=== PATIENT | male | born 1950 | race Caucasian/White ===

== ENCOUNTER 2016-12-02 09:37 | Inpatient (IN) | payer MEDICARE, MEDICAID ==
[2016-12-02] VITALS (13 sets, daily range): BP systolic 69–102; BP diastolic 55–94
[~2016-12-02] VITALS: Ht 182.9 cm; Wt 70.9 kg
[~2016-12-02 09:37] MED LIST: ASP81TEC PO; CEPH500C PO; DOXY100T61 PO; FLUO10CA19 PO; GBPN300C PO; GBPN600T PO; HYDR-3583 PO; HYDR1TAB66 PO; HYDR1TAB86 PO; IBUP-15 PO; LEVO250T7 PO; MELO-198 PO; MORP30TA16 PO; MS15TCR PO; NICO1PAT16 TD; OMEP20TA2 PO; OXC5T PO; OXYC-309 PO; OXYC10TA7 PO; PARO10TA21 PO; SERT100T8 PO; SULF1TAB38 PO; TRAZ150T42 PO
--- OUTSIDE RECORDS SUMMARY | 2016-12-02 11:38 | XMS REPORT | Clinical Summary ---
Author Author [facility] Organization [facility] Address Unknown Phone Unavailable Care Team Providers Care Server Software Engineer Name Role Phone PCP Unavailable Source Comments Some departments are not documenting in the electronic medical record. If you do not see the information that you expected, contact Release of Information in the Health Information Management department at [phone] for further assistance in locating additional records.[facility] Allergies Active Allergy Reactions Severity Noted Date Comments Codeine RASH 01/04/2011 Can tolerate it now Vancomycin RASH 06/04/2011 Current Medications Prescription Sig. Disp. Refills Start End Date Status Date ascorbic acid (VITAMIN-C) Take 1 Tab by mouth 30 Tab 0 02/08/20 Active 500 mg tablet daily. 11 PARoxetine (PAXIL) 10 mg Take 20 mg by mouth Active tablet daily. omeprazole DR(+) Take 20 mg by mouth Active (PRILOSEC) 20 mg capsule daily. oxyCODONE/acetaminophen Take 1-2 Tabs by mouth 90 Tab 0 06/25/19 Active (PERCOCET; ENDOCET; every 4 hours as needed 12 ROXICET) 5/325 mg tablet for Pain. Max 12 tabs/day enoxaparin (LOVENOX) 40 Inject 0.4 mL into 40 Syringe 0 06/25/19 Active mg Syrg area(s) as directed 12 daily. 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 Alcohol Use Drinks/Week oz/Week Comments Yes 6 Cans of 3.6 beer Sex Assigned at Date Recorded Not on file Last Filed Vital Signs Vital Sign Reading Time Taken Blood Pressure 105/71 06/25/2011 4:42 PM CDT Pulse 63 06/25/2011 4:42 PM CDT Temperature 36.3 C (97.3 F) 06/25/2011 4:42 PM CDT Respiratory Rate 12 04/10/2011 1:01 PM APPLICATION SYSTEMS ARCHITECT Oxygen Saturation 100% 06/25/2011 4:42 PM CDT Inhaled Oxygen - - Concentration Weight 65.1 kg (143 lb 9.6 oz) 06/22/2011 8:30 PM CDT Height 182.9 cm (6') 06/22/2011 2:49 PM CDT Body Mass Index 19.48 06/22/2011 8:30 PM CDT Plan of Treatment Health Maintenance Due Date Last Done Comments HEPATITIS C SCREENING 1950 PHYSICAL (COMPREHENSIVE) 11/08/1955 EXAM COLORECTAL CANCER 1998 SCREENING SHINGLES VACCINE 2008 ABDOMINAL AORTIC ANEURYSM 2013 SCREENING PREVNAR/PNEUMOVAX (#1) 2013 01/04/2011 INFLUENZA VACCINE 11/23/2016 01/04/2011 TETANUS VACCINE 01/04/2021 01/04/2011 PERTUSSIS VACCINE Completed 01/04/2011 Results Not on filefrom Last 3 Months
--- OUTSIDE RECORDS SUMMARY | 2016-12-02 11:38 | XMS REPORT ---
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
--- OUTSIDE RECORDS SUMMARY | 2016-12-02 11:38 | XMS REPORT ---
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 Active Problem Need for prophylactic vaccination and inoculation, Influenza V04.81 Active Problem Adult failure to thrive 783.7 Active Problem Acid reflux K21.9 Active Problem Chronic pain G89.29 Active Problem Insomnia, unspecified type G47.00 Active Problem Fatigue R53.83 Active Problem Dysthymia F34.1 Active Problem Depression F32.9 Active Problem Cancer of right lower extremity C76.51 Active Assessment Weight loss R63.4 Active Assessment Insomnia, unspecified type G47.00 Active Assessment Chronic pain G89.29 Active Problem Acute gastritis without mention of hemorrhage 535.00 Active Assessment Irritable bowel syndrome with both constipation and diarrhea K58.2 Active Problem Diarrhea 787.91 Active Assessment Depression F32.9 Active Problem Major depressive disorder, recurrent episode, unspecified 296.30 Active Medications Medication Code System Code Instructions Start Date End Date Status Dosage Mobic [facility] [address]-22 7.5 MG Orally Once a day Jan 31, 2012 1 tablet Zoloft [facility] [address]-42 100 MG Orally Once a day June 02, 2015 1 tablet Ambien [facility] [address]-87 5 mg Orally Once a day Jan 10, 2016 1 tablet at bedtime Prilosec [facility] [address]-23 20 mg Orally Once a day Dec 11, 2012 1 capsule Gabapentin [facility] [address]-74 600 MG Orally Three times a day June 16, 2015 1 tablet Bentyl [facility] [address]-88 20 mg Orally 3 times a day - before meals Jan 10, 2016 as directed Procedures Procedure Coding System Code Date Office Visit, Est Pt., Level 3 CPT-4 92731 Jan 10, 2016 [facility] VISIT ESTABLISHED PATIENT CPT-4 G0467 Jan 10, 2016 Vital Signs Date/Time: Jan 10, 2016 Cardiac Monitoring Heart Rate 88 bpm Weight 130.7 lbs Height 72 in BMI 17.72 Index Blood Pressure Diastolic 70 mmHg Blood Pressure Systolic 142 mmHg Results No Known Results Summary Purpose [employer] Submission
--- OUTSIDE RECORDS SUMMARY | 2016-12-02 11:38 | XMS REPORT ---
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.5 Active Problem Chronic pain G89.29 Active Problem Depression F32.9 Active Problem Acid reflux K21.9 Active Problem Dysthymia F34.1 Active Problem Need for prophylactic vaccination and inoculation, Influenza V04.81 Active Problem Cancer of right lower extremity C76.51 Active Problem Fatigue R53.83 Active Assessment Chronic pain G89.29 Active Assessment Acid reflux K21.9 Active Problem Acute gastritis without mention of hemorrhage 535.00 Active Assessment Depression F32.9 Active Problem Diarrhea 787.91 Active Medications Medication Code System Code Instructions Start Date End Date Status Dosage MS Contin [facility] [address]-65 15 MG Orally every 12 hrs June 16, 2015 1 tablet Gabapentin [facility] [address]-56 600 MG Orally Three times a day June 16, 2015 1 tablet Mobic [facility] [address]-52 7.5 MG Orally Once a day Jan 31, 2012 1 tablet Zoloft [facility] [address]-17 100 MG Orally Once a day June 02, 2015 1 tablet Oxycodone HCl [facility] [address]-10 5 MG Orally 3 times a day June 02, 2015 1 capsule as needed Prilosec [facility] [address]-88 20 mg Orally Once a day Dec 11, 2012 1 capsule Results No Known Results Summary Purpose [employer] Submission
--- NOTE | 2016-12-02 11:55 | Consultation-Cardiology ---
HPI-Cardiology Cardiology Consultation Date of Consultation 12/02/16 Date of Admission Time Seen by Provider: 11:48 Indication: tachycardia, shortness of breath HPI 66 years old gentleman with history of tobaccoism, history of malignant melanoma. Admitted to [facility] with spontaneous pneumothorax, hypertension pneumothorax and had a chest tube placed. During the hospital stay he was improving, yesterday the plan was to remove the chest tube, noted to have frequent episodes of cardiac arrhythmia with multiple episode of paroxysmal atrial tachycardia and few episode of wide-complex tachycardia that appeared to be aberrant conduction. He felt palpitation and chest pain at the chest tube site on the left side of his chest. reported the syncopal episodes prior to the admission to [facility]. Had history of tobaccoism and COPD, shortness of breath. Home Medications & Allergies Allergies: Coded Allergies: No Known Drug Allergies (Unverified , 12/02/16) Home Medication List Reviewed: Yes NSO-Airvpr-Jpnweh Hx Immunizations Up To Date Date of Pneumonia Vaccine: Mar 25, 2010 Date of Influenza Vaccine: Jan 23, 2013 Past Medical History past medical history as discussed below Family Medical History Family Medical Hx noncontributory to his current condition Constitutional: see HPI, malaise, weakness EENTM: see HPI, no symptoms reported Respiratory: see HPI, cough, dyspnea on exertion, No hemoptysis, No orthopnea, No phlegm, short of breath, No stridor, No wheezing, No other Cardiovascular: see HPI, chest pain, No edema, No Hx of Intervention, No palpitations, No syncope, No vascular heart diseas, No other Gastrointestinal: no symptoms reported, see HPI Genitourinary: no symptoms reported, see HPI Musculoskeletal: no symptoms reported, see HPI Skin: no symptoms reported, see HPI Psychiatric/Neurological: No Symptoms Reported, See HPI Reviewed Test Results Reviewed Test Results Lab patient arrived from [facility], no labs are available in our system, had lab work done in [facility] with normal metabolic profile, slightly elevated troponin level, mild leukocytosis. Physical Exam Vital Signs Vital Sign - Last 12Hours 12/02/16 11:05 Temp 98.9 Pulse 95 Resp 10 B/P (MAP) 92/74 Pulse Ox 99 O2 Delivery Room Air Capillary Refill : General Appearance: No Apparent Distress, WD/WN Eyes: Bilateral Eye Normal Inspection, Bilateral Eye PERRL, Bilateral Eye EOMI HEENT: PERRL/EOMI, TMs Normal, Normal ENT Inspection, Pharynx Normal Neck: Full Range of Motion, Normal Inspection, Non Tender, Supple, Carotid Bruit Respiratory: Chest Non Tender, Normal Breath Sounds, No Accessory Muscle Use, No Respiratory Distress, Crackles, Decreased Breath Sounds Cardiovascular: Regular Rate, Rhythm, No Edema, No Gallop, No JVD, Normal Peripheral Pulses, Systolic Murmur Gastrointestinal: Normal Bowel Sounds, No Organomegaly, No Pulsatile Mass, Non Tender, Soft Back: Normal Inspection, No CVA Tenderness, No Vertebral Tenderness Extremity: Normal Capillary Refill, Normal Inspection, Normal Range of Motion, Non Tender, No Calf Tenderness, No Pedal Edema Neurologic/Psychiatric: Alert, Oriented x3, No Motor/Sensory Deficits, Normal Mood/Affect Skin: Normal Color, Warm/Dry Lymphatic: No Adenopathy A/P-Cardiology Admission Diagnosis Spontaneous pneumothorax Chest pain nonspecific etiology Paroxysmal atrial tachycardia Shortness of breath Assessment/Plan Spontaneous pneumothorax, status post chest tube placement. Improving. Followed and managed by Dr. Fernando Multiple episodes of paroxysmal atrial tachycardia, had 2 episodes of wide complex tachycardia which appeared to be aberrant conduction. Patient will be monitored on telemetry here. I will use low-dose beta blockers if patient can tolerate it Chest pain nonspecific etiology, it could be secondary to the chest tube, I have seen him in 2013 for chest pain and shortness of breath, had a stress test and echocardiogram done which did not show any significant ischemia at that time. Continue to monitor for now, had mildly elevated troponin level. Continue to monitor troponin and EKG Borderline hypotension, blood pressure is in the upper 90s, I will start her on IV fluid and monitor closely. 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 Followed by Dr. Richmond History of pulmonary nodule, followed by Dr. Richmond. COPD/tobaccoism, patient is still an active smoker smokes about a pack a day, educated on smoking cessation. Dr. Hernandez is covering for me starting tomorrow AUREA WU MD Dec 02, 2016 11:55
--- NOTE | 2016-12-02 13:21 | Diagnostic Imaging Report ---
INDICATION: Arrhythmia. Left-sided pneumothorax. Comparison with 08/11/2014. FINDINGS: There is a chest tube present on the left tip extended toward the hilum. Left lung is well-aerated. There is no evidence of pneumothorax. No subcutaneous air. There is mild hyperaeration of the right lung. There is bilateral chronic interstitial lung disease. No pleural effusion. IMPRESSION: Satisfactory left chest tube position with reexpansion of the left lung. No evidence of residual pneumothorax or significant subcutaneous emphysema. Dictated by: Dictated on workstation # [id number]
[2016-12-02] MEDS: NS IV 1000 ML 1,000 ML IV SCH ×2 (13:40→19:18)
[2016-12-02] MEDS: ENOXAPARIN 40 MG/0.4 ML (LOVENOX) SYR SC SCH (13:40)
[2016-12-02] MEDS ORDERED: NS (IVPB) 500 ML IV ONE (14:00)
[2016-12-02] MEDS ORDERED: NS IV 1000 ML 1,000 ML IV SCH ×2 (14:00→17:45)
--- NOTE | 2016-12-02 16:01 | Consultation ---
History of Present Illness History of Present Illness Patient Consulted On(kylie/time) 12/02/16 15:55 Date Seen by Provider: Dec 02, 2016 Time Seen by Provider: 15:56 Reason for Visit: tachycardia, shortness of breath History of Present Illness consult requested by Dr. Erickson for spontaneous left pneumothorax. patient is a 66-year-old male who was transferred via [place] due to arrhythmia and need for cardiology consultation. Patient with spontaneous left thorax. Patient denies any trauma to the chest. Patient states that he is having increasing difficulty breathing and was evaluated found to have a pneumothorax and a chest tube was placed in [facility]. Patient states that he is doing well but he began having arrhythmias and was transferred for cardiology consultation. Patient at this time states he has a little bit of left chest discomfort where the tube is present. He does report some previous syncopal episodes prior to his admission in [facility]. Patient states that his breathing has improved significantly and that they're talking about removing the tube tired to transfer. Patient has no other complaints at this time. Denies any nausea vomiting fever sweats chills or shortness of breath. Chest x-ray demonstrating left thoracostomy tube in good position no pneumothorax or subcutaneous emphysema. Allergies and Home Medications Allergies Coded Allergies: No Known Drug Allergies (Unverified , 12/02/16) Home Medications No Active Prescriptions or Reported Meds Past Ujppehd-Nnebpa-Pryccx Hx Patient Social History Alcohol Use: Regular Use Number of Drinks Today: 0 Recreational Drug Use: No Smoking Status: Current Everyday Smoker Type Used: Cigarettes Recent Foreign Travel: No Contact w/Someone Who Travel: No Recent Infectious Disease Expo: No Recent Hopitalizations: Yes Physical Abuse Screen: No Sexual Abuse: No Immunizations Up To Date Date of Pneumonia Vaccine: Mar 25, 2010 Date of Influenza Vaccine: Jan 23, 2013 Seasonal Allergies Seasonal Allergies: No Surgeries History of Surgeries: No Respiratory History of Respiratory Disorde: Yes Respiratory Disorders: COPD Cardiovascular History of Cardiac Disorders: No Neurological History of Neurological Disord: Yes Reproductive System Hx Reproductive Disorders: No Sexually Transmitted Disease: No Genitourinary History of Genitourinary Disor: No Gastrointestinal History of Gastrointestinal Di: Yes Gastrointestinal Disorders: Gastroesophageal Reflux Musculoskeletal History of Musculoskeletal Dis: Yes (RIGHT LEG 3" SHORTER THAN LEFT LEG/ osteoarthrithis) Endocrine History of Endocrine Disorders: No HEENT History of HEENT Disorders: Yes Hearing Impairment: Hard of Hearing Cancer History of Cancer: Yes (malignant neoplasm on right leg/mai) Psychosocial History of Psychiatric Problem: Yes Behavioral Health Disorders: Anxiety Integumentary History of Skin or Integumenta: No Blood Transfusions History of Blood Disorders: No Family Medical History Significant Family History: No Pertinent Family Hx Family Medial History: Patient reports no known family medical history. Review of Systems-General Constitutional: see HPI EENTM: no symptoms reported Respiratory: see HPI Cardiovascular: syncope, other (arrhythmia) Gastrointestinal: no symptoms reported Genitourinary: no symptoms reported Musculoskeletal: no symptoms reported Skin: no symptoms reported Psychiatric/Neurological: No Symptoms Reported Physical Exam-General Problems Physical Exam Vital Signs Vital Sign - Last 12Hours 12/02/16 11:05 Temp 98.9 Pulse 95 Resp 10 B/P (MAP) 92/74 Pulse Ox 99 O2 Delivery Room Air Capillary Refill : General Appearance: no apparent distress HEENT: PERRL/EOMI, normal ENT inspection Neck: supple Respiratory: no respiratory distress, no accessory muscle use Cardiovascular: tachycardia Gastrointestinal: non tender, soft, no organomegaly Rectal: deferred Back: no CVA tenderness Extremities: non-tender, normal inspection Neurologic/Psychiatric: alert, normal mood/affect, oriented x 3 Skin: warm/dry Comments Left chest with thoracostomy tube Assessment/Plan Assessment/Plan Assessment/Plan Patient with spontaneous left pneumothorax status post left thoracostomy tube placement in [facility] . Patient transferred for arrhythmia which cardiology has been consulted. Chest x-ray demonstrating full expansion of the left long there is no air leak on the atrium therefore we will put to water seal at this time and repeat chest x-ray 4 hours. We will repeat chest x-ray in the morning if this remains expanded we'll likely remove chest tube tomorrow. No further surgical intervention needed at this time continue medical management. Clinical Quality Measures DVT/VTE Risk/Contraindication: Risk Factor Score Per Nursin RFS Level Per Nursing on Admit: 4+=Very High AMARILYS DENISE DO Dec 02, 2016 16:00
--- NOTE | 2016-12-02 16:43 | History & Physicial (CH[facility]) ---
HPI History of Present Illness: 66 yo male transferred from [facility] due to need for further Cardiology evaluation. He was admitted at [facility] with shortness of breath and pneumothorax requiring chest tube placement. He was doing well from a respiratory standpoint but noted to have brief periods of V tach overnight and was therefore transferred for more Cardiology evaluation. The etiology of the pneumothorax is unknown, but possibly a ruptured bulla related to COPD. He relates a previous diagnosis of COPD but is unable to clarify if he has ever had PFTs and he does not use inhalers. Date seen by provider: Dec 02, 2016 Time Seen by Provider: 12:15 Attending Physician Kristen Erickson MD PCP Sarah Conteh DO Consult Date of Admission Dec 02, 2016 at 11:34 am Home Medications Home Medications Reviewed patient Home Medication Reconciliation Form Allergies Coded Allergies: No Known Drug Allergies (Unverified , 12/02/16) KHW-Lymfqh-Avskbw Hx Patient Social History Alcohol Use: Regular Use Recreational Drug Use: No Smoking Status: Current Everyday Smoker Type Used: Cigarettes Recent Foreign Travel: No Contact w/other who traveled: No Recent Hopitalizations: Yes Recent Infectious Disease Expo: No Physical Abuse Screen: No Sexual Abuse: No Immunizations Up To Date Date of Pneumonia Vaccine: Mar 25, 2010 Date of Influenza Vaccine: Jan 23, 2013 Past Medical History PMHx: Depression Chronic pain GERD Skin cancer right leg with radiation and chemotherapy PSurgHx: Squamous cell carcinoma excision Right thigh skin graft Family Medical History Significant Family History: No Pertinent Family Hx Review of Systems ([facility]) Constitutional: No fever EENTM: no symptoms reported Respiratory: No short of breath Cardiovascular: chest pain (due to chest tube) Gastrointestinal: no symptoms reported Genitourinary: no symptoms reported Musculoskeletal: no symptoms reported Skin: no symptoms reported Psychiatric/Neurological: No Symptoms Reported Physical Exam-([facility]) Physical Exam Vital Signs VS - Last 72 Hours, by Label 12/02/16 12/02/16 12/02/16 12/02/16 11:05 11:15 13:00 13:00 Temp 98.9 Pulse 95 78 79 Resp 10 17 B/P (MAP) 92/74 82/64 Pulse Ox 99 99 O2 Delivery Room Air Room Air Room Air 12/02/16 12/02/16 12/02/16 12/02/16 14:00 15:00 16:00 16:15 Pulse 82 98 104 Resp 17 15 12 B/P (MAP) 99/94 102/86 69/55 Pulse Ox 99 100 100 O2 Delivery Room Air Room Air Room Air Room Air 12/02/16 12/02/16 12/02/16 12/02/16 16:30 17:00 18:00 18:43 Temp 98.8 Pulse 85 102 Resp 19 17 B/P (MAP) 85/70 93/78 Pulse Ox 100 95 94 O2 Delivery Room Air Room Air Nasal Cannula O2 Flow Rate 2.00 12/02/16 19:00 Pulse 112 Capillary Refill : General Appearance: no apparent distress, cachetic Respiratory: lungs clear, normal breath sounds Cardiovascular: regular rate, rhythm, no edema, no murmur Gastrointestinal: normal bowel sounds, non tender, soft Extremities: no pedal edema Neurologic/Psychiatric: alert, normal mood/affect Skin: warm/dry Assessment/Plan Assessment/Plan Admission Dx Pneumothorax Tachy arrhythmias COPD Hypotension Plan Pneumothorax- s/p chest tube placement, stable with expanded lung and no respiratory distress -Appreciate Surgery recommendations Tachy arrhythmias- with elevated (trending down) troponin at [facility]. Appreciate Cardiology recommendations. EKG and troponin in am per Dr. Miller. Electrolytes normal today at [facility], recheck in the am COPD- possible based on history, no testing or clear diagnosis. Will monitor respiratory status and treat with inhalers as needed. Hypotension- unclear etiology, review of records from [facility] shows initial leukocytosis resolved, afebrile and currently he has normal heart rate and is asymptomatic -NS bolus followed by 150 ml/hr Diagnosis/Problems: Clinical Quality Measures DVT/VTE Risk/Contraindication: Risk Factor Score Per Nursin RFS Level Per Nursing on Admit: 4+=Very High Copy Copies To 1: IVON Nicole BETHANY N MD Dec 02, 2016 4:43 pm
[2016-12-02] MEDS ORDERED: NS IV 500 ML 500 ML IV ONE (17:45)
--- NOTE | 2016-12-02 20:51 | Diagnostic Imaging Report ---
INDICATION: Left pneumothorax. EXAMINATION: Frontal chest was obtained at 8:26 p.m. COMPARISON: Same day at 1:07 p.m. FINDINGS: Left-sided chest tube is in place and unchanged compared to the prior study. There is no pneumothorax at this time. There is worsening central vascular congestion with diffuse interstitial edema. There is no significant pleural fluid. IMPRESSION: No pneumothorax with left chest tube in place. Worsening central vascular congestion with interstitial edema compared to the prior study. Dictated by: Dictated on workstation # [id number]
[2016-12-02] MEDS: ALBUMIN 5% 12.5 GM/250 ML 250 ML IV SCH ×2 (21:15→21:42)
[2016-12-02] MEDS ORDERED: RT-ALBUTEROL SULF 2.5 MG/3 ML PRE-MIX VIAL IH PRN (21:15)
[2016-12-02 21:26] LABS: BILIRUBIN,URINE NEGATIVE (NEGATIVE); KETONES,URINE 1+ (NEGATIVE); LEUKOCYTE ESTERASE ,URINE 3+ (NEGATIVE); NITRITE,URINE NEGATIVE (NEGATIVE); PH,URINE 5 (5-9); PROTEIN,URINE 2+ (NEGATIVE); UROBILINOGEN,URINE 1 MG/DL (NORMAL)
[2016-12-02 21:29] LABS: ALBUMIN 2.5 GM/DL (3.2-4.5); ANION GAP 8 MMOL/L (5-14); BLOOD UREA NITROGEN 14 MG/DL (7-18); BUN/CREATININE RATIO 23; CARBON DIOXIDE 24 MMOL/L (21-32); CHLORIDE 102 MMOL/L (98-107); CREATININE SERUM 0.62 MG/DL (0.60-1.30); GFR ESTIMATED > 60; GLUCOSE 81 MG/DL (70-105); MAGNESIUM 1.7 MG/DL (1.8-2.4); POTASSIUM 4.6 MMOL/L (3.6-5.0); SODIUM 134 MMOL/L (135-145)
[2016-12-02 21:39] LABS: SQUAMOUS EPITHELIAL CELL,UR 25-50 /HPF; WBC,URINE TNTC /HPF
[2016-12-02 21:42] LABS: TROPONIN I 0.34 NG/ML (<0.30)
[2016-12-02] MEDS: RT-ALBUTEROL/IPRATROPIUM 3 ML (DUONEB) VIAL INH SCH (22:00)
[2016-12-02] MEDS: ALBUMIN 25% 25 GM/100 ML 100 ML IV SCH ×2 (22:25→23:05)
[2016-12-03] VITALS (25 sets, daily range): BP systolic 64–135; BP diastolic 50–100
[2016-12-03] MEDS: ACETAMINOPHEN 325 MG TABLET/CAPLET (TYLENOL) PO PRN (00:22)
[2016-12-03] MEDS ORDERED: MAGNESIUM 1 GM/100 ML IVPB 200 ML IV ONE (00:39)
[2016-12-03] MEDS ORDERED: fentaNYL INJECTION 100 MCG/2 ML AMP ONE (00:48)
[2016-12-03] MEDS ORDERED: FUROSEMIDE 40 MG/4 ML INJ (LASIX) ONE (00:48)
[2016-12-03] MEDS: MAGNESIUM 1 GM/100 ML IVPB 100 ML IV SCH ×3 (00:50→05:46)
[2016-12-03] MEDS ORDERED: FUROSEMIDE 40 MG/4 ML INJ (LASIX) IV ONE (01:00)
[2016-12-03] MEDS ORDERED: fentaNYL INJECTION 100 MCG/2 ML AMP IV ONE (01:00)
[2016-12-03] MEDS: RT-ALBUTEROL/IPRATROPIUM 3 ML (DUONEB) VIAL INH SCH ×6 (01:20→22:02)
[2016-12-03 01:21] LABS: ABG BASE EXCESS -5.7 MMOL/L (-2.5-2.5); ABG HCO3 20 MMOL/L (23-27); ABG OXYGEN SATURATION 87 % (94-100); ABG PCO2 47 MMHG (35-45); ABG PO2 70 MMHG (79-93); ABG TCO2 21.2 MMOL/L (21.0-31.0)
[2016-12-03 01:23] LABS: ABG PH 7.26 (7.37-7.43); ALLENS TEST YES-POS; PATIENT TEMP 101.5
[2016-12-03] MEDS ORDERED: FUROSEMIDE 40 MG/4 ML INJ (LASIX) IVP ONE ×2 (01:45→18:45)
[2016-12-03] MEDS ORDERED: NS IV 500 ML 500 ML ONE (02:49)
[2016-12-03] MEDS ORDERED: NS IV 500 ML 500 ML IV ONE (03:00)
[2016-12-03 03:16] LABS: MEAN PLATELET VOLUME 10.6 FL (7.4-10.4); RED BLOOD COUNT 3.87 10^6/uL (4.35-5.85); RED CELL DISTRIBUTION WIDTH 12.3 % (10.0-14.5); WHITE BLOOD COUNT 9.9 10^3/uL (4.3-11.0)
[2016-12-03 03:17] LABS: ABG BASE EXCESS -0.4 MMOL/L (-2.5-2.5); ABG HCO3 23 MMOL/L (23-27); ABG OXYGEN SATURATION 96 % (94-100); ABG PCO2 33 MMHG (35-45); ABG PH 7.46 (7.37-7.43); ABG PO2 71 MMHG (79-93)
[2016-12-03 03:18] LABS: ALLENS TEST YES-POS; PATIENT TEMP 98.4
[2016-12-03 03:34] LABS: ALANINE AMINOTRANSFERASE 16 U/L (0-55); ALBUMIN 3.3 GM/DL (3.2-4.5); ANION GAP 9 MMOL/L (5-14); ASPARTATE AMINO TRANSFERASE 25 U/L (5-34); BILIRUBIN,TOTAL 1.8 MG/DL (0.1-1.0); BLOOD UREA NITROGEN 14 MG/DL (7-18); BUN/CREATININE RATIO 21; CALCIUM 8.1 MG/DL (8.5-10.1); CARBON DIOXIDE 23 MMOL/L (21-32); CHLORIDE 102 MMOL/L (98-107); CREATININE SERUM 0.68 MG/DL (0.60-1.30); GFR ESTIMATED > 60; GLUCOSE 126 MG/DL (70-105); MAGNESIUM 2.6 MG/DL (1.8-2.4); PHOSPHORUS 2.2 MG/DL (2.3-4.7); SODIUM 134 MMOL/L (135-145); TOTAL PROTEIN 6.2 GM/DL (6.4-8.2)
[2016-12-03 03:42] LABS: TROPONIN I 0.33 NG/ML (<0.30)
[2016-12-03] MEDS: NS IV 1000 ML 1,000 ML IV SCH ×2 (05:15→10:16)
[2016-12-03] MEDS: POTASSIUM CL 10MEQ/50ML IVPB 50 ML IV SCH (05:45)
[2016-12-03] MEDS: KCL 20 MEQ TAB (K-DUR) PO SCH (05:46)
[2016-12-03] MEDS ORDERED: NOREPINEPHRINE 4 MG/4 ML (LEVOPHED) AMP IV ONE (07:23)
[2016-12-03] MEDS ORDERED: D5W 250 ML (IVPB) 250 ML IV ONE (07:23)
[2016-12-03] MEDS ORDERED: NOREPINEPHRINE 4 MG in D5W 250 ML (IVPB) 250 ML IV SCH (07:45)
--- NOTE | 2016-12-03 07:52 | Pulmonary Consultation ---
History of Present Illness History of Present Illness Date of Consultation 12/03/16 07:47 Time Seen by Provider: 07:47 Date of Admission Reason for Visit: tachycardia, shortness of breath History of Present Illness 66yo with hx of COPD transferred from [facility] for higher level of care. He had presented to [facility] secondary to worsening SOB and was found to have a PTX and chest tube was placed. Pt has also been having periods of V Tach. Pt has been requiring BiPAP throughout the night secondary to excessive SOB. His chest tube is in place and positioned appropriately. I am consulted for pulmonary CC management. Allergies and Home Medications Allergies Coded Allergies: No Known Drug Allergies (Unverified , 12/02/16) Home Medications No Active Prescriptions or Reported Meds Past Ljiivok-Yjugri-Thjjpp Hx Patient Social History Alcohol Use: Regular Use Number of Drinks Today: 0 Alcohol Beverage of Choice: Beer Recreational Drug Use: No Smoking Status: Current Everyday Smoker Type Used: Cigarettes Recent Foreign Travel: No Contact w/Someone Who Travel: No Recent Infectious Disease Expo: No Recent Hopitalizations: Yes Immunizations Up To Date Date of Pneumonia Vaccine: Mar 25, 2010 Date of Influenza Vaccine: Jan 23, 2013 Seasonal Allergies Seasonal Allergies: No Surgeries History of Surgeries: No Respiratory History of Respiratory Disorde: Yes Respiratory Disorders: COPD Cardiovascular History of Cardiac Disorders: No Neurological History of Neurological Disord: Yes Reproductive System Hx Reproductive Disorders: No Sexually Transmitted Disease: No Genitourinary History of Genitourinary Disor: No Gastrointestinal History of Gastrointestinal Di: Yes Gastrointestinal Disorders: Gastroesophageal Reflux Musculoskeletal History of Musculoskeletal Dis: Yes (RIGHT LEG 3" SHORTER THAN LEFT LEG/ osteoarthrithis) Endocrine History of Endocrine Disorders: No HEENT History of HEENT Disorders: Yes Hearing Impairment: Hard of Hearing Cancer History of Cancer: Yes (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 Review of Systems Time Seen by Provider: 08:16 Constitutional: Fever, Sweats, Weakness, Malaise Respiratory: Cough, Dry, Shortness of breath, SOB with excertion Neurological: Weakness, Numbness Exam Exam Vital Signs Date Time Temp Pulse Resp B/P (MAP) Pulse Ox O2 Delivery O2 Flow Rate FiO2 12/03/16 06:13 94 24 100 25.00 12/03/16 06:00 93 22 95/70 100 NIV Bilevel 25.00 12/03/16 05:00 92 23 102/80 100 NIV Bilevel 25.00 12/03/16 04:00 93 19 100/80 100 NIV Bilevel 25.00 12/03/16 04:00 NIV Bilevel 25 12/03/16 03:00 98.4 NIV Bilevel 25.00 12/03/16 03:00 110 15 98/80 100 NIV Bilevel 25.00 12/03/16 02:15 116 15 100 25.00 12/03/16 02:00 99.6 NIV Bilevel 25.00 12/03/16 02:00 124 23 64/50 100 NIV Bilevel 25.00 12/03/16 01:20 95 Nasal Cannula 3.00 12/03/16 01:10 101.5 12/03/16 01:03 101.5 12/03/16 01:03 101.5 12/03/16 01:00 131 37 123/100 97 Nasal Cannula 1.50 12/03/16 01:00 132 12/03/16 00:22 101.5 12/03/16 00:19 101.5 12/03/16 00:00 Nasal Cannula 3.00 12/03/16 00:00 99 21 100 Nasal Cannula 1.50 12/02/16 23:31 101.1 Nasal Cannula 1.50 12/02/16 23:06 100.5 Nasal Cannula 1.50 12/02/16 23:00 95 21 92/72 100 12/02/16 22:11 101.6 Nasal Cannula 1.50 12/02/16 22:00 101 13 91/68 98 12/02/16 22:00 98 Nasal Cannula 1.50 12/02/16 21:10 104 96 12/02/16 21:00 103 12 87/61 99 12/02/16 20:00 98.9 Nasal Cannula 2.00 12/02/16 20:00 Nasal Cannula 2.00 12/02/16 20:00 99 16 86/67 99 12/02/16 19:00 112 12/02/16 19:00 112 16 98/73 99 12/02/16 18:43 94 Nasal Cannula 2.00 12/02/16 18:00 102 17 93/78 95 Room Air 12/02/16 17:00 85 19 85/70 100 Room Air 12/02/16 16:30 98.8 12/02/16 16:15 Room Air 12/02/16 16:00 104 12 69/55 100 Room Air 12/02/16 15:00 98 15 102/86 100 Room Air 12/02/16 14:00 82 17 99/94 99 Room Air 12/02/16 13:00 79 12/02/16 13:00 78 17 82/64 99 Room Air 12/02/16 11:15 Room Air 12/02/16 11:05 98.9 95 10 92/74 99 Room Air General Appearance: No Apparent Distress, WD/WN HEENT: PERRL/EOMI, TMs Normal, Normal ENT Inspection, Pharynx Normal Neck: Full Range of Motion, Normal Inspection, Non Tender, Supple, Carotid Bruit Respiratory: Chest Non Tender, Normal Breath Sounds, No Accessory Muscle Use, No Respiratory Distress, Crackles, Decreased Breath Sounds Cardiovascular: Regular Rate, Rhythm, No Edema, No Gallop, No JVD, Normal Peripheral Pulses, Systolic Murmur Gastrointestinal: normal bowel sounds, non tender, soft Extremity: Normal Capillary Refill, Normal Inspection, Normal Range of Motion, Non Tender, No Calf Tenderness, No Pedal Edema Neurologic/Psychiatric: Alert, Oriented x3, No Motor/Sensory Deficits, Normal Mood/Affect Skin: Normal Color, Warm/Dry Lymphatic: No Adenopathy Results Lab Laboratory Tests 12/02/16 21:00 12/03/16 03:05 Assessment/Plan Assessment/Plan Spontaneous PTX with left chest tube in place Fever r/o infection -Aguirre cultures -Start vanco zosyn -Send pleural fluid down for C&S and cytology Acute respiratory failure -BiPAP PRN -Titrate oxygen -SVNs Hypotension -Pt is currently on Levophed -Check TSH and random cortisol -Pt has been receiving IVF boluses throughout the night. 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 Richmond Tobacco -education 255 Clinical Quality Measures DVT/VTE Risk/Contraindication: Risk Factor Score Per Nursin RFS Level Per Nursing on Admit: 4+=Very High DALJIT NEWTON DO Dec 03, 2016 07:52
[2016-12-03] MEDS ORDERED: PHARMACY TO DOSE IV SCH (08:15)
[2016-12-03] MEDS ORDERED: PIPERACILLIN/TAZOBACTAM 4.5 GM/NS 100 ML IV NR ×2 (08:16)
--- NOTE | 2016-12-03 08:27 | Diagnostic Imaging Report ---
Portable upright radiograph of the chest. INDICATION: Pneumothorax. FINDINGS: There is a left chest tube in place. There are increasing interstitial right perihilar infiltrates. Developing small right effusion is suggested. The heart size is at the upper limits of normal. No pneumothorax. IMPRESSION: 1. Stable left chest tube with no pneumothorax. 2. Worsening right perihilar and basilar infiltrates. Dictated by: Dictated on workstation # [id number]
[2016-12-03] MEDS ORDERED: VANCOMYCIN 1250 MG/NS 250 ML IVPB IV NR ×2 (08:30)
--- NOTE | 2016-12-03 10:31 | Progress Note ---
Subjective Date Seen by Provider: Dec 03, 2016 Time Seen by Provider: 08:30 Subjective/Events-last exam Patient overnight requiring BiPAP for having shortness of breath and difficulty breathing. Patient also with fever MAXIMUM TEMPERATURE of 101.5. Patient states this morning he is feeling better than he did yesterday. His chest tube still with no air leak. His chest x-ray demonstrating right chest infiltrated the chest tubes in good position PICC line about to be placed Objective Exam Vital Signs Date Time Temp Pulse Resp B/P (MAP) Pulse Ox O2 Delivery O2 Flow Rate FiO2 12/03/16 10:02 100 Nasal Cannula 3.00 12/03/16 10:00 97 21 135/72 97 Nasal Cannula 3.00 12/03/16 09:00 107 17 103/75 100 Nasal Cannula 3.00 12/03/16 08:00 NIV Bilevel 25 12/03/16 07:58 98.7 99 17 91/56 100 Nasal Cannula 3.00 12/03/16 07:00 100 15 92/71 100 Nasal Cannula 3.00 12/03/16 07:00 100 12/03/16 06:13 94 24 100 25.00 12/03/16 06:00 93 22 95/70 100 NIV Bilevel 25.00 12/03/16 05:00 92 23 102/80 100 NIV Bilevel 25.00 12/03/16 04:00 93 19 100/80 100 NIV Bilevel 25.00 12/03/16 04:00 NIV Bilevel 25 12/03/16 03:00 98.4 NIV Bilevel 25.00 12/03/16 03:00 110 15 98/80 100 NIV Bilevel 25.00 12/03/16 02:15 116 15 100 25.00 12/03/16 02:00 99.6 NIV Bilevel 25.00 12/03/16 02:00 124 23 64/50 100 NIV Bilevel 25.00 12/03/16 01:20 95 Nasal Cannula 3.00 12/03/16 01:10 101.5 12/03/16 01:03 101.5 12/03/16 01:03 101.5 12/03/16 01:00 131 37 123/100 97 Nasal Cannula 1.50 12/03/16 01:00 132 12/03/16 00:22 101.5 12/03/16 00:19 101.5 12/03/16 00:00 Nasal Cannula 3.00 12/03/16 00:00 99 21 100 Nasal Cannula 1.50 12/02/16 23:31 101.1 Nasal Cannula 1.50 12/02/16 23:06 100.5 Nasal Cannula 1.50 12/02/16 23:00 95 21 92/72 100 12/02/16 22:11 101.6 Nasal Cannula 1.50 12/02/16 22:00 101 13 91/68 98 12/02/16 22:00 98 Nasal Cannula 1.50 12/02/16 21:10 104 96 12/02/16 21:00 103 12 87/61 99 12/02/16 20:00 98.9 Nasal Cannula 2.00 12/02/16 20:00 Nasal Cannula 2.00 12/02/16 20:00 99 16 86/67 99 12/02/16 19:00 112 12/02/16 19:00 112 16 98/73 99 12/02/16 18:43 94 Nasal Cannula 2.00 12/02/16 18:00 102 17 93/78 95 Room Air 12/02/16 17:00 85 19 85/70 100 Room Air 12/02/16 16:30 98.8 12/02/16 16:15 Room Air 12/02/16 16:00 104 12 69/55 100 Room Air 12/02/16 15:00 98 15 102/86 100 Room Air 12/02/16 14:00 82 17 99/94 99 Room Air 12/02/16 13:00 79 12/02/16 13:00 78 17 82/64 99 Room Air 12/02/16 11:15 Room Air 12/02/16 11:05 98.9 95 10 92/74 99 Room Air Capillary Refill : General Appearance: No Apparent Distress HEENT: PERRL/EOMI, TMs Normal, Normal ENT Inspection, Pharynx Normal Neck: Full Range of Motion, Normal Inspection, Non Tender, Supple, Carotid Bruit Respiratory: Chest Non Tender, Normal Breath Sounds, No Accessory Muscle Use, No Respiratory Distress, Crackles, Decreased Breath Sounds Cardiovascular: Normal Peripheral Pulses, Tachycardia Gastrointestinal: normal bowel sounds, non tender, soft Extremity: Normal Capillary Refill, Normal Inspection, Normal Range of Motion, Non Tender, No Calf Tenderness, No Pedal Edema Neurologic/Psychiatric: Alert, Oriented x3, No Motor/Sensory Deficits, Normal Mood/Affect Skin: Normal Color, Warm/Dry Lymphatic: No Adenopathy Results Lab Laboratory Tests 12/02/16 21:00: Hemoglobin 13.7, Sodium Level 134L, Potassium Level 4.6, Chloride Level 102, Carbon Dioxide Level 24, Anion Gap 8, Blood Urea Nitrogen 14, Creatinine 0.62, Estimat Glomerular Filtration Rate > 60, BUN/Creatinine Ratio 23, Glucose Level 81, Lactic Acid Level 1.22, Calcium Level 8.0L, Magnesium Level 1.7L, Troponin I 0.34*H, B-Type Natriuretic Peptide 2021.4H, Albumin 2.5L 12/02/16 21:17: Urine Color YELLOW, Urine Clarity SLIGHTLY CLOUDY, Urine pH 5, Urine Specific [place] 1.015L, Urine Protein 2+H, Urine Glucose (UA) NEGATIVE, Urine Ketones 1+ H, Urine Nitrite NEGATIVE, Urine Bilirubin NEGATIVE, Urine Urobilinogen 1, Urine Leukocyte Esterase 3+H, Urine RBC (Auto) 1+H, Urine RBC RARE, Urine WBC TNTCH, Urine Squamous Epithelial Cells 25-50H, Urine Renal Epithelial Cells NONE , Urine Crystals NONE, Urine Bacteria FEWH, Urine Casts NONE, Urine Mucus NEGATIVE, Urine Culture Indicated YES 12/03/16 01:15: Blood Gas Puncture Site RIGHT RADIAL, Blood Gas Patient Temperature 101.5, Arterial Blood pH 7.26*L, Arterial Blood Partial Pressure CO2 47H, Arterial Blood Partial Pressure O2 70L, Arterial Blood HCO3 20L, Arterial Blood Total CO2 21.2, Arterial Blood Oxygen Saturation 87L, Arterial Blood Base Excess -5.7L , Tommy Test YES-POS, Blood Gas Ventilator Setting NO, Blood Gas Inspired Oxygen 3L 12/03/16 03:05: Hemoglobin 12.7L, Sodium Level 134L, Potassium Level 4.0, Chloride Level 102, Carbon Dioxide Level 23, Anion Gap 9, Blood Urea Nitrogen 14, Creatinine 0.68, Estimat Glomerular Filtration Rate > 60, BUN/Creatinine Ratio 21, Glucose Level 126H, Lactic Acid Level 1.88, Calcium Level 8.1L, Magnesium Level 2.6H, Troponin I 0.33*H, B-Type Natriuretic Peptide 2900.1H, Albumin 3.3, White Blood Count 9.9, Red Blood Count 3.87L, Hematocrit 37L, Mean Corpuscular Volume 97, Mean Corpuscular Hemoglobin 33, Mean Corpuscular Hemoglobin Concent 34, Red Cell Distribution Width 12.3, Platelet Count 138, Mean Platelet Volume 10.6H, Phosphorus Level 2.2L, Total Bilirubin 1.8H, Aspartate Amino Transf (AST/SGOT) 25, Alanine Aminotransferase (ALT/SGPT) 16, Alkaline Phosphatase 62, Total Protein 6.2L 12/03/16 03:10: Blood Gas Puncture Site RIGHT RADIAL, Blood Gas Patient Temperature 98.4, Arterial Blood pH 7.46H, Arterial Blood Partial Pressure CO2 33L, Arterial Blood Partial Pressure O2 71L, Arterial Blood HCO3 23, Arterial Blood Total CO2 24.0, Arterial Blood Oxygen Saturation 96, Arterial Blood Base Excess -0.4, Tommy Test YES-POS, Blood Gas Ventilator Setting NO, Blood Gas Inspired Oxygen 25% 12/03/16 08:34: Lactic Acid Level 1.41, Thyroid Stimulating Hormone (TSH) 1.00, Free Thyroxine 1.05 Assessment/Plan Assessment/Plan Assessment/Plan Patient with spontaneous left pneumothorax status post left thoracostomy tube placement in [facility] ArrhythmiaV. tach Hypotension requiring Levophed Chest x-ray demonstrating full expansion of the left lung there is infiltrate right lung With patient requiring BiPAP overnight with continue to leave the thoracostomy tube in place at this time. I discussed this with Dr. Gonzalez who agrees. Continue with medical management no surgical intervention at this time. Discussed putting a central line or PICC line this morning. Patient does not want central line and he wishes for PICC line to be placed. Clinical Quality Measures DVT/VTE Risk/Contraindication: Risk Factor Score Per Nursin RFS Level Per Nursing on Admit: 4+=Very High AMARILYS DENISE DO Dec 03, 2016 10:31
--- NOTE | 2016-12-03 10:39 | Diagnostic Imaging Report ---
Portable upright radiograph of the chest. INDICATION: PICC line placement. FINDINGS: There is a left PICC line placed with the tip at the mid SVC level. Left chest tube is in place. There is persistent perihilar and basilar infiltrates mostly on the right side. The heart size is normal. No effusion or pneumothorax. IMPRESSION: Perihilar and basilar infiltrates mostly on the left side. Dictated by: Dictated on workstation # [id number]
--- NOTE | 2016-12-03 10:42 | Progress Note-Cardiology ---
Cardiology SOAP Progress Note Subjective: Sitting up in bed. No c/o CP. Feels breathing is better. No c/o palpitations. Objective: I&O/Vital Signs Vital Sign - Last 12Hours 12/03/16 12/03/16 12/03/16 12/03/16 07:00 07:00 07:58 08:00 Temp 98.7 Pulse 100 100 99 Resp 15 17 B/P (MAP) 92/71 91/56 Pulse Ox 100 100 O2 Delivery Nasal Cannula Nasal Cannula NIV Bilevel O2 Flow Rate 3.00 3.00 FiO2 25 12/03/16 12/03/16 12/03/16 12/03/16 09:00 10:00 10:02 11:00 Pulse 107 97 98 Resp 17 21 18 B/P (MAP) 103/75 135/72 123/70 Pulse Ox 100 97 100 99 O2 Delivery Nasal Cannula Nasal Cannula Nasal Cannula Nasal Cannula O2 Flow Rate 3.00 3.00 3.00 3.00 12/03/16 12/03/16 12/03/16 12/03/16 12:00 12:50 12:50 13:00 Temp 99.4 Pulse 89 91 Resp 22 B/P (MAP) 129/75 Pulse Ox 100 O2 Delivery Nasal Cannula Room Air Room Air O2 Flow Rate 3.00 FiO2 12/03/16 12/03/16 12/03/16 12/03/16 13:00 14:00 14:22 15:00 Pulse 93 97 113 Resp 36 22 23 B/P (MAP) 129/72 129/77 112/72 Pulse Ox 100 100 100 100 O2 Delivery Room Air Room Air Room Air Room Air 12/03/16 12/03/16 12/03/16 12/03/16 15:51 16:00 16:00 17:00 Temp 98.9 Pulse 112 98 Resp 29 27 B/P (MAP) 109/60 119/56 Pulse Ox 100 100 100 O2 Delivery Room Air Room Air Room Air Room Air 12/03/16 12/03/16 18:00 18:26 Pulse 100 Resp 25 B/P (MAP) 119/63 Pulse Ox 100 100 O2 Delivery Room Air Room Air Intake and Output 12/04/16 00:00 Intake Total 350 ml Output Total 378 ml Balance -28 ml Weight (Pounds): 136 Weight (Ounces): 14.4 Weight (Calculated Kilograms): [id number] Constitutional: AAO x 3 Respiratory: other (chest tube in place with serous drainage; crackles RLL ) Cardiovascular: regular rate-rhythm (tachycardia), S1 and S2 Gastrointestional: No tender, soft, audible bowel sounds Genital/Rectal: other (urinary catheter to DD; clear yellow urine) Extremities: no lower extremity edema bilateral Neurologic/Psychiatric: grossly intact Results/Procedures: Labs Laboratory Tests 12/02/16 21:00: Hemoglobin 13.7, Sodium Level 134L, Potassium Level 4.6, Chloride Level 102, Carbon Dioxide Level 24, Anion Gap 8, Blood Urea Nitrogen 14, Creatinine 0.62, Estimat Glomerular Filtration Rate > 60, BUN/Creatinine Ratio 23, Glucose Level 81, Lactic Acid Level 1.22, Calcium Level 8.0L, Magnesium Level 1.7L, Troponin I 0.34*H, B-Type Natriuretic Peptide 2021.4H, Albumin 2.5L 12/02/16 21:17: Urine Color YELLOW, Urine Clarity SLIGHTLY CLOUDY, Urine pH 5, Urine Specific [place] 1.015L, Urine Protein 2+H, Urine Glucose (UA) NEGATIVE, Urine Ketones 1+ H, Urine Nitrite NEGATIVE, Urine Bilirubin NEGATIVE, Urine Urobilinogen 1, Urine Leukocyte Esterase 3+H, Urine RBC (Auto) 1+H, Urine RBC RARE, Urine WBC TNTCH, Urine Squamous Epithelial Cells 25-50H, Urine Renal Epithelial Cells NONE , Urine Crystals NONE, Urine Bacteria FEWH, Urine Casts NONE, Urine Mucus NEGATIVE, Urine Culture Indicated YES 12/03/16 01:15: Blood Gas Puncture Site RIGHT RADIAL, Blood Gas Patient Temperature 101.5, Arterial Blood pH 7.26*L, Arterial Blood Partial Pressure CO2 47H, Arterial Blood Partial Pressure O2 70L, Arterial Blood HCO3 20L, Arterial Blood Total CO2 21.2, Arterial Blood Oxygen Saturation 87L, Arterial Blood Base Excess -5.7L , Tommy Test YES-POS, Blood Gas Ventilator Setting NO, Blood Gas Inspired Oxygen 3L 12/03/16 03:05: Hemoglobin 12.7L, Sodium Level 134L, Potassium Level 4.0, Chloride Level 102, Carbon Dioxide Level 23, Anion Gap 9, Blood Urea Nitrogen 14, Creatinine 0.68, Estimat Glomerular Filtration Rate > 60, BUN/Creatinine Ratio 21, Glucose Level 126H, Lactic Acid Level 1.88, Calcium Level 8.1L, Magnesium Level 2.6H, Troponin I 0.33*H, B-Type Natriuretic Peptide 2900.1H, Albumin 3.3, White Blood Count 9.9, Red Blood Count 3.87L, Hematocrit 37L, Mean Corpuscular Volume 97, Mean Corpuscular Hemoglobin 33, Mean Corpuscular Hemoglobin Concent 34, Red Cell Distribution Width 12.3, Platelet Count 138, Mean Platelet Volume 10.6H, Phosphorus Level 2.2L, Total Bilirubin 1.8H, Aspartate Amino Transf (AST/SGOT) 25, Alanine Aminotransferase (ALT/SGPT) 16, Alkaline Phosphatase 62, Total Protein 6.2L 12/03/16 03:10: Blood Gas Puncture Site RIGHT RADIAL, Blood Gas Patient Temperature 98.4, Arterial Blood pH 7.46H, Arterial Blood Partial Pressure CO2 33L, Arterial Blood Partial Pressure O2 71L, Arterial Blood HCO3 23, Arterial Blood Total CO2 24.0, Arterial Blood Oxygen Saturation 96, Arterial Blood Base Excess -0.4, Tommy Test YES-POS, Blood Gas Ventilator Setting NO, Blood Gas Inspired Oxygen 25% 12/03/16 08:34: Lactic Acid Level 1.41, Thyroid Stimulating Hormone (TSH) 1.00, Free Thyroxine 1.05 Microbiology 12/03/16 Blood Culture - Preliminary, Resulted No growth 12/02/16 Gram Stain - Final, Resulted 12/02/16 Sputum Culture - Preliminary, Resulted Usual/normal tiffany isolated. 12/02/16 Urine Culture - Preliminary, Resulted NO GROWTH 12/03/16 Gram Stain - Final, Resulted 12/03/16 Wound Culture - Preliminary, Resulted Staphylococcus Aureus Laboratory Tests 12/02/16 21:00 12/03/16 03:05 Procedures NAME: CHARLES WAHL [facility] REC#: [id number] PT STATUS: ADM IN : 1950 PHYSICIAN: AMARILYS DENISE DO ADMIT DATE: 12/02/16/ICU Draft Date of Exam:12/03/16 CHEST 1 VIEW, AP/PA ONLY Portable upright radiograph of the chest. INDICATION: Pneumothorax. FINDINGS: There is a left chest tube in place. There are increasing interstitial right perihilar infiltrates. Developing small right effusion is suggested. The heart size is at the upper limits of normal. No pneumothorax. IMPRESSION: 1. Stable left chest tube with no pneumothorax. 2. Worsening right perihilar and basilar infiltrates. Dictated on workstation # [id number] Dict: 12/03/16811 Trans: 12/03/16 0826 [id number] Interpreted by: ANT MAYBERRY MD Electronically signed by: A/P: Assessment: Spontaneous pneumothorax, status post chest tube placement - Followed and managed by Dr. Liam Howard diastolic CHF, as indicated by elevated BNP. Echo of 12/03/16 showed AoV sclerosis w/o stenosis, LVEF 60-65% Multiple episodes of paroxysmal atrial tachycardia, had 2 episodes of wide complex tachycardia which appeared to be aberrant conduction - per Dr. Miller Chest pain nonspecific etiology, probably related to chest tube Mildly elevated troponin - conservative management at this time Stress test and echocardiogram [place] [address] Miller, which did not show any significant ischemia at that time. 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 Followed by Dr. Richmond History of pulmonary nodule, followed by Dr. Richmond. COPD/tobaccoism, patient is still an active smoker smokes about a pack a day, educated on smoking cessation. Plan: Complex management issue Tachycardia - however d/t hypotension this prevents the addition of BB tx Receiving Albumin and has received Lasix - monitor I&O and lab Echocardiogram pending Mildly elevated troponin at time of admission (with sinus tachycardia)- conservative management at this time Hypotension for which he was on Levophed - stopped this this morning Monitor lab Physician Assessment Physician Assessment Lungs: fair air entry, increased exp phase Cor: reg Ext: no c/c/e A&R * As documented in our note above that I updated (italics) and as noted below * iv furosemide * Monitor labs * Monitor closely clinically CHARLENE SORIA Dec 03, 2016 10:42 KARIN SANDHU MD [facility] Dec 03, 2016 18:41
[2016-12-03] MEDS: HYDROCORTISONE 100 MG/2 ML (Solu-CORTEF) VIAL IV SCH ×2 (12:07→21:26)
[2016-12-03] MEDS: ENOXAPARIN 40 MG/0.4 ML (LOVENOX) SYR SC SCH (12:07)
--- NOTE | 2016-12-03 12:11 | Progress Note (SOAP) ---
Subjective Subjective/Events-last exam States that he feels better this AM. Denies chest pain or palpitations this AM. Still having some shortness of breath but it is improving. BiPap overnight now on nasal canula. Review of Systems Date Seen by Provider: Dec 03, 2016 Time Seen by Provider: 10:00 General: No Chills, Malaise Pulmonary: Dyspnea Cardiovascular: No: Chest Pain, Palpitations, Edema Gastrointestinal: No: Abdominal Pain, Diarrhea, Constipation Objective Exam Last Set of Vital Signs Vital Signs Date Time Temp Pulse Resp B/P (MAP) Pulse Ox O2 Delivery O2 Flow Rate FiO2 12/03/16 10:02 100 Nasal Cannula 3.00 12/03/16 10:00 97 21 135/72 12/03/16 08:00 25 12/03/16 07:58 98.7 Capillary Refill : I&O Intake and Output 12/04/16 00:00 Intake Total 1150 ml Output Total 2660 ml Balance -1510 ml Intake Oral 0 ml IV Total 1150 ml Output Urine Total 2590 ml Chest Tube Drainage Total 70 ml General: Alert, Oriented X3, Cooperative, No Acute Distress HEENT: Mucous Memb Moist/[place] Neck: Supple Lungs: Clear to Auscultation, Normal Air Movement Heart: Regular Rate, No Murmurs Abdomen: Normal Bowel Sounds, Soft, No Tenderness, No Hepatosplenomegaly Extremities: No Edema, No Tenderness/Swelling Neuro: Normal Speech, Sensation Intact Psych/Mental Status: Mental Status NL, Mood NL Results/Procedures Lab Laboratory Tests 12/02/16 21:00: Hemoglobin 13.7, Sodium Level 134L, Potassium Level 4.6, Chloride Level 102, Carbon Dioxide Level 24, Anion Gap 8, Blood Urea Nitrogen 14, Creatinine 0.62, Estimat Glomerular Filtration Rate > 60, BUN/Creatinine Ratio 23, Glucose Level 81, Lactic Acid Level 1.22, Calcium Level 8.0L, Magnesium Level 1.7L, Troponin I 0.34*H, B-Type Natriuretic Peptide 2021.4H, Albumin 2.5L 12/02/16 21:17: Urine Color YELLOW, Urine Clarity SLIGHTLY CLOUDY, Urine pH 5, Urine Specific [place] 1.015L, Urine Protein 2+H, Urine Glucose (UA) NEGATIVE, Urine Ketones 1+ H, Urine Nitrite NEGATIVE, Urine Bilirubin NEGATIVE, Urine Urobilinogen 1, Urine Leukocyte Esterase 3+H, Urine RBC (Auto) 1+H, Urine RBC RARE, Urine WBC TNTCH, Urine Squamous Epithelial Cells 25-50H, Urine Renal Epithelial Cells NONE , Urine Crystals NONE, Urine Bacteria FEWH, Urine Casts NONE, Urine Mucus NEGATIVE, Urine Culture Indicated YES 12/03/16 01:15: Blood Gas Puncture Site RIGHT RADIAL, Blood Gas Patient Temperature 101.5, Arterial Blood pH 7.26*L, Arterial Blood Partial Pressure CO2 47H, Arterial Blood Partial Pressure O2 70L, Arterial Blood HCO3 20L, Arterial Blood Total CO2 21.2, Arterial Blood Oxygen Saturation 87L, Arterial Blood Base Excess -5.7L , Tommy Test YES-POS, Blood Gas Ventilator Setting NO, Blood Gas Inspired Oxygen 3L 12/03/16 03:05: Hemoglobin 12.7L, Sodium Level 134L, Potassium Level 4.0, Chloride Level 102, Carbon Dioxide Level 23, Anion Gap 9, Blood Urea Nitrogen 14, Creatinine 0.68, Estimat Glomerular Filtration Rate > 60, BUN/Creatinine Ratio 21, Glucose Level 126H, Lactic Acid Level 1.88, Calcium Level 8.1L, Magnesium Level 2.6H, Troponin I 0.33*H, B-Type Natriuretic Peptide 2900.1H, Albumin 3.3, White Blood Count 9.9, Red Blood Count 3.87L, Hematocrit 37L, Mean Corpuscular Volume 97, Mean Corpuscular Hemoglobin 33, Mean Corpuscular Hemoglobin Concent 34, Red Cell Distribution Width 12.3, Platelet Count 138, Mean Platelet Volume 10.6H, Phosphorus Level 2.2L, Total Bilirubin 1.8H, Aspartate Amino Transf (AST/SGOT) 25, Alanine Aminotransferase (ALT/SGPT) 16, Alkaline Phosphatase 62, Total Protein 6.2L 12/03/16 03:10: Blood Gas Puncture Site RIGHT RADIAL, Blood Gas Patient Temperature 98.4, Arterial Blood pH 7.46H, Arterial Blood Partial Pressure CO2 33L, Arterial Blood Partial Pressure O2 71L, Arterial Blood HCO3 23, Arterial Blood Total CO2 24.0, Arterial Blood Oxygen Saturation 96, Arterial Blood Base Excess -0.4, Tommy Test YES-POS, Blood Gas Ventilator Setting NO, Blood Gas Inspired Oxygen 25% 12/03/16 08:34: Lactic Acid Level 1.41, Thyroid Stimulating Hormone (TSH) 1.00, Free Thyroxine 1.05 Assessment/Plan Assessment/Plan Admission Dx Pneumothorax Tachy arrhythmias COPD Hypotension Plan Pneumothorax- s/p chest tube placement, stable with expanded lung and no respiratory distress - Dr Wheeler managing chest tube, mild increasing infiltrate on CXR. Tachy arrhythmias - Cardiology following, Echo pending today, BNP elevated, Troponin elevated COPD- possible based on history, no testing or clear diagnosis. Will monitor respiratory status and treat with inhalers as needed. - Titrate oxygen as tolerated Hypotension- unclear etiology, review of records from [facility] [place] shows initial leukocytosis resolved, has been febrile during admission - Dr Gonzalez following, started Antibiotics and steroids - Levophed d/c this AM, continue to monitor FEN: Heart healthy diet DVT PPX: Lovenox, GFR >40 Dispo: Continue admission in ICU Diagnosis/Problems: Clinical Quality Measures DVT/VTE Risk/Contraindication: Risk Factor Score Per Nursin RFS Level Per Nursing on Admit: 4+=Very High JAYSHREE BERRY MD Dec 03, 2016 12:11
[2016-12-03] MEDS ORDERED: PIPERACILLIN SODIUM/TAZOBACTAM 4.5 GM in NS (IVPB) 100 ML IV SCH (14:00)
[2016-12-03] MEDS: PIPERACILLIN SODIUM/TAZOBACTAM 4.5 GM in NS (IVPB) 100 ML IV SCH ×2 (15:51→23:40)
[2016-12-03] MEDS ORDERED: FUROSEMIDE 40 MG/4 ML INJ (LASIX) IVP NR (18:50)
[2016-12-03] MEDS ORDERED: VANCOMYCIN 1 GM/NS 250 ML IVPB IV SCH ×2 (21:00)
[2016-12-03] MEDS: FAMOTIDINE 20 MG (PEPCID) TABLET PO SCH (21:22)
[2016-12-04] VITALS (21 sets, daily range): BP systolic 103–144; BP diastolic 57–92
[2016-12-04] MEDS: NS IV 1000 ML 1,000 ML IV SCH ×2 (00:29→13:40)
[2016-12-04] MEDS: RT-ALBUTEROL/IPRATROPIUM 3 ML (DUONEB) VIAL INH SCH ×6 (02:18→22:21)
[2016-12-04 02:21] LABS: CALCIUM IONIZED 1.11 mmol/L (1.16-1.32); CORRECTED IONIZED CALCIUM 1.09 mmol/L (1.16-1.32)
[2016-12-04 05:00] LABS: BASOPHILS % (AUTO) 0 % (0-10); EOSINOPHILS % (AUTO) 0 % (0-10); LYMPHOCYTES # (AUTO) 0.6 X 10^3 (1.0-4.0); LYMPHOCYTES % (AUTO) 6 % (12-44); MEAN CORPUSCULAR HEMOGLOBIN 33 PG (25-34); MEAN CORPUSCULAR HGB CONC 35 G/DL (32-36); MEAN CORPUSCULAR VOLUME 96 FL (80-99); MEAN PLATELET VOLUME 10.7 FL (7.4-10.4); MONOCYTES # (AUTO) 0.8 X 10^3 (0.0-1.0); MONOCYTES % (AUTO) 8 % (0-12); NEUTROPHILS # (AUTO) 8.5 X 10^3 (1.8-7.8); NEUTROPHILS % (AUTO) 86 % (42-75); PLATELET COUNT 158 10^3/uL (130-400); RED BLOOD COUNT 3.37 10^6/uL (4.35-5.85); RED CELL DISTRIBUTION WIDTH 12.2 % (10.0-14.5); WHITE BLOOD COUNT 9.9 10^3/uL (4.3-11.0)
[2016-12-04 05:18] LABS: ANION GAP 12 MMOL/L (5-14); BLOOD UREA NITROGEN 11 MG/DL (7-18); BUN/CREATININE RATIO 17; CALCIUM 7.8 MG/DL (8.5-10.1); CARBON DIOXIDE 21 MMOL/L (21-32); CHLORIDE 103 MMOL/L (98-107); CREATININE SERUM 0.63 MG/DL (0.60-1.30); GFR ESTIMATED > 60; GLUCOSE 177 MG/DL (70-105); MAGNESIUM 1.8 MG/DL (1.8-2.4); POTASSIUM 2.6 MMOL/L (3.6-5.0); SODIUM 136 MMOL/L (135-145)
[2016-12-04] MEDS: HYDROCORTISONE 100 MG/2 ML (Solu-CORTEF) VIAL IV SCH ×3 (05:20→22:38)
[2016-12-04] MEDS: MAGNESIUM 1 GM/100 ML IVPB 100 ML IV SCH (05:57)
--- NOTE | 2016-12-04 06:58 | Pulmonary Progress Note ---
Subjective Time Seen by Provider: 06:57 Subjective/Events-last exam No complications noted. Pt has not required BiPAP and is only on RA. Exam Exam Vital Signs Date Time Temp Pulse Resp B/P (MAP) Pulse Ox O2 Delivery O2 Flow Rate FiO2 12/04/16 06:39 100 Room Air 12/04/16 06:00 84 21 129/63 100 Room Air 12/04/16 05:00 88 17 122/66 100 Room Air 12/04/16 04:00 98.0 89 23 114/68 100 Room Air 12/04/16 04:00 100 Room Air 12/04/16 03:00 116 19 110/62 100 Room Air 12/04/16 02:19 100 Room Air 12/04/16 02:00 87 23 110/64 100 Room Air 12/04/16 01:00 93 12/04/16 01:00 89 24 109/57 100 Room Air 12/04/16 00:00 100 Room Air 12/04/16 00:00 99.3 97 22 109/60 100 Room Air 12/03/16 23:00 141 22 112/61 100 Room Air 12/03/16 22:03 100 Room Air 12/03/16 22:00 105 19 113/59 100 Room Air 12/03/16 21:00 105 21 115/69 100 Room Air 12/03/16 20:00 98.0 107 15 114/63 100 Room Air 12/03/16 20:00 100 Room Air 12/03/16 19:00 112 12/03/16 19:00 112 12 119/65 100 Room Air 12/03/16 18:26 100 Room Air 12/03/16 18:00 100 25 119/63 100 Room Air 12/03/16 17:00 98 27 119/56 100 Room Air 12/03/16 16:00 100 Room Air 12/03/16 16:00 112 29 109/60 100 Room Air 12/03/16 15:51 98.9 Room Air 12/03/16 15:00 113 23 112/72 100 Room Air 12/03/16 14:22 100 Room Air 12/03/16 14:00 97 22 129/77 100 Room Air 12/03/16 13:00 93 36 129/72 100 Room Air 12/03/16 13:00 91 12/03/16 12:50 99.4 Room Air 12/03/16 12:50 Room Air 12/03/16 12:00 89 22 129/75 100 Nasal Cannula 3.00 12/03/16 11:00 98 18 123/70 99 Nasal Cannula 3.00 12/03/16 10:02 100 Nasal Cannula 3.00 12/03/16 10:00 97 21 135/72 97 Nasal Cannula 3.00 12/03/16 09:00 107 17 103/75 100 Nasal Cannula 3.00 12/03/16 08:00 NIV Bilevel 25 12/03/16 07:58 98.7 99 17 91/56 100 Nasal Cannula 3.00 12/03/16 07:00 100 15 92/71 100 Nasal Cannula 3.00 12/03/16 07:00 100 General Appearance: No Apparent Distress HEENT: PERRL/EOMI, TMs Normal, Normal ENT Inspection, Pharynx Normal Neck: Full Range of Motion, Normal Inspection, Non Tender, Supple, Carotid Bruit Respiratory: Chest Non Tender, Normal Breath Sounds, No Accessory Muscle Use, No Respiratory Distress, Crackles, Decreased Breath Sounds Cardiovascular: Normal Peripheral Pulses, Tachycardia Gastrointestinal: normal bowel sounds, non tender, soft Extremity: Normal Capillary Refill, Normal Inspection, Normal Range of Motion, Non Tender, No Calf Tenderness, No Pedal Edema Neurologic/Psychiatric: Alert, Oriented x3, No Motor/Sensory Deficits, Normal Mood/Affect Skin: Normal Color, Warm/Dry Lymphatic: No Adenopathy Results Lab Laboratory Tests 12/02/16 21:00 12/03/16 03:05 12/04/16 04:45 Assessment/Plan Assessment/Plan Spontaneous PTX with left chest tube in place -Plan is for Dr. 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 Richmond Tobacco -education Pt is ok to floor when ok with Dr. Wheeler. 233 Clinical Quality Measures DVT/VTE Risk/Contraindication: Risk Factor Score Per Nursin RFS Level Per Nursing on Admit: 4+=Very High DALJIT NEWTON DO Dec 04, 2016 06:58
[2016-12-04] MEDS ORDERED: SODIUM PHOSPHATE INJ 30 MM in NS (IVPB) 250 ML IV ONE (07:00)
[2016-12-04] MEDS ORDERED: POTASSIUM PHOSPHATE INJ 30 MM in NS (IVPB) 250 ML IV NR (07:45)
[2016-12-04] MEDS ORDERED: TROUGH ORDER-PHARMACY XX NR (08:00)
[2016-12-04 08:02] LABS: CALCIUM PH 7.35
[2016-12-04] MEDS: POTASSIUM CL 10MEQ/50ML IVPB 50 ML IV SCH (08:12)
[2016-12-04] MEDS: KCL 20 MEQ TAB (K-DUR) PO SCH ×4 (08:12→22:43)
[2016-12-04] MEDS: PIPERACILLIN SODIUM/TAZOBACTAM 4.5 GM in NS (IVPB) 100 ML IV SCH ×2 (08:26→17:03)
--- NOTE | 2016-12-04 08:43 | Progress Note-Cardiology ---
Cardiology SOAP Progress Note Subjective: Sitting up in bed. States he feels his breathing is better today. Reports localized left sided chest discomfort which is worse with movement and deep inspiration. Describes it as a "burning" sensation. Feels it is better than yesterday. Objective: I&O/Vital Signs Vital Sign - Last 12Hours 12/04/16 12/04/16 12/04/16 12/04/16 05:00 06:00 06:39 07:00 Pulse 88 84 87 Resp 17 B/P (MAP) 122/66 129/63 125/67 Pulse Ox 100 100 100 100 O2 Delivery Room Air Room Air Room Air Room Air 12/04/16 12/04/16 12/04/16 12/04/16 07:20 08:00 08:00 08:30 Temp 98.2 Pulse 84 85 Resp 19 B/P (MAP) 124/63 Pulse Ox 100 100 O2 Delivery Room Air Room Air 12/04/16 12/04/16 12/04/16 12/04/16 09:00 09:43 10:00 11:00 Pulse 84 91 89 Resp 29 17 B/P (MAP) 127/64 124/66 117/64 Pulse Ox 100 100 100 100 O2 Delivery Room Air Room Air Room Air Room Air 12/04/16 12/04/16 12/04/16 12/04/16 12:00 12:20 12:31 13:00 Temp 98.0 Pulse 84 82 Resp 20 B/P (MAP) 103/60 Pulse Ox 100 100 O2 Delivery Room Air Room Air 12/04/16 14:01 Pulse Ox 100 O2 Delivery Room Air Intake and Output 12/05/16 00:00 Intake Total 1722.5 ml Output Total 75 ml Balance 1647.5 ml Weight (Pounds): 139 Weight (Ounces): 4.0 Weight (Calculated Kilograms): 63.060115 Constitutional: AAO x 3 Respiratory: other (chest tube in place with serous drainage; crackles RLL ) Cardiovascular: regular rate-rhythm (tachycardia), S1 and S2 Gastrointestional: No tender, soft, audible bowel sounds Genital/Rectal: other (urinary catheter to DD; clear yellow urine) Extremities: no lower extremity edema bilateral Neurologic/Psychiatric: grossly intact Skin: No rash on exposed areas, No ulcerations on exposed areas Results/Procedures: Labs Laboratory Tests 12/04/16 04:45: White Blood Count 9.9, Red Blood Count 3.37L, Hemoglobin 11.2L, Hematocrit 32L, Mean Corpuscular Volume 96, Mean Corpuscular Hemoglobin 33, Mean Corpuscular Hemoglobin Concent 35, Red Cell Distribution Width 12.2, Platelet Count 158, Mean Platelet Volume 10.7H, Neutrophils (%) (Auto) 86H, Lymphocytes (%) (Auto) 6L, Monocytes (%) (Auto) 8, Eosinophils (%) (Auto) 0, Basophils (%) (Auto) 0, Neutrophils # (Auto) 8.5H, Lymphocytes # (Auto) 0.6L, Monocytes # (Auto) 0.8, Eosinophils # (Auto) 0.0, Basophils # (Auto) 0.0, Sodium Level 136, Potassium Level 2.6L, Chloride Level 103, Carbon Dioxide Level 21, Anion Gap 12, Blood Urea Nitrogen 11, Creatinine 0.63, Estimat Glomerular Filtration Rate > 60, BUN/ Creatinine Ratio 17, Glucose Level 177H, Calcium Level 7.8L, Phosphorus Level 1.7L, Magnesium Level 1.8 12/04/16 08:20: Vancomycin Level Trough 8.6L Microbiology 12/03/16 Blood Culture - Preliminary, Resulted No growth 12/03/16 Gram Stain - Final, Resulted 12/03/16 Body Fluid Culture - Preliminary, Resulted No growth 12/03/16 MRSA Screen - Final, Complete MRSA not isolated 12/02/16 Urine Culture - Preliminary, Resulted Probable Actinomyces 12/03/16 Gram Stain - Final, Resulted 12/03/16 Wound Culture - Preliminary, Resulted Staphylococcus Aureus Laboratory Tests 12/02/16 21:00 12/03/16 03:05 12/04/16 04:45 A/P: Assessment: Spontaneous pneumothorax, treated with chest tube placement that has been removed now - Followed and managed by Dr. Liam Howard diastolic CHF, as indicated by elevated BNP. Echo of 12/03/16 showed AoV sclerosis w/o stenosis, LVEF 60-65% Multiple episodes of paroxysmal atrial tachycardia, had 2 episodes of wide complex tachycardia which appeared to be aberrant conduction - per Dr. Miller Hypokalemia, being corrected Chest pain nonspecific etiology, probably related to chest tube Mildly elevated troponin - conservative management at this time Stress test and echocardiogram [place] [address] Miller, which did not show any significant ischemia at that time. 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 Followed by Dr. Richmond History of pulmonary nodule, followed by Dr. Richmond. COPD/tobaccoism, patient is still an active smoker smokes about a pack a day, educated on smoking cessation. Plan: Complex management issue Tachycardia - BP has improved - we will add low dose BB and monitor Mildly elevated troponin at time of admission (with sinus tachycardia)- conservative management at this time Replace electrolytes Monitor lab closely Physician Assessment Physician Assessment Lungs: fair air entry, increased exp phase Cor: reg Ext: no c/c/e A&R * As documented in our note above that I updated (italics) and as noted below * Replace lytes * Monitor labs CHARLENE SORIA Dec 04, 2016 08:43 KARIN SANDHU MD FACP FAC CCDS Dec 04, 2016 16:15
--- NOTE | 2016-12-04 09:16 | Diagnostic Imaging Report ---
EXAMINATION: Portable upright radiograph of the chest. INDICATION: Arrhythmia. FINDINGS: There is a left chest tube. No pneumothorax. The left PICC line is again seen with the tip at the SVC level. There is right perihilar and basilar predominantly interstitial infiltrates and a small right pleural effusion which have slightly increased compared to the 12/03/2016 comparison exam. The heart size is normal. IMPRESSION: Slightly increased mixed right perihilar and basilar infiltrates. Dictated by: Dictated on workstation # [id number]
[2016-12-04] MEDS: FAMOTIDINE 20 MG (PEPCID) TABLET PO SCH ×2 (09:58→20:51)
[2016-12-04] MEDS: VANCOMYCIN INJECTION 1,250 MG in NS (IVPB) 250 ML IV SCH ×2 (09:59→21:12)
[2016-12-04] MEDS: meTOprolol TARTRATE 25 MG (LOPRESSOR) TABLET PO SCH ×2 (09:59→20:51)
--- NOTE | 2016-12-04 11:58 | Progress Note (SOAP) ---
Subjective Subjective/Events-last exam Pt sleeping peacefully and easily awakens to spoken voice. Denies complaints and reports that he is feeling well. Denies chest pain or pressure, denies difficulty breathing. Chest tube remains in place and is draining serosanguinous fluid. No acute events overnight. Review of Systems Date Seen by Provider: Dec 04, 2016 Time Seen by Provider: 10:00 General: No Chills, No Night Sweats HEENT: No Head Aches, No Visual Changes, No Ear Pain Pulmonary: No Dyspnea Cardiovascular: No: Chest Pain, Lt Headedness Gastrointestinal: No: Nausea, Vomiting, Abdominal Pain Genitourinary: No Dysuria, No Hematuria Musculoskeletal: No: neck pain, shoulder pain Neurological: No: Weakness, Numbness, Confusion Objective Exam Last Set of Vital Signs Vital Signs Date Time Temp Pulse Resp B/P (MAP) Pulse Ox O2 Delivery O2 Flow Rate FiO2 12/04/16 09:43 100 Room Air 12/04/16 09:00 84 29 127/64 12/04/16 08:00 98.2 12/03/16 12:50 12/03/16 12:00 3.00 Capillary Refill : I&O Intake and Output 12/05/16 00:00 Intake Total 1560 ml Output Total 535 ml Balance 1025 ml Intake Oral 460 ml IV Total 1100 ml Output Urine Total 495 ml Chest Tube Drainage Total 40 ml General: Alert, Oriented X3, Cooperative, No Acute Distress HEENT: Atraumatic, Mucous Memb Moist/[place] Neck: Supple, No Thyromegaly Lungs: Normal Air Movement, Other (left chest tube in place) Heart: Regular Rate, No Murmurs Abdomen: Normal Bowel Sounds, Soft, No Tenderness Extremities: No Clubbing, No Cyanosis, Normal Pulses Skin: No Rashes, No Significant Lesion Neuro: Normal Speech, Normal Tone Psych/Mental Status: Mental Status NL, Mood NL Results/Procedures Lab Laboratory Tests 12/04/16 04:45: White Blood Count 9.9, Red Blood Count 3.37L, Hemoglobin 11.2L, Hematocrit 32L, Mean Corpuscular Volume 96, Mean Corpuscular Hemoglobin 33, Mean Corpuscular Hemoglobin Concent 35, Red Cell Distribution Width 12.2, Platelet Count 158, Mean Platelet Volume 10.7H, Neutrophils (%) (Auto) 86H, Lymphocytes (%) (Auto) 6L, Monocytes (%) (Auto) 8, Eosinophils (%) (Auto) 0, Basophils (%) (Auto) 0, Neutrophils # (Auto) 8.5H, Lymphocytes # (Auto) 0.6L, Monocytes # (Auto) 0.8, Eosinophils # (Auto) 0.0, Basophils # (Auto) 0.0, Sodium Level 136, Potassium Level 2.6L, Chloride Level 103, Carbon Dioxide Level 21, Anion Gap 12, Blood Urea Nitrogen 11, Creatinine 0.63, Estimat Glomerular Filtration Rate > 60, BUN/ Creatinine Ratio 17, Glucose Level 177H, Calcium Level 7.8L, Phosphorus Level 1.7L, Magnesium Level 1.8 12/04/16 08:20: Vancomycin Level Trough 8.6L Microbiology 12/03/16 Blood Culture - Preliminary, Resulted No growth 12/03/16 Gram Stain - Final, Resulted 12/03/16 Body Fluid Culture - Preliminary, Resulted No growth 12/03/16 MRSA Screen - Final, Complete MRSA not isolated 12/02/16 Urine Culture - Preliminary, Resulted NO GROWTH 12/03/16 Gram Stain - Final, Resulted 12/03/16 Wound Culture - Preliminary, Resulted Staphylococcus Aureus Procedures s/p chest tube placement by general surgery Assessment/Plan Assessment/Plan Admission Dx Pneumothorax Tachy arrhythmias COPD Hypotension Plan Pneumothorax- s/p chest tube placement, stable with expanded lung and no respiratory distress - Dr Wheeler managing chest tube, mild increasing infiltrate on CXR. Tachy arrhythmias - Cardiology following, Echo pending today, BNP elevated, Troponin elevated COPD- possible based on history, no testing or clear diagnosis. Will monitor respiratory status and treat with inhalers as needed. - Titrate oxygen as tolerated Hypotension- unclear etiology, review of records from [facility] [place] shows initial leukocytosis resolved, has been febrile during admission - Dr Gonzalez following, started Antibiotics and steroids - Levophed d/c 12/03 AM, continue to monitor FEN: Heart healthy diet DVT PPX: Lovenox, GFR >40 Dispo: Continue admission in ICU Diagnosis/Problems: (1) Arrhythmia Qualifiers: Qualified Codes: I49.9 - Cardiac arrhythmia, unspecified Assessment & Plan: cardiology evaluating, will follow (2) COPD (chronic obstructive pulmonary disease) Qualifiers: Qualified Codes: J44.9 - Chronic obstructive pulmonary disease, unspecified Assessment & Plan: suggested per history, no testing records available to confirm diagnosis (3) Chest tube in place Assessment & Plan: managed by general surgery, will continue to follow. on exam dressing is clean, dry, intact (4) Pneumothorax Qualifiers: Qualified Codes: J93.9 - Pneumothorax, unspecified Clinical Quality Measures DVT/VTE Risk/Contraindication: Risk Factor Score Per Nursin RFS Level Per Nursing on Admit: 4+=Very High IVAN MISHRA DO Dec 04, 2016 11:58
[2016-12-04] MEDS: ENOXAPARIN 40 MG/0.4 ML (LOVENOX) SYR SC SCH (12:26)
--- NOTE | 2016-12-04 16:45 | Progress Note ---
Subjective Date Seen by Provider: Dec 04, 2016 Time Seen by Provider: 16:40 Subjective/Events-last exam Patient no new complaints. Chest tube no air leak. Not requiring bipap. Objective Exam Vital Signs Date Time Temp Pulse Resp B/P (MAP) Pulse Ox O2 Delivery O2 Flow Rate FiO2 12/04/16 14:01 100 Room Air 12/04/16 13:00 82 12/04/16 12:31 98.0 12/04/16 12:20 100 Room Air 12/04/16 12:00 84 20 103/60 100 Room Air 12/04/16 11:00 89 17 117/64 100 Room Air 12/04/16 10:00 91 12 124/66 100 Room Air 12/04/16 09:43 100 Room Air 12/04/16 09:00 84 29 127/64 100 Room Air 12/04/16 08:30 100 Room Air 12/04/16 08:00 98.2 12/04/16 08:00 85 19 124/63 100 Room Air 12/04/16 07:20 84 12/04/16 07:00 87 17 125/67 100 Room Air 12/04/16 06:39 100 Room Air 12/04/16 06:00 84 21 129/63 100 Room Air 12/04/16 05:00 88 17 122/66 100 Room Air 12/04/16 04:00 98.0 89 23 114/68 100 Room Air 12/04/16 04:00 100 Room Air 12/04/16 03:00 116 19 110/62 100 Room Air 12/04/16 02:19 100 Room Air 12/04/16 02:00 87 23 110/64 100 Room Air 12/04/16 01:00 93 12/04/16 01:00 89 24 109/57 100 Room Air 12/04/16 00:00 100 Room Air 12/04/16 00:00 99.3 97 22 109/60 100 Room Air 12/03/16 23:00 141 22 112/61 100 Room Air 12/03/16 22:03 100 Room Air 12/03/16 22:00 105 19 113/59 100 Room Air 12/03/16 21:00 105 21 115/69 100 Room Air 12/03/16 20:00 98.0 107 15 114/63 100 Room Air 12/03/16 20:00 100 Room Air 12/03/16 19:00 112 12/03/16 19:00 112 12 119/65 100 Room Air 12/03/16 18:26 100 Room Air 12/03/16 18:00 100 25 119/63 100 Room Air 12/03/16 17:00 98 27 119/56 100 Room Air I & O 12/05/16 07:00 Intake Total 1962.5 ml Output Total 275 ml Balance 1687.5 ml Capillary Refill : General Appearance: No Apparent Distress HEENT: PERRL/EOMI, TMs Normal, Normal ENT Inspection, Pharynx Normal Neck: Full Range of Motion, Normal Inspection, Non Tender, Supple, Carotid Bruit Respiratory: Chest Non Tender, No Accessory Muscle Use, No Respiratory Distress , Crackles, Decreased Breath Sounds Cardiovascular: Normal Peripheral Pulses, Tachycardia Gastrointestinal: normal bowel sounds, non tender, soft Extremity: Normal Capillary Refill, Normal Inspection, Normal Range of Motion, Non Tender, No Calf Tenderness, No Pedal Edema Neurologic/Psychiatric: Alert, Oriented x3, No Motor/Sensory Deficits, Normal Mood/Affect Skin: Normal Color, Warm/Dry Lymphatic: No Adenopathy Results Lab Laboratory Tests 12/04/16 04:45: White Blood Count 9.9, Red Blood Count 3.37L, Hemoglobin 11.2L, Hematocrit 32L, Mean Corpuscular Volume 96, Mean Corpuscular Hemoglobin 33, Mean Corpuscular Hemoglobin Concent 35, Red Cell Distribution Width 12.2, Platelet Count 158, Mean Platelet Volume 10.7H, Neutrophils (%) (Auto) 86H, Lymphocytes (%) (Auto) 6L, Monocytes (%) (Auto) 8, Eosinophils (%) (Auto) 0, Basophils (%) (Auto) 0, Neutrophils # (Auto) 8.5H, Lymphocytes # (Auto) 0.6L, Monocytes # (Auto) 0.8, Eosinophils # (Auto) 0.0, Basophils # (Auto) 0.0, Sodium Level 136, Potassium Level 2.6L, Chloride Level 103, Carbon Dioxide Level 21, Anion Gap 12, Blood Urea Nitrogen 11, Creatinine 0.63, Estimat Glomerular Filtration Rate > 60, BUN/ Creatinine Ratio 17, Glucose Level 177H, Calcium Level 7.8L, Phosphorus Level 1.7L, Magnesium Level 1.8 12/04/16 08:20: Vancomycin Level Trough 8.6L Microbiology 12/03/16 Blood Culture - Preliminary, Resulted No growth 12/03/16 Gram Stain - Final, Resulted 12/03/16 Body Fluid Culture - Preliminary, Resulted No growth 12/03/16 MRSA Screen - Final, Complete MRSA not isolated 12/02/16 Urine Culture - Preliminary, Resulted Probable Actinomyces 12/03/16 Gram Stain - Final, Resulted 12/03/16 Wound Culture - Preliminary, Resulted Staphylococcus Aureus Assessment/Plan Assessment/Plan Assessment/Plan Patient with spontaneous left pneumothorax status post left thoracostomy tube placement in [facility] ArrhythmiaV. tach Hypotension improved no air leak lung expanded removed chest x ray with repeat chest x ray in 4 hours. Continue with medical management no surgical intervention at this time. Clinical Quality Measures DVT/VTE Risk/Contraindication: Risk Factor Score Per Nursin RFS Level Per Nursing on Admit: 4+=Very High AMARILYS DENISE DO Dec 04, 2016 16:45
[2016-12-04 17:26] LABS: ANION GAP 9 MMOL/L (5-14); BLOOD UREA NITROGEN 11 MG/DL (7-18); BUN/CREATININE RATIO 15; CARBON DIOXIDE 22 MMOL/L (21-32); CHLORIDE 107 MMOL/L (98-107); CREATININE SERUM 0.72 MG/DL (0.60-1.30); GFR ESTIMATED > 60; GLUCOSE 174 MG/DL (70-105); POTASSIUM 2.9 MMOL/L (3.6-5.0); SODIUM 138 MMOL/L (135-145)
--- NOTE | 2016-12-04 19:27 | Diagnostic Imaging Report ---
INDICATION: Post chest tube removal. COMPARISONS: 12/04/16 at 4:35 a.m. FINDINGS: Single view of the chest shows the cardiac contour to be normal. There are extensive background chronic parenchymal changes. Central venous congestion is unchanged. Right perihilar and right lower lobe consolidation have increased slightly. There is no pneumothorax. Left-sided PICC line tip is projected over the mid SVC. Soft tissues and bony thorax are normal. IMPRESSION: 1. Increasing right lower lobe consolidation. 2. Increasing right perihilar infiltrates. 3. Extensive background chronic parenchymal changes. 4. Left-sided PICC line tip is projected over the mid SVC. 5. There is no evidence of a pneumothorax. Dictated by: Dictated on workstation # [id number]
[2016-12-04] MEDS ORDERED: NS IV 500 ML 500 ML IV SCH (23:45)
[2016-12-05] VITALS (17 sets, daily range): BP systolic 132–200; BP diastolic 76–135
[2016-12-05] MEDS: PIPERACILLIN SODIUM/TAZOBACTAM 4.5 GM in NS (IVPB) 100 ML IV SCH ×3 (00:07→15:25)
[2016-12-05] MEDS: RT-ALBUTEROL/IPRATROPIUM 3 ML (DUONEB) VIAL INH SCH ×6 (02:33→21:15)
[2016-12-05] MEDS: NS IV 1000 ML 1,000 ML IV SCH ×2 (03:37→15:25)
[2016-12-05 04:57] LABS: BASOPHILS % (AUTO) 0 % (0-10); EOSINOPHILS % (AUTO) 0 % (0-10); LYMPHOCYTES # (AUTO) 0.5 X 10^3 (1.0-4.0); LYMPHOCYTES % (AUTO) 5 % (12-44); MEAN CORPUSCULAR HEMOGLOBIN 33 PG (25-34); MEAN CORPUSCULAR HGB CONC 35 G/DL (32-36); MEAN CORPUSCULAR VOLUME 96 FL (80-99); MEAN PLATELET VOLUME 10.5 FL (7.4-10.4); MONOCYTES # (AUTO) 0.8 X 10^3 (0.0-1.0); MONOCYTES % (AUTO) 8 % (0-12); NEUTROPHILS # (AUTO) 8.9 X 10^3 (1.8-7.8); NEUTROPHILS % (AUTO) 87 % (42-75); PLATELET COUNT 190 10^3/uL (130-400); RED BLOOD COUNT 3.34 10^6/uL (4.35-5.85); RED CELL DISTRIBUTION WIDTH 12.6 % (10.0-14.5); WHITE BLOOD COUNT 10.3 10^3/uL (4.3-11.0)
[2016-12-05 05:18] LABS: ANION GAP 6 MMOL/L (5-14); BLOOD UREA NITROGEN 14 MG/DL (7-18); BUN/CREATININE RATIO 22; CARBON DIOXIDE 24 MMOL/L (21-32); CHLORIDE 111 MMOL/L (98-107); CREATININE SERUM 0.64 MG/DL (0.60-1.30); GFR ESTIMATED > 60; GLUCOSE 159 MG/DL (70-105); MAGNESIUM 1.9 MG/DL (1.8-2.4); PHOSPHORUS 2.2 MG/DL (2.3-4.7); POTASSIUM 3.6 MMOL/L (3.6-5.0); SODIUM 141 MMOL/L (135-145)
[2016-12-05] MEDS: MAGNESIUM 1 GM/100 ML IVPB 100 ML IV SCH (05:47)
[2016-12-05] MEDS: POTASSIUM CL 10MEQ/50ML IVPB 50 ML IV SCH (05:48)
[2016-12-05] MEDS: KCL 20 MEQ TAB (K-DUR) PO SCH (05:48)
[2016-12-05] MEDS: HYDROCORTISONE 100 MG/2 ML (Solu-CORTEF) VIAL IV SCH (05:59)
[2016-12-05] MEDS ORDERED: KCL 20 MEQ TAB (K-DUR) PO NR (06:40)
--- NOTE | 2016-12-05 06:41 | Pulmonary Progress Note ---
Subjective Time Seen by Provider: 06:37 Subjective/Events-last exam No complications noted. Exam Exam Vital Signs Date Time Temp Pulse Resp B/P (MAP) Pulse Ox O2 Delivery O2 Flow Rate FiO2 12/05/16 06:00 92 21 149/85 100 Room Air 12/05/16 05:00 90 22 142/96 100 Room Air 12/05/16 04:00 100 Room Air 12/05/16 04:00 99.1 92 22 132/79 100 Room Air 12/05/16 03:00 97 15 145/83 100 Room Air 12/05/16 02:33 100 Room Air 12/05/16 02:00 92 21 148/89 100 Room Air 12/05/16 01:00 94 21 137/80 100 Room Air 12/05/16 01:00 94 12/05/16 00:00 100 Room Air 12/05/16 00:00 98.4 93 23 137/76 100 Room Air 12/04/16 23:00 91 23 137/92 100 Room Air 12/04/16 22:21 100 Room Air 12/04/16 22:00 106 20 136/89 100 Room Air 12/04/16 21:00 105 20 124/72 100 Room Air 12/04/16 20:00 98.9 137 10 142/87 100 Room Air 12/04/16 20:00 100 Room Air 12/04/16 19:01 100 Room Air 12/04/16 19:00 117 20 144/87 100 Room Air 12/04/16 19:00 117 12/04/16 18:00 94 16 100 Room Air 12/04/16 17:00 103 13 130/70 100 Room Air 12/04/16 16:00 100 Room Air 12/04/16 16:00 93 12 124/70 100 Room Air 12/04/16 15:00 93 20 100 Room Air 12/04/16 14:01 100 Room Air 12/04/16 14:00 94 15 100 Room Air 12/04/16 13:00 77 20 123/66 100 Room Air 12/04/16 13:00 82 12/04/16 12:31 98.0 12/04/16 12:20 100 Room Air 12/04/16 12:00 84 20 103/60 100 Room Air 12/04/16 11:00 89 17 117/64 100 Room Air 12/04/16 10:00 91 12 124/66 100 Room Air 12/04/16 09:43 100 Room Air 12/04/16 09:00 84 29 127/64 100 Room Air 12/04/16 08:30 100 Room Air 12/04/16 08:00 98.2 12/04/16 08:00 85 19 124/63 100 Room Air 12/04/16 07:20 84 12/04/16 07:00 87 17 125/67 100 Room Air 12/04/16 06:39 100 Room Air General Appearance: No Apparent Distress HEENT: PERRL/EOMI, TMs Normal, Normal ENT Inspection, Pharynx Normal Neck: Full Range of Motion, Normal Inspection, Non Tender, Supple, Carotid Bruit Respiratory: Chest Non Tender, No Accessory Muscle Use, No Respiratory Distress , Crackles, Decreased Breath Sounds Cardiovascular: Normal Peripheral Pulses, Tachycardia Gastrointestinal: normal bowel sounds, non tender, soft Extremity: Normal Capillary Refill, Normal Inspection, Normal Range of Motion, Non Tender, No Calf Tenderness, No Pedal Edema Neurologic/Psychiatric: Alert, Oriented x3, No Motor/Sensory Deficits, Normal Mood/Affect Skin: Normal Color, Warm/Dry Lymphatic: No Adenopathy Results Lab Laboratory Tests 12/04/16 04:45 12/04/16 16:50 12/05/16 04:51 Assessment/Plan Assessment/Plan Spontaneous PTX s/p left chest tube in place -CHest tube d/c'd Fever r/o infection -Aguirre cultures -Start vanco zosyn -Send pleural fluid down for C&S and cytology Acute respiratory failure -BiPAP PRN -Titrate oxygen -SVNs Hypotension - resolved COPD -SVNS -oxygen 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 Richmond Tobacco -education Pt is ok to floor when ok with Dr. Wheeler. 233 Clinical Quality Measures DVT/VTE Risk/Contraindication: Risk Factor Score Per Nursin RFS Level Per Nursing on Admit: 4+=Very High DALJIT NEWTON DO Dec 05, 2016 06:41
[2016-12-05] MEDS ORDERED: TROUGH ORDER-PHARMACY XX NR (08:00)
[2016-12-05] MEDS: ACETAMINOPHEN 325 MG TABLET/CAPLET (TYLENOL) PO PRN (08:17)
[2016-12-05] MEDS: FAMOTIDINE 20 MG (PEPCID) TABLET PO SCH ×2 (08:17→21:39)
[2016-12-05] MEDS: meTOprolol TARTRATE 25 MG (LOPRESSOR) TABLET PO SCH ×2 (08:17→21:41)
--- NOTE | 2016-12-05 09:03 | Progress Note (SOAP) ---
Subjective Subjective/Events-last exam No acute events overnight. Pt has chest tube discontinued yesterday. This morning he is sitting up in the chair at bedside and reports that he feels very short of breath. He reported that he transferred from the bed to the chair and now he feels like he just can't get much air in. He does report that now that he has been sitting in the chair for a bit that it is starting to improve a little bit. He reports that compared to yesterday he feels that his breathing is worse. Review of Systems Date Seen by Provider: Dec 05, 2016 Time Seen by Provider: 09:30 General: No Chills, No Night Sweats, Fatigue, No Appetite (appetitie decreased) HEENT: No Head Aches, No Visual Changes, No Eye Pain, No Ear Pain Pulmonary: Dyspnea, Cough, No Pleuritic Chest Pain Cardiovascular: No: Chest Pain, Palpitations, Lt Headedness Gastrointestinal: Abdominal Pain (chronic, pt reports has been present for 2-3 years and has not changed in character), Constipation (no BM since admission per pt), No: Nausea, Vomiting Genitourinary: No Dysuria, No Frequency Musculoskeletal: other (generalized discomfort) Neurological: No: Incoordination, Change in speech, Confusion Objective Exam Last Set of Vital Signs Vital Signs Date Time Temp Pulse Resp B/P (MAP) Pulse Ox O2 Delivery O2 Flow Rate FiO2 12/05/16 06:53 100 Room Air 12/05/16 06:00 92 21 149/85 12/05/16 04:00 99.1 12/03/16 12:50 12/03/16 12:00 3.00 Capillary Refill : I&O Intake and Output 12/06/16 00:00 Intake Total 1600 ml Output Total 200 ml Balance 1400 ml Intake Oral 0 ml IV Total 1600 ml Output Urine Total 200 ml General: Alert, Oriented X3, Cooperative, Mild Distress HEENT: Atraumatic, EOMI, Mucous Memb Moist/Tuttle Neck: Supple, No Thyromegaly Lungs: Other (decreased breath sounds bilaterally, R worse than L) Heart: Other (irregular rate) Abdomen: Normal Bowel Sounds, Soft, No Masses Extremities: No Clubbing, No Cyanosis, No Edema, Normal Pulses Skin: No Rashes, No Significant Lesion Neuro: Normal Speech, Normal Tone, Cranial Nerves 3-12 NL Psych/Mental Status: Mental Status NL, Mood NL Results/Procedures Lab Laboratory Tests 12/04/16 16:50: Sodium Level 138, Potassium Level 2.9L, Chloride Level 107, Carbon Dioxide Level 22, Anion Gap 9, Blood Urea Nitrogen 11, Creatinine 0.72, Estimat Glomerular Filtration Rate > 60, BUN/Creatinine Ratio 15, Glucose Level 174H, Calcium Level 8.0L 12/05/16 04:51: Sodium Level 141, Potassium Level 3.6, Chloride Level 111H, Carbon Dioxide Level 24, Anion Gap 6, Blood Urea Nitrogen 14, Creatinine 0.64, Estimat Glomerular Filtration Rate > 60, BUN/Creatinine Ratio 22, Glucose Level 159H, Calcium Level 8.0L, White Blood Count 10.3, Red Blood Count 3.34L, Hemoglobin 11.0L, Hematocrit 32L, Mean Corpuscular Volume 96, Mean Corpuscular Hemoglobin 33, Mean Corpuscular Hemoglobin Concent 35, Red Cell Distribution Width 12.6, Platelet Count 190, Mean Platelet Volume 10.5H, Neutrophils (%) (Auto) 87H, Lymphocytes (%) (Auto) 5L, Monocytes (%) (Auto) 8, Eosinophils (%) (Auto) 0, Basophils (%) (Auto) 0, Neutrophils # (Auto) 8.9H, Lymphocytes # (Auto) 0.5L, Monocytes # (Auto) 0.8, Eosinophils # (Auto) 0.0, Basophils # (Auto) 0.0, Phosphorus Level 2.2L, Magnesium Level 1.9, B-Type Natriuretic Peptide 1940.4H 12/05/16 08:23: Microbiology 12/03/16 Blood Culture - Preliminary, Resulted No growth 12/03/16 Gram Stain - Final, Resulted 12/03/16 Body Fluid Culture - Preliminary, Resulted No growth 12/03/16 MRSA Screen - Final, Complete MRSA not isolated 12/02/16 Urine Culture - Preliminary, Resulted Probable Actinomyces 12/03/16 Gram Stain - Final, Resulted 12/03/16 Wound Culture - Preliminary, Resulted Staphylococcus Aureus Radiology [place]R from 19012/04/16: IMPRESSION: 1. Increasing right lower lobe consolidation. 2. Increasing right perihilar infiltrates. 3. Extensive background chronic parenchymal changes. 4. Left-sided PICC line tip is projected over the mid SVC. 5. There is no evidence of a pneumothorax. CXR from 12/05/16 is pending at the time of exam. Procedures s/p chest tube placement, now s/p chest tube removal 12/04/16 Meds started on vanc and zosyn per pulmonology for suspected PNA Assessment/Plan Assessment/Plan Admission Dx Pneumothorax Tachy arrhythmias COPD Hypotension Plan FEN: Heart healthy diet DVT PPX: Lovenox, GFR >40 Dispo: Continue admission in ICU, transfer to floor when okay with cardiology and pulmonology Diagnosis/Problems: (1) Pneumothorax Qualifiers: Qualified Codes: J93.11 - Primary spontaneous pneumothorax Assessment & Plan: spontaneous pneumothorax on left side, now s/p chest tube placement and discontinuation. CXR shows resolution of pneumothorax, will continue to monitor; CXR from this AM is pending. (2) Pneumonia Qualifiers: Qualified Codes: J18.1 - Lobar pneumonia, unspecified organism Assessment & Plan: CXR done 12/04 at 1900 shows worsening RLL consolidation. Pt has been initiated on abx - vanc and zosyn - per pulmonology, and has been parra cultured. Pleural fluid obtained was sent for cytology. Will continue to supplement oxygen as needed; pt reports feeling extremely short of breath with minimal exertion, may require BiPap at some point if work of breathing continues to increase. (3) Arrhythmia Qualifiers: Qualified Codes: I49.9 - Cardiac arrhythmia, unspecified Assessment & Plan: cardiology evaluating, will follow echo done 12/03 showed AV sclerosis but no stenosis and LVEF 60-65% (4) COPD (chronic obstructive pulmonary disease) Qualifiers: Qualified Codes: J44.9 - Chronic obstructive pulmonary disease, unspecified Assessment & Plan: suggested per history, no testing records available to confirm diagnosis (5) Chest tube in place Assessment & Plan: discontinued 12/04/16 (6) Acute diastolic heart failure Assessment & Plan: cardiology managing. BNP elevated today. will continue to follow and defer management to cardiology and critical care team. (7) Anemia Qualifiers: Qualified Codes: D64.9 - Anemia, unspecified Assessment & Plan: will follow CBC, Hgb stable Clinical Quality Measures DVT/VTE Risk/Contraindication: VTE Present on Admission: No Risk Factor Score Per Nursin RFS Level Per Nursing on Admit: 4+=Very High IVAN MISHRA DO Dec 05, 2016 09:03
[2016-12-05] MEDS: VANCOMYCIN INJECTION 1,250 MG in NS (IVPB) 250 ML IV SCH ×2 (09:53→21:39)
--- NOTE | 2016-12-05 10:16 | Physical Therapy Evaluation ---
PT Evaluation-General Medical Diagnosis Admission Date Dec 02, 2016 at 11:34 Medical Diagnosis: Arrhythmia/acute respiratory failure Onset Date: Nov 29, 2016 Therapy Diagnosis Therapy Diagnosis: generalized debility/weakness/decreased pulmonary function Height/Weight Height (Feet): 6 Height (Inches): 0.00 Weight (Pounds): 150 Weight (Ounces): 1.0 Precautions Precautions/Isolations: Fall Prevention, Standard Precautions Referral Physician: Lisa Reason for Referral: Evaluation/Treatment Medical History Pertinent Medical History: COPD, GERD, Smoking Current History transfer from [facility] secondary to tachycardia, increase SOA/ pneumothorax Reviewed History: Yes Social History Home: Single Level Current Living Status: Alone Prior/Core FIM Prior Level of Function Functional Hall Measure 0=Not Assessed/NA 4=Minimal Assistance 1=Total Assistance 5=Supervision or Setup 2=Maximal Assistance 6=Modified Hall 3=Moderate Assistance 7=Complete Hall Bed Mobility: 7 Transfers (B,C,W/C) (FIM): 7 Gait: 7 Locomotion: 7 PT Evaluation-Current Subjective Patient agrees to PT. Pain Numeric Pain Scale: 5-Moderate Pain Location: Left Location Body Site: Chest Pain Description: Pressure, Acute Objective Patient Orientation: Normal For Age Problem Solving: Fair Attachments: IV ROM/Strength ROM Lower Extremities bilateral LE WNL Strenght Lower Extremities 3/5 bilaterally grossly Integumentary/Posture Integumentary refer to nursing notes Bowel Incontinence: No Bladder Incontinence: No Posture slightly kyphotic Neuromuscular (Tone, Coordination, Reflexes) diminished coordination due to deconditioned state Sensory Vision: Functional Hearing: Functional Sensation Right Lower Extremit: Intact Sensation Left Lower Extremity: Intact Transfers Functional Hall Measure 0=Not Assessed/NA 4=Minimal Assistance 1=Total Assistance 5=Supervision or Setup 2=Maximal Assistance 6=Modified Hall 3=Moderate Assistance 7=Complete Hall Transfers (B, C, W/C) (FIM): 4 Scootin Rollin Supine to/from Sit: 5 Sit to/from Stand: 4 bed t/f WC(FIM only if WC use): 4 CGA for safety with use of gait belt Gait Mode of Locomotion: Walk Anticipated Mode of Locomotion: Walk Gait (FIM): 1 Distance (FIM): 1=up to 49 ft Distance: 5' Gait Level of Assist: 4 Gait Persons Needed: 1 Gait Assistive Device: FWW Comments/Gait Description noted weakness/fatigue with minimal activity Balance Sitting Static: Normal Sitting Dynamic: Normal Standing Static: Normal Standing Dynamic: Normal Assessment/Needs 66 y.o. male, will benefit from skilled PT to address functional strength and mobility to improve current LOF to improve current LOF and to safely return to home at maximum LOF. Patient is very limited with cardiopulmonary function and demonstrated tachycardia with minimal activity causing increase SOA. Rehab Potential: Guarded PT Shelter Goals Shelter Goals PT Epic Beacon Analyst Goals Time Frame: Dec 21, 2016 Transfers (B,C,W/C) (FIM): 6 Gait (FIM): 2 Gait distance (FIM): 8=241-85 ft Distance: 100' Gait Level of Assist: 6 Gait Assistive Device: FWW PT Plan Problem List Problem List: Activity Tolerance, Functional Strength, Gait Treatment/Plan Treatment Plan: Continue Plan of Care Treatment Plan: Education, Functional Activity Juancarlos, Functional Strength, Gait , Safety, Therapeutic Exercise, Transfers Treatment Duration: Dec 21, 2016 Frequency: 6 times per week Estimated Hrs Per Day: .25 hour per day Patient and/or Family Agrees t: Yes Discharge Recommendations Therapy D/C Recommendations: Fdc (TCU/NH) Time/GCodes Time In: 905 Time Out: 925 Total Billed Treatment Time: 20 Total Billed Treatment 1 visit EVModC 20 min G Codes Necessary: ERNIE Bhagat PT Dec 05, 2016 10:16
[2016-12-05] MEDS: ENOXAPARIN 40 MG/0.4 ML (LOVENOX) SYR SC SCH (11:49)
--- NOTE | 2016-12-05 11:50 | Progress Note-Cardiology ---
Cardiology SOAP Progress Note Subjective: Shortness of breath is better. No cp or palp or syncope Objective: I&O/Vital Signs Vital Sign - Last 12Hours 12/05/16 12/05/16 12/05/16 12/05/16 00:00 00:00 01:00 01:00 Temp 98.4 Pulse 93 94 94 Resp 23 21 B/P (MAP) 137/76 137/80 Pulse Ox 100 100 100 O2 Delivery Room Air Room Air Room Air 12/05/16 12/05/16 12/05/16 12/05/16 02:00 02:33 03:00 04:00 Temp 99.1 Pulse 92 97 92 Resp 21 15 22 B/P (MAP) 148/89 145/83 132/79 Pulse Ox 100 100 100 100 O2 Delivery Room Air Room Air Room Air Room Air 12/05/16 12/05/16 12/05/16 12/05/16 04:00 05:00 06:00 06:53 Pulse 90 92 Resp 22 21 B/P (MAP) 142/96 149/85 Pulse Ox 100 100 100 100 O2 Delivery Room Air Room Air Room Air Room Air 12/05/16 12/05/16 12/05/16 12/05/16 07:00 08:00 09:00 10:15 Temp 98.6 Pulse 101 Pulse Ox 100 O2 Delivery Room Air Nasal Cannula O2 Flow Rate 2.00 Weight (Pounds): 150 Weight (Ounces): 1.0 Weight (Calculated Kilograms): [id number] Constitutional: AAO x 3 Respiratory: other (chest tube in place with serous drainage; crackles RLL ) Cardiovascular: regular rate-rhythm (tachycardia), S1 and S2 Gastrointestional: No tender, soft, audible bowel sounds Genital/Rectal: other (urinary catheter to DD; clear yellow urine) Extremities: no lower extremity edema bilateral Neurologic/Psychiatric: grossly intact Skin: No rash on exposed areas, No ulcerations on exposed areas Results/Procedures: Labs Laboratory Tests 12/04/16 16:50: Sodium Level 138, Potassium Level 2.9L, Chloride Level 107, Carbon Dioxide Level 22, Anion Gap 9, Blood Urea Nitrogen 11, Creatinine 0.72, Estimat Glomerular Filtration Rate > 60, BUN/Creatinine Ratio 15, Glucose Level 174H, Calcium Level 8.0L 12/05/16 04:51: Sodium Level 141, Potassium Level 3.6, Chloride Level 111H, Carbon Dioxide Level 24, Anion Gap 6, Blood Urea Nitrogen 14, Creatinine 0.64, Estimat Glomerular Filtration Rate > 60, BUN/Creatinine Ratio 22, Glucose Level 159H, Calcium Level 8.0L, White Blood Count 10.3, Red Blood Count 3.34L, Hemoglobin 11.0L, Hematocrit 32L, Mean Corpuscular Volume 96, Mean Corpuscular Hemoglobin 33, Mean Corpuscular Hemoglobin Concent 35, Red Cell Distribution Width 12.6, Platelet Count 190, Mean Platelet Volume 10.5H, Neutrophils (%) (Auto) 87H, Lymphocytes (%) (Auto) 5L, Monocytes (%) (Auto) 8, Eosinophils (%) (Auto) 0, Basophils (%) (Auto) 0, Neutrophils # (Auto) 8.9H, Lymphocytes # (Auto) 0.5L, Monocytes # (Auto) 0.8, Eosinophils # (Auto) 0.0, Basophils # (Auto) 0.0, Phosphorus Level 2.2L, Magnesium Level 1.9, B-Type Natriuretic Peptide 1940.4H 12/05/16 08:23: Vancomycin Level Trough 12.2 Microbiology 12/03/16 Blood Culture - Preliminary, Resulted No growth 12/03/16 Gram Stain - Final, Resulted 12/03/16 Body Fluid Culture - Preliminary, Resulted No growth 12/03/16 MRSA Screen - Final, Complete MRSA not isolated 12/02/16 Urine Culture - Preliminary, Resulted Probable Actinomyces 12/03/16 Gram Stain - Final, Resulted 12/03/16 Wound Culture - Preliminary, Resulted Staphylococcus Aureus Laboratory Tests 12/04/16 04:45 12/04/16 16:50 12/05/16 04:51 A/P: Assessment: Spontaneous pneumothorax, treated with chest tube placement that has been removed now - Followed and managed by Dr. Liam Howard diastolic CHF, as indicated by elevated BNP. Echo of 12/03/16 showed AoV sclerosis w/o stenosis, LVEF 60-65% Multiple episodes of paroxysmal atrial tachycardia, had 2 episodes of wide complex tachycardia which appeared to be aberrant conduction - per Dr. Miller Hypokalemia, improved Chest pain nonspecific etiology, probably related to chest tube Mildly elevated troponin - conservative management at this time Stress test and echocardiogram [place] [address] Miller, which did not show any significant ischemia at that time. 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 Followed by Dr. Richmond History of pulmonary nodule, followed by Dr. Richmond. COPD/tobaccoism, patient is still an active smoker smokes about a pack a day, educated on smoking cessation. Plan: Continue current management Monitor labs I spoke with him an answered his questions KARIN SANDHU MD FACP FAC CCDS Dec 05, 2016 11:50
--- NOTE | 2016-12-05 12:15 | Diagnostic Imaging Report ---
EXAMINATION: Portable upright radiograph of the chest. INDICATION: Arrythmia. COMPARISON: 12/04/2016. FINDINGS: There are stable right basilar and perihilar infiltrates. Background mild vascular congestion is seen. There is a small right pleural effusion suggested. The heart size is slightly enlarged. No pneumothorax. The left PICC line with its tip at the SVC level is again seen. IMPRESSION: Right basilar and perihilar infiltrates and small right effusion are without significant change. Dictated by: Dictated on workstation # [id number]
--- NOTE | 2016-12-05 14:01 | Occupational Therapy Eval ---
OT Evaluation-General/PLF Medical Diagnosis Admission Date Dec 02, 2016 at 11:34 Medical Diagnosis: Arrhythmia/acute respiratory failure Onset Date: Nov 29, 2016 Therapy Diagnosis Therapy Diagnosis: Weakness, Decreased ADL skills Height/Weight Height (Feet): 6 Height (Inches): 0.00 Weight (Pounds): 150 Weight (Ounces): 1.0 Precautions Precautions/Isolations: Fall Prevention, Standard Precautions Safety Interventions: None Weight Bear Status Weight Bearing Restriction: Weight Bearing/Tolerated Referral Physician: Lisa Referral Reason: Activity Tolerance, Self Care, Evaluation/Treatment, Strengthening/ROM Medical History Pertinent Medical History: COPD, GERD, Smoking Additional Medical History depression, GERD, chronic pain, squamous cell excision Current History Pt. lives alone in [place], [place]. Has dogs that his daughters are taking care of. States that he woke up on the floor, and then laid there 3-4 hours. Was finally able to get up and back to bed. Had to call for help. Had difficulty breathing. Reviewed History: Yes Social History Home: Single Level Current Living Status: Alone Entry Into Home: Stairs With Railing Steps Into Home: 3 ADL-Prior Level of Function ADL PLOF Comments Pt. was independent with basic daily needs previous to hospitalization. States that he completed all ADLs and IADLs independently. Still drives. DME/Equipment Comments Pt. states that he does not have or use any equipment. 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 does not report pain, however, reports, "I can't breathe" while performing ADL treatment. Appearance Pt. answered all OT questions and agreed to work with OT. Mental Status/Objective Patient Orientation: Person, Place, Time Current Did not have a chance to fully test pt.on UE function. As pt. stated he was going to "pass out" during ADLs. Called nursing in. Pt. closed eyes and slumped over briefly. OT turned oxygen up from 2 L to 4 L while working with him. ADL-Treatment Functional [place] Measure 0=Not Assessed/NA 4=Minimal Assistance 1=Total Assistance 5=Supervision or Setup 2=Maximal Assistance 6=Modified [place] 3=Moderate Assistance 7=Complete IndependenceIRFPAI Quality Coding Scale 6 Independent with activity with or without an assistive device 5 Patient requires set up or clean up by helper. Patient completes activity by themselves 4 Supervision or touching assist (CGA). [place] provide cues , steadying assist 3 The helper provides less than half the effort to complete the activity 2 The helper provides more than half the effort to complete the activity 1 Dependent. The helper does all the effort to complete an activity 7 Patient refused to complete or attempt activity 9 The patient did not perform the activity before the current illness or injury 88 Not attempted due to Medical conditions or safety concerns Bathing (FIM): 2 (Pt. able to wash his arms. Required assistance to wash riaz areas, legs, feet, and chest/back.) Lower Body Dressing (FIM): 1 (Pt. required dependent assist once back in bed with LE dressing. No street clothing available. OT doffed/donned BENJI hose and socks and washed pt.'s feet and LE.) Toileting (FIM): 2 (Pt. able to state that he had to have a BM. However, unable to wash self or toilet self once on commode.) Transfers (B, C, W/C) (FIM): 3 (Mod assist for sit-stand from chair to BSC. Mod assist from BSC to bed. ) Toilet/Commode Transfer (FIM): 3 Other Treatments Pt. agreed to take spongebath. Transferred to BSC with mod assist needed. Pt. began to state that he couldn't breathe, and was having a difficult time. Closed eyes and seemed as though he were passing out. Able to open them up again after a brief time and began talking again. Pt. able to stand while OT finished washing riaz area. Transferred to bed and into supine position. Oxygen up to 4 L at this time, as pt. was panicking. Pt. able to calm down, and states he feels better. Able to breathe again. Nursing had been notified of this. OT took BP. 173/95. Oxygen sats at 99%. O2 turned to 2 L. All needs met in bed. Pt. has call light. Education OT Patient Education: Correct positioning, Modified ADL techniques, Progress toward Goal/Update tx plan, Purpose of tx/functional activities, Reviewed precautions, Rehab process, Transfer techniques Teaching Recipient: Patient Teaching Methods: Demonstration Response to Teaching: Verbalize Understanding, Return Demonstration OT Short Term Goals Short Term Goals Time Frame: Dec 19, 2016 Eating(FIM): 5 Grooming(FIM): 5 Bathing(FIM): 4 Upper Body Dressing(FIM): 5 Lower Body Dressing(FIM): 4 Toileting(FIM): 4 Transfers (B,C,W/C) (FIM): 4 Toilet/Commode Transfer(FIM): 4 Shower Transfer(FIM): 4 Additional Short Term Goals: 1-Demonstrate ADL Tasks, 2-Verbalize Understanding , 3-ImproveStrength/Juancarlos 1=Demonstrate adherence to instructed precautions during ADL tasks. 2=Patient will verbalize/demonstrate understanding of assistive devices/ modifications for ADL. 3=Patient will improve strength/tolerance for activity to enable patient to perform ADL's. OT Care Home Goals Quick Sketch Artist Goals Time Frame: Jan 02, 2017 Eating (FIM): 6 Grooming(FIM): 6 Bathing(FIM): 5 Upper Body Dressing(FIM): 6 Lower Body Dressing(FIM): 6 Toileting(FIM): 6 Transfers (B,C,W/C) (FIM): 6 Toilet/Commode Transfer(FIM): 6 Shower Transfer(FIM): 5 Additional Goals: 1-Demonstrate ADL Tasks, 2-Verbalize Understanding, 3- ImproveStrength/Juancarlos 1=Demonstrate adherence to instructed precautions during ADL tasks. 2=Patient will verbalize/demonstrate understanding of assistive devices/ modifications for ADL. 3=Patient will improve strength/tolerance for activity to enable patient to perform ADL's. OT Education/Plan Problem List/Assessment Assessment: Decreased Activ Tolerance, Dependent Transfers, Impaired Bed Mobility, Impaired Funct Balance, Impaired I ADL's, Impaired Self-Care Skills Discharge Recommendations Plan/Recommendations: Continue POC Therapy D/C Recommendations: 24 hr Supervision, Home w/ Family Support, Occupational Therapy Home Care Equpiment Recommendations-D/C: Extended Bath Bench Barriers to Progress Low activity level Treatment Plan/Plan of Care Treatment,Training & Education: Yes Patient would benefit from OT for education, treatment and training to promote independence in ADL's, mobility, safety and/or upper extremity function for ADL' s. Plan of Care: ADL Retraining, Caregiver Training, Functional Mobility, UE Funct Exercise/Act Treatment Duration: Jan 02, 2017 Frequency: 5 times per week Estimated Hrs Per Day: .5 hour per day Agreement: Yes Rehab Potential: Guarded Time/GCodes Start Time: 11:00 Stop Time: 11:30 Total Time Billed (hr/min): 30 Billed Treatment Time 1, EVM x 15minutes, ADL x 15minutes YOLIE SANCHEZ OT Dec 05, 2016 14:01
[2016-12-05] MEDS ORDERED: LORazepam INJ 2 MG/ML (ATIVAN) VIAL ONE (18:00)
[2016-12-05] MEDS ORDERED: LORazepam INJ 2 MG/ML (ATIVAN) VIAL IVP PRN (18:15)
[2016-12-05 19:56] LABS: ABG OXYGEN SATURATION 100 % (94-100); ABG PCO2 47 MMHG (35-45); ABG PO2 149 MMHG (79-93); ABG TCO2 17.7 MMOL/L (21.0-31.0)
[2016-12-05 20:02] LABS: ABG PH 7.16 (7.37-7.43)
[2016-12-05 20:02] LABS: BASOPHILS % (AUTO) 0 % (0-10); EOSINOPHILS % (AUTO) 0 % (0-10); LYMPHOCYTES # (AUTO) 0.8 X 10^3 (1.0-4.0); LYMPHOCYTES % (AUTO) 7 % (12-44); MEAN CORPUSCULAR HEMOGLOBIN 33 PG (25-34); MEAN CORPUSCULAR HGB CONC 34 G/DL (32-36); MEAN CORPUSCULAR VOLUME 98 FL (80-99); MEAN PLATELET VOLUME 10.5 FL (7.4-10.4); MONOCYTES # (AUTO) 1.2 X 10^3 (0.0-1.0); MONOCYTES % (AUTO) 11 % (0-12); NEUTROPHILS % (AUTO) 82 % (42-75); PLATELET COUNT 220 10^3/uL (130-400); RED BLOOD COUNT 3.79 10^6/uL (4.35-5.85); RED CELL DISTRIBUTION WIDTH 13.1 % (10.0-14.5)
[2016-12-05 20:03] LABS: ABG HCO3 16 MMOL/L (23-27); ALLENS TEST POSITIVE; PATIENT TEMP 97.3
[2016-12-05 20:21] LABS: ALANINE AMINOTRANSFERASE 50 U/L (0-55); ALBUMIN 2.9 GM/DL (3.2-4.5); ANION GAP 11 MMOL/L (5-14); ASPARTATE AMINO TRANSFERASE 80 U/L (5-34); BILIRUBIN,TOTAL 0.7 MG/DL (0.1-1.0); BLOOD UREA NITROGEN 23 MG/DL (7-18); BUN/CREATININE RATIO 32; CALCIUM 8.2 MG/DL (8.5-10.1); CARBON DIOXIDE 18 MMOL/L (21-32); CHLORIDE 113 MMOL/L (98-107); CREATININE SERUM 0.72 MG/DL (0.60-1.30); GFR ESTIMATED > 60; GLUCOSE 160 MG/DL (70-105); MAGNESIUM 2.3 MG/DL (1.8-2.4); POTASSIUM 4.4 MMOL/L (3.6-5.0); SODIUM 142 MMOL/L (135-145); TOTAL PROTEIN 6.5 GM/DL (6.4-8.2)
--- NOTE | 2016-12-05 20:21 | Diagnostic Imaging Report ---
INDICATION: Respiratory failure. COMPARISON: Earlier same day. FINDINGS: Single frontal radiographic view of the chest was obtained and demonstrates interval progression of patchy and confluent infiltrate-type opacities throughout the right lung, but greatest in the right mid and lower lung field. Adjacent effusion is suspected. There has also been interval development of patchy and interstitial opacities within the left perihilar region. No large effusion is identified on the left. No pneumothorax is seen on either side. Cardiac silhouette and pulmonary vasculature are within normal limits. Left upper extremity PICC line is seen with tip likely in the left innominate vein. This has been partially retracted when compared to earlier same day. IMPRESSION: 1. Interval progression of bilateral infiltrates, right greater than left. 2. Probable small right effusion. 3. Partial retraction of left upper extremity PICC line. Dictated by: Dictated on workstation # [id number]
[2016-12-05] MEDS ORDERED: fentaNYL INJECTION 100 MCG/2 ML AMP ONE (20:26)
[2016-12-05 20:27] LABS: ABG BASE EXCESS -4.8 MMOL/L (-2.5-2.5); ABG HCO3 21 MMOL/L (23-27); ABG OXYGEN SATURATION 100 % (94-100); ABG PCO2 44 MMHG (35-45); ABG PO2 462 MMHG (79-93); ABG TCO2 22.2 MMOL/L (21.0-31.0)
[2016-12-05 20:28] LABS: TROPONIN I < 0.30 NG/ML (<0.30)
--- NOTE | 2016-12-05 20:55 | Pulmonary Progress Note ---
Subjective Time Seen by Provider: 20:57 Subjective/Events-last exam Acute respiratory distress on the floor transferred to ICU secondary to acute respiratory distress. Exam Exam Vital Signs Date Time Temp Pulse Resp B/P (MAP) Pulse Ox O2 Delivery O2 Flow Rate FiO2 12/05/16 19:40 156/106 12/05/16 17:55 160 28 98 70.00 12/05/16 16:00 97.7 103 24 152/81 99 Room Air 12/05/16 15:17 97 Nasal Cannula 3.00 12/05/16 13:00 99 12/05/16 12:00 98.1 96 20 149/84 100 Room Air 12/05/16 10:15 Nasal Cannula 2.00 12/05/16 09:00 100 Room Air 12/05/16 08:00 98.6 12/05/16 07:00 101 12/05/16 06:53 100 Room Air 12/05/16 06:00 92 21 149/85 100 Room Air 12/05/16 05:00 90 22 142/96 100 Room Air 12/05/16 04:00 100 Room Air 12/05/16 04:00 99.1 92 22 132/79 100 Room Air 12/05/16 03:00 97 15 145/83 100 Room Air 12/05/16 02:33 100 Room Air 12/05/16 02:00 92 21 148/89 100 Room Air 12/05/16 01:00 94 21 137/80 100 Room Air 12/05/16 01:00 94 12/05/16 00:00 100 Room Air 12/05/16 00:00 98.4 93 23 137/76 100 Room Air 12/04/16 23:00 91 23 137/92 100 Room Air 12/04/16 22:21 100 Room Air 12/04/16 22:00 106 20 136/89 100 Room Air 12/04/16 21:00 105 20 124/72 100 Room Air I & O 12/06/16 07:00 Intake Total 500 ml Output Total 175 ml Balance 325 ml General Appearance: No Apparent Distress, Moderate Distress HEENT: PERRL/EOMI, TMs Normal, Normal ENT Inspection, Pharynx Normal Neck: Full Range of Motion, Normal Inspection, Non Tender, Supple, Carotid Bruit Respiratory: Chest Non Tender, No Accessory Muscle Use, No Respiratory Distress , Crackles, Decreased Breath Sounds Cardiovascular: Normal Peripheral Pulses, Tachycardia Gastrointestinal: normal bowel sounds, non tender, soft Extremity: Normal Capillary Refill, Normal Inspection, Normal Range of Motion, Non Tender, No Calf Tenderness, No Pedal Edema Neurologic/Psychiatric: Alert, Oriented x3, No Motor/Sensory Deficits, Normal Mood/Affect Skin: Normal Color, Warm/Dry Lymphatic: No Adenopathy Results Lab Laboratory Tests 12/04/16 04:45 12/04/16 16:50 12/05/16 04:51 12/05/16 19:55 Assessment/Plan Assessment/Plan Spontaneous PTX s/p left chest tube in place -CHest tube d/c'd Fever r/o infection -Aguirre cultures -Start vanco zosyn -Send pleural fluid down for C&S and cytology Acute respiratory failure with pulmonary edema -give lasix IV x 1 40mg hep lock IVF -BiPAP PRN -Titrate oxygen -SVNs COPD -SVNS -oxygen 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 Richmond Tobacco -education Called into ICU secondary to patient going into respiratory distress on the 4th floor. Er Doc responded to rapid response after patient was not leaving BiPAP on. Pt is now in the ICU on BiPAP. ABG is pending . I m going to hep lock IV and give 40mg of IV lasix. 45 min Clinical Quality Measures DVT/VTE Risk/Contraindication: VTE Present on Admission: No Risk Factor Score Per Nursin RFS Level Per Nursing on Admit: 4+=Very High DALJIT NEWTON DO Dec 05, 2016 20:54
[2016-12-05 20:58] LABS: ABG PH 7.29 (7.37-7.43); ALLENS TEST POSITIVE; PATIENT TEMP 97.8
[2016-12-05] MEDS ORDERED: FUROSEMIDE 40 MG/4 ML INJ (LASIX) IVP SCH (21:00)
--- NOTE | 2016-12-05 21:29 | Progress Note ---
Subjective Date Seen by Provider: Dec 05, 2016 Time Seen by Provider: 08:20 Subjective/Events-last exam Patient doing well. He has no complaints at this time. He has no breathing issues at this time. He is doing well with after having the chest tube removed yesterday. He had a repeat chest x-ray just demonstrating a small right pleural effusion otherwise there is no pneumothorax. No new complaints. Denies any nausea vomiting fever sweats chills shortness of breath or chest pain. Objective Exam Vital Signs Date Time Temp Pulse Resp B/P (MAP) Pulse Ox O2 Delivery O2 Flow Rate FiO2 12/05/16 21:13 116 33 100 45.00 12/05/16 19:40 147 36 100 100.00 12/05/16 19:40 156/106 12/05/16 19:00 121 12/05/16 17:55 160 28 98 70.00 12/05/16 16:00 97.7 103 24 152/81 99 Room Air 12/05/16 15:17 97 Nasal Cannula 3.00 12/05/16 13:00 99 12/05/16 12:00 98.1 96 20 149/84 100 Room Air 12/05/16 10:15 Nasal Cannula 2.00 12/05/16 09:00 100 Room Air 12/05/16 08:00 98.6 12/05/16 07:00 101 12/05/16 06:53 100 Room Air 12/05/16 06:00 92 21 149/85 100 Room Air 12/05/16 05:00 90 22 142/96 100 Room Air 12/05/16 04:00 100 Room Air 12/05/16 04:00 99.1 92 22 132/79 100 Room Air 12/05/16 03:00 97 15 145/83 100 Room Air 12/05/16 02:33 100 Room Air 12/05/16 02:00 92 21 148/89 100 Room Air 12/05/16 01:00 94 21 137/80 100 Room Air 12/05/16 01:00 94 12/05/16 00:00 100 Room Air 12/05/16 00:00 98.4 93 23 137/76 100 Room Air 12/04/16 23:00 91 23 137/92 100 Room Air 12/04/16 22:21 100 Room Air 12/04/16 22:00 106 20 136/89 100 Room Air I & O 12/06/16 07:00 Intake Total 500 ml Output Total 175 ml Balance 325 ml Capillary Refill : General Appearance: No Apparent Distress HEENT: PERRL/EOMI, TMs Normal, Normal ENT Inspection, Pharynx Normal Neck: Full Range of Motion, Normal Inspection, Non Tender, Supple, Carotid Bruit Respiratory: Chest Non Tender, No Accessory Muscle Use, No Respiratory Distress , Crackles, Decreased Breath Sounds Cardiovascular: Normal Peripheral Pulses, Tachycardia Gastrointestinal: normal bowel sounds, non tender, soft Extremity: Normal Capillary Refill, Normal Inspection, Normal Range of Motion, Non Tender, No Calf Tenderness, No Pedal Edema Neurologic/Psychiatric: Alert, Oriented x3, No Motor/Sensory Deficits, Normal Mood/Affect Skin: Normal Color, Warm/Dry Lymphatic: No Adenopathy Results Lab Laboratory Tests 12/05/16 04:51: White Blood Count 10.3, Red Blood Count 3.34L, Hemoglobin 11.0L, Hematocrit 32L , Mean Corpuscular Volume 96, Mean Corpuscular Hemoglobin 33, Mean Corpuscular Hemoglobin Concent 35, Red Cell Distribution Width 12.6, Platelet Count 190, Mean Platelet Volume 10.5H, Neutrophils (%) (Auto) 87H, Lymphocytes (%) (Auto) 5L, Monocytes (%) (Auto) 8, Eosinophils (%) (Auto) 0, Basophils (%) (Auto) 0, Neutrophils # (Auto) 8.9H, Lymphocytes # (Auto) 0.5L, Monocytes # (Auto) 0.8, Eosinophils # (Auto) 0.0, Basophils # (Auto) 0.0, Sodium Level 141, Potassium Level 3.6, Chloride Level 111H, Carbon Dioxide Level 24, Anion Gap 6, Blood Urea Nitrogen 14, Creatinine 0.64, Estimat Glomerular Filtration Rate > 60, BUN/ Creatinine Ratio 22, Glucose Level 159H, Calcium Level 8.0L, Phosphorus Level 2.2L, Magnesium Level 1.9, B-Type Natriuretic Peptide 1940.4H 12/05/16 08:23: Vancomycin Level Trough 12.2 12/05/16 11:58: Glucometer 192H 12/05/16 19:45: Blood Gas Puncture Site RIGHT RADIAL, Blood Gas Patient Temperature 97.3, Arterial Blood pH 7.16*L, Arterial Blood Partial Pressure CO2 47H, Arterial Blood Partial Pressure O2 149H, Arterial Blood HCO3 16*L, Arterial Blood Total CO2 17.7L, Arterial Blood Oxygen Saturation 100, Arterial Blood Base Excess - 11.0L, Tommy Test POSITIVE, Blood Gas Ventilator Setting NO, Blood Gas Inspired Oxygen BI PAP 100% 12/05/16 19:55: White Blood Count 11.0, Red Blood Count 3.79L, Hemoglobin 12.5L, Hematocrit 37L , Mean Corpuscular Volume 98, Mean Corpuscular Hemoglobin 33, Mean Corpuscular Hemoglobin Concent 34, Red Cell Distribution Width 13.1, Platelet Count 220, Mean Platelet Volume 10.5H, Neutrophils (%) (Auto) 82H, Lymphocytes (%) (Auto) 7L, Monocytes (%) (Auto) 11, Eosinophils (%) (Auto) 0, Basophils (%) (Auto) 0, Neutrophils # (Auto) 9.0H, Lymphocytes # (Auto) 0.8L, Monocytes # (Auto) 1.2H, Eosinophils # (Auto) 0.0, Basophils # (Auto) 0.0, Sodium Level 142, Potassium Level 4.4, Chloride Level 113H, Carbon Dioxide Level 18L, Anion Gap 11, Blood Urea Nitrogen 23H, Creatinine 0.72, Estimat Glomerular Filtration Rate > 60, BUN /Creatinine Ratio 32, Glucose Level 160H, Calcium Level 8.2L, Magnesium Level 2.3, Total Bilirubin 0.7, Aspartate Amino Transf (AST/SGOT) 80H, Alanine Aminotransferase (ALT/SGPT) 50, Alkaline Phosphatase 86, Troponin I < 0.30, Total Protein 6.5, Albumin 2.9L 12/05/16 20:20: Blood Gas Puncture Site RIGHT RADIAL, Blood Gas Patient Temperature 97.8, Arterial Blood pH 7.29*L, Arterial Blood Partial Pressure CO2 44, Arterial Blood Partial Pressure O2 462H, Arterial Blood HCO3 21L, Arterial Blood Total CO2 22.2, Arterial Blood Oxygen Saturation 100, Arterial Blood Base Excess -4.8L , Tommy Test POSITIVE, Blood Gas Ventilator Setting NO, Blood Gas Inspired Oxygen 100% BIPAP 12/05/16 20:40: Lactic Acid Level 2.03*H Microbiology 12/03/16 Blood Culture - Preliminary, Resulted No growth 12/03/16 Gram Stain - Final, Resulted 12/03/16 Body Fluid Culture - Preliminary, Resulted No growth 12/03/16 MRSA Screen - Final, Complete MRSA not isolated 12/02/16 Urine Culture - Preliminary, Resulted Probable Actinomyces 12/03/16 Gram Stain - Final, Resulted 12/03/16 Wound Culture - Preliminary, Resulted Staphylococcus Aureus Assessment/Plan Assessment/Plan Assessment/Plan Patient with spontaneous left pneumothorax status post left thoracostomy tube placement in [facility] ArrhythmiaV. tach Hypotension improved Chest tube was removed yesterday and chest x-ray this morning still remained stable. Will sign off at this time please call if needed. Diagnosis/Problems Diagnosis/Problems (1) Pneumothorax Assessment & Plan: spontaneous pneumothorax on left side, now s/p chest tube placement and discontinuation. CXR shows resolution of pneumothorax, will continue to monitor; CXR from this AM is pending. Qualifiers: Qualified Codes: J93.11 - Primary spontaneous pneumothorax (2) Pneumonia Assessment & Plan: CXR done 12/04 at 1900 shows worsening RLL consolidation. Pt has been initiated on abx - vanc and zosyn - per pulmonology, and has been parra cultured. Pleural fluid obtained was sent for cytology. Will continue to supplement oxygen as needed; pt reports feeling extremely short of breath with minimal exertion, may require BiPap at some point if work of breathing continues to increase. Qualifiers: Qualified Codes: J18.1 - Lobar pneumonia, unspecified organism (3) Arrhythmia Assessment & Plan: cardiology evaluating, will follow echo done 12/03 showed AV sclerosis but no stenosis and LVEF 60-65% Qualifiers: Qualified Codes: I49.9 - Cardiac arrhythmia, unspecified (4) COPD (chronic obstructive pulmonary disease) Assessment & Plan: suggested per history, no testing records available to confirm diagnosis Qualifiers: Qualified Codes: J44.9 - Chronic obstructive pulmonary disease, unspecified (5) Chest tube in place Assessment & Plan: discontinued 12/04/16 (6) Acute diastolic heart failure Assessment & Plan: cardiology managing. BNP elevated today. will continue to follow and defer management to cardiology and critical care team. (7) Anemia Assessment & Plan: will follow CBC, Hgb stable Qualifiers: Qualified Codes: D64.9 - Anemia, unspecified Clinical Quality Measures DVT/VTE Risk/Contraindication: VTE Present on Admission: No Risk Factor Score Per Nursin RFS Level Per Nursing on Admit: 4+=Very High AMARILYS DENISE DO Dec 05, 2016 21:29
[2016-12-05] MEDS ORDERED: FAMOTIDINE 20MG/2ML IV (PEPCID) IVP ONE (22:00)
[2016-12-05] MEDS: meTOprolol 5 MG/5 ML (LOPRESSOR) VIAL IV SCH (22:19)
[2016-12-06] VITALS (21 sets, daily range): BP systolic 89–164; BP diastolic 62–114
[2016-12-06] MEDS: PIPERACILLIN SODIUM/TAZOBACTAM 4.5 GM in NS (IVPB) 100 ML IV SCH ×3 (00:43→16:05)
[2016-12-06] MEDS: meTOprolol 5 MG/5 ML (LOPRESSOR) VIAL IV SCH ×4 (01:59→18:35)
[2016-12-06] MEDS: RT-ALBUTEROL/IPRATROPIUM 3 ML (DUONEB) VIAL INH SCH ×5 (02:36→20:22)
--- NOTE | 2016-12-06 03:01 | Pulmonary Progress Note ---
Subjective Date Seen by Provider: Dec 06, 2016 Time Seen by Provider: 03:01 Subjective/Events-last exam PT responded well to lasix. He is still currently on BiPAP however he is only requiring 25% Fi02. Pt has been agitated through the night. Exam Exam Vital Signs Date Time Temp Pulse Resp B/P (MAP) Pulse Ox O2 Delivery O2 Flow Rate FiO2 12/06/16 02:37 85 34 100 30.00 12/06/16 01:00 93 12/05/16 21:13 116 33 100 45.00 12/05/16 19:40 147 36 100 100.00 12/05/16 19:40 156/106 12/05/16 19:00 121 12/05/16 17:55 160 28 98 70.00 12/05/16 16:00 97.7 103 24 152/81 99 Room Air 12/05/16 15:17 97 Nasal Cannula 3.00 12/05/16 13:00 99 12/05/16 12:00 98.1 96 20 149/84 100 Room Air 12/05/16 10:15 Nasal Cannula 2.00 12/05/16 09:00 100 Room Air 12/05/16 08:00 98.6 12/05/16 07:00 101 12/05/16 06:53 100 Room Air 12/05/16 06:00 92 21 149/85 100 Room Air 12/05/16 05:00 90 22 142/96 100 Room Air 12/05/16 04:00 100 Room Air 12/05/16 04:00 99.1 92 22 132/79 100 Room Air 12/05/16 03:00 97 15 145/83 100 Room Air General Appearance: No Apparent Distress HEENT: PERRL/EOMI, TMs Normal, Normal ENT Inspection, Pharynx Normal Neck: Full Range of Motion, Normal Inspection, Non Tender, Supple, Carotid Bruit Respiratory: Chest Non Tender, No Accessory Muscle Use, No Respiratory Distress , Crackles, Decreased Breath Sounds Cardiovascular: Normal Peripheral Pulses, Tachycardia Gastrointestinal: normal bowel sounds, non tender, soft Extremity: Normal Capillary Refill, Normal Inspection, Normal Range of Motion, Non Tender, No Calf Tenderness, No Pedal Edema Neurologic/Psychiatric: Alert, Oriented x3, No Motor/Sensory Deficits, Normal Mood/Affect Skin: Normal Color, Warm/Dry Lymphatic: No Adenopathy Results Lab Laboratory Tests 12/04/16 04:45 12/04/16 16:50 12/05/16 04:51 12/05/16 19:55 Assessment/Plan Assessment/Plan Spontaneous PTX s/p left chest tube in place Fever r/o infection -Aguirre cultures -Start vanco zosyn Acute respiratory failure with pulmonary edema -Pt responded to Lasix -BiPAP PRN -Titrate oxygen -SVNs Metabolic acidosis -Monitor COPD -SVNS -oxygen 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 Richmond Tobacco -education 233 Clinical Quality Measures DVT/VTE Risk/Contraindication: VTE Present on Admission: No Risk Factor Score Per Nursin RFS Level Per Nursing on Admit: 4+=Very High DALJIT NEWTON DO Dec 06, 2016 03:01
[2016-12-06 04:05] LABS: ABG BASE EXCESS 0.8 MMOL/L (-2.5-2.5); ABG HCO3 25 MMOL/L (23-27); ABG OXYGEN SATURATION 98 % (94-100); ABG PCO2 38 MMHG (35-45); ABG PH 7.42 (7.37-7.43); ABG PO2 84 MMHG (79-93); ABG TCO2 26.1 MMOL/L (21.0-31.0); ALLENS TEST YES-POS; PATIENT TEMP 96.9
[2016-12-06 04:44] LABS: BASOPHILS % (AUTO) 0 % (0-10); EOSINOPHILS % (AUTO) 0 % (0-10); LYMPHOCYTES # (AUTO) 1.1 X 10^3 (1.0-4.0); LYMPHOCYTES % (AUTO) 11 % (12-44); MEAN CORPUSCULAR HEMOGLOBIN 33 PG (25-34); MEAN CORPUSCULAR HGB CONC 34 G/DL (32-36); MEAN CORPUSCULAR VOLUME 97 FL (80-99); MEAN PLATELET VOLUME 10.6 FL (7.4-10.4); MONOCYTES # (AUTO) 1.5 X 10^3 (0.0-1.0); MONOCYTES % (AUTO) 15 % (0-12); NEUTROPHILS # (AUTO) 7.3 X 10^3 (1.8-7.8); NEUTROPHILS % (AUTO) 73 % (42-75); PLATELET COUNT 195 10^3/uL (130-400); RED BLOOD COUNT 3.36 10^6/uL (4.35-5.85); RED CELL DISTRIBUTION WIDTH 12.9 % (10.0-14.5); WHITE BLOOD COUNT 9.9 10^3/uL (4.3-11.0)
[2016-12-06 05:02] LABS: ANION GAP 9 MMOL/L (5-14); BLOOD UREA NITROGEN 20 MG/DL (7-18); BUN/CREATININE RATIO 31; CALCIUM 8.3 MG/DL (8.5-10.1); CARBON DIOXIDE 23 MMOL/L (21-32); CHLORIDE 112 MMOL/L (98-107); CREATININE SERUM 0.65 MG/DL (0.60-1.30); GFR ESTIMATED > 60; GLUCOSE 100 MG/DL (70-105); MAGNESIUM 1.9 MG/DL (1.8-2.4); PHOSPHORUS 1.9 MG/DL (2.3-4.7); POTASSIUM 3.6 MMOL/L (3.6-5.0); SODIUM 144 MMOL/L (135-145)
[2016-12-06] MEDS ORDERED: SODIUM PHOSPHATE INJ 30 MM in NS (IVPB) 250 ML IV ONE (06:00)
[2016-12-06] MEDS ORDERED: MAGNESIUM 1 GM/100 ML IVPB 100 ML IV SCH (06:00)
[2016-12-06] MEDS ORDERED: KCL 20 MEQ TAB (K-DUR) PO SCH (06:00)
[2016-12-06] MEDS ORDERED: POTASSIUM CL 10MEQ/50ML IVPB 50 ML IV SCH (06:00)
[2016-12-06] MEDS ORDERED: FUROSEMIDE 40 MG/4 ML INJ (LASIX) IVP ONE (06:15)
[2016-12-06] MEDS ORDERED: meTOprolol 5 MG/5 ML (LOPRESSOR) VIAL ONE (06:43)
[2016-12-06] MEDS: POTASSIUM CL 10MEQ/50ML IVPB 50 ML IV SCH ×4 (06:52→10:01)
--- NOTE | 2016-12-06 08:00 | Diagnostic Imaging Report ---
INDICATION: Arrhythmia. Frontal chest obtained at 3:06 a.m. and compared with yesterday. FINDINGS: The heart is mildly enlarged. There are diffuse bilateral infiltrates with mixed interstitial and alveolar pattern, which appear to be worsened compared to yesterday. There is some pleural fluid on the right side which appears increased. Left-sided PICC line is unchanged. IMPRESSION: Worsening bilateral infiltrates and worsening right pleural effusion compared to yesterday. Heart is mildly enlarged. Dictated by: Dictated on workstation # [id number]
--- NOTE | 2016-12-06 08:11 | Progress Note-Cardiology ---
Cardiology SOAP Progress Note Subjective: Acute respiratory distress overnight resulting in transfer back to ICU. He reports his breathing is better. C/O cough. No c/o CP or palpitations. Drowsy this morning. Objective: I&O/Vital Signs Vital Sign - Last 12Hours 12/06/16 12/06/16 12/06/16 12/06/16 07:00 07:03 08:00 08:00 Temp 97.1 Pulse 89 Pulse Ox 100 O2 Delivery Nasal Cannula Nasal Cannula O2 Flow Rate 3.00 3.00 12/06/16 12/06/16 12/06/16 12/06/16 10:53 12:00 12:15 13:00 Temp 97.0 Pulse 83 Pulse Ox 100 O2 Delivery Nasal Cannula Nasal Cannula O2 Flow Rate 3.00 3.00 12/06/16 12/06/16 12/06/16 12/06/16 15:47 15:53 16:00 16:05 Temp 97.8 Pulse 88 Pulse Ox 100 100 O2 Delivery Nasal Cannula Nasal Cannula O2 Flow Rate 3.00 3.00 Intake and Output 12/07/16 00:00 Intake Total 460 ml Output Total 1050 ml Balance -590 ml Weight (Pounds): 149 Weight (Ounces): 1.0 Weight (Calculated Kilograms): [id number] Constitutional: other (Awakens to verbal and tactile stimuli, answers questions , drowsy, disoriented to place) Respiratory: other (diminished bases bilat with poor inspiratory effort) Cardiovascular: regular rate-rhythm, S1 and S2 Gastrointestional: No tender, soft, audible bowel sounds Genital/Rectal: other (urinary catheter to DD; clear yellow urine) Extremities: no lower extremity edema bilateral Neurologic/Psychiatric: grossly intact Skin: No rash on exposed areas, No ulcerations on exposed areas, other ( dressing to left lateral chest D&I) Results/Procedures: Labs Laboratory Tests 12/05/16 19:45: Blood Gas Puncture Site RIGHT RADIAL, Blood Gas Patient Temperature 97.3, Arterial Blood pH 7.16*L, Arterial Blood Partial Pressure CO2 47H, Arterial Blood Partial Pressure O2 149H, Arterial Blood HCO3 16*L, Arterial Blood Total CO2 17.7L, Arterial Blood Oxygen Saturation 100, Arterial Blood Base Excess - 11.0L, Tommy Test POSITIVE, Blood Gas Ventilator Setting NO, Blood Gas Inspired Oxygen BI PAP 100% 12/05/16 19:55: White Blood Count 11.0, Red Blood Count 3.79L, Hemoglobin 12.5L, Hematocrit 37L , Mean Corpuscular Volume 98, Mean Corpuscular Hemoglobin 33, Mean Corpuscular Hemoglobin Concent 34, Red Cell Distribution Width 13.1, Platelet Count 220, Mean Platelet Volume 10.5H, Neutrophils (%) (Auto) 82H, Lymphocytes (%) (Auto) 7L, Monocytes (%) (Auto) 11, Eosinophils (%) (Auto) 0, Basophils (%) (Auto) 0, Neutrophils # (Auto) 9.0H, Lymphocytes # (Auto) 0.8L, Monocytes # (Auto) 1.2H, Eosinophils # (Auto) 0.0, Basophils # (Auto) 0.0, Sodium Level 142, Potassium Level 4.4, Chloride Level 113H, Carbon Dioxide Level 18L, Anion Gap 11, Blood Urea Nitrogen 23H, Creatinine 0.72, Estimat Glomerular Filtration Rate > 60, BUN /Creatinine Ratio 32, Glucose Level 160H, Calcium Level 8.2L, Magnesium Level 2.3, Total Bilirubin 0.7, Aspartate Amino Transf (AST/SGOT) 80H, Alanine Aminotransferase (ALT/SGPT) 50, Alkaline Phosphatase 86, Troponin I < 0.30, Total Protein 6.5, Albumin 2.9L 12/05/16 20:20: Blood Gas Puncture Site RIGHT RADIAL, Blood Gas Patient Temperature 97.8, Arterial Blood pH 7.29*L, Arterial Blood Partial Pressure CO2 44, Arterial Blood Partial Pressure O2 462H, Arterial Blood HCO3 21L, Arterial Blood Total CO2 22.2, Arterial Blood Oxygen Saturation 100, Arterial Blood Base Excess -4.8L , Tommy Test POSITIVE, Blood Gas Ventilator Setting NO, Blood Gas Inspired Oxygen 100% BIPAP 12/05/16 20:40: Lactic Acid Level 2.03*H 12/05/16 22:50: Lactic Acid Level 1.78 12/06/16 03:53: Blood Gas Puncture Site RT RADIAL, Blood Gas Patient Temperature 96.9, Arterial Blood pH 7.42, Arterial Blood Partial Pressure CO2 38, Arterial Blood Partial Pressure O2 84, Arterial Blood HCO3 25, Arterial Blood Total CO2 26.1, Arterial Blood Oxygen Saturation 98, Arterial Blood Base Excess 0.8, Tommy Test YES-POS, Blood Gas Ventilator Setting NO, Blood Gas Inspired Oxygen 50% BIPAP 12/06/16 04:30: White Blood Count 9.9, Red Blood Count 3.36L, Hemoglobin 11.0L, Hematocrit 33L, Mean Corpuscular Volume 97, Mean Corpuscular Hemoglobin 33, Mean Corpuscular Hemoglobin Concent 34, Red Cell Distribution Width 12.9, Platelet Count 195, Mean Platelet Volume 10.6H, Neutrophils (%) (Auto) 73, Lymphocytes (%) (Auto) 11L, Monocytes (%) (Auto) 15H, Eosinophils (%) (Auto) 0, Basophils (%) (Auto) 0 , Neutrophils # (Auto) 7.3, Lymphocytes # (Auto) 1.1, Monocytes # (Auto) 1.5H, Eosinophils # (Auto) 0.0, Basophils # (Auto) 0.0, Sodium Level 144, Potassium Level 3.6, Chloride Level 112H, Carbon Dioxide Level 23, Anion Gap 9, Blood Urea Nitrogen 20H, Creatinine 0.65, Estimat Glomerular Filtration Rate > 60, BUN /Creatinine Ratio 31, Glucose Level 100, Calcium Level 8.3L, Phosphorus Level 1.9L, Magnesium Level 1.9 Microbiology 12/03/16 Blood Culture - Preliminary, Resulted No growth 12/03/16 Gram Stain - Final, Resulted 12/03/16 Body Fluid Culture - Preliminary, Resulted No growth 12/03/16 MRSA Screen - Final, Complete MRSA not isolated 12/02/16 Urine Culture - Preliminary, Resulted Probable Actinomyces 12/03/16 Gram Stain - Final, Resulted 12/03/16 Wound Culture - Preliminary, Resulted Staphylococcus Aureus Corynebacterium Species Laboratory Tests 12/05/16 04:51 12/05/16 19:55 12/06/16 04:30 Procedures NAME: CHARLES WAHL [facility] REC#: [id number] PT STATUS: ADM IN : 1950 PHYSICIAN: LUL ADRIAN MD ADMIT DATE: 12/02/16/ICU Signed Date of Exam: 12/06/16 CHEST 1 VIEW, AP/PA ONLY INDICATION: Arrhythmia. Frontal chest obtained at 3:06 a.m. and compared with yesterday. FINDINGS: The heart is mildly enlarged. There are diffuse bilateral infiltrates with mixed interstitial and alveolar pattern, which appear to be worsened compared to yesterday. There is some pleural fluid on the right side which appears increased. Left-sided PICC line is unchanged. IMPRESSION: Worsening bilateral infiltrates and worsening right pleural effusion compared to yesterday. Heart is mildly enlarged. Dictated by: Dictated on workstation # [id number] Dict: 12/06/1642 Trans: 12/06/16803 Interpreted by: BILL MERCHANT MD Electronically signed by: BILL MERCHANT MD 12/06/16803 A/P: Assessment: Episode of acute respiratory failure overnight prompting transfer back to ICU Confusion Spontaneous pneumothorax, treated with chest tube placement that has been removed now - Followed and managed by Dr. Liam Howard diastolic CHF, as indicated by elevated BNP. Echo of 12/03/16 showed AoV sclerosis w/o stenosis, LVEF 60-65% Multiple episodes of paroxysmal atrial tachycardia, had 2 episodes of wide complex tachycardia which appeared to be aberrant conduction - per Dr. Miller Hypokalemia, improved Chest pain nonspecific etiology, probably related to chest tube - no further c/ o Troponin minimally elevated at time of initial presentation. No troponin elevation at time of this readmission to ICU Stress test and echocardiogram [place] [address] Miller, which did not show any significant ischemia at that time. 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 Followed by Dr. Richmond History of pulmonary nodule, followed by Dr. Richmond. COPD/tobaccoism, patient is still an active smoker smokes about a pack a day, educated on smoking cessation. Plan: Episode of acute respiratory failure last night, transferred back to ICU, IV diuretics given with good response and Bi-Pap initiated Respiratory status improved Confused and lethargic at times Unable to take anything oral d/t lethargy Hypertension not well controlled will change Lopressor to IV for now Monitor lab closely Physician Assessment Physician Assessment Confused Lungs: diminished air entry at the L lung base Cor: reg Ext: no c/c/e A&R * As documented in our note above that I updated (italics) and as noted below * Complex management due to multiple comorbidities. Has ended back in the ICU due to ac resp failure * iv bb * Resume antiplatelet therapy when able to take meds by mouth * Monitor labs CHARLENE SORIA DRUM MAKER Dec 06, 2016 08:11 KARIN SANDHU MD FACP FAC CCDS Dec 06, 2016 18:28
--- NOTE | 2016-12-06 08:19 | Physical Therapy Progress Note ---
Therapy Progress Note Due to patient's medical status and readmittance to ICU, PT will require new orders to proceed with treatment. PT to notify [facility]. ERNIE COVINGTON PT Dec 06, 2016 08:19
[2016-12-06] MEDS ORDERED: meTOprolol 5 MG/5 ML (LOPRESSOR) VIAL IV NR (08:30)
[2016-12-06] MEDS: VANCOMYCIN INJECTION 1,250 MG in NS (IVPB) 250 ML IV SCH ×2 (09:00→22:35)
--- NOTE | 2016-12-06 09:00 | Occ Therapy Progress Note ---
Therapy Progress Note Pt. transferred to ICU. Will require new orders to continue occupational therapy. 0900 YOLIE SANCHEZ OT Dec 06, 2016 09:00
--- NOTE | 2016-12-06 09:08 | Progress Note (SOAP) ---
Subjective Subjective/Events-last exam Yesterday the patient was transferred to the medical floor and initially appeared to be doing well. Last night he became very agitated and confused. He was placed on BiPAP, however his face mask came loose and when the nursing staff checked on him he was very ashen and difficult to arouse. A rapid response was called and the patient was subsequently transferred back to the ICU for closer monitoring. The patient continued on BiPAP and was seen by Dr. Gonzalez. He continued to be somewhat somnolent overnight with the BiPAP in place but he would arouse with stimulation. This morning when seen the patient is very lethargic neck and was not responsive to verbal stimuli, however did open his eyes to physical stimulation. The patient is unable to tell us where he is or how he got there, but he is able to tell us his name and birthdate accurately. The nurse states that this is how he has been in terms of mental state since he returned to the ICU last night. He also will drift off to sleep while in the middle of a sentence at times. Review of Systems Date Seen by Provider: Dec 06, 2016 Time Seen by Provider: 09:30 General: No Chills, No Night Sweats, Fatigue HEENT: No Head Aches, No Visual Changes, No Eye Pain, No Dysphasia Pulmonary: Dyspnea, Cough, No Pleuritic Chest Pain Cardiovascular: No: Chest Pain, Palpitations, Edema Gastrointestinal: No: Nausea, Vomiting, Abdominal Pain Genitourinary: No Hematuria, Other ([place] catheter in place) Musculoskeletal: No: neck pain, back pain Neurological: Change in speech, Confusion Objective Exam Last Set of Vital Signs Vital Signs Date Time Temp Pulse Resp B/P (MAP) Pulse Ox O2 Delivery O2 Flow Rate FiO2 12/06/16 07:03 100 Nasal Cannula 3.00 12/06/16 07:00 89 12/06/16 06:00 23 12/06/16 02:00 150/114 12/06/16 00:00 40 12/05/16 16:00 97.7 Capillary Refill : I&O Intake and Output 12/07/16 00:00 Intake Total 0 ml Output Total 1000 ml Balance -1000 ml Intake Oral 0 ml Output Urine Total 1000 ml # Voids 1 # Bowel Movements 2 General: No Acute Distress HEENT: Atraumatic, Mucous Memb Moist/[place] Neck: Supple, No Thyromegaly Lungs: Other (mild diffuse crackles with decreased air movement in bilateral bases) Abdomen: Normal Bowel Sounds, Soft, No Tenderness (still,) Extremities: No Clubbing, No Cyanosis, No Edema, Normal Pulses, No Tenderness/ Swelling Skin: No Rashes, No Significant Lesion Neuro: Normal Tone, Other (oriented to self only) Psych/Mental Status: Other (lethargic, mental status significantly different than on previous exams yesterday and the day before) Results/Procedures Lab Laboratory Tests 12/05/16 11:58: Glucometer 192H 12/05/16 19:45: Blood Gas Puncture Site RIGHT RADIAL, Blood Gas Patient Temperature 97.3, Arterial Blood pH 7.16*L, Arterial Blood Partial Pressure CO2 47H, Arterial Blood Partial Pressure O2 149H, Arterial Blood HCO3 16*L, Arterial Blood Total CO2 17.7L, Arterial Blood Oxygen Saturation 100, Arterial Blood Base Excess - 11.0L, Tommy Test POSITIVE, Blood Gas Ventilator Setting NO, Blood Gas Inspired Oxygen BI PAP 100% 12/05/16 19:55: White Blood Count 11.0, Red Blood Count 3.79L, Hemoglobin 12.5L, Hematocrit 37L , Mean Corpuscular Volume 98, Mean Corpuscular Hemoglobin 33, Mean Corpuscular Hemoglobin Concent 34, Red Cell Distribution Width 13.1, Platelet Count 220, Mean Platelet Volume 10.5H, Neutrophils (%) (Auto) 82H, Lymphocytes (%) (Auto) 7L, Monocytes (%) (Auto) 11, Eosinophils (%) (Auto) 0, Basophils (%) (Auto) 0, Neutrophils # (Auto) 9.0H, Lymphocytes # (Auto) 0.8L, Monocytes # (Auto) 1.2H, Eosinophils # (Auto) 0.0, Basophils # (Auto) 0.0, Sodium Level 142, Potassium Level 4.4, Chloride Level 113H, Carbon Dioxide Level 18L, Anion Gap 11, Blood Urea Nitrogen 23H, Creatinine 0.72, Estimat Glomerular Filtration Rate > 60, BUN /Creatinine Ratio 32, Glucose Level 160H, Calcium Level 8.2L, Magnesium Level 2.3, Total Bilirubin 0.7, Aspartate Amino Transf (AST/SGOT) 80H, Alanine Aminotransferase (ALT/SGPT) 50, Alkaline Phosphatase 86, Troponin I < 0.30, Total Protein 6.5, Albumin 2.9L 12/05/16 20:20: Blood Gas Puncture Site RIGHT RADIAL, Blood Gas Patient Temperature 97.8, Arterial Blood pH 7.29*L, Arterial Blood Partial Pressure CO2 44, Arterial Blood Partial Pressure O2 462H, Arterial Blood HCO3 21L, Arterial Blood Total CO2 22.2, Arterial Blood Oxygen Saturation 100, Arterial Blood Base Excess -4.8L , Tommy Test POSITIVE, Blood Gas Ventilator Setting NO, Blood Gas Inspired Oxygen 100% BIPAP 12/05/16 20:40: Lactic Acid Level 2.03*H 12/05/16 22:50: Lactic Acid Level 1.78 12/06/16 03:53: Blood Gas Puncture Site RT RADIAL, Blood Gas Patient Temperature 96.9, Arterial Blood pH 7.42, Arterial Blood Partial Pressure CO2 38, Arterial Blood Partial Pressure O2 84, Arterial Blood HCO3 25, Arterial Blood Total CO2 26.1, Arterial Blood Oxygen Saturation 98, Arterial Blood Base Excess 0.8, Tommy Test YES-POS, Blood Gas Ventilator Setting NO, Blood Gas Inspired Oxygen 50% BIPAP 12/06/16 04:30: White Blood Count 9.9, Red Blood Count 3.36L, Hemoglobin 11.0L, Hematocrit 33L, Mean Corpuscular Volume 97, Mean Corpuscular Hemoglobin 33, Mean Corpuscular Hemoglobin Concent 34, Red Cell Distribution Width 12.9, Platelet Count 195, Mean Platelet Volume 10.6H, Neutrophils (%) (Auto) 73, Lymphocytes (%) (Auto) 11L, Monocytes (%) (Auto) 15H, Eosinophils (%) (Auto) 0, Basophils (%) (Auto) 0 , Neutrophils # (Auto) 7.3, Lymphocytes # (Auto) 1.1, Monocytes # (Auto) 1.5H, Eosinophils # (Auto) 0.0, Basophils # (Auto) 0.0, Sodium Level 144, Potassium Level 3.6, Chloride Level 112H, Carbon Dioxide Level 23, Anion Gap 9, Blood Urea Nitrogen 20H, Creatinine 0.65, Estimat Glomerular Filtration Rate > 60, BUN /Creatinine Ratio 31, Glucose Level 100, Calcium Level 8.3L, Phosphorus Level 1.9L, Magnesium Level 1.9 Microbiology 12/03/16 Blood Culture - Preliminary, Resulted No growth 12/03/16 Gram Stain - Final, Resulted 12/03/16 Body Fluid Culture - Preliminary, Resulted No growth 12/03/16 MRSA Screen - Final, Complete MRSA not isolated 12/02/16 Urine Culture - Preliminary, Resulted Probable Actinomyces 12/03/16 Gram Stain - Final, Resulted 12/03/16 Wound Culture - Preliminary, Resulted Staphylococcus Aureus Radiology CXR from 1900 12/04/16: IMPRESSION: 1. Increasing right lower lobe consolidation. 2. Increasing right perihilar infiltrates. 3. Extensive background chronic parenchymal changes. 4. Left-sided PICC line tip is projected over the mid SVC. 5. There is no evidence of a pneumothorax. CXR from 12/05/16 is pending at the time of exam. Procedures s/p chest tube placement, now s/p chest tube removal 12/04/16 Assessment/Plan Assessment/Plan Admission Dx Pneumothorax Tachy arrhythmias COPD Hypotension Plan FEN: Heart healthy diet DVT PPX: Lovenox, GFR >40 Dispo: Continue admission in ICU, transfer to floor when okay with cardiology and pulmonology Diagnosis/Problems: (1) Pneumothorax Qualifiers: Qualified Codes: J93.11 - Primary spontaneous pneumothorax Assessment & Plan: spontaneous pneumothorax on left side, now s/p chest tube placement and discontinuation. CXR shows resolution of pneumothorax, will continue to monitor; CXR from this AM is pending. (2) Pneumonia Qualifiers: Qualified Codes: J18.1 - Lobar pneumonia, unspecified organism Assessment & Plan: CXR done 12/04 at 1900 shows worsening RLL consolidation. Pt has been initiated on abx - vanc and zosyn - per pulmonology, and has been parra cultured. Pleural fluid obtained was sent for cytology. Will continue to supplement oxygen as needed; pt reports feeling extremely short of breath with minimal exertion, may require BiPap at some point if work of breathing continues to increase. (3) Arrhythmia Qualifiers: Qualified Codes: I49.9 - Cardiac arrhythmia, unspecified Assessment & Plan: cardiology evaluating, will follow echo done 12/03 showed AV sclerosis but no stenosis and LVEF 60-65% (4) COPD (chronic obstructive pulmonary disease) Qualifiers: Qualified Codes: J44.9 - Chronic obstructive pulmonary disease, unspecified Assessment & Plan: suggested per history, no testing records available to confirm diagnosis (5) Chest tube in place Assessment & Plan: discontinued 12/04/16 (6) Acute diastolic heart failure Assessment & Plan: cardiology managing. BNP elevated today. will continue to follow and defer management to cardiology and critical care team. (7) Anemia Qualifiers: Qualified Codes: D64.9 - Anemia, unspecified Assessment & Plan: will follow CBC, Hgb stable (8) Altered mental status Qualifiers: Qualified Codes: R40.0 - Somnolence Assessment & Plan: responds to physical stimulation at this time. Will continue to monitor closely. ABG done around 4 a.m. was within normal limits. Patient currently not on BiPAP and using O2 per nasal cannula. Maintaining sats of 100%, so hypoxia does not appear to be cause of somnolence. ABG previously done was with patient on BiPap, if mental status does not improve, consider repeat ABG and/or placing patient back on BiPap. Clinical Quality Measures DVT/VTE Risk/Contraindication: VTE Present on Admission: No Risk Factor Score Per Nursin RFS Level Per Nursing on Admit: 4+=Very High IVAN MISHRA DO Dec 06, 2016 09:08
[2016-12-06] MEDS: FAMOTIDINE 20 MG (PEPCID) TABLET PO SCH ×2 (09:12→22:35)
[2016-12-06] MEDS: ENOXAPARIN 40 MG/0.4 ML (LOVENOX) SYR SC SCH (12:33)
[2016-12-07] VITALS (16 sets, daily range): BP systolic 98–170; BP diastolic 60–90
[2016-12-07] MEDS: meTOprolol 5 MG/5 ML (LOPRESSOR) VIAL IV SCH (00:38)
[2016-12-07] MEDS: PIPERACILLIN SODIUM/TAZOBACTAM 4.5 GM in NS (IVPB) 100 ML IV SCH ×3 (00:39→17:50)
[2016-12-07 04:34] LABS: BASOPHILS % (AUTO) 0 % (0-10); EOSINOPHILS # (AUTO) 0.4 10^3/uL (0.0-0.3); EOSINOPHILS % (AUTO) 3 % (0-10); LYMPHOCYTES # (AUTO) 1.3 X 10^3 (1.0-4.0); LYMPHOCYTES % (AUTO) 12 % (12-44); MEAN CORPUSCULAR HEMOGLOBIN 33 PG (25-34); MEAN CORPUSCULAR HGB CONC 34 G/DL (32-36); MEAN CORPUSCULAR VOLUME 98 FL (80-99); MEAN PLATELET VOLUME 10.6 FL (7.4-10.4); MONOCYTES # (AUTO) 1.3 X 10^3 (0.0-1.0); MONOCYTES % (AUTO) 12 % (0-12); NEUTROPHILS # (AUTO) 7.7 X 10^3 (1.8-7.8); NEUTROPHILS % (AUTO) 72 % (42-75); PLATELET COUNT 253 10^3/uL (130-400); RED BLOOD COUNT 3.76 10^6/uL (4.35-5.85); RED CELL DISTRIBUTION WIDTH 13.2 % (10.0-14.5); WHITE BLOOD COUNT 10.6 10^3/uL (4.3-11.0)
[2016-12-07 04:53] LABS: ANION GAP 12 MMOL/L (5-14); BLOOD UREA NITROGEN 18 MG/DL (7-18); BUN/CREATININE RATIO 24; CALCIUM 8.7 MG/DL (8.5-10.1); CARBON DIOXIDE 26 MMOL/L (21-32); CHLORIDE 105 MMOL/L (98-107); CREATININE SERUM 0.75 MG/DL (0.60-1.30); GFR ESTIMATED > 60; GLUCOSE 87 MG/DL (70-105); PHOSPHORUS 3.8 MG/DL (2.3-4.7); POTASSIUM 3.1 MMOL/L (3.6-5.0); SODIUM 143 MMOL/L (135-145)
[2016-12-07] MEDS: RT-ALBUTEROL/IPRATROPIUM 3 ML (DUONEB) VIAL INH SCH ×4 (06:31→18:46)
--- NOTE | 2016-12-07 06:36 | Pulmonary Progress Note ---
Subjective Time Seen by Provider: 06:32 Subjective/Events-last exam Pt is doing much better today. Exam Exam Vital Signs Date Time Temp Pulse Resp B/P (MAP) Pulse Ox O2 Delivery O2 Flow Rate FiO2 12/07/16 04:00 Nasal Cannula 3.00 12/07/16 01:00 72 12/07/16 00:00 Nasal Cannula 3.00 12/06/16 21:00 72 27 96/65 100 Nasal Cannula 2.00 12/06/16 20:21 Nasal Cannula 2.00 12/06/16 20:21 100 Nasal Cannula 3.00 12/06/16 20:00 98.2 Nasal Cannula 3.00 12/06/16 20:00 Nasal Cannula 3.00 12/06/16 20:00 82 20 89/69 100 Nasal Cannula 3.00 12/06/16 19:00 89 12/06/16 19:00 89 27 107/62 100 Nasal Cannula 3.00 12/06/16 18:00 79 14 103/75 100 Nasal Cannula 3.00 12/06/16 17:00 86 21 146/77 100 Nasal Cannula 3.00 12/06/16 16:05 Nasal Cannula 3.00 12/06/16 16:00 97.8 12/06/16 16:00 73 23 147/78 100 Nasal Cannula 3.00 12/06/16 15:53 88 100 12/06/16 15:47 100 Nasal Cannula 3.00 12/06/16 15:00 101 25 133/72 100 Nasal Cannula 3.00 12/06/16 14:00 98 19 145/64 100 Nasal Cannula 3.00 12/06/16 13:00 83 12/06/16 13:00 78 21 135/65 100 Nasal Cannula 3.00 12/06/16 12:15 97.0 12/06/16 12:00 92 29 141/80 100 Nasal Cannula 3.00 12/06/16 12:00 Nasal Cannula 3.00 12/06/16 11:00 85 25 151/80 100 Nasal Cannula 3.00 12/06/16 10:53 100 Nasal Cannula 3.00 12/06/16 10:00 64 22 143/80 100 Nasal Cannula 3.00 12/06/16 09:00 68 20 143/95 100 Nasal Cannula 3.00 12/06/16 08:00 97.1 12/06/16 08:00 84 24 146/71 100 Nasal Cannula 3.00 12/06/16 08:00 Nasal Cannula 3.00 12/06/16 07:03 100 Nasal Cannula 3.00 12/06/16 07:00 84 26 129/66 100 Nasal Cannula 3.00 12/06/16 07:00 89 General Appearance: No Apparent Distress HEENT: PERRL/EOMI, TMs Normal, Normal ENT Inspection, Pharynx Normal Neck: Full Range of Motion, Normal Inspection, Non Tender, Supple, Carotid Bruit Respiratory: Chest Non Tender, No Accessory Muscle Use, No Respiratory Distress , Crackles, Decreased Breath Sounds Cardiovascular: Normal Peripheral Pulses, Tachycardia Capillary Refill: Less Than 3 Seconds Gastrointestinal: normal bowel sounds, non tender, soft Extremity: Normal Capillary Refill, Normal Inspection, Normal Range of Motion, Non Tender, No Calf Tenderness, No Pedal Edema Neurologic/Psychiatric: Alert, Oriented x3, No Motor/Sensory Deficits, Normal Mood/Affect Skin: Normal Color, Warm/Dry Lymphatic: No Adenopathy Results Lab Laboratory Tests 12/05/16 19:55 12/06/16 04:30 12/07/16 04:04 Assessment/Plan Assessment/Plan Spontaneous PTX s/p left chest tube in place Pneumonia - present on admission -Aguirre cultures -vanco zosyn Acute respiratory failure with pulmonary edema -Continue Lasix -BiPAP PRN - has only required 3 liters NC since yesterday morning. 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 Richmond Tobacco -education PT is doing better. [facility] with tele. 233 Clinical Quality Measures DVT/VTE Risk/Contraindication: VTE Present on Admission: No Risk Factor Score Per Nursin RFS Level Per Nursing on Admit: 4+=Very High DALJIT NEWTON DO Dec 07, 2016 06:36
[2016-12-07] MEDS: POTASSIUM CL 10MEQ/50ML IVPB 50 ML IV SCH ×3 (07:54→10:08)
--- NOTE | 2016-12-07 08:17 | Diagnostic Imaging Report ---
Upright portable radiograph of the chest. INDICATION: Arrythmia. COMPARISON: 12/06/2016. FINDINGS: There are extensive infiltrates seen mostly in the right perihilar and right basilar region, but also mild patchy infiltrates are seen in the left perihilar and left lung base. There is background pulmonary vascular congestion. There are bilateral effusions suggested moderate on the right and small on the left. The heart size is normal. No pneumothorax. IMPRESSION: There is worsening perihilar and basilar infiltrates mostly on the right side with bilateral effusions. There is pulmonary vascular congestion. Dictated by: Dictated on workstation # [id number]
--- NOTE | 2016-12-07 08:35 | Progress Note (SOAP) ---
Subjective Subjective/Events-last exam Patient much more awake and alert than yesterday. He reports that he is feeling much better today and that his breathing is getting better. Patient states he "never wants that to happen again". Per pulmonology, plan is to move patient to floor today with tele. No acute events overnight, patient has been off BiPAP since yesterday a.m. Review of Systems Date Seen by Provider: Dec 07, 2016 Time Seen by Provider: 10:00 General: No Chills, No Night Sweats HEENT: No Head Aches, No Eye Pain, No Ear Pain (fever I will) Pulmonary: Dyspnea, Cough Cardiovascular: No: Chest Pain, Palpitations, Edema, Lt Headedness Gastrointestinal: No: Nausea, Vomiting, Diarrhea Genitourinary: No Dysuria, No Hematuria Musculoskeletal: No: neck pain (is waiting for your patient saw her she will no she she), back pain Neurological: No: Numbness ( is 27 and she's having a boy), Incoordination ( secondly), Change in speech, Confusion Objective Exam Last Set of Vital Signs Vital Signs Date Time Temp Pulse Resp B/P (MAP) Pulse Ox O2 Delivery O2 Flow Rate FiO2 12/07/16 07:00 74 22 118/71 98 Nasal Cannula 1.00 12/07/16 04:00 97.9 12/06/16 00:00 40 Capillary Refill : Less Than 3 Seconds I&O Intake and Output 12/08/16 00:00 Intake Total 350 ml Output Total 450 ml Balance -100 ml Intake Oral 350 ml Output Urine Total 450 ml # Bowel Movements 2 General: Alert, Oriented X3, Cooperative, No Acute Distress HEENT: Atraumatic, EOMI, Mucous Memb Moist/Zarate Neck: Supple, No JVD, No Thyromegaly Lungs: Other (decreased air exchange in bases) Heart: Normal S1, Normal S2, No Murmurs Abdomen: Normal Bowel Sounds, Soft, No Hepatosplenomegaly Extremities: No Clubbing, No Cyanosis, No Edema Skin: No Rashes Neuro: Normal Speech, Normal Tone Psych/Mental Status: Mental Status NL, Mood NL Results/Procedures Lab Laboratory Tests 12/07/16 04:04: White Blood Count 10.6, Red Blood Count 3.76L, Hemoglobin 12.5L, Hematocrit 37L , Mean Corpuscular Volume 98, Mean Corpuscular Hemoglobin 33, Mean Corpuscular Hemoglobin Concent 34, Red Cell Distribution Width 13.2, Platelet Count 253, Mean Platelet Volume 10.6H, Neutrophils (%) (Auto) 72, Lymphocytes (%) (Auto) 12 , Monocytes (%) (Auto) 12, Eosinophils (%) (Auto) 3, Basophils (%) (Auto) 0, Neutrophils # (Auto) 7.7, Lymphocytes # (Auto) 1.3, Monocytes # (Auto) 1.3H, Eosinophils # (Auto) 0.4H, Basophils # (Auto) 0.0, Sodium Level 143, Potassium Level 3.1L, Chloride Level 105, Carbon Dioxide Level 26, Anion Gap 12, Blood Urea Nitrogen 18, Creatinine 0.75, Estimat Glomerular Filtration Rate > 60, BUN/ Creatinine Ratio 24, Glucose Level 87, Calcium Level 8.7, Phosphorus Level 3.8, Magnesium Level 2.0 Microbiology 12/03/16 Blood Culture - Preliminary, Resulted No growth 12/03/16 Gram Stain - Final, Resulted 12/03/16 Body Fluid Culture - Preliminary, Resulted No growth 12/03/16 MRSA Screen - Final, Complete MRSA not isolated 12/02/16 Urine Culture - Final, Complete Actinomyces Species 12/03/16 Gram Stain - Final, Resulted 12/03/16 Wound Culture - Preliminary, Resulted Staphylococcus Aureus Corynebacterium Species Radiology CXR 12/07/16: FINDINGS: There are extensive infiltrates seen mostly in the right perihilar and right basilar region, but also mild patchy infiltrates are seen in the left perihilar and left lung base. There is background pulmonary vascular congestion. There are bilateral effusions suggested moderate on the right and small on the left. The heart size is normal. No pneumothorax. IMPRESSION: There is worsening perihilar and basilar infiltrates mostly on the right side with bilateral effusions. There is pulmonary vascular congestion. Procedures s/p chest tube placement, now s/p chest tube removal 12/04/16 Assessment/Plan Assessment/Plan Admission Dx Pneumothorax Tachy arrhythmias COPD Hypotension Plan FEN: Heart healthy diet DVT PPX: Lovenox, GFR >40 Dispo: transfer to floor with telemetry later today; patient continues to require an inpatient level of care for his multiple medical conditions. Diagnosis/Problems: (1) Pneumothorax Qualifiers: Qualified Codes: J93.11 - Primary spontaneous pneumothorax Assessment & Plan: spontaneous pneumothorax on left side, now s/p chest tube placement and discontinuation. CXR shows resolution of pneumothorax, will continue to monitor; CXR from this AM is pending. (2) Pneumonia Qualifiers: Qualified Codes: J18.1 - Lobar pneumonia, unspecified organism Assessment & Plan: CXR done 12/04 at 1900 shows worsening RLL consolidation. Pt on abx - vanc and zosyn - per pulmonology, and has been parra cultured. Pleural fluid obtained was sent for cytology. Will continue to supplement oxygen as needed; breathing improved. No BiPap needed since yesterday AM. CXR this AM shows worsening consolidation. Overall improving. Will continue to monitor. (3) Arrhythmia Qualifiers: Qualified Codes: I49.9 - Cardiac arrhythmia, unspecified Assessment & Plan: Ecardiology evaluating, will follow echo done 12/03 showed AV sclerosis but no stenosis and LVEF 60-65% sinus rhythm on tele (4) COPD (chronic obstructive pulmonary disease) Qualifiers: Qualified Codes: J44.9 - Chronic obstructive pulmonary disease, unspecified Assessment & Plan: suggested per history, no testing records available to confirm diagnosis (5) Chest tube in place Assessment & Plan: discontinued 12/04/16 (6) Acute diastolic heart failure Assessment & Plan: Pt being diuresed; will continue to follow and defer management to critical care team. (7) Anemia Qualifiers: Qualified Codes: D64.9 - Anemia, unspecified Assessment & Plan: will follow CBC, Hgb stable (8) Altered mental status Qualifiers: Qualified Codes: R40.0 - Somnolence Assessment & Plan: Maintaining sats on 3L NC. Altered mental status resolved. Clinical Quality Measures AMI/AHF: Ejection Fraction %: 65 Ejection Fraction: Normal LVSF (defer management to cardiology) DVT/VTE Risk/Contraindication: VTE Present on Admission: No Risk Factor Score Per Nursin RFS Level Per Nursing on Admit: 4+=Very High IVAN MISHRA DO Dec 07, 2016 08:35
--- NOTE | 2016-12-07 09:14 | Progress Note-Cardiology ---
Cardiology SOAP Progress Note Subjective: Sitting up in bed. States he feels much better today. Occ non-productive cough. No c/o CP, palpitations. C/O generalized weakness. Objective: I&O/Vital Signs Vital Sign - Last 12Hours 12/07/16 12/07/16 12/07/16 12/07/16 06:31 07:00 07:00 08:00 Pulse 71 74 82 Resp 22 14 B/P (MAP) 118/71 105/63 Pulse Ox 100 98 99 O2 Delivery Nasal Cannula Nasal Cannula Nasal Cannula O2 Flow Rate 2.00 1.00 1.00 12/07/16 12/07/16 12/07/16 12/07/16 08:05 09:00 09:00 10:00 Temp 97.4 Pulse 75 71 72 Resp 20 16 20 B/P (MAP) 116/66 105/72 99/84 Pulse Ox 100 99 100 O2 Delivery Nasal Cannula Nasal Cannula Room Air Nasal Cannula O2 Flow Rate 1.00 1.00 1.00 12/07/16 12/07/16 12/07/16 12/07/16 11:00 12:00 12:10 14:55 Pulse 84 Resp 14 B/P (MAP) 109/74 Pulse Ox 94 92 92 O2 Delivery Nasal Cannula Room Air Room Air Room Air O2 Flow Rate 1.00 12/07/16 12/07/16 12/07/16 15:44 16:06 16:29 Temp 101.0 101.3 100.0 Pulse 109 Resp 20 B/P (MAP) 98/65 Pulse Ox 92 O2 Delivery Room Air Intake and Output 12/07/16 23:59 Intake Total 540 ml Output Total 1000 ml Balance -460 ml Weight (Pounds): 153 Weight (Ounces): 8.0 Weight (Calculated Kilograms): 69.433933 Constitutional: other (Awakens to verbal and tactile stimuli, answers questions , drowsy, disoriented to place) Respiratory: other (diminished bases bilat) Cardiovascular: regular rate-rhythm, S1 and S2 Gastrointestional: No tender, soft, audible bowel sounds Genital/Rectal: other (urinary catheter to DD; clear yellow urine) Extremities: no lower extremity edema bilateral Neurologic/Psychiatric: grossly intact Skin: No rash on exposed areas, No ulcerations on exposed areas, other ( dressing to left lateral chest D&I) Results/Procedures: Labs Laboratory Tests 12/07/16 04:04: White Blood Count 10.6, Red Blood Count 3.76L, Hemoglobin 12.5L, Hematocrit 37L , Mean Corpuscular Volume 98, Mean Corpuscular Hemoglobin 33, Mean Corpuscular Hemoglobin Concent 34, Red Cell Distribution Width 13.2, Platelet Count 253, Mean Platelet Volume 10.6H, Neutrophils (%) (Auto) 72, Lymphocytes (%) (Auto) 12 , Monocytes (%) (Auto) 12, Eosinophils (%) (Auto) 3, Basophils (%) (Auto) 0, Neutrophils # (Auto) 7.7, Lymphocytes # (Auto) 1.3, Monocytes # (Auto) 1.3H, Eosinophils # (Auto) 0.4H, Basophils # (Auto) 0.0, Sodium Level 143, Potassium Level 3.1L, Chloride Level 105, Carbon Dioxide Level 26, Anion Gap 12, Blood Urea Nitrogen 18, Creatinine 0.75, Estimat Glomerular Filtration Rate > 60, BUN/ Creatinine Ratio 24, Glucose Level 87, Calcium Level 8.7, Phosphorus Level 3.8, Magnesium Level 2.0 Microbiology 12/03/16 Blood Culture - Preliminary, Resulted No growth 12/03/16 Gram Stain - Final, Complete 12/03/16 Body Fluid Culture - Final, Complete No growth 12/03/16 MRSA Screen - Final, Complete MRSA not isolated 12/02/16 Urine Culture - Final, Complete Actinomyces Species 12/03/16 Gram Stain - Final, Complete 12/03/16 Wound Culture - Final, Complete Staphylococcus Aureus Corynebacterium Species Procedures NAME: CHARLES WAHL [facility] REC#: [id number] PT STATUS: ADM IN : 1950 PHYSICIAN: LUL ADRIAN MD ADMIT DATE: 12/02/16/ICU Draft Date of Exam:12/07/16 CHEST 1 VIEW, AP/PA ONLY Upright portable radiograph of the chest. INDICATION: Arrythmia. COMPARISON: 12/06/2016. FINDINGS: There are extensive infiltrates seen mostly in the right perihilar and right basilar region, but also mild patchy infiltrates are seen in the left perihilar and left lung base. There is background pulmonary vascular congestion. There are bilateral effusions suggested moderate on the right and small on the left. The heart size is normal. No pneumothorax. IMPRESSION: There is worsening perihilar and basilar infiltrates mostly on the right side with bilateral effusions. There is pulmonary vascular congestion. Dictated on workstation # [id number] Dict: 12/07/16 0754 Trans: 12/07/16 0817 [id number] Interpreted by: ANT MAYBERRY MD Electronically signed by: A/P: Assessment: Repeated episodes of acute respiratory failure Confusion, improved Spontaneous pneumothorax, treated with chest tube placement that has been removed now - Followed and managed by Dr. Liam Howard diastolic CHF, as indicated by elevated BNP. Echo of 12/03/16 showed AoV sclerosis w/o stenosis, LVEF 60-65% Multiple episodes of paroxysmal atrial tachycardia, had 2 episodes of wide complex tachycardia which appeared to be aberrant conduction - per Dr. Miller Hypokalemia, improved Troponin minimally elevated at time of initial presentation. No troponin elevation at time of this readmission to ICU Stress test and echocardiogram in [address] Miller, which did not show any significant ischemia at that time. 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 Followed by Dr. Richmond History of pulmonary nodule, followed by Dr. Richmond. COPD/tobaccoism, patient is still an active smoker smokes about a pack a day, educated on smoking cessation. Plan: Respiratory status improved Change IV meds to oral PT today to increase activity Monitor lab closely Physician Assessment Physician Assessment Improved shortness of breath Lungs: fair bilat air entry, prolonged exp phase Cor: reg Ext: no c/c/e A&R * As documented in our note above that I updated (italics) and as noted below * Continue diuretics * Monitor labs CHARLENE SORIA CONVENTIONAL MACHINIST Dec 07, 2016 09:14 KARIN SANDHU MD [facility] Dec 07, 2016 18:25
[2016-12-07] MEDS: meTOprolol TARTRATE 25 MG (LOPRESSOR) TABLET PO SCH ×2 (10:06→21:02)
[2016-12-07] MEDS: FAMOTIDINE 20 MG (PEPCID) TABLET PO SCH ×2 (10:06→21:01)
[2016-12-07] MEDS: FUROSEMIDE 40 MG/4 ML INJ (LASIX) IVP SCH (10:06)
[2016-12-07] MEDS: KCL 10 MEQ TAB (MICRO K) PO SCH (10:06)
[2016-12-07] MEDS: ENOXAPARIN 40 MG/0.4 ML (LOVENOX) SYR SC SCH (12:34)
[2016-12-07] MEDS: VANCOMYCIN INJECTION 1,250 MG in NS (IVPB) 250 ML IV SCH (13:07)
--- NOTE | 2016-12-07 14:35 | Physical Therapy Daily Note ---
PT Daily Note-Current Subjective Patient is in recliner and is very fatigued. Agrees to PT. Pain Numeric Pain Scale: 0-No Pain Location: No Pain Reported Mental Status Patient Orientation: Normal For Age Attachments: [place] Catheter, IV Transfers Functional [place] Measure 0=Not Assessed/NA 4=Minimal Assistance 1=Total Assistance 5=Supervision or Setup 2=Maximal Assistance 6=Modified [place] 3=Moderate Assistance 7=Complete IndependenceIRFPAI Quality Coding Scale 6 Independent with activity with or without an assistive device 5 Patient requires set up or clean up by helper. Patient completes activity by themselves 4 Supervision or touching assist (CGA). [place] provide cues , steadying assist 3 The helper provides less than half the effort to complete the activity 2 The helper provides more than half the effort to complete the activity 1 Dependent. The helper does all the effort to complete an activity 7 Patient refused to complete or attempt activity 9 The patient did not perform the activity before the current illness or injury 88 Not attempted due to Medical conditions or safety concerns Transfers (B, C, W/C) (FIM): 3 Scootin Rollin Supine to/from Sit: 5 Sit to/from Stand: 3 Bed to/from Chair: 3 Patient incontinent BM requiring dependent assist to cleanse. Gait Training Gait (FIM): 1 Distance (FIM): 1=up to 49 ft Distance: 10' Gait Level of Assist: 3 Gait Persons Needed: 1 Gait Assistive Device: FWW unsteady gait sequence; fatigues quickly Assessment Patient reassessed from transfer to ICU. Goals will remain the same. Patient is in a very deconditioned state and will require time to improve current LOF. PT Short Term Goals Short Term Goals Transfers (B,C,W/C) (FIM): 4 PT Group Home Goals Group Home Goals PT Office System Analyst Goals Time Frame: Dec 21, 2016 Transfers (B,C,W/C) (FIM): 6 Gait (FIM): 2 Gait distance (FIM): 1=480-90 ft Distance: 100' Gait Level of Assist: 6 Gait Assistive Device: FWW PT Plan Problem List Problem List: Activity Tolerance, Functional Strength, Safety, Balance, Gait, Transfer Treatment/Plan Treatment Plan: Continue Plan of Care Treatment Plan: Education, Functional Activity Ju[place]arl[place], Functional Strength, Gait , Safety, Therapeutic Exercise, Transfers Treatment Duration: Dec 21, 2016 Frequency: 6 times per week Estimated Hrs Per Day: .25 hour per day Patient and/or Family Agrees t: Yes Time/GCodes Time In: 1405 Time Out: 1420 Total Billed Treatment Time: 15 Total Billed Treatment 1 visit Re-Ashleigh 15 min ERNIE COVINGTON PT Dec 07, 2016 14:35
[2016-12-07] MEDS: ACETAMINOPHEN 325 MG TABLET/CAPLET (TYLENOL) PO PRN (15:44)
[2016-12-08] VITALS (8 sets, daily range): BP systolic 82–125; BP diastolic 51–79
[2016-12-08] MEDS: PIPERACILLIN SODIUM/TAZOBACTAM 4.5 GM in NS (IVPB) 100 ML IV SCH ×3 (00:21→16:59)
[2016-12-08 05:47] LABS: BASOPHILS # (AUTO) 0.1 10^3/uL (0.0-0.1); BASOPHILS % (AUTO) 1 % (0-10); EOSINOPHILS # (AUTO) 0.3 10^3/uL (0.0-0.3); EOSINOPHILS % (AUTO) 3 % (0-10); LYMPHOCYTES # (AUTO) 1.1 X 10^3 (1.0-4.0); LYMPHOCYTES % (AUTO) 10 % (12-44); MEAN CORPUSCULAR HEMOGLOBIN 33 PG (25-34); MEAN CORPUSCULAR HGB CONC 34 G/DL (32-36); MEAN CORPUSCULAR VOLUME 97 FL (80-99); MEAN PLATELET VOLUME 10.5 FL (7.4-10.4); MONOCYTES # (AUTO) 1.4 X 10^3 (0.0-1.0); MONOCYTES % (AUTO) 12 % (0-12); NEUTROPHILS # (AUTO) 8.4 X 10^3 (1.8-7.8); NEUTROPHILS % (AUTO) 75 % (42-75); PLATELET COUNT 257 10^3/uL (130-400); RED BLOOD COUNT 3.63 10^6/uL (4.35-5.85); RED CELL DISTRIBUTION WIDTH 12.9 % (10.0-14.5); WHITE BLOOD COUNT 11.1 10^3/uL (4.3-11.0)
[2016-12-08] MEDS: ONDANSETRON 4 MG/2 ML (SDV) Z0FRAN IVP PRN ×2 (05:51→12:54)
[2016-12-08 06:04] LABS: ANION GAP 8 MMOL/L (5-14); BLOOD UREA NITROGEN 18 MG/DL (7-18); BUN/CREATININE RATIO 23; CALCIUM 8.4 MG/DL (8.5-10.1); CARBON DIOXIDE 30 MMOL/L (21-32); CHLORIDE 101 MMOL/L (98-107); CREATININE SERUM 0.77 MG/DL (0.60-1.30); GFR ESTIMATED > 60; GLUCOSE 120 MG/DL (70-105); MAGNESIUM 1.8 MG/DL (1.8-2.4); PHOSPHORUS 2.5 MG/DL (2.3-4.7); POTASSIUM 3.2 MMOL/L (3.6-5.0); SODIUM 139 MMOL/L (135-145)
[2016-12-08] MEDS: KCL 10 MEQ TAB (MICRO K) PO SCH (07:40)
[2016-12-08] MEDS: RT-ALBUTEROL/IPRATROPIUM 3 ML (DUONEB) VIAL INH SCH ×4 (08:12→20:16)
[2016-12-08] MEDS: FUROSEMIDE 40 MG/4 ML INJ (LASIX) IVP SCH (08:34)
[2016-12-08] MEDS: meTOprolol TARTRATE 25 MG (LOPRESSOR) TABLET PO SCH ×2 (08:34→22:26)
[2016-12-08] MEDS: FAMOTIDINE 20 MG (PEPCID) TABLET PO SCH ×2 (08:34→22:26)
--- NOTE | 2016-12-08 08:42 | Progress Note (SOAP) ---
Subjective Subjective/Events-last exam patient reports he is feeling better. He reports he is still weak however. His breathing is improving. Review of Systems Date Seen by Provider: Dec 08, 2016 Time Seen by Provider: 06:50 Objective Exam Last Set of Vital Signs Vital Signs Date Time Temp Pulse Resp B/P (MAP) Pulse Ox O2 Delivery O2 Flow Rate FiO2 12/08/16 08:17 98 98 24 12/08/16 08:12 Room Air 12/08/16 03:20 99.8 14 112/78 12/07/16 11:00 1.00 Capillary Refill : Less Than 3 Seconds General: No Acute Distress Lungs: Other (few Rales in bases) Heart: Regular Rate Abdomen: Soft Extremities: No Edema Results/Procedures Lab Laboratory Tests 12/08/16 05:06: White Blood Count 11.1H, Red Blood Count 3.63L, Hemoglobin 12.0L, Hematocrit 35L , Mean Corpuscular Volume 97, Mean Corpuscular Hemoglobin 33, Mean Corpuscular Hemoglobin Concent 34, Red Cell Distribution Width 12.9, Platelet Count 257, Mean Platelet Volume 10.5H, Neutrophils (%) (Auto) 75, Lymphocytes (%) (Auto) 10L, Monocytes (%) (Auto) 12, Eosinophils (%) (Auto) 3, Basophils (%) (Auto) 1, Neutrophils # (Auto) 8.4H, Lymphocytes # (Auto) 1.1, Monocytes # (Auto) 1.4H, Eosinophils # (Auto) 0.3, Basophils # (Auto) 0.1, Sodium Level 139, Potassium Level 3.2L, Chloride Level 101, Carbon Dioxide Level 30, Anion Gap 8, Blood Urea Nitrogen 18, Creatinine 0.77, Estimat Glomerular Filtration Rate > 60, BUN/ Creatinine Ratio 23, Glucose Level 120H, Calcium Level 8.4L, Phosphorus Level 2.5, Magnesium Level 1.8 Microbiology 12/03/16 Blood Culture - Preliminary, Resulted No growth 12/03/16 Gram Stain - Final, Complete 12/03/16 Body Fluid Culture - Final, Complete No growth 12/03/16 MRSA Screen - Final, Complete MRSA not isolated 12/02/16 Urine Culture - Final, Complete Actinomyces Species 12/03/16 Gram Stain - Final, Complete 12/03/16 Wound Culture - Final, Complete Staphylococcus Aureus Corynebacterium Species Radiology CXR 12/07/16: FINDINGS: There are extensive infiltrates seen mostly in the right perihilar and right basilar region, but also mild patchy infiltrates are seen in the left perihilar and left lung base. There is background pulmonary vascular congestion. There are bilateral effusions suggested moderate on the right and small on the left. The heart size is normal. No pneumothorax. IMPRESSION: There is worsening perihilar and basilar infiltrates mostly on the right side with bilateral effusions. There is pulmonary vascular congestion. Procedures s/p chest tube placement, now s/p chest tube removal 12/04/16 Assessment/Plan Assessment/Plan Admission Dx Pneumothorax Tachy arrhythmias COPD Hypotension Plan FEN: Heart healthy diet DVT PPX: Lovenox, GFR >40 Dispo: transfer to floor with telemetry later today; patient continues to require an inpatient level of care for his multiple medical conditions. Diagnosis/Problems: (1) Pneumothorax Qualifiers: Qualified Codes: J93.11 - Primary spontaneous pneumothorax Assessment & Plan: spontaneous pneumothorax on left side, now s/p chest tube placement and discontinuation. CXR shows resolution of pneumothorax, will continue to monitor; CXR from this AM is pending. 12/08 chest x-ray pending from this morning (2) Pneumonia Qualifiers: Qualified Codes: J18.1 - Lobar pneumonia, unspecified organism Assessment & Plan: CXR done 12/04 at 1900 shows worsening RLL consolidation. Pt on abx - vanc and zosyn - per pulmonology, and has been parra cultured. Pleural fluid obtained was sent for cytology. Will continue to supplement oxygen as needed; breathing improved. No BiPap needed since yesterday AM. CXR this AM shows worsening consolidation. Overall improving. Will continue to monitor. (3) Arrhythmia Qualifiers: Qualified Codes: I49.9 - Cardiac arrhythmia, unspecified Assessment & Plan: Ecardiology evaluating, will follow echo done 12/03 showed AV sclerosis but no stenosis and LVEF 60-65% sinus rhythm on tele 12/09 he does not appear to be in any arrhythmia this morning (4) COPD (chronic obstructive pulmonary disease) Qualifiers: Qualified Codes: J44.9 - Chronic obstructive pulmonary disease, unspecified Assessment & Plan: suggested per history, no testing records available to confirm diagnosis (5) Chest tube in place Assessment & Plan: discontinued 12/04/16 (6) Acute diastolic heart failure Assessment & Plan: Pt being diuresed; will continue to follow and defer management to critical care team. (7) Anemia Qualifiers: Qualified Codes: D64.9 - Anemia, unspecified Assessment & Plan: will follow CBC, Hgb stable (8) Altered mental status Qualifiers: Qualified Codes: R40.0 - Somnolence Assessment & Plan: Maintaining sats on 3L NC. Altered mental status resolved. Clinical Quality Measures AMI/AHF: Ejection Fraction %: 65 DVT/VTE Risk/Contraindication: VTE Present on Admission: No Risk Factor Score Per Nursin RFS Level Per Nursing on Admit: 4+=Very High TONY MOTLEY MD Dec 08, 2016 08:42
--- NOTE | 2016-12-08 10:11 | Physical Therapy Daily Note ---
PT Daily Note-Current Subjective Pt seated in chair and agreeable. Pt denies pain. "Not so far I don't have any pain." Mental Status Attachments: IV Transfers Functional [place] Measure 0=Not Assessed/NA 4=Minimal Assistance 1=Total Assistance 5=Supervision or Setup 2=Maximal Assistance 6=Modified [place] 3=Moderate Assistance 7=Complete IndependenceIRFPAI Quality Coding Scale 6 Independent with activity with or without an assistive device 5 Patient requires set up or clean up by helper. Patient completes activity by themselves 4 Supervision or touching assist (CGA). [place] provide cues , steadying assist 3 The helper provides less than half the effort to complete the activity 2 The helper provides more than half the effort to complete the activity 1 Dependent. The helper does all the effort to complete an activity 7 Patient refused to complete or attempt activity 9 The patient did not perform the activity before the current illness or injury 88 Not attempted due to Medical conditions or safety concerns Chair transfers sit to stand, Mod (I) Gait Training Gait Assistive Device: FWW Pt refused treatment upon my arrival. Pt states "I have not slept in two days. I can't do anything." Pt declined attempts to do PROM in bed as well. Assessment Current Status: Refused Treatment PT Short Term Goals Short Term Goals Transfers (B,C,W/C) (FIM): 4 PT Filenet Architect Goals Filenet Architect Goals PT Retirement Goals Time Frame: Dec 21, 2016 Transfers (B,C,W/C) (FIM): 6 Gait (FIM): 2 Gait distance (FIM): 0=474-37 ft Distance: 100' Gait Level of Assist: 6 Gait Assistive Device: FWW PT Plan Treatment/Plan Treatment Plan: Continue Plan of Care Treatment Plan: Education, Functional Activity Juancarlos, Functional Strength, Gait , Safety, Therapeutic Exercise, Transfers Treatment Duration: Dec 21, 2016 Frequency: 6 times per week Estimated Hrs Per Day: .25 hour per day Patient and/or Family Agrees t: Yes Time/GCodes Time In: 900 Time Out: 900 Total Billed Treatment Time: 0 Total Billed Treatment 1, no treatment rendered CASSANDRA MENDOZA CPTA Dec 08, 2016 10:11
--- NOTE | 2016-12-08 10:22 | Physical Therapy Daily Note ---
PT Daily Note-Current Subjective Pt refused treatment upon my arrival. Pt states "I have not slept in two days. I can't do anything." Pt declined attempt at PROM in bed as well. Transfers Functional [place] Measure 0=Not Assessed/NA 4=Minimal Assistance 1=Total Assistance 5=Supervision or Setup 2=Maximal Assistance 6=Modified [place] 3=Moderate Assistance 7=Complete IndependenceIRFPAI Quality Coding Scale 6 Independent with activity with or without an assistive device 5 Patient requires set up or clean up by helper. Patient completes activity by themselves 4 Supervision or touching assist (CGA). [place] provide cues , steadying assist 3 The helper provides less than half the effort to complete the activity 2 The helper provides more than half the effort to complete the activity 1 Dependent. The helper does all the effort to complete an activity 7 Patient refused to complete or attempt activity 9 The patient did not perform the activity before the current illness or injury 88 Not attempted due to Medical conditions or safety concerns Assessment Current Status: Refused Treatment PT Short Term Goals Short Term Goals Transfers (B,C,W/C) (FIM): 4 PT Longterm Goals Longterm Goals PT Longterm Goals Time Frame: Dec 21, 2016 Transfers (B,C,W/C) (FIM): 6 Gait (FIM): 2 Gait distance (FIM): 1=387-61 ft Distance: 100' Gait Level of Assist: 6 Gait Assistive Device: FWW PT Plan Treatment/Plan Treatment Plan: Continue Plan of Care Treatment Plan: Education, Functional Activity Juancarlos, Functional Strength, Gait , Safety, Therapeutic Exercise, Transfers Treatment Duration: Dec 21, 2016 Frequency: 6 times per week Estimated Hrs Per Day: .25 hour per day Patient and/or Family Agrees t: Yes Time/GCodes Time In: 900 Time Out: 900 Total Billed Treatment Time: 0 Total Billed Treatment 1, no treatment rendered CASSANDRA MENDOZA CPTA Dec 08, 2016 10:22
--- NOTE | 2016-12-08 12:41 | Diagnostic Imaging Report ---
Exam: Portable chest. Comparison to prior study from December 07, 2016. Indication: Arrhythmia. Findings: There has not been evidence of interval change in the size of the cardiac silhouette compared to the previous exam. Chronic background interstitial changes are noted within the lungs but the prominence of the pulmonary interstitial markings has markedly increased compared to prior from December 02, 2016. This suggests superimposed pulmonary edema or interstitial pneumonia. There is also bibasilar consolidation with bilateral pleural effusions. There is no pneumothorax. Impression: 1. While the patient does have chronic interstitial lung disease, the prominence of the interstitial markings has markedly increased compared to more remote prior examinations and is compatible with severe superimposed pulmonary edema or interstitial pneumonia. There also are bilateral basilar pleural effusions. Dictated by: Dictated on workstation # [id number]
[2016-12-08] MEDS: ENOXAPARIN 40 MG/0.4 ML (LOVENOX) SYR SC SCH (12:47)
[2016-12-08] MEDS: ACETAMINOPHEN 325 MG TABLET/CAPLET (TYLENOL) PO PRN (14:10)
--- NOTE | 2016-12-08 16:34 | Progress Note-Cardiology ---
Cardiology SOAP Progress Note Subjective: Notes some shortness of breath with activity. No cp or palp or syncope Objective: I&O/Vital Signs Vital Sign - Last 12Hours 12/08/16 12/08/16 12/08/16 12/08/16 08:00 08:12 08:17 08:30 Temp 99.3 Pulse 112 98 Resp 24 B/P (MAP) 113/67 Pulse Ox 98 98 98 O2 Delivery Room Air Room Air Room Air FiO2 24 12/08/16 12/08/16 12/08/16 12/08/16 11:45 12:00 14:10 15:57 Temp 100.7 100.7 100.1 Pulse 116 Resp 24 B/P (MAP) 92/66 Pulse Ox 95 96 O2 Delivery Room Air Room Air 12/08/16 16:18 Temp 99.7 Pulse 100 Resp 24 B/P (MAP) 91/55 Pulse Ox 97 O2 Delivery Room Air Weight (Pounds): 160 Weight (Ounces): 1.0 Weight (Calculated Kilograms): 72.416540 Constitutional: other (Awakens to verbal and tactile stimuli, answers questions , drowsy, disoriented to place) Respiratory: other (diminished bases bilat) Cardiovascular: regular rate-rhythm, S1 and S2 Gastrointestional: No tender, soft, audible bowel sounds Genital/Rectal: other (urinary catheter to DD; clear yellow urine) Extremities: no lower extremity edema bilateral Neurologic/Psychiatric: grossly intact Skin: No rash on exposed areas, No ulcerations on exposed areas, other ( dressing to left lateral chest D&I) Results/Procedures: Labs Laboratory Tests 12/08/16 05:06: White Blood Count 11.1H, Red Blood Count 3.63L, Hemoglobin 12.0L, Hematocrit 35L , Mean Corpuscular Volume 97, Mean Corpuscular Hemoglobin 33, Mean Corpuscular Hemoglobin Concent 34, Red Cell Distribution Width 12.9, Platelet Count 257, Mean Platelet Volume 10.5H, Neutrophils (%) (Auto) 75, Lymphocytes (%) (Auto) 10L, Monocytes (%) (Auto) 12, Eosinophils (%) (Auto) 3, Basophils (%) (Auto) 1, Neutrophils # (Auto) 8.4H, Lymphocytes # (Auto) 1.1, Monocytes # (Auto) 1.4H, Eosinophils # (Auto) 0.3, Basophils # (Auto) 0.1, Sodium Level 139, Potassium Level 3.2L, Chloride Level 101, Carbon Dioxide Level 30, Anion Gap 8, Blood Urea Nitrogen 18, Creatinine 0.77, Estimat Glomerular Filtration Rate > 60, BUN/ Creatinine Ratio 23, Glucose Level 120H, Calcium Level 8.4L, Phosphorus Level 2.5, Magnesium Level 1.8 Microbiology 12/03/16 Blood Culture - Final, Complete No growth 12/03/16 Gram Stain - Final, Complete 12/03/16 Body Fluid Culture - Final, Complete No growth 12/03/16 MRSA Screen - Final, Complete MRSA not isolated 12/02/16 Urine Culture - Final, Complete Actinomyces Species 12/03/16 Gram Stain - Final, Complete 12/03/16 Wound Culture - Final, Complete Staphylococcus Aureus Corynebacterium Species Laboratory Tests 12/07/16 04:04 12/08/16 05:06 A/P: Assessment: Repeated episodes of acute respiratory failure Confusion, improved Spontaneous pneumothorax, treated with chest tube placement that has been removed now - Followed and managed by Dr. Wheeler Ac diastolic CHF, as indicated by elevated BNP. Echo of 12/03/16 showed AoV sclerosis w/o stenosis, LVEF 60-65% Multiple episodes of paroxysmal atrial tachycardia, had 2 episodes of wide complex tachycardia which appeared to be aberrant conduction - per Dr. Miller Hypokalemia Troponin minimally elevated at time of initial presentation. No troponin elevation at time of this readmission to ICU Stress test and echocardiogram in [address] Miller, which did not show any significant ischemia at that time. 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 Followed by Dr. Richmond History of pulmonary nodule, followed by Dr. Richmond. COPD/tobaccoism, patient is still an active smoker smokes about a pack a day, educated on smoking cessation. Plan: Continue diuretics Replenish K Monitor labs Clinical Quality Measures AMI/AHF: Ejection Fraction %: 65 KARIN SANDHU MD FACP [facility] CCDS Dec 08, 2016 16:34
[2016-12-08] MEDS ORDERED: KCL 20 MEQ TAB (K-DUR) PO NR (16:40)
[2016-12-09] MEDS: PIPERACILLIN SODIUM/TAZOBACTAM 4.5 GM in NS (IVPB) 100 ML IV SCH ×3 (00:43→17:31)
[2016-12-09 03:15] VITALS: BP 137/57
[2016-12-09 05:57] LABS: BASOPHILS # (AUTO) 0.1 10^3/uL (0.0-0.1); BASOPHILS % (AUTO) 1 % (0-10); EOSINOPHILS # (AUTO) 0.4 10^3/uL (0.0-0.3); EOSINOPHILS % (AUTO) 4 % (0-10); LYMPHOCYTES # (AUTO) 1.4 X 10^3 (1.0-4.0); LYMPHOCYTES % (AUTO) 13 % (12-44); MEAN CORPUSCULAR HEMOGLOBIN 33 PG (25-34); MEAN CORPUSCULAR HGB CONC 34 G/DL (32-36); MEAN CORPUSCULAR VOLUME 97 FL (80-99); MEAN PLATELET VOLUME 10.1 FL (7.4-10.4); MONOCYTES # (AUTO) 1.3 X 10^3 (0.0-1.0); MONOCYTES % (AUTO) 12 % (0-12); NEUTROPHILS # (AUTO) 7.2 X 10^3 (1.8-7.8); NEUTROPHILS % (AUTO) 70 % (42-75); PLATELET COUNT 261 10^3/uL (130-400); RED CELL DISTRIBUTION WIDTH 12.8 % (10.0-14.5); WHITE BLOOD COUNT 10.2 10^3/uL (4.3-11.0)
[2016-12-09 06:20] LABS: ANION GAP 10 MMOL/L (5-14); BLOOD UREA NITROGEN 17 MG/DL (7-18); BUN/CREATININE RATIO 24; CALCIUM 8.7 MG/DL (8.5-10.1); CARBON DIOXIDE 29 MMOL/L (21-32); CHLORIDE 99 MMOL/L (98-107); GFR ESTIMATED > 60; GLUCOSE 90 MG/DL (70-105); MAGNESIUM 1.6 MG/DL (1.8-2.4); PHOSPHORUS 3.6 MG/DL (2.3-4.7); POTASSIUM 3.4 MMOL/L (3.6-5.0); SODIUM 138 MMOL/L (135-145)
[2016-12-09] MEDS: KCL 10 MEQ TAB (MICRO K) PO SCH (06:48)
[2016-12-09] MEDS: RT-ALBUTEROL/IPRATROPIUM 3 ML (DUONEB) VIAL INH SCH ×4 (07:52→19:03)
[2016-12-09 08:00] VITALS: BP 97/69
--- NOTE | 2016-12-09 09:01 | Progress Note (SOAP) ---
Subjective Subjective/Events-last exam Patient in very good spirits this morning. He is actually starting to eat more solid foods. He has no shortness of breath. He knows he is getting closer to going home. Review of Systems Date Seen by Provider: Dec 09, 2016 Time Seen by Provider: 07:15 Objective Exam Last Set of Vital Signs Vital Signs Date Time Temp Pulse Resp B/P (MAP) Pulse Ox O2 Delivery O2 Flow Rate FiO2 12/09/16 07:52 99 Room Air 12/09/16 03:15 99.0 84 20 137/57 12/08/16 20:15 1.00 12/08/16 08:17 24 Capillary Refill : Less Than 3 Seconds I&O Intake and Output 12/10/16 00:00 Intake Total 350 ml Output Total 525 ml Balance -175 ml Intake Oral 350 ml Output Urine Total 525 ml General: No Acute Distress Neck: Supple Lungs: Clear to Auscultation (Overall with faint bibasilar Rales) Heart: Regular Rate Abdomen: Soft Skin: No Rashes Results/Procedures Lab Laboratory Tests 12/09/16 05:48: White Blood Count 10.2, Red Blood Count 3.50L, Hemoglobin 11.6L, Hematocrit 34L , Mean Corpuscular Volume 97, Mean Corpuscular Hemoglobin 33, Mean Corpuscular Hemoglobin Concent 34, Red Cell Distribution Width 12.8, Platelet Count 261, Mean Platelet Volume 10.1, Neutrophils (%) (Auto) 70, Lymphocytes (%) (Auto) 13 , Monocytes (%) (Auto) 12, Eosinophils (%) (Auto) 4, Basophils (%) (Auto) 1, Neutrophils # (Auto) 7.2, Lymphocytes # (Auto) 1.4, Monocytes # (Auto) 1.3H, Eosinophils # (Auto) 0.4H, Basophils # (Auto) 0.1, Sodium Level 138, Potassium Level 3.4L, Chloride Level 99, Carbon Dioxide Level 29, Anion Gap 10, Blood Urea Nitrogen 17, Creatinine 0.70, Estimat Glomerular Filtration Rate > 60, BUN/ Creatinine Ratio 24, Glucose Level 90, Calcium Level 8.7, Phosphorus Level 3.6, Magnesium Level 1.6L Microbiology 12/03/16 Blood Culture - Final, Complete No growth 12/03/16 Gram Stain - Final, Complete 12/03/16 Body Fluid Culture - Final, Complete No growth 12/03/16 MRSA Screen - Final, Complete MRSA not isolated 12/02/16 Urine Culture - Final, Complete Actinomyces Species 12/03/16 Gram Stain - Final, Complete 12/03/16 Wound Culture - Final, Complete Staphylococcus Aureus Corynebacterium Species Radiology CXR 12/07/16: FINDINGS: There are extensive infiltrates seen mostly in the right perihilar and right basilar region, but also mild patchy infiltrates are seen in the left perihilar and left lung base. There is background pulmonary vascular congestion. There are bilateral effusions suggested moderate on the right and small on the left. The heart size is normal. No pneumothorax. IMPRESSION: There is worsening perihilar and basilar infiltrates mostly on the right side with bilateral effusions. There is pulmonary vascular congestion. Procedures s/p chest tube placement, now s/p chest tube removal 12/04/16 Assessment/Plan Assessment/Plan Admission Dx Pneumothorax Tachy arrhythmias COPD Hypotension Plan FEN: Heart healthy diet DVT PPX: Lovenox, GFR >40 Dispo: transfer to floor with telemetry later today; patient continues to require an inpatient level of care for his multiple medical conditions. Diagnosis/Problems: (1) Pneumothorax Qualifiers: Qualified Codes: J93.11 - Primary spontaneous pneumothorax Assessment & Plan: spontaneous pneumothorax on left side, now s/p chest tube placement and discontinuation. CXR shows resolution of pneumothorax, will continue to monitor; CXR from this AM is pending. 12/08 chest x-ray pending from this morning 12/09 chest x-ray from December 08 revealed increased interstitial markings. His clinical picture does not reflect this. (2) Pneumonia Qualifiers: Qualified Codes: J18.1 - Lobar pneumonia, unspecified organism Assessment & Plan: CXR done 12/04 at 1900 shows worsening RLL consolidation. Pt on abx - vanc and zosyn - per pulmonology, and has been parra cultured. Pleural fluid obtained was sent for cytology. Will continue to supplement oxygen as needed; breathing improved. No BiPap needed since yesterday AM. CXR this AM shows worsening consolidation. Overall improving. Will continue to monitor. 12/08 antibiotics continue. We'll work on overall physical strength and hopefully home soon in the near future. (3) Arrhythmia Qualifiers: Qualified Codes: I49.9 - Cardiac arrhythmia, unspecified Assessment & Plan: Ecardiology evaluating, will follow echo done 12/03 showed AV sclerosis but no stenosis and LVEF 60-65% sinus rhythm on tele 12/09 he does not appear to be in any arrhythmia this morning (4) COPD (chronic obstructive pulmonary disease) Qualifiers: Qualified Codes: J44.9 - Chronic obstructive pulmonary disease, unspecified Assessment & Plan: suggested per history, no testing records available to confirm diagnosis (5) Chest tube in place Assessment & Plan: discontinued 12/04/16 (6) Acute diastolic heart failure Assessment & Plan: Pt being diuresed; will continue to follow and defer management to critical care team. (7) Anemia Qualifiers: Qualified Codes: D64.9 - Anemia, unspecified Assessment & Plan: will follow CBC, Hgb stable (8) Altered mental status Qualifiers: Qualified Codes: R40.0 - Somnolence Assessment & Plan: Maintaining sats on 3L NC. Altered mental status resolved. Clinical Quality Measures AMI/AHF: Ejection Fraction %: 65 DVT/VTE Risk/Contraindication: VTE Present on Admission: No Risk Factor Score Per Nursin RFS Level Per Nursing on Admit: 4+=Very High TONY MOTLEY MD Dec 09, 2016 09:01
[2016-12-09] MEDS ORDERED: MAGNESIUM OXIDE (MAG-OX)400 MG TAB PO NR (09:08)
[2016-12-09] MEDS: FAMOTIDINE 20 MG (PEPCID) TABLET PO SCH ×2 (09:36→20:30)
[2016-12-09] MEDS: meTOprolol TARTRATE 25 MG (LOPRESSOR) TABLET PO SCH ×2 (09:37→21:00)
[2016-12-09] MEDS: FUROSEMIDE 40 MG/4 ML INJ (LASIX) IVP SCH (09:38)
[2016-12-09 12:00] VITALS: BP 93/62
[2016-12-09] MEDS: ENOXAPARIN 40 MG/0.4 ML (LOVENOX) SYR SC SCH (13:44)
[2016-12-09] MEDS ORDERED: KCL 20 MEQ TAB (K-DUR) PO NR (14:46)
--- NOTE | 2016-12-09 14:47 | Progress Note-Cardiology ---
Cardiology SOAP Progress Note Subjective: Notes weakness and tiredness and exertional shortness of breath (albeit somewhat improved) Denies cp or palp or syncope Objective: I&O/Vital Signs Vital Sign - Last 12Hours 12/09/16 12/09/16 12/09/16 12/09/16 03:15 07:52 08:00 12:00 Temp 99.0 98.3 99.1 Pulse 84 77 95 Resp 20 24 24 B/P (MAP) 137/57 97/69 93/62 Pulse Ox 94 99 99 97 O2 Delivery Room Air Room Air Room Air Room Air Weight (Pounds): 160 Weight (Ounces): 6.0 Weight (Calculated Kilograms): 72.160471 Constitutional: AAO x 3, other (thin-appearing) Respiratory: other (diminished bases bilat) Cardiovascular: regular rate-rhythm, S1 and S2 Gastrointestional: No tender, soft, audible bowel sounds Genital/Rectal: other (urinary catheter to DD; clear yellow urine) Extremities: no lower extremity edema bilateral Neurologic/Psychiatric: grossly intact Skin: No rash on exposed areas, No ulcerations on exposed areas, other ( dressing to left lateral chest D&I) Results/Procedures: Labs Laboratory Tests 12/09/16 05:48: White Blood Count 10.2, Red Blood Count 3.50L, Hemoglobin 11.6L, Hematocrit 34L , Mean Corpuscular Volume 97, Mean Corpuscular Hemoglobin 33, Mean Corpuscular Hemoglobin Concent 34, Red Cell Distribution Width 12.8, Platelet Count 261, Mean Platelet Volume 10.1, Neutrophils (%) (Auto) 70, Lymphocytes (%) (Auto) 13 , Monocytes (%) (Auto) 12, Eosinophils (%) (Auto) 4, Basophils (%) (Auto) 1, Neutrophils # (Auto) 7.2, Lymphocytes # (Auto) 1.4, Monocytes # (Auto) 1.3H, Eosinophils # (Auto) 0.4H, Basophils # (Auto) 0.1, Sodium Level 138, Potassium Level 3.4L, Chloride Level 99, Carbon Dioxide Level 29, Anion Gap 10, Blood Urea Nitrogen 17, Creatinine 0.70, Estimat Glomerular Filtration Rate > 60, BUN/ Creatinine Ratio 24, Glucose Level 90, Calcium Level 8.7, Phosphorus Level 3.6, Magnesium Level 1.6L Microbiology 12/03/16 Blood Culture - Final, Complete No growth 12/03/16 Gram Stain - Final, Complete 12/03/16 Body Fluid Culture - Final, Complete No growth 12/03/16 MRSA Screen - Final, Complete MRSA not isolated 12/02/16 Urine Culture - Final, Complete Actinomyces Species 12/03/16 Gram Stain - Final, Complete 12/03/16 Wound Culture - Final, Complete Staphylococcus Aureus Corynebacterium Species Laboratory Tests 12/08/16 05:06 12/09/16 05:48 A/P: Assessment: Repeated episodes of acute respiratory failure Confusion, improved Spontaneous pneumothorax, treated with chest tube placement that has been removed now - Followed and managed by Dr. Liam Howard diastolic CHF, as indicated by elevated BNP. Echo of 12/03/16 showed AoV sclerosis w/o stenosis, LVEF 60-65% Multiple episodes of paroxysmal atrial tachycardia, had 2 episodes of wide complex tachycardia which appeared to be aberrant conduction - per Dr. Miller Hypokalemia Troponin minimally elevated at time of initial presentation. No troponin elevation at time of this readmission to ICU Stress test and echocardiogram [place] [address] Miller, which did not show any significant ischemia at that time. 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 Followed by Dr. Richmond History of pulmonary nodule, followed by Dr. Richmond. COPD/tobaccoism, patient is still an active smoker smokes about a pack a day, educated on smoking cessation. Plan: Continue diuretics Replenish K Monitor labs Clinical Quality Measures AMI/AHF: Ejection Fraction %: 65 KARIN SANDHU MD FACP [facility]S Dec 09, 2016 14:47
[2016-12-09 15:59] VITALS: BP 105/65
[2016-12-09 20:12] VITALS: BP 94/64
[2016-12-09 22:26] VITALS: BP 103/62
[2016-12-10] VITALS: BP 109/70
[2016-12-10] MEDS: PIPERACILLIN SODIUM/TAZOBACTAM 4.5 GM in NS (IVPB) 100 ML IV SCH ×3 (00:40→16:35)
[2016-12-10 04:00] VITALS: BP 106/65
[2016-12-10 06:07] LABS: BASOPHILS # (AUTO) 0.1 10^3/uL (0.0-0.1); BASOPHILS % (AUTO) 1 % (0-10); EOSINOPHILS # (AUTO) 0.4 10^3/uL (0.0-0.3); EOSINOPHILS % (AUTO) 4 % (0-10); LYMPHOCYTES # (AUTO) 1.6 X 10^3 (1.0-4.0); LYMPHOCYTES % (AUTO) 15 % (12-44); MEAN CORPUSCULAR HEMOGLOBIN 33 PG (25-34); MEAN CORPUSCULAR HGB CONC 34 G/DL (32-36); MEAN CORPUSCULAR VOLUME 97 FL (80-99); MEAN PLATELET VOLUME 10.2 FL (7.4-10.4); MONOCYTES # (AUTO) 1.2 X 10^3 (0.0-1.0); MONOCYTES % (AUTO) 12 % (0-12); NEUTROPHILS # (AUTO) 7.2 X 10^3 (1.8-7.8); NEUTROPHILS % (AUTO) 69 % (42-75); PLATELET COUNT 297 10^3/uL (130-400); RED BLOOD COUNT 3.61 10^6/uL (4.35-5.85); RED CELL DISTRIBUTION WIDTH 12.9 % (10.0-14.5); WHITE BLOOD COUNT 10.5 10^3/uL (4.3-11.0)
--- NOTE | 2016-12-10 06:19 | Pulmonary Progress Note ---
Subjective Time Seen by Provider: 06:19 Subjective/Events-last exam pt is only on RA and wants to go home. Exam Exam Vital Signs Date Time Temp Pulse Resp B/P (MAP) Pulse Ox O2 Delivery O2 Flow Rate FiO2 12/10/16 01:00 86 12/10/16 00:00 99.6 96 20 109/70 98 Room Air 12/09/16 22:26 103/62 12/09/16 21:00 Room Air 12/09/16 20:12 98.8 101 19 94/64 97 Room Air 12/09/16 19:04 96 Room Air 12/09/16 19:00 92 12/09/16 15:59 98.8 94 19 105/65 99 Room Air 12/09/16 15:35 97 Room Air 12/09/16 12:00 99.1 95 24 93/62 97 Room Air 12/09/16 08:17 120 12/09/16 08:15 Room Air 12/09/16 08:00 98.3 77 24 97/69 99 Room Air 12/09/16 07:52 99 Room Air General Appearance: No Apparent Distress HEENT: PERRL/EOMI, TMs Normal, Normal ENT Inspection, Pharynx Normal Neck: Full Range of Motion, Normal Inspection, Non Tender, Supple, Carotid Bruit Respiratory: Chest Non Tender, No Accessory Muscle Use, No Respiratory Distress , Crackles, Decreased Breath Sounds Cardiovascular: Normal Peripheral Pulses, Tachycardia Capillary Refill: Less Than 3 Seconds Gastrointestinal: normal bowel sounds, non tender, soft Extremity: Normal Capillary Refill, Normal Inspection, Normal Range of Motion, Non Tender, No Calf Tenderness, No Pedal Edema Neurologic/Psychiatric: Alert, Oriented x3, No Motor/Sensory Deficits, Normal Mood/Affect Skin: Normal Color, Warm/Dry Lymphatic: No Adenopathy Results Lab Laboratory Tests 12/09/16 05:48 12/10/16 05:26 Assessment/Plan Assessment/Plan Spontaneous PTX s/p left chest tube in place Pneumonia - present on admission -zosyn-- -repeat CXR Acute respiratory failure with pulmonary edema -- improved pt is on RA now -Continue Lasix -BiPAP PRN - has only required 3 liters NC since yesterday morning. 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 Richmond Tobacco -education repeat CXR if stable pt could go home with 3 days of augmentin. will f/u as outpatient 232 Clinical Quality Measures AMI/AHF: Ejection Fraction %: 65 DVT/VTE Risk/Contraindication: VTE Present on Admission: No Risk Factor Score Per Nursin RFS Level Per Nursing on Admit: 4+=Very High DALJIT NEWTON DO Dec 10, 2016 06:19
[2016-12-10 06:22] LABS: ANION GAP 10 MMOL/L (5-14); BLOOD UREA NITROGEN 12 MG/DL (7-18); BUN/CREATININE RATIO 17; CALCIUM 8.3 MG/DL (8.5-10.1); CARBON DIOXIDE 28 MMOL/L (21-32); CHLORIDE 99 MMOL/L (98-107); CREATININE SERUM 0.69 MG/DL (0.60-1.30); GFR ESTIMATED > 60; GLUCOSE 87 MG/DL (70-105); MAGNESIUM 1.7 MG/DL (1.8-2.4); PHOSPHORUS 3.1 MG/DL (2.3-4.7); POTASSIUM 3.2 MMOL/L (3.6-5.0); SODIUM 137 MMOL/L (135-145)
[2016-12-10] MEDS: KCL 10 MEQ TAB (MICRO K) PO SCH (06:39)
[2016-12-10] MEDS: RT-ALBUTEROL/IPRATROPIUM 3 ML (DUONEB) VIAL INH SCH ×3 (07:01→14:17)
[2016-12-10 08:00] VITALS: BP 112/79
[2016-12-10] MEDS: meTOprolol TARTRATE 25 MG (LOPRESSOR) TABLET PO SCH (08:10)
[2016-12-10] MEDS: FAMOTIDINE 20 MG (PEPCID) TABLET PO SCH (08:10)
[2016-12-10] MEDS: FUROSEMIDE 40 MG/4 ML INJ (LASIX) IVP SCH (08:10)
[2016-12-10] MEDS ORDERED: MAGNESIUM 1 GM/100 ML IVPB 100 ML IV NR (08:45)
--- NOTE | 2016-12-10 08:52 | Cardiology Progress Note ---
Subjective Date Seen by Provider: Dec 10, 2016 Time Seen by Provider: 08:48 Subjective/Events-last exam Patient sitting up in chair, no new complaints. States dyspnea has improved. Denies any CP. Continues to have productive cough. Review of Systems General: No Chills, No Night Sweats, No Fatigue, No Malaise HEENT: No Visual Changes, No Dysphasia Pulmonary: No Dyspnea, Cough, No Pleuritic Chest Pain Cardiovascular: No: Chest Pain, Palpitations, Paroxysmal Noc. Dyspnea, Edema Gastrointestinal: No: Nausea, Vomiting, Abdominal Pain Genitourinary: No Dysuria, No Frequency Musculoskeletal: No: neck pain, back pain Neurological: No: Weakness, Numbness, Change in speech, Confusion Objective-Cardiology Exam Last Set of Vital Signs Vital Signs 12/08/16 12/08/16 12/10/16 12/10/16 12/10/16 08:17 20:15 04:00 07:01 07:53 Temp 98.6 Pulse 90 Resp 18 B/P (MAP) 106/65 Pulse Ox 100 O2 Delivery Room Air O2 Flow Rate 1.00 FiO2 24 Capillary Refill : Less Than 3 Seconds I&O Intake and Output 12/11/16 00:00 Intake Total 100 ml Output Total 550 ml Balance -450 ml Intake Oral 0 ml IV Total 100 ml Output Urine Total 550 ml # Bowel Movements 1 General: Alert, Oriented X3, Cooperative, No Acute Distress HEENT: Atraumatic, EOMI, Mucous Memb Moist/Ama Neck: Supple Lungs: Clear to Auscultation Heart: Regular Rate, Normal S1, Normal S2, No Murmurs Abdomen: Soft Extremities: No Edema Skin: No Rashes Neuro: Normal Speech, Normal Tone Psych/Mental Status: Mental Status NL, Mood NL Results Lab Laboratory Tests 12/10/16 05:06 12/10/16 05:26 A/P-Cardiology Admission Diagnosis Spontaneous pneumothorax Chest pain nonspecific etiology Paroxysmal atrial tachycardia Shortness of breath Assessment/Plan Spontaneous pneumothorax, status post chest tube placement. Chest tube now d/c' d. Improved. Multiple episodes of paroxysmal atrial tachycardia, had 2 episodes of wide complex tachycardia which appeared to be aberrant conduction. Started on low dose beta andrei. Continue to monitor. Chest pain nonspecific etiology, it could be secondary to the chest tube, resolved. Patient was seen in 2012 for chest pain and shortness of breath, had a stress test and echocardiogram done which did not show any significant ischemia at that time. Continue to monitor for now, had mildly elevated troponin level. Will plan for stress test as outpatient. Borderline hypotension, tolerating Lopressor at this time. Continue to monitor. 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 Followed by Dr. Richmond History of pulmonary nodule, followed by Dr. Richmond. COPD/tobaccoism, patient is still an active smoker smokes about a pack a day, educated on smoking cessation. Clinical Quality Measures AMI/AHF: Ejection Fraction %: 65 DVT/VTE Risk/Contraindication: VTE Present on Admission: No Risk Factor Score Per Nursin RFS Level Per Nursing on Admit: 4+=Very High KACEY NUNEZ Dec 10, 2016 08:52
--- NOTE | 2016-12-10 09:18 | Cardiology Progress Note ---
Subjective Date Seen by Provider: Dec 10, 2016 Time Seen by Provider: 09:16 Subjective/Events-last exam patient is laying down in bed, feeling better, still having some cough. No chest pain. Review of Systems General: No Chills, No Night Sweats, No Fatigue, No Malaise, No Appetite, No Other HEENT: No Head Aches, No Visual Changes, No Eye Pain, No Ear Pain, No Dysphasia , No Sinus Congestion, No Post Nasal Drip, No Sore Throat, No Other Pulmonary: No Dyspnea, Cough, No Pleuritic Chest Pain, No Other Cardiovascular: No: Chest Pain, Palpitations, Orthopnea, Paroxysmal Noc. Dyspnea, Edema, Lt Headedness, Other Objective-Cardiology Exam Last Set of Vital Signs Vital Signs 12/08/16 12/08/16 12/10/16 12/10/16 12/10/16 12/10/16 08:17 20:15 04:00 07:01 07:53 08:42 Temp 98.6 Pulse 90 Resp 18 B/P (MAP) 106/65 Pulse Ox 100 O2 Delivery Room Air O2 Flow Rate 1.00 FiO2 24 Capillary Refill : Less Than 3 Seconds I&O Intake and Output 12/11/16 00:00 Intake Total 100 ml Output Total 550 ml Balance -450 ml Intake Oral 0 ml IV Total 100 ml Output Urine Total 550 ml # Bowel Movements 1 General: Alert, Oriented X3, Cooperative, No Acute Distress HEENT: Atraumatic, EOMI, Mucous Memb Moist/[place] Neck: Supple Lungs: Other (bilateral rhonchi) Heart: Regular Rate, Normal S1, Normal S2, No Murmurs Abdomen: Soft Extremities: No Edema Skin: No Rashes Neuro: Normal Speech, Normal Tone Psych/Mental Status: Mental Status NL, Mood NL Results Lab Laboratory Tests 12/10/16 05:06 12/10/16 05:26 A/P-Cardiology Admission Diagnosis Spontaneous pneumothorax Chest pain nonspecific etiology Paroxysmal atrial tachycardia Shortness of breath Assessment/Plan Spontaneous pneumothorax, status post chest tube placement. Chest tube now d/c' d. Status post multiple episodes of respiratory failure. Currently better. Followed by Dr. Gonzalez Multiple episodes of paroxysmal atrial tachycardia, had 2 episodes of wide complex tachycardia which appeared to be aberrant conduction. Started on low dose beta andrei, tolerating it well. Continue to monitor. Chest pain nonspecific etiology, it could be secondary to the chest tube, resolved. Patient was seen in 2012 for chest pain and shortness of breath, had a stress test and echocardiogram done which did not show any significant ischemia at that time. Continue to monitor for now, had mildly elevated troponin level. Will plan for stress test as outpatient. Borderline hypotension, tolerating Lopressor at this time. Continue to monitor. 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 Followed by Dr. Richmond History of pulmonary nodule, followed by Dr. Richmond. COPD/tobaccoism, patient is still an active smoker smokes about a pack a day, educated on smoking cessation. Hypokalemia, hypomagnesemia, I will reevaluate metabolic profile. Monitor electrolytes Clinical Quality Measures AMI/AHF: Ejection Fraction %: 65 DVT/VTE Risk/Contraindication: VTE Present on Admission: No Risk Factor Score Per Nursin RFS Level Per Nursing on Admit: 4+=Very High AUREA WU MD Dec 10, 2016 09:18
--- NOTE | 2016-12-10 09:19 | Diagnostic Imaging Report ---
INDICATION: Shortness of breath, arrhythmia.. TECHNIQUE: Two view chest at 7:56 AM. CORRELATION STUDY: 12/08/2016. FINDINGS: Prominent interstitial markings do remain but overall are improved and partially cleared. Features favor a likely decrease in the severity of the interstitial edema. Edematous changes with pleural effusions do persist. The severity of pulmonary vascular congestion is slightly prominent but also appears improved. The heart size is relatively normal. Scattered pulmonary parenchymal densities are noted and superimposed areas of edema or infiltrate are not excluded. There is calcification of the aortic arch. The visualized osseous structures are unremarkable. IMPRESSION: Features favor likely congestive heart failure or fluid overload; however, the severity of edema overall has improved and diminished but does remain. The findings may be superimposed on chronic changes of the lung parenchyma. Bilateral pleural effusions, moderate in size, are present. Despite the findings, the overall heart size is relatively normal. Dictated by: Dictated on workstation # [id number]
[2016-12-10] MEDS ORDERED: POLYETHYLENE GLYCOL 17 GM (MIRALAX) PACK PO NR (10:15)
[2016-12-10] MEDS: POTASSIUM CL 10MEQ/50ML IVPB 50 ML IV SCH ×3 (11:21→14:19)
--- NOTE | 2016-12-10 11:30 | Physical Therapy Progress Note ---
Therapy Progress Note Patient adamantly declined PT stating, "I want to be left alone, watch TV and go home tomorrow." PT attempted to educate patient on importance of participating with therapy, however, adamantly declined. 1 visit ref ERNIE COVINGTON PT Dec 10, 2016 11:30
[2016-12-10] MEDS ORDERED: FURO40TA4 PO (11:45)
[2016-12-10] MEDS ORDERED: AMOX-358 PO (11:45)
[2016-12-10] MEDS ORDERED: POTA-51 PO (11:45)
[2016-12-10] MEDS ORDERED: METO-333 PO (11:45)
[2016-12-10] MEDS ORDERED: TIOT4MIS3 IH (11:45)
--- NOTE | 2016-12-10 11:46 | Discharge Instructions ---
Discharge [facility] Discharge Medications New, Converted or Re-Newed RX: Transmitted to Pharmacy New Medications: Amoxicillin/Potassium Clav (Augmentin 875-125 Tablet) 1 Each Tablet 1 EACH PO BID, #6 TAB 0 Refills Furosemide (Furosemide) 40 Mg Tablet 40 MG PO DAILY, #30 TAB 0 Refills Potassium Chloride (Potassium Chloride) 20 Meq Tablet.er 20 MEQ PO DAILY, #30 TAB 0 Refills Tiotropium Br/Olodaterol HCl (Stiolto Respimat Inhal Corn) 4 Gm Mist.inhal 2 PUFF IH DAILY, #1 INHALER Metoprolol Tartrate (Metoprolol Tartrate) 25 Mg Tablet 12.5 MG PO BID, #60 TAB 0 Refills Patient Instructions Goal/Follow Up Appt: Follow up wtjeane Henderson on 12/13 at 1100 am. Follow up with Dr. Gonzalez as directed. Follow up with Cardiology as directed. [facility]: Fever, difficulty breathing, chest pain Activity & Diet Discharge Diet: Regular Diet Activity as Tolerated: Yes Orders-Post D/C & Referrals Pneu Vac Indicated: Yes Copy Copies To 1: IVON Nicole BETHANY N MD Dec 10, 2016 11:46 am
[2016-12-10 12:00] VITALS: BP 119/98
--- NOTE | 2016-12-10 13:29 | Discharge Summary ---
Diagnosis/Chief Complaint Date of Admission Dec 02, 2016 at 11:34 Date of Discharge Dec 10, 2016 Admission Diagnosis Admission Diagnosis Pneumothorax Tachy arrhythmias COPD Hypotension Discharge Diagnosis (1) Pneumothorax Qualifiers: Qualified Codes: J93.11 - Primary spontaneous pneumothorax Assessment & Plan: spontaneous pneumothorax on left side, now s/p chest tube placement and discontinuation. CXR shows resolution of pneumothorax, will continue to monitor; CXR from this AM is pending. 12/08 chest x-ray pending from this morning 12/09 chest x-ray from December 08 revealed increased interstitial markings. His clinical picture does not reflect this. 12/10 chest x-ray stable to slightly improved and clinically stable on room air with chest tube out for multiple days, patient discharged today with furosemide 40 mg oral daily and KCl replacement. (was on 40 mg IV furosemide daily inpatient) (2) Pneumonia Qualifiers: Qualified Codes: J18.1 - Lobar pneumonia, unspecified organism Assessment & Plan: CXR done 12/04 at 1900 shows worsening RLL consolidation. Pt on abx - vanc and zosyn - per pulmonology, and has been parra cultured. Pleural fluid obtained was sent for cytology. Will continue to supplement oxygen as needed; breathing improved. No BiPap needed since yesterday AM. CXR this AM shows worsening consolidation. Overall improving. Will continue to monitor. 12/08 antibiotics continue. We'll work on overall physical strength and hopefully home soon in the near future. 12/10- stable, discharged with Augmentin for [address] Gonzalez recommendation (3) Arrhythmia Qualifiers: Qualified Codes: I49.9 - Cardiac arrhythmia, unspecified Assessment & Plan: Cardiology evaluating, will follow echo done 12/03 showed AV sclerosis but no stenosis and LVEF 60-65% sinus rhythm on tele 12/10 Cardiology planning outpatient stress test, diagnosed with multiple atrial tachycardia episodes and continued metoprolol on discharge (4) COPD (chronic obstructive pulmonary disease) Qualifiers: Qualified Codes: J44.9 - Chronic obstructive pulmonary disease, unspecified Assessment & Plan: suggested per history, no testing records available to confirm diagnosis 12/10 on discharge script sent for tiotropium/olodaterol given that he was receiving duonebs inpatient, will need outpatient PFTs (5) Chest tube in place Assessment & Plan: discontinued 12/04/16 (6) Acute diastolic heart failure Assessment & Plan: Pt being diuresed; will continue to follow and defer management to critical care team. 12/10- discharged with furosemide and KCl, follow up with Cardiology (7) Anemia Qualifiers: Qualified Codes: D64.9 - Anemia, unspecified Assessment & Plan: will follow CBC, Hgb stable (8) Altered mental status Qualifiers: Qualified Codes: R40.0 - Somnolence Assessment & Plan: Maintaining sats on 3L NC. Altered mental status resolved. Chief Complaint/HPI Chief Complaint/HPI 66 yo male transferred from [facility] due to need for further Cardiology evaluation. He was admitted at [place] with shortness of breath and pneumothorax requiring chest tube placement. He was doing well from a respiratory standpoint but noted to have brief periods of V tach overnight and was therefore transferred for more Cardiology evaluation. The etiology of the pneumothorax is unknown, but possibly a ruptured bulla related to COPD. He relates a previous diagnosis of COPD but is unable to clarify if he has ever had PFTs and he does not use inhalers. Discharge Summary-Simple/Stand Procedures s/p chest tube placement, now s/p chest tube removal 12/04/16 Consultations Pulmonology Cardiology General Surgery Discharge Physical Examination Allergies: Coded Allergies: No Known Drug Allergies (Unverified , 12/02/16) Vitals & I&Os Vital Sign - Last 12Hours Date Time Temp Pulse Resp B/P (MAP) Pulse Ox O2 Delivery O2 Flow Rate FiO2 12/10/16 12:00 99.6 87 24 119/98 95 Room Air 12/08/16 20:15 1.00 12/08/16 08:17 24 General Appearance: Alert, No Acute Distress Respiratory: Normal Air Movement, Other (ronchi) Cardiovascular: Regular Rate, No Murmurs Abdominal: Normal Bowel Sounds, Soft Neuro: Normal Speech Psych/Mental Status: Mood NL Hospital Course See final discharge diagnosis. Labs Laboratory Tests Test 12/09/16 05:48 12/10/16 05:06 12/10/16 05:26 Range/Units White Blood Count 10.2 10.5 4.3-11.0 10^3/uL Red Blood Count 3.50 L 3.61 L 4.35-5.85 10^6/uL Hemoglobin 11.6 L 12.0 L 13.3-17.7 G/DL Hematocrit 34 L 35 L 40-54 % Mean Corpuscular Volume 97 97 80-99 FL Mean Corpuscular Hemoglobin 33 33 25-34 PG Mean Corpuscular Hemoglobin Concent 34 34 32-36 G/DL Red Cell Distribution Width 12.8 12.9 10.0-14.5 % Platelet Count 261 297 130-400 10^3/uL Mean Platelet Volume 10.1 10.2 7.4-10.4 FL Neutrophils (%) (Auto) 70 69 42-75 % Lymphocytes (%) (Auto) 13 15 12-44 % Monocytes (%) (Auto) 12 12 0-12 % Eosinophils (%) (Auto) 4 4 0-10 % Basophils (%) (Auto) 1 1 0-10 % Neutrophils # (Auto) 7.2 7.2 1.8-7.8 X 10^3 Lymphocytes # (Auto) 1.4 1.6 1.0-4.0 X 10^3 Monocytes # (Auto) 1.3 H 1.2 H 0.0-1.0 X 10^3 Eosinophils # (Auto) 0.4 H 0.4 H 0.0-0.3 10^3/uL Basophils # (Auto) 0.1 0.1 0.0-0.1 10^3/uL Sodium Level 138 137 135-145 MMOL/L Potassium Level 3.4 L 3.2 L 3.6-5.0 MMOL/L Chloride Level 99 99 98-107 MMOL/L Carbon Dioxide Level 29 28 21-32 MMOL/L Anion Gap 10 10 5-14 MMOL/L Blood Urea Nitrogen 17 12 7-18 MG/DL Creatinine 0.70 0.69 0.60-1.30 MG/DL Estimat Glomerular Filtration Rate > 60 > 60 BUN/Creatinine Ratio 24 17 Glucose Level 90 87 70-105 MG/DL Calcium Level 8.7 8.3 L 8.5-10.1 MG/DL Phosphorus Level 3.6 3.1 2.3-4.7 MG/DL Magnesium Level 1.6 L 1.7 L 1.8-2.4 MG/DL Radiology Reviewed CXR 12/07/16: FINDINGS: There are extensive infiltrates seen mostly in the right perihilar and right basilar region, but also mild patchy infiltrates are seen in the left perihilar and left lung base. There is background pulmonary vascular congestion. There are bilateral effusions suggested moderate on the right and small on the left. The heart size is normal. No pneumothorax. IMPRESSION: There is worsening perihilar and basilar infiltrates mostly on the right side with bilateral effusions. There is pulmonary vascular congestion. Discharge Instructions to patient/family Please see electronic discharge instructions given to patient. Discharge Medications Reviewed and agree with Discharge Medication list on patient's Discharge Instruction sheet Clinical Quality Measures AMI/AHF: Ejection Fraction %: 65 DVT/VTE Risk/Contraindication: VTE Present on Admission: No Risk Factor Score Per Nursin RFS Level Per Nursing on Admit: 4+=Very High Copy Copies To 1: IVON Nicole BETHANY N MD Dec 10, 2016 13:29
[2016-12-10] MEDS: ENOXAPARIN 40 MG/0.4 ML (LOVENOX) SYR SC SCH (14:19)
[2016-12-10 16:59] VITALS: BP 140/64
[2016-12-13 08:43] LABS: HEP C COPIES ML Not Detected (<=11)
[2016-12-14 07:28] LABS: HEPATITIS C LOG ML Not Detected (Not Detected)
== END 2016-12-10 16:50 | disposition home or self-care (01) | DRG 308 ==
LOC: ICU 11:34 → 4TH 12-05 10:45 → ICU 12-05 20:19 → 4TH 12-07 11:30
PROVIDERS: ADMIT Family Medicine; ATTEND Family Medicine
PROC: 02HV33Z Insertion of Infusion Device into Superior Vena Cava, Percutaneous Approach (ICD-10-PCS; principal; 2016-12-03)
DX: I47.2 Ventricular tachycardia (principal); I47.1 Supraventricular tachycardia; R07.9 Chest pain, unspecified; I11.0 Hypertensive heart disease with heart failure; I50.31 Acute diastolic (congestive) heart failure; J96.00 Acute respiratory failure, unspecified whether with hypoxia or hypercapnia; R64 Cachexia; J18.9 Pneumonia, unspecified organism; E87.2 Acidosis; I95.9 Hypotension, unspecified; E87.6 Hypokalemia; R91.1 Solitary pulmonary nodule; J44.9 Chronic obstructive pulmonary disease, unspecified; F17.210 Nicotine dependence, cigarettes, uncomplicated; R50.9 Fever, unspecified; M19.91 Primary osteoarthritis, unspecified site; F41.9 Anxiety disorder, unspecified; F32.9 Major depressive disorder, single episode, unspecified; G89.29 Other chronic pain; K21.9 Gastro-esophageal reflux disease without esophagitis; D64.9 Anemia, unspecified; R41.0 Disorientation, unspecified; R40.0 Somnolence; Z85.828 Personal history of other malignant neoplasm of skin; Z92.3 Personal history of irradiation; Z92.21 Personal history of antineoplastic chemotherapy; Z97.8 Presence of other specified devices; Z87.09 Personal history of other diseases of the respiratory system
CPT/HCPCS: 36415; 36569; 71010; 71020; 76937; 80048; 80053; 80202; 81000; 82040; 82330; 82533; 82805; 82962; 83605; 83735; 83880; 84100; 84439; 84443; 84481; 84484; 85018; 85025; 85027; 87040; 87070; 87077; 87081; 87088; 87186; 87205; 87522; 88112; 88305; 93005; 93306; 94640; 94660; 94760

== ENCOUNTER → 2016-12-15 | Outpatient (CLI) | payer MEDICARE, MEDICAID ==
[~2016-12-15] MED LIST changes: +AMOX-358 PO; +FURO40TA4 PO; +METO-333 PO; +POTA-51 PO; +TIOT4MIS3 IH
[2016-12-15 15:43] LABS: BASOPHILS # (AUTO) 0.1 10^3/uL (0.0-0.1); BASOPHILS % (AUTO) 2 % (0-10); EOSINOPHILS # (AUTO) 0.2 10^3/uL (0.0-0.3); EOSINOPHILS % (AUTO) 3 % (0-10); LYMPHOCYTES # (AUTO) 1.5 X 10^3 (1.0-4.0); LYMPHOCYTES % (AUTO) 21 % (12-44); MEAN CORPUSCULAR HEMOGLOBIN 33 PG (25-34); MEAN CORPUSCULAR HGB CONC 34 G/DL (32-36); MEAN CORPUSCULAR VOLUME 97 FL (80-99); MEAN PLATELET VOLUME 11.1 FL (7.4-10.4); MONOCYTES # (AUTO) 1.2 X 10^3 (0.0-1.0); MONOCYTES % (AUTO) 17 % (0-12); NEUTROPHILS % (AUTO) 58 % (42-75); PLATELET COUNT 403 10^3/uL (130-400); RED BLOOD COUNT 4.05 10^6/uL (4.35-5.85)
[2016-12-15 15:59] LABS: ALANINE AMINOTRANSFERASE 24 U/L (0-55); ALBUMIN 3.3 GM/DL (3.2-4.5); ANION GAP 10 MMOL/L (5-14); ASPARTATE AMINO TRANSFERASE 43 U/L (5-34); BILIRUBIN,TOTAL 0.8 MG/DL (0.1-1.0); BLOOD UREA NITROGEN 9 MG/DL (7-18); BUN/CREATININE RATIO 11; CALCIUM 9.1 MG/DL (8.5-10.1); CARBON DIOXIDE 30 MMOL/L (21-32); CHLORIDE 98 MMOL/L (98-107); GFR ESTIMATED > 60; GLUCOSE 105 MG/DL (70-105); POTASSIUM 3.8 MMOL/L (3.6-5.0); SODIUM 138 MMOL/L (135-145)
--- NOTE | 2016-12-28 14:47 | Physician Query-Final Dx ---
Clinic Account Progress/Dx Physician Query: Please give diagnosis Date of Service Dec 15, 2016 at 15:29 JUAN CLEVELAND Dec 28, 2016 14:47
== END ==
LOC: LABNPT 15:29 → CVS 15:29
PROVIDERS: ATTEND Internal Medicine
DX: R19.7 Diarrhea, unspecified (principal)
CPT/HCPCS: 80053; 82274; 85025; 87324; 87449; 87493; 89055

== ENCOUNTER → 2016-12-16 | Outpatient (CLI) | payer MEDICARE, MEDICAID ==
[2016-12-16 15:32] LABS: BILIRUBIN,URINE NEGATIVE (NEGATIVE); KETONES,URINE NEGATIVE (NEGATIVE); LEUKOCYTE ESTERASE ,URINE 1+ (NEGATIVE); NITRITE,URINE NEGATIVE (NEGATIVE); PH,URINE 7 (5-9); PROTEIN,URINE 1+ (NEGATIVE); UROBILINOGEN,URINE 4 MG/DL (NORMAL)
[2016-12-16 15:42] LABS: SQUAMOUS EPITHELIAL CELL,UR 0-2 /HPF; WBC,URINE 0-2 /HPF
[2016-12-16 15:43] LABS: WHITE BLOOD CELL CASTS, URINE 0-2 /LPF
--- NOTE | 2016-12-31 13:34 | Physician Query-Final Dx ---
Clinic Account Progress/Dx Physician Query: Please give diagnosis Date of Service Dec 16, 2016 at 12:50 JUAN CLEVELAND Dec 31, 2016 13:34
== END ==
LOC: CVS 12:50
PROVIDERS: ATTEND Internal Medicine
DX: R82.99 Other abnormal findings in urine (principal)
CPT/HCPCS: 81000

== ENCOUNTER 2019-02-11 19:59 | Inpatient (IN) | payer MEDICARE, MEDICAID ==
[~2019-02-11] VITALS: Ht 182.9 cm; Wt 73.3 kg
[2019-02-11] MEDS ORDERED: NS (IVPB) 250 ML ONE (23:37)
[2019-02-11] MEDS ORDERED: NOREPINEPHRINE 4 MG/4 ML (LEVOPHED) AMP IV ONE (23:38)
[2019-02-11 23:41] VITALS: BP 81/69
[2019-02-12] VITALS (18 sets, daily range): BP systolic 91–122; BP diastolic 63–92
[2019-02-12] MEDS ORDERED: LACTATED RINGERS 1,000 ML IV ONE (00:25)
[2019-02-12] MEDS: NOREPINEPHRINE 4 MG in NS (IVPB) 250 ML IV SCH ×2 (00:30→08:16)
[2019-02-12] MEDS ORDERED: EPINEPHrine 1 MG INJECTION 2 MG in NS (IVPB) 250 ML IV SCH (00:45)
[2019-02-12 01:14] LABS: BASOPHILS % (AUTO) 0 % (0-10); EOSINOPHILS % (AUTO) 0 % (0-10); HEMATOCRIT 50 % (40-54); HEMOGLOBIN 16.6 G/DL (13.3-17.7); LYMPHOCYTES % (AUTO) 4 % (12-44); MEAN CORPUSCULAR HEMOGLOBIN 33 PG (25-34); MEAN CORPUSCULAR HGB CONC 34 G/DL (32-36); MEAN CORPUSCULAR VOLUME 99 FL (80-99); MEAN PLATELET VOLUME 10.4 FL (7.4-10.4); MONOCYTES # (AUTO) 1.8 X 10^3 (0.0-1.0); MONOCYTES % (AUTO) 8 % (0-12); NEUTROPHILS # (AUTO) 20.2 X 10^3 (1.8-7.8); NEUTROPHILS % (AUTO) 88 % (42-75); PLATELET COUNT 248 10^3/uL (130-400); RED CELL DISTRIBUTION WIDTH 13.3 % (10.0-14.5)
[2019-02-12] MEDS: VASOPRESSIN INJECTION 20 UNIT in NORMAL SALINE 100 ML IV SCH ×2 (01:17→08:16)
[2019-02-12] MEDS: LACTATED RINGERS 1,000 ML IV SCH ×3 (01:18→08:25)
[2019-02-12] MEDS: PROPOFOL DRIP (ICU) 100 ML IV SCH ×2 (01:19→10:04)
[2019-02-12 01:25] LABS: INR 1.1 (0.8-1.4)
[2019-02-12] MEDS ORDERED: VANCOMYCIN 500 MG/NS 100 ML IV ONE ×2 (01:30)
[2019-02-12] MEDS ORDERED: ENOXAPARIN 40 MG/0.4 ML (LOVENOX) SYR SC SCH (01:30)
[2019-02-12 01:31] LABS: BAND NEUTROPHILS 1 %; BASOPHILS % (MANUAL) 0 %; EOSINOPHILS % (MANUAL) 0 %; LYMPHOCYTES % (MANUAL) 6 %; MONOCYTES % (MANUAL) 6 %; NEUTROPHILS % (MANUAL) 87 %; PLATELET CLUMPS SLIGHT
[2019-02-12 01:33] LABS: BUN/CREATININE RATIO 14; CALCIUM 7.6 MG/DL (8.5-10.1); CARBON DIOXIDE 17 MMOL/L (21-32); CHLORIDE 110 MMOL/L (98-107); CREATININE SERUM 0.93 MG/DL (0.60-1.30); GFR ESTIMATED > 60; GLUCOSE 184 MG/DL (70-105); SODIUM 141 MMOL/L (135-145)
[2019-02-12] MEDS ORDERED: PIPERACILLIN/TAZO 4.5 GM VIAL (ZOSYN) IV ONE (02:59)
--- NOTE | 2019-02-12 03:27 | Pulmonary Consultation ---
History of Present Illness History of Present Illness Date Seen by Provider: Feb 12, 2019 Time Seen by Provider: 03:20 Date of Admission History of Present Illness 68 year old male transferred from [facility] for acute respiratory failure and septic shock. Per report, pt went to [place] ED for SOB and was found to have pneumonia on CXR and was hypotensive and septic so pt was started on fluid resuscitation, intubated and had central line placed and then transferred. Pt is currently intubated and sedated Allergies and Home Medications Allergies Coded Allergies: No Known Drug Allergies (Unverified , 12/02/16) Home Medications Amoxicillin/Potassium Clav 1 Each Tablet, 1 EACH PO BID Prescribed by: LUL ADRIAN on 12/10/16 1145 Furosemide 40 Mg Tablet, 40 MG PO DAILY Prescribed by: LUL ADRIAN on 12/10/16 1145 Metoprolol Tartrate 25 Mg Tablet, 12.5 MG PO BID Prescribed by: LUL ADRIAN on 12/10/16 1145 Potassium Chloride 20 Meq Tablet.er, 20 MEQ PO DAILY Prescribed by: LUL ADRIAN on 12/10/16 1145 Tiotropium Br/Olodaterol HCl 4 Gm Mist.inhal, 2 PUFF IH DAILY Prescribed by: LUL ADRIAN on 12/10/16 1145 Past Zzugini-Uqqucv-Qdmbnu Hx Past Med/Social Hx: Reviewed Nursing Past Med/Soc Hx Patient Social History Alcohol Use: Regular Use Number of Drinks Today: AA Alcohol Beverage of Choice: Beer Recreational Drug Use: No Smoking Status: Current Everyday Smoker Type Used: Cigarettes Recent Foreign Travel: No Contact w/Someone Who Travel: No Recent Infectious Disease Expo: No Recent Hopitalizations: Yes Immunizations Up To Date PED Vaccines UTD: No Date of Pneumonia Vaccine: Mar 25, 2010 Date of Influenza Vaccine: Nov 24, 2018 Seasonal Allergies Seasonal Allergies: No Past Medical History Surgeries: No Respiratory: Yes Pneumonia, COPD Currently Using CPAP: No Currently Using BIPAP: No Cardiac: Yes Neurological: Yes Reproductive Disorders: No Sexually Transmitted Disease: No Genitourinary: No Gastrointestinal: Yes Gastroesophageal Reflux Musculoskeletal: Yes (RIGHT LEG 3" SHORTER THAN LEFT LEG/ osteoarthrithis) Arthritis, Chronic Back Pain Endocrine: No HEENT: Yes Hearing Impairment: Hard of Hearing 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 No Pertinent Family Hx Review of Systems Other unable to obtain secondary to patients clinical condition Sepsis Event Evaluation Height, Weight, BMI Height: 6'0.00" Weight: 156lbs. 6.0oz. 70.935698di; 21.67 BMI Method: Exam Exam Vital Signs Date Time Temp Pulse Resp B/P (MAP) Pulse Ox O2 Delivery O2 Flow Rate FiO2 02/12/19 02:56 Mechanical Ventilator 45.00 02/12/19 02:00 131 26 120/87 (98) 98 Mechanical Ventilator 50.00 02/12/19 01:48 95 Mechanical Ventilator 60 02/12/19 01:19 101/74 02/12/19 01:00 123 17 93/67 (76) 96 Mechanical Ventilator 50.00 02/12/19 01:00 122 02/12/19 00:30 142 02/12/19 00:10 02/12/19 00:00 161 18 107/92 (97) 96 Mechanical Ventilator 50.00 02/11/19 23:41 36.0 161 18 81/69 (73) Mechanical Ventilator 50.00 I & O 02/12/19 07:00 Intake Total 3500 ml Output Total 600 ml Balance 2900 ml Height & Weight Height: 6'0.00" Weight: 156lbs. 6.0oz. 70.073535cp; 21.67 BMI Method: General Appearance: Chronically ill HEENT: Other (ET tube in place) Neck: Normal Inspection, Other (central line in right IJ) Respiratory: Crackles, Other (mechanically ventilated) Cardiovascular: Tachycardia Capillary Refill: Less Than 3 Seconds Peripheral Pulses: 2+ Radial Pulses (R), 2+ Radial Pulses (L) Gastrointestinal: soft Extremity: No Pedal Edema Neurologic/Psychiatric: No Alert, No Oriented x3; Other (intubated and sedated) Skin: Normal Color Results Lab Laboratory Tests 02/12/19 01:05 Assessment/Plan Assessment/Plan Acute respiratory distress secondary to pneumonia -intubated -vanc and zosyn -LR 250cc/hr Septic shock - improving -Pt received 3L NS and 1L LR prior to arrival, currently on LR 250c/hr -pt receiving Vanc and Zosyn -Levophed currently off -lactic 3.3 -repeat now 2.77 Non-anion gap Metabolic acidosis -pH 7.26, pCO2 45, Bicarb 20 - Pneumonia -continue abx elevated troponin -cardiology consulted BRITTANY PAVON MEDICAL STUDENT Feb 12, 2019 03:27 POS
[2019-02-12 03:48] LABS: BASOPHILS % (AUTO) 0 % (0-10); EOSINOPHILS % (AUTO) 0 % (0-10); HEMATOCRIT 48 % (40-54); HEMOGLOBIN 16.2 G/DL (13.3-17.7); LYMPHOCYTES # (AUTO) 1.3 X 10^3 (1.0-4.0); LYMPHOCYTES % (AUTO) 6 % (12-44); MEAN CORPUSCULAR HEMOGLOBIN 34 PG (25-34); MEAN CORPUSCULAR HGB CONC 34 G/DL (32-36); MEAN CORPUSCULAR VOLUME 100 FL (80-99); MEAN PLATELET VOLUME 10.5 FL (7.4-10.4); MONOCYTES # (AUTO) 1.9 X 10^3 (0.0-1.0); MONOCYTES % (AUTO) 9 % (0-12); NEUTROPHILS # (AUTO) 18.8 X 10^3 (1.8-7.8); NEUTROPHILS % (AUTO) 85 % (42-75); PLATELET COUNT 233 10^3/uL (130-400); RED CELL DISTRIBUTION WIDTH 13.2 % (10.0-14.5)
[2019-02-12 03:58] LABS: ABG BASE EXCESS -6.1 MMOL/L (-2.5-2.5); ABG OXYGEN SATURATION 98 % (94-100); ABG PCO2 45 MMHG (35-45); ABG PO2 121 MMHG (79-93); ABG TCO2 21.2 MMOL/L (21.0-31.0); ALLENS TEST YES-POS; INSPIRED O2 45%; PATIENT TEMP 36.6; VENTILATOR YES
[2019-02-12 03:59] LABS: ABG PH 7.26 (7.37-7.43)
[2019-02-12] MEDS ORDERED: PIPERACILLIN/TAZOBACTAM (BULK) 4.5 GM in NS (IVPB) 100 ML IV SCH (04:00)
[2019-02-12 04:06] LABS: BUN/CREATININE RATIO 14; CALCIUM 7.6 MG/DL (8.5-10.1); CARBON DIOXIDE 20 MMOL/L (21-32); CHLORIDE 109 MMOL/L (98-107); CREATININE SERUM 0.94 MG/DL (0.60-1.30); GFR ESTIMATED > 60; GLUCOSE 154 MG/DL (70-105); MAGNESIUM 1.7 MG/DL (1.6-2.4); PHOSPHORUS 4.3 MG/DL (2.3-4.7); POTASSIUM 4.3 MMOL/L (3.6-5.0); SODIUM 141 MMOL/L (135-145); TRIGLYCERIDES 92 MG/DL (<150)
[2019-02-12] MEDS: MAGNESIUM 1 GM/100 ML IVPB 100 ML IV SCH (04:28)
[2019-02-12] MEDS ORDERED: SODIUM BICARB 8.4% 50 MEQ/50 ML VIAL IV ONE (05:00)
[2019-02-12] MEDS ORDERED: POTASSIUM CL 10MEQ/50ML IVPB 50 ML IV SCH (06:00)
[2019-02-12] MEDS ORDERED: KCL 20 MEQ TAB (K-DUR) PO SCH (06:00)
[2019-02-12] MEDS ORDERED: MAGNESIUM 1 GM/100 ML IVPB 100 ML IV SCH (06:00)
[2019-02-12 06:23] LABS: BILIRUBIN,URINE NEGATIVE (NEGATIVE); CLARITY,URINE SL CLOUDY; COLOR,URINE AMBER; GLUCOSE, URINE (UA) NEGATIVE (NEGATIVE); KETONES,URINE NEGATIVE (NEGATIVE); LEUKOCYTE ESTERASE ,URINE NEGATIVE (NEGATIVE); NITRITE,URINE NEGATIVE (NEGATIVE); PROTEIN,URINE NEGATIVE (NEGATIVE)
[2019-02-12 06:36] LABS: BACTERIA,URINE FEW /HPF; RBC,URINE 0-2 /HPF
--- NOTE | 2019-02-12 08:10 | Physical Therapy Progress Note ---
Therapy Progress Note Patient currently intubated and sedated. PT will continue to monitor and evaluate when patient awake. ERNIE COVINGTON PT Feb 12, 2019 08:10 POS
--- NOTE | 2019-02-12 08:18 | Occ Therapy Progress Note ---
Therapy Progress Note OT order received, chart reviewed. Pt. on ventilator support at this time. Will continue to monitor and treat pt. when extubated and medically stable. [id number] YOLIE SANCHEZ OT Feb 12, 2019 08:18 POS
--- NOTE | 2019-02-12 08:29 | Diagnostic Imaging Report ---
INDICATION: Respiratory failure. Time of exam 3:23 a.m. COMPARISON: Correlation is made with prior chest from 12/10/2016. FINDINGS: Endotracheal tube has tip in good position above the jo-ann. NG tube passes below the diaphragm. Right IJ line has tip overlying the SVC. Extensive interstitial and airspace infiltrates throughout the right lung is noted increased since prior study. Left lung appears to be fairly clear. No effusion or pneumothorax is seen. IMPRESSION: Extensive right-sided pulmonary infiltrate. Dictated by: Dictated on workstation # [id number]
--- NOTE | 2019-02-12 08:49 | Consultation-Cardiology ---
HPI-Cardiology Cardiology Consultation: Date of Consultation 02/12/19 Date of Admission Attending Physician Debbi Florian DO Admitting Physician [facility] Consulting Physician Catherine SALGUERO MD HPI: Time Seen by a Provider: 09:00 Chief Complaint: Chest pain, shortness of breath This is a 68-year-old gentleman who has been transferred from [facility] last evening. He is intubated/ventilated. Therefore history is based on discussion with the nurses, discussion with the nurse practitioner in [facility] and reviewing all the medical records. He has been transferred to our hospital due to acute respiratory failure, pneumonia and septic shock. He went to the ER for shortness of breath and was found to have pneumonia on chest x-ray. He was hypotensive with significantly elevated WBC and lactate. Working diagnosis was septic shock. He was given broad-spectrum antibiotic, IV fluids and inotropes. Apparently I was also told that the patient is having atrial fibrillation. Patient had positive troponin. It was also mentioned that the patient has bone cancer and complains of pain all over the body including the chest. He also has severe COPD. Review of Systems-Cardiology Review of Systems Constitutional: other (intubated ventilated) Eyes: As described under HPI Ears/Nose/Throat: no symptoms reported Respiratory: No no symptoms reported, No As described under HPI, No cough; orthopnea; No shortness of breath, No SOB with excertion, No SOB at rest, No stridor, No wheezing, No other Cardiovascular: No no symptoms reported, No As described under HPI; chest pain; No edema, No irregular heart rate, No lightheadedness; palpitations; No syncope, No other Gastrointestinal: no symptoms reported Genitourinary: no symptoms reported Musculoskeletal: other (pain all over the body.) Skin: no symptoms reported Psychiatric/Neurological: no symptoms reported Hematologic: no symptoms reported PFE-Lzmjay-Wfpeaw Hx Patient Social History Alcohol Use: Regular Use Recreational Drug Use: No Smoking Status: Current Everyday Smoker Type Used: Cigarettes Recent Foreign Travel: No Recent Infectious Disease Expo: No Hospitalization with Isolation: Denies Physical Abuse Screen: No Sexual Abuse: No Immunizations Up To Date Date of Pneumonia Vaccine: Mar 25, 2010 Date of Influenza Vaccine: Nov 24, 2018 Past Medical History PMH As described under Assessment. Family Medical History Family History: Patient reports no known family medical history. Allergies and Home Medications Allergies Coded Allergies: No Known Drug Allergies (Unverified , 12/02/16) Home Medications Albuterol Sulfate 18 Gm Hfa.aer.ad, 2 PUFF INH Q4H PRN for SHORTNESS OF BREATH, (Reported) Fluticasone/Vilanterol 1 Each Blst.w.dev, 1 PUFF INH DAILY, (Reported) LAST FILLED 11-17-18 Ipratropium/Albuterol Sulfate 3 Ml Ampul.neb, 3 ML IH Q6H PRN for SHORTNESS OF BREATH, (Reported) Meloxicam 7.5 Mg Tablet, 7.5 MG PO BID, (Reported) Mirtazapine 15 Mg Tablet, 15 MG PO HS, (Reported) Sertraline HCl 50 Mg Tablet, 50 MG PO DAILY, (Reported) Patient Home Medication List Home Medication List Reviewed: Yes Physical Exam-Cardiology Physical Exam Vital Signs/I&O 02/11/19 02/12/19 02/12/19 02/12/19 23:41 00:00 00:01 00:10 Temp 36.0 Pulse 161 161 161 Resp 18 18 18 B/P (MAP) 81/69 (73) 107/92 (97) Pulse Ox 96 95 O2 Delivery Mechanical Ventilator Mechanical Ventilator O2 Flow Rate 50.00 50.00 FiO2 60 02/12/19 02/12/19 02/12/19 02/12/19 00:30 01:00 01:00 01:19 Pulse 142 122 123 Resp 17 B/P (MAP) 93/67 (76) 101/74 Pulse Ox 96 O2 Delivery Mechanical Ventilator O2 Flow Rate 50.00 02/12/19 02/12/19 02/12/19 02/12/19 01:48 02:00 02:52 02:56 Pulse 131 116 Resp 26 20 B/P (MAP) 120/87 (98) Pulse Ox 95 98 98 O2 Delivery Mechanical Ventilator Mechanical Ventilator Mechanical Ventilator O2 Flow Rate 50.00 45.00 FiO2 60 45 02/12/19 02/12/19 02/12/19 02/12/19 03:00 03:40 03:40 04:00 Temp 36.6 Pulse 116 108 Resp 20 24 B/P (MAP) 95/68 (77) 99/71 (80) Pulse Ox 97 97 98 O2 Delivery Mechanical Ventilator Mechanical Ventilator Mechanical Ventilator O2 Flow Rate 45.00 45.00 FiO2 45 02/12/19 02/12/19 02/12/19 02/12/19 05:00 05:03 05:56 06:00 Pulse 100 101 93 Resp 33 20 23 B/P (MAP) 99/64 (76) 97/69 (78) Pulse Ox 97 97 97 O2 Delivery Mechanical Ventilator Mechanical Ventilator Mechanical Ventilator O2 Flow Rate 35.00 30.00 30.00 FiO2 35 02/12/19 02/12/19 02/12/19 02/12/19 06:13 07:00 07:00 08:00 Pulse 96 93 99 Resp 23 22 B/P (MAP) 113/72 (86) Pulse Ox 96 97 95 O2 Delivery Mechanical Ventilator Mechanical Ventilator O2 Flow Rate 30.00 FiO2 30 30 02/12/19 02/12/19 02/12/19 02/12/19 08:00 08:00 09:00 10:04 Temp 37.0 Pulse 98 105 Resp 24 21 B/P (MAP) 122/85 (97) 91/68 (76) 94/65 Pulse Ox 94 97 O2 Delivery Mechanical Ventilator Mechanical Ventilator O2 Flow Rate 30.00 30.00 Capillary Refill : Less Than 3 Seconds Constitutional: other (intubated/ventilated) HEENT: PERRL; No normal ENT inspection, No TMs normal, No pharynx normal, No scleral icterus (R), No scleral icterus (L), No pale conjunctivae (R), No pale conjunctivae (L), No photophobia, No TM abnormal (R), No TM abnormal (L), No pharyngeal erythema, No tonsillar exudate, No other, No discharge; EOMI; No hearing is well preserved, No hard of hearing, No oral hygience is good, No ulceration, No xanthelasmas are seen Neck: No non-tender, No full range of motion, No supple, No normal inspection, No carotid bruit, No limited range of motion, No lymphadenopathy (R), No lymphadenopathy (L), No tender lateral, No tender midline, No thyromegaly, No other, No carotid pulses are 2 + bilaterally, No with good upstrokes Respiratory: chest is bilaterally symmetric, lungs clear to auscultation, other (ventilated.) Cardiovascular: regular rate-rhythm, S1 and S2 Gastrointestinal: soft, audible bowel sounds Rectal: deferred Extremities: normal inspection, no lower extremity edema bilateral Neurologic/Psychiatric: other (intubated/ventilated) Skin: normal color Data Review Labs Laboratory Tests 02/12/19 01:05: White Blood Count 23.0H, Red Blood Count 4.98, Hemoglobin 16.6, Hematocrit 50, Mean Corpuscular Volume 99, Mean Corpuscular Hemoglobin 33, Mean Corpuscular Hemoglobin Concent 34, Red Cell Distribution Width 13.3, Platelet Count 248, Mean Platelet Volume 10.4, Neutrophils (%) (Auto) 88H, Lymphocytes (%) (Auto) 4L , Monocytes (%) (Auto) 8, Eosinophils (%) (Auto) 0, Basophils (%) (Auto) 0, Brett trophils # (Auto) 20.2H, Lymphocytes # (Auto) 1.0, Monocytes # (Auto) 1.8H, Eosinophils # (Auto) 0.0, Basophils # (Auto) 0.0, Neutrophils % (Manual) 87, Lymphocytes % (Manual) 6, Monocytes % (Manual) 6, Eosinophils % (Manual) 0, Basophils % (Manual) 0, Band Neutrophils 1, Clumped Platelets SLIGHT, Prothrombin Time 15.0H, INR Comment 1.1, Sodium Level 141, Potassium Level 4.0, Chloride Level 110H, Carbon Dioxide Level 17L, Anion Gap 14, Blood Urea Nitrogen 13, Creatinine 0.93, Estimat Glomerular Filtration Rate > 60, BUN/Creatinine Ratio 14, Glucose Level 184H, Lactic Acid Level 3.33*H, Calcium Level 7.6L, Troponin I 2.854*H 02/12/19 03:15: White Blood Count 22.0H, Red Blood Count 4.79, Hemoglobin 16.2, Hematocrit 48, Mean Corpuscular Volume 100H, Mean Corpuscular Hemoglobin 34, Mean Corpuscular Hemoglobin Concent 34, Red Cell Distribution Width 13.2, Platelet Count 233, Mean Platelet Volume 10.5H, Neutrophils (%) (Auto) 85H, Lymphocytes (%) (Auto) 6L, Monocytes (%) (Auto) 9, Eosinophils (%) (Auto) 0, Basophils (%) (Auto) 0, Neutrophils # (Auto) 18.8H, Lymphocytes # (Auto) 1.3, Monocytes # (Auto) 1.9H, Eosinophils # (Auto) 0.0, Basophils # (Auto) 0.0, Sodium Level 141, Potassium Level 4.3, Chloride Level 109H, Carbon Dioxide Level 20L, Anion Gap 12, Blood Urea Nitrogen 13, Creatinine 0.94, Estimat Glomerular Filtration Rate > 60, BUN/Creatinine Ratio 14, Glucose Level 154H, Lactic Acid Level 2.77*H, Calcium Level 7.6L, Phosphorus Level 4.3, Magnesium Level 1.7, Triglycerides Level 92 02/12/19 03:45: Blood Gas Puncture Site R RAD, Blood Gas Patient Temperature 36.6, Arterial Blood pH 7.26*L, Arterial Blood Partial Pressure CO2 45, Arterial Blood Partial Pressure O2 121H, Arterial Blood HCO3 20L, Arterial Blood Total CO2 21.2, Arterial Blood Oxygen Saturation 98, Arterial Blood Base Excess -6.1L, Tommy Test YES-POS, Blood Gas Ventilator Setting YES, Blood Gas Inspired Oxygen 45% 02/12/19 05:55: Urine Color AMBERH, Urine Clarity SL CLOUDY, Urine pH 5.0, Urine Specific [place] 1.025H, Urine Protein NEGATIVE, Urine Glucose (UA) NEGATIVE, Urine Ketones NEGATIVE, Urine Nitrite NEGATIVE, Urine Bilirubin NEGATIVE, Urine Urobilinogen 0.2, Urine Leukocyte Esterase NEGATIVE, Urine RBC (Auto) 1+H, Urine RBC 0-2, Urine WBC 10-25H, Urine Squamous Epithelial Cells 2-5, Urine Crystals NONE, Urine Bacteria FEWH, Urine Casts PRESENT, Urine Hyaline Casts 10-25H, Urine Mucus NEGATIVE, Urine Culture Indicated YES 02/12/19 08:15: Troponin I 11.291*H ECG Impression ECG Comment [address] [facility] were seen. One EKG was labeled as atrial fibrillation however the patient had clear P waves. Sinus tachycardia. ST elevation noted in leads aVR, V1 and V2. Q waves noted in the same leads. In tachycardia ST depressions noted in leads V3V6. Morning EKG from our hospital shows sinus rhythm with Q waves in leads V1 and V2 and no significant ST elevation or ST depression. Heart rate is better controlled. A/P-Cardiology Assessment/Admission Diagnosis Septic shock, Acute respiratory distress, Pneumonia, Bone cancer, COPD, Acute SD Plan Septic shock, severe leukocytosis, pneumonia on x-ray, lactic acidosis. Aggressive IV fluids, broad-spectrum antibiotics, vasopressors given. Blood pressure is better today. Acute respiratory distress, intubated/ventilated. FiO2 30 percent. Pneumonia, IV antibiotics. Bone cancer, deferred to the primary team. Prognosis unclear. COPD, intubated/ventilated. Acute SD: Repeat troponin 11 which is markedly elevated. EKG high risk with likely recent acute SD. I've discussed at length with Dr. Gonzalez about his ICU care. We both agree that the patient requires coronary angiography and possible PCI. The patient is still full code. Urgent consent will be taken from the family since the patient is intubated. We will proceed with the procedure today. Risk of complication is at least 2 percent. Critically ill patient. Echocardiogram. Over 30 minutes was spent taking care of the patient. Thank you for your consultation. Please call me if you have any questions. Carlos Enrique Salguero MD, FACP, FACC, FSCAI, FHRS, CCDS Interventional Cardiology Cardiac Electrophysiology Vascular Medicine and Endovascular Interventions Clinical Quality Measures DVT/VTE Risk/Contraindication: Risk Factor Score Per Nursin RFS Level Per Nursing on Admit: 4+=Very High Catherine SALGUERO MD Feb 12, 2019 8:49 am POS
[2019-02-12] MEDS ORDERED: FAMOTIDINE 20MG/2ML IV (PEPCID) IVP SCH (09:00)
[2019-02-12] MEDS ORDERED: MIRT15TA6 PO (09:02)
[2019-02-12] MEDS ORDERED: MELO7.5T46 PO (09:02)
[2019-02-12] MEDS ORDERED: SERT50TA9 PO (09:02)
[2019-02-12] MEDS ORDERED: ALBU18HF2 INH (09:02)
--- NOTE | 2019-02-12 09:48 | History & Physical-Hospitalist ---
History of Present Illness HPI/Chief Complaint Chief complaint: Respiratory failure HPI: This is a 68yoWM of [facility] who presented to [facility] found to be in respiratory failure after complaints of SOB for a week. Had been seen at [facility] the previous two days, labs obtained but Pt was in florid respiratory failure required intubation, central line placement at [facility], then sent over for higher level of care due to elevated Troponin and ST-elevation noted on EKG but he was not stable enough to undergo any type of cardiac catheterization and considering he has a history of both cancer and other comorbidities and severity of his medical conditions and advanced age and palliative care status, Dr. Salguero was consulted and will manage symptomatology and Dr. Gonzalez will manage the ventilator. Source: patient Exam Limitations: no limitations Date Seen 02/12/19 Time Seen by a Provider: 09:15 Attending Physician Debbi Wheatley DO [facility] Referring Physician Date of Admission Feb 11, 2019 at 23:40 Home Medications & Allergies Home Medications Reviewed patient Home Medication Reconciliation performed by pharmacy medication reconciliations all terrain vehicle technician and/or nursing. Patients Allergies have been reviewed. Allergies Allergies Coded Allergies No Known Drug Allergies (Unverified12/02/16) Past Gavietl-Nkuhbn-Bvxqrn Hx Past Med/Social Hx: Reviewed Nursing Past Med/Soc Hx, Reviewed and Corrections made Patient Social History Alcohol Use: Regular Use Number of Drinks Today: AA Alcohol Beverage of Choice: Beer Recreational Drug Use: No Smoking Status: Current Everyday Smoker Type Used: Cigarettes Physical Abuse Screen: No Sexual Abuse: No Recent Foreign Travel: No Contact w/other who traveled: No Recent Hopitalizations: Yes Recent Infectious Disease Expo: No Immunizations Up To Date Pediatric: No Date of Pneumonia Vaccine: Mar 25, 2010 Date of Influenza Vaccine: Nov 24, 2018 Seasonal Allergies Seasonal Allergies: No Past Medical History Currently Using CPAP: No Currently Using BIPAP: No Reproductive: No Sexually Transmitted Disease: No Gastrointestinal: Gastroesophageal Reflux Musculoskeletal: Arthritis, Chronic Back Pain Hearing Impairment: Hard of Hearing Cancer: Bone Did You Recieve Any Treatments: Yes What Type of Treatment Did You: Chemotherapy, Radiation, Surgical Intervention Psychosocial: Anxiety, Depression History of Blood Disorders: No Adverse Reaction to Blood Schaefer: No Family History Patient reports no known family medical history. No Pertinent Family Hx Review of Systems ROS-Unable to Obtain: intubated Constitutional: see HPI Physical Exam Physical Exam Vital Signs Vital Signs - First Documented 02/11/19 02/12/19 02/12/19 23:41 00:00 00:01 Temp 36.0 Pulse 161 Resp 18 B/P (MAP) 81/69 (73) Pulse Ox 96 O2 Delivery Mechanical Ventilator O2 Flow Rate 50.00 FiO2 60 Capillary Refill : Less Than 3 Seconds Height, Weight, BMI Height: 6'0.00" Weight: 156lbs. 6.0oz. [id number]; 21.67 BMI Method: General Appearance: No Apparent Distress, Other (intubated) Respiratory: No Accessory Muscle Use, No Respiratory Distress, Crackles, Wheezing Cardiovascular: Regular Rate, Rhythm Results Results/Procedures Labs Laboratory Tests 02/12/19 01:05 02/12/19 03:15 Patient resulted labs reviewed. Assessment/Plan Admission Diagnosis Assessment: Resp failure CHF NM acute Bone cancer Plan: Vent management Cardiology evaluation Admission Status: Inpatient Order (span 2 midnights) Reason for Inpatient Admission: resp failure with acute NM Diagnosis/Problems Diagnosis/Problems (1) Respiratory failure (2) Altered mental status (3) Acute diastolic heart failure (4) COPD (chronic obstructive pulmonary disease) Clinical Quality Measures DVT/VTE Risk/Contraindication: Risk Factor Score Per Nursin RFS Level Per Nursing on Admit: 4+=Very High DEBBI WHEATLEY DO Feb 12, 2019 09:48 POS
[2019-02-12] MEDS ORDERED: HEParin (CATH LAB) 2,000 ML IV ONE (09:56)
[2019-02-12] MEDS ORDERED: LIDOCAINE 1% INJ 20 ML 20 ML VIAL ONE (09:56)
[2019-02-12] MEDS ORDERED: IPRA3AMP31 IH (09:58)
[2019-02-12] MEDS ORDERED: FLUT1AER INH (09:58)
[2019-02-12] MEDS ORDERED: VANCOMYCIN INJECTION 1,000 MG in NS (IVPB) 250 ML IV SCH (10:00)
[2019-02-12] MEDS ORDERED: HEParin 1000 UNIT/ML (10ML VIAL) FOR BOLUS ONE (10:33)
[2019-02-12] MEDS ORDERED: CLOPIDOGREL 300 MG (PLAVIX) TABLET PO ONE (11:15)
[2019-02-12] MEDS ORDERED: ASPIRIN 325 MG (5 GR) TABLET ONE (11:15)
[2019-02-12] MEDS ORDERED: HEParin DRIP 25000 UNIT/500ML 500 ML IV ONE (11:15)
[2019-02-12] MEDS ORDERED: NS IV 1000 ML 1,000 ML IV SCH (11:40)
--- NOTE | 2019-02-12 11:40 | Cardiac Procedure Note-CS/ASA ---
Pre-Procedure Note Pre-Op Procedure Note H&P Reviewed The H&P was reviewed, patient examined and no changes noted. Date H&P Reviewed: Feb 12, 2019 Time H&P Reviewed: 09:30 Conscious Sedation Pre-Proced Time 09:30 ASA Score 3 For ASA 3 and 4: Consider anesthesia and medical clearance. Also, for patients with a history of failed moderate sedation consider anesthesia. Airway Lungs Heart ASA score ASA 1: a normal healthy patient ASA 2: a patient with a mild systemic disease (mid diabetes, controlled hypertension, obesity ASA 3: a patient with a severe systemic disease that limits activity (angina, COPD, prior Myocardial infarction) ASA 4: a patient with an incapacitating disease that is a constant threat to life (CHF, renal failure) ASA 5: a moribund patient not expected to survive 24 hrs. (ruptured aneurysm) ASA 6: a declared brain- patient whose organs are being harvested. For emergent operations, add the letter E after the classification Mallampati Classification Grade 1 Sedation Plan Analgesia, Amnesia, Plan communicated to team members, Discussed options with patient/fam, Discussed risks with patient/fam The patient is an appropriate candidate to undergo the planned procedure, sedation, and anesthesia. The patient immediately re-assessed prior to indication. Catherine EATON MD Feb 12, 2019 11:40 am POS
--- NOTE | 2019-02-12 11:42 | Coronary Angiography Report ---
Coronary Angiography Report DATE OF PROCEDURE: 02/12/19 INDICATION: Acute DC. PREOPERATIVE DIAGNOSIS: Acute DC. POSTOPERATIVE DIAGNOSIS: Severe left main, LAD, left circumflex artery stenosis. HISTORY: This is a 68-year-old gentleman who has been transferred from [facility] last evening. He is intubated/ventilated. Therefore history is based on discussion with the nurses, discussion with the nurse practitioner in [facility] and reviewing all the medical records. He has been transferred to our hospital due to acute respiratory failure, pneumonia and septic shock. He went to the ER for shortness of breath and was found to have pneumonia on chest x-ray. He was hypotensive with significantly elevated WBC and lactate. Working diagnosis was septic shock. He was given broad-spectrum antibiotic, IV fluids and inotropes. Apparently I was also told that the patient is having atrial fibrillation but all EKGs showed sinus tachycardia. Patient had positive troponin. It was also mentioned that the patient has bone cancer and complains of pain all over the body including the chest. He also has severe COPD. he was found to have significantly elevated troponin of 11 today. Review of EKGs from yesterday shows that whenever the patient is tachycardic he has ST elevation in leads aVR, V1, V2 and widespread ST depressions in the rest of the leads. EKG this morning showed sinus rhythm with Q waves in V1 and V2 and significant resolution of ST elevations. Echocardiogram shows an EF of 20- 25 percent with anterior akinesis. Working diagnosis recent acute DC. I discussed with him and supervisor tan room Dr. Hayden Gonzalez and decided to perform coronary angiography. PROCEDURES PERFORMED: 1.Coronary angiography. 2.Left heart catheterization. 3. Aortic root injection; medical necessity, difficulty in cannulating the left main, needed to rule out anomalous left main origin. COMPLICATIONS: None. SPECIMENS: None. ESTIMATED BLOOD LOSS: 10 mL ANESTHESIA: Conscious sedation ANTICOAGULATION: None. CONTRAST: 95 mL. FLUOROSCOPY: 5 minutes 33 seconds. FLOUROSCOPY DOSE: 831 mgy. PROCEDURE DETAILS: The patient is a 68 male and was brought to the clinical genetics laboratory chief after informed consent was taken from the family. The patient was draped and prepped in the usual sterile fashion. Access was gained in the right femoral artery with a 5 Pashto sheath. Coronary angiography and left heart catheterization was performed with a JR4 and JL4 catheter. Aortic root inj ection was performed with a JL4 catheter. FINDINGS: 1.Left main: Severe distal left main disease. Stenosis severity 70-80 percent. Heavily calcified. 2.LAD: Heavily calcified LAD. Severe ostial LAD stenosis. Stenosis severity 80-90 percent. Severe mid LAD stenosis. Stenosis severity 90-95 percent. 3.Left circumflex artery: Heavily calcified left circumflex artery. Ostial left circumflex artery stenosis. Stenosis severity 80 percent. Severe tandem lesions in the proximal left circumflex artery. Stenosis severity 80-90 percent. 4.RCA: Small RCA with diameter less than 2 mm. Diffuse disease. 5.Left heart catheterization: LV pressure 84/12 mmHg. LVEDP 17 mmHg. Aortic pressure 84/56 mmHg. Severe LV systolic dysfunction with an EF of 25 percent with anterior/anterior apical akinesis. No gradient across the aortic valve. 6. Aortic root injection: No evidence of aortic regurgitation. No significant dilatation of the aortic root or aortic aneurysm. No evidence of aortic dissection. CONCLUSIONS: 1. Severe left main, ostial LAD, proximal LAD, ostial left circumflex artery, proximal left circumflex artery stenosis. Heavily calcified vessels with severe LV systolic dysfunction. I have discussed with Dr. López Toribio and will transfer the patient to [facility] for ICU care as well as high risk PCI with rotational arthrectomy for the left main. 2. We will start IV heparin without bolus. Aspirin and Plavix will be given. 3. Continue medical ICU care for severe sepsis. Patient is intubated and ventilated. Carlos Enrique Salguero MD, FACP, FACC, [facility] Interventional Cardiology Catherine SALGUERO MD Feb 12, 2019 11:42 am POS
[2019-02-12] MEDS ORDERED: PATIENT MAY USE OWN MEDS, ALL PO SCH (11:45)
--- NOTE | 2019-02-12 11:55 | Cardiology Discharge Summary ---
Diagnosis/Chief Complaint Date of Admission Feb 11, 2019 at 11:40 pm Date of Discharge 02/12/2019 Admission Diagnosis Septic shock, non-STEMI Final/Discharge Diagnosis Septic shock, Acute IL, Severe left main, LAD, left circumflex artery stenosis requiring high risk PCI Chief Complaint/HPI Chief Complaint/HPI This is a 68-year-old gentleman who has been transferred from [facility] last evening. He is intubated/ventilated. Therefore history is based on discussion with the nurses, discussion with the nurse practitioner in [facility] and reviewing all the medical records. He has been transferred to our hospital due to acute respiratory failure, pneumonia and septic shock. He went to the ER for shortness of breath and was found to have pneumonia on chest x-ray. He was hypotensive with significantly elevated WBC and lactate. Working diagnosis was septic shock. He was given broad-spectrum antibiotic, IV fluids and inotropes. Apparently I was also told that the patient is having atrial fibrillation but all EKGs showed sinus tachycardia. Patient had positive troponin. It was also mentioned that the patient has bone cancer and complains of pain all over the body including the chest. He also has severe COPD. he was found to have significantly elevated troponin of 11 today. Review of EKGs from yesterday shows that whenever the patient is tachycardic he has ST elevation in leads aVR, V1, V2 and widespread ST depressions in the rest of the leads. EKG this morning showed sinus rhythm with Q waves in V1 and V2 and significant resolution of ST elevations. Echocardiogram shows an EF of 20-25 percent with anterior akinesis. Working diagnosis recent acute IL. I discussed with him and tube man Dr. Hayden Gonzalez and decided to perform coronary angiography. Discharge Summary Procedures Coronary angiography showed heavily calcified arteries with severe distal left main disease, ostial LAD, ostial left circumflex artery stenosis. LVEF 25 per cent. Discharge Physical Examination Patient is intubated/ventilated. Chest examination does not reveal any wheezing. Normal cardiac examination. Hospital Course Was the Problem List Reviewed?: Yes 1. Septic shock requiring inotropes briefly. Systolic blood pressure this morning 115 mmHg therefore no further inotropes. Patient is on IV fluids and broad-spectrum antibiotics. 2. Acute respiratory failure, intubated/ventilated. Significant improvement in oxygen requirement. FiO2 30 percent. 3. Acute IL, coronary angiography shows severe distal left main disease with proximal LAD as well as left circumflex artery stenosis. Patient will be transferred to [facility] for high-risk PCI. 4. History of bone cancer. 5. History of severe COPD. Pending Labs Laboratory Tests 02/12/19 05:55: Urine Color SIENNA, Urine Clarity SL CLOUDY, Urine pH 5.0, Urine Specific [place] 1.025, Urine Protein NEGATIVE, Urine Glucose (UA) NEGATIVE, Urine Ketones NEGATIVE, Urine Nitrite NEGATIVE, Urine Bilirubin NEGATIVE, Urine Urobilinogen 0.2, Urine Leukocyte Esterase NEGATIVE, Urine RBC (Auto) 1+, Urine RBC 0-2, Urine WBC 10-25, Urine Squamous Epithelial Cells 2-5, Urine Crystals NONE, Urine Bacteria FEW, Urine Casts PRESENT, Urine Hyaline Casts 10-25, Urine Mucus NEGATIVE, Urine Culture Indicated YES 02/12/19 08:15: Troponin I 11.291 Discussion & Recommendations Discussion We will discuss with the family. Continue aspirin, Plavix and IV heparin. Follow up appt.: Transferred to [facility]. Dicharge Diet: other diet (nothing by mouth) Activity as Tolerated: Yes Home Medications Reviewed patient Home Medication Reconciliation performed by pharmacy medication reconciliations hazmat technician and/or nursing. Patients Allergies have been reviewed. Discharge Home Medications: Reviewed and agree with Discharge Medication list on patient's Discharge Instruction sheet Condition at discharge Critical patient, guarded prognosis Instructions to patient/family Family not available, patient is intubated/ventilated. We will contact the family by phone. Clinical Quality Measures DVT/VTE Risk/Contraindication: Risk Factor Score Per Nursin RFS Level Per Nursing on Admit: 4+=Very High Catherine EATON MD Feb 12, 2019 11:55 am POS
--- NOTE | 2019-02-12 21:13 | Discharge Summary ---
Discharge Summary Hospital Course Was the Problem List Reviewed?: Yes Problems/Dx: (1) Multi-vessel coronary artery stenosis (2) NSTEMI (non-ST elevated myocardial infarction) (3) Respiratory failure (4) Altered mental status (5) Acute diastolic heart failure (6) COPD (chronic obstructive pulmonary disease) Hospital Course Date of Admission: Feb 11, 2019 at 23:40 Admission Diagnosis : Family Physician/Provider: [facility] Date of Discharge: 02/12/19 Discharge Diagnosis: NSTEMI, Multi-vessel disease in need of bypass surgery Hospital Course: Patient admitted maintained on vent, Cardiology assessed EKG and performed cath which revealed multi-vessel disease in need of CABG so transferred to [place]. Labs and Pending Lab Test: Laboratory Tests 02/12/19 01:05: White Blood Count 23.0H, Red Blood Count 4.98, Hemoglobin 16.6, Hematocrit 50, Mean Corpuscular Volume 99, Mean Corpuscular Hemoglobin 33, Mean Corpuscular Hemoglobin Concent 34, Red Cell Distribution Width 13.3, Platelet Count 248, Mean Platelet Volume 10.4, Neutrophils (%) (Auto) 88H, Lymphocytes (%) (Auto) 4L , Monocytes (%) (Auto) 8, Eosinophils (%) (Auto) 0, Basophils (%) (Auto) 0, Neutrophils # (Auto) 20.2H, Lymphocytes # (Auto) 1.0, Monocytes # (Auto) 1.8H, Eosinophils # (Auto) 0.0, Basophils # (Auto) 0.0, Neutrophils % (Manual) 87, Lymphocytes % (Manual) 6, Monocytes % (Manual) 6, Eosinophils % (Manual) 0, Basophils % (Manual) 0, Band Neutrophils 1, Clumped Platelets SLIGHT, Prothrombin Time 15.0H, INR Comment 1.1, Sodium Level 141, Potassium Level 4.0, Chloride Level 110H, Carbon Dioxide Level 17L, Anion Gap 14, Blood Urea Nitrogen 13, Creatinine 0.93, Estimat Glomerular Filtration Rate > 60, BUN/Creatinine Ratio 14, Glucose Level 184H, Lactic Acid Level 3.33*H, Calcium Level 7.6L, Troponin I 2.854*H 02/12/19 03:15: White Blood Count 22.0H, Red Blood Count 4.79, Hemoglobin 16.2, Hematocrit 48, Mean Corpuscular Volume 100H, Mean Corpuscular Hemoglobin 34, Mean Corpuscular Hemoglobin Concent 34, Red Cell Distribution Width 13.2, Platelet Count 233, Mean Platelet Volume 10.5H, Neutrophils (%) (Auto) 85H, Lymphocytes (%) (Auto) 6L, Monocytes (%) (Auto) 9, Eosinophils (%) (Auto) 0, Basophils (%) (Auto) 0, Neutrophils # (Auto) 18.8H, Lymphocytes # (Auto) 1.3, Monocytes # (Auto) 1.9H, Eosinophils # (Auto) 0.0, Basophils # (Auto) 0.0, Sodium Level 141, Potassium Level 4.3, Chloride Level 109H, Carbon Dioxide Level 20L, Anion Gap 12, Blood Urea Nitrogen 13, Creatinine 0.94, Estimat Glomerular Filtration Rate > 60, BUN/Creatinine Ratio 14, Glucose Level 154H, Lactic Acid Level 2.77*H, Calcium Level 7.6L, Phosphorus Level 4.3, Magnesium Level 1.7, Triglycerides Level 92 02/12/19 03:45: Blood Gas Puncture Site R RAD, Blood Gas Patient Temperature 36.6, Arterial Blood pH 7.26*L, Arterial Blood Partial Pressure CO2 45, Arterial Blood Partial Pressure O2 121H, Arterial Blood HCO3 20L, Arterial Blood Total CO2 21.2, Arterial Blood Oxygen Saturation 98, Arterial Blood Base Excess -6.1L, Tommy Test YES-POS, Blood Gas Ventilator Setting YES, Blood Gas Inspired Oxygen 45% 02/12/19 05:55: Urine Color AMBERH, Urine Clarity SL CLOUDY, Urine pH 5.0, Urine Specific [place] 1.025H, Urine Protein NEGATIVE, Urine Glucose (UA) NEGATIVE, Urine Ketones NEGATIVE, Urine Nitrite NEGATIVE, Urine Bilirubin NEGATIVE, Urine Urobilinogen 0.2, Urine Leukocyte Esterase NEGATIVE, Urine RBC (Auto) 1+H, Urine RBC 0-2, Urine WBC 10-25H, Urine Squamous Epithelial Cells 2-5, Urine Crystals NONE, Urine Bacteria FEWH, Urine Casts PRESENT, Urine Hyaline Casts 10-25H, Urine Mucus NEGATIVE, Urine Culture Indicated YES 02/12/19 08:15: Troponin I 11.291*H 02/12/19 11:57: Glucometer 165H Microbiology 02/11/19 Gram Stain - Final, Resulted 02/11/19 Sputum Culture - Preliminary, Resulted Culture In Progress Home Meds Active Reported Iprat-Albut 0.5-3(2.5) mg/3 ml (Ipratropium/Albuterol Sulfate) 3 Ml Ampul.neb 3 Ml IH Q6H PRN Breo Ellipta 100-25 Mcg INH (Fluticasone/Vilanterol) 1 Each Blst.w.dev 1 Puff INH DAILY LAST FILLED 11-17-18 Ventolin Hfa (Albuterol Sulfate) 18 Gm Hfa.aer.ad 2 Puff INH Q4H PRN Mirtazapine 15 Mg Tablet 15 Mg PO HS Sertraline HCl 50 Mg Tablet 50 Mg PO DAILY Meloxicam 7.5 Mg Tablet 7.5 Mg PO BID Assessment/Pt Instructions Ma Discharge Planning: <30 minutes discharge planning Discharge Instructions Discharge Diet: Other Diet (NPO) Activity as Tolerated: Yes Pneumonia Vaccine Order Indica: Yes Discharge Physical Examination Vital Signs Vital Signs Date Time Temp Pulse Resp B/P (MAP) Pulse Ox O2 Delivery O2 Flow Rate FiO2 02/12/19 13:03 78 22 97 30 02/12/19 13:00 91/63 (72) Mechanical Ventilator 30.00 02/12/19 12:00 36.5 General Appearance: No Apparent Distress Allergies: Coded Allergies: No Known Drug Allergies (Unverified , 12/02/16) Discharge Summary Date of Admission Feb 11, 2019 at 23:40 Date of Discharge Feb 12, 2019 at 13:25 Admission Diagnosis Assessment: Resp failure CHF RI acute Bone cancer Plan: Vent management Cardiology evaluation Discharge Diagnosis (1) Respiratory failure (2) Altered mental status (3) Acute diastolic heart failure (4) COPD (chronic obstructive pulmonary disease) Clinical Quality Measures DVT/VTE Risk/Contraindication: Risk Factor Score Per Nursin RFS Level Per Nursing on Admit: 4+=Very High CHELSEY WHEATLEY DO Feb 12, 2019 21:13 POS
[2019-02-13] MEDS ORDERED: ASPIRIN E.C. 81 MG (ECOTRIN) TAB PO SCH (09:00)
[2019-02-13] MEDS ORDERED: CLOPIDOGREL 75 MG (PLAVIX) TABLET PO SCH (09:00)
[2019-02-13] MEDS ORDERED: TROUGH ORDER-PHARMACY XX ONE (09:00)
== END 2019-02-12 13:25 | disposition short-term general hospital (02) | DRG 871 ==
LOC: ICU 23:40
PROVIDERS: ADMIT Internal Medicine; ATTEND Internal Medicine
PROC: 4A023N7 Measurement of Cardiac Sampling and Pressure, Left Heart, Percutaneous Approach (ICD-10-PCS; principal; 2019-02-12)
PROC: B2111ZZ Fluoroscopy of Multiple Coronary Arteries using Low Osmolar Contrast (ICD-10-PCS; 2019-02-12)
PROC: 5A1935Z Respiratory Ventilation, Less than 24 Consecutive Hours (ICD-10-PCS; 2019-02-12)
DX: A41.9 Sepsis, unspecified organism (principal); J96.00 Acute respiratory failure, unspecified whether with hypoxia or hypercapnia; I21.4 Non-ST elevation (NSTEMI) myocardial infarction; R65.21 Severe sepsis with septic shock; J18.9 Pneumonia, unspecified organism; J44.0 Chronic obstructive pulmonary disease with (acute) lower respiratory infection; E87.2 Acidosis; G89.29 Other chronic pain; H91.90 Unspecified hearing loss, unspecified ear; K21.9 Gastro-esophageal reflux disease without esophagitis; M19.90 Unspecified osteoarthritis, unspecified site; M54.9 Dorsalgia, unspecified; I25.10 Atherosclerotic heart disease of native coronary artery without angina pectoris; F32.9 Major depressive disorder, single episode, unspecified; F41.9 Anxiety disorder, unspecified; I50.9 Heart failure, unspecified; Z92.21 Personal history of antineoplastic chemotherapy; Z85.830 Personal history of malignant neoplasm of bone
CPT/HCPCS: 36415; 71045; 80048; 81000; 82805; 82962; 83605; 83735; 84100; 84478; 84484; 85007; 85025; 85027; 85610; 87040; 87070; 87081; 87088; 87205; 93005; 93458; 93567; 94002; 94799

== ENCOUNTER 2019-02-20 12:20 | Inpatient (IN) | payer MEDICARE, MEDICAID ==
[~2019-02-20] VITALS: Ht 182.8 cm; Wt 66.3 kg
[~2019-02-20 12:20] MED LIST changes: +ALBU18HF2 INH; +FLUT1AER INH; +IPRA3AMP31 IH; +MELO7.5T46 PO; +MIRT15TA6 PO; +SERT50TA9 PO
[2019-02-20] MEDS ORDERED: diphenhydrAMINE 25 MG TAB (BENADRYL) PO PRN (12:30)
[2019-02-20] MEDS ORDERED: ALPRAZolam 0.25 MG (XANAX) TAB PO PRN (12:30)
[2019-02-20] MEDS ORDERED: ACETAMINOPHEN 500 MG TAB (TYLENOL) PO PRN (12:30)
[2019-02-20] MEDS ORDERED: ONDANSETRON 4 MG (ZOFRAN) ORAL DISSOLVE TAB PO PRN (12:30)
[2019-02-20] MEDS ORDERED: CALCIUM CARBONATE 500 MG (TUMS) TAB.CHEW PO PRN (12:30)
[2019-02-20] MEDS ORDERED: HYDROcodone/APAP 5 MG/325 MG (LORTAB) TAB PO PRN (12:30)
[2019-02-20] MEDS ORDERED: ONDANSETRON 4 MG/2 ML (SDV) Z0FRAN IV PRN (12:30)
[2019-02-20] MEDS ORDERED: LOPERAMIDE 2 MG (IMODIUM) TABLET PO PRN (12:30)
[2019-02-20] MEDS ORDERED: BISACODYL 10 MG SUPP (DULCOLAX) PR PRN (12:30)
[2019-02-20] MEDS ORDERED: FLEET ENEMA ADULT 1 EA BTL PR PRN (12:30)
[2019-02-20] MEDS ORDERED: LACTULOSE SYRUP 10GM/15ML (ENULOSE) 30ML UDC PO PRN (12:30)
[2019-02-20] MEDS ORDERED: DOCUSATE SODIUM 100 MG (COLACE) CAP PO PRN (12:30)
[2019-02-20] MEDS ORDERED: guaiFENesin/CODEINE (ROBITUSSIN AC) 10ML UDC PO PRN (12:30)
[2019-02-20 13:45] VITALS: BP 99/67
--- NOTE | 2019-02-20 15:02 | Physical Therapy Evaluation ---
PT Evaluation-General Medical Diagnosis Admission Date Feb 20, 2019 at 13:39 Medical Diagnosis: pneumonia/ debility Onset Date: Feb 20, 2019 Therapy Diagnosis Therapy Diagnosis: decreased activity mert, gen weakness, impaired balance, impaired ROM Height/Weight Height (Feet): 6 Height (Inches): 0.00 Weight (Pounds): 156 Weight (Ounces): 6.0 Precautions Precautions/Isolations: Fall Prevention, Standard Precautions Referral Physician: Anival Reason for Referral: Evaluation/Treatment Medical History Pertinent Medical History: COPD, GERD, Smoking Social History Home: Single Level Current Living Status: Children Entry Into Home: Stairs With Railing PT Steps Into Home: 3 PT Steps Inside Home: 0 Prior Prior Level of Function SCALE: Activities may be completed with or without assistive devices. 4-Jceeiztybs-tusscjo completes the activity by him/herself with no assistance from a helper. 5-Set-up or Clean-up Assistance-helper sets up or cleans up; patient completes activity. [place] assists only prior to or following the activity. 4-Supervision or Touching Assistance-helper provides verbal cues and/or touching/steadying and/or contact guard assistance as patient completes activity. Assistance may be provided throughout the activity or intermittently. 3-Partial/Moderate Assistance-helper does LESS THAN HALF the effort. [place] lifts, holds or supports trunk or limbs, but provides less than half the effort. 2-Substantial/Maximal Assistance-helper does MORE THAN HALF the effort. [place] lifts or holds trunk or limbs and provides more than half the effort. 7-Glayghzxl-nmaewd does ALL the effort. Patient does none of the effort to complete the activity. Or, the assistance of 2 or more helpers is required for the patient to complete the activity. If activity was not attempted, code reason: 7-Patient Refused. 9-Not Applicable-not attempted and the patient did not perform the activity bef ore the current illness, exacerbation or injury. 10-Not Attempted due to Environmental Limitations-(lack of equipment, weather r estraints, etc.). 88-Not Attempted due to Medical Conditions or Safety Concerns. Bed Mobility: 3 (Espinoza) Transfers (B,C,W/C): 3 (Espinoza) Gait: 3 (Espinoza) Indoor Mobility (Ambulation): Needed Some Help Stairs: Needed Some Help Prior Devices Use: Manual wheelchair, Other-see list below Prior Device Use: pt reports he used a cane around the house. pt is poor historian. Pt reports he could do everything on his own prior hospital paperwork leads this PT to believe PLOF to be more towards Espinoza PT Evaluation-Current Subjective pt received from car transported from [facility] by daughter. Pt agrees to start therapy at this time. Pt reports 5/10 pain in the R knee at this time. This session will be a co-tx with OT secondary to pt's need for the skill of 2 therapist's to coordinate UE and LE for functional activity as well as to main tain balance for functional activity. pt in bed post-tx with call light, room phone, tray table in reach with all needs met at this time. Pt/Family Goals pt's goal is to be able to go back home and do what he wants without any proble ms breathing. Objective Patient Orientation: Person, Confused, Place, Time, Situation ROM/Strength ROM Lower Extremities pt R knee flexion limited to 90 degrees and extension limited to 25 degrees lacking TKE. all other LE joints WFL Strength Lower Extremities R knee un-testable secondary to pain B/L hip flexion 4+/5 L knee flexion/extension R knee extension 4/5 Integumentary/Posture Integumentary see nursing note. Open wound noted over lateral R distal femur. Bowel Incontinence: Yes (pt with BM in brief upon arival) Bladder Incontinence: Yes Sensory Vision: Wears Glasses (pt doesn't have glasses but reports he should wear them) Hearing: Impaired Hand Dominance: Right Sensation Right Upper Extremit: Intact Sensation Left Upper Extremity: Intact Sensation Right Lower Extremit: Intact Sensation Left Lower Extremity: Intact Transfers Roll Left to Right (QC): 4 (SBA) Sit to Lying (QC): 4 (SBA) Lying to Sitting/Side of Bed(Q: 4 (SBA) Sit to Stand (QC): 3 (Espinoza) Chair/Rqb-ur-Ssrqj Xfer(QC): 3 (Espinoza) Car Transfer (QC): 3 (Espinoza) pt able to stand with FWW and take steps to transfer to/from chair/WC/mat Gait Does the Patient Walk?: Yes Mode of Locomotion: Both Anticipated Mode of Locomotion: Both Walk 10 feet (QC): 4 (CGA) Walk 50 ft with 2 Turns(QC): 4 (CGA) Walk 150 ft (QC): 88 Walking 10ft/uneven surface-QC: 3 (Espinoza) Distance: 60' Gait Assistive Device: FWW Comments/Gait Description pt lack R LE TKE, B/L heel first strike. Pt lands flat footed with foot slightly supinated and R LE turned out >45 degrees. Pt walks with slow shuffled steps and requires 2 standing rest breaks for the 60' Wheelchair Training Does the Pt Use a Wheelchair?: No Wheel 50 ft with 2 turns (QC): 88 Wheel 150 ft (QC): 88 Type of Wheelchair: Manual Stairs 1 Step (curb) (QC): 3 (Espinoza) 4 Steps (QC): 88 12 Steps (QC): 88 Walking Assistive Device: Walker Balance Sitting Static: Good Sitting Dynamic: Good Standing Static: Fair Standing Dynamic: Fair Picking up an Object (QC): 4 (CGA) Treatment pt performed functional LE strengthening exercises (10reps seated: hip flexion, ankle pumps, LAQ's) PT assisted with balance while OT accessed ADL's, dressing, bathing. OT assisted with balance while PT accessed transfers, ambulation, steps, and functional strengthening. PT assisted with LE placement while OT assisted with UE placement for coordination of extremities for functional activities Assessment/Needs pt requires numerous rest breaks through this session for SOB and C/O lightheadedness. O2 sats would drop from mid 90's down to 85% twice this session requiring PLB. Pt at time struggles to follow multiple step instructions and requires continuing cuing for hand placement for transfers. Pt ambulates hunched over and keeps FWW extended out in front of him unsafely. Rehab Potential: Fair PT Short Term Goals Short Term Goals Time Frame: Feb 27, 2019 Lying to sitting on side of be: 5 Sit to stand: 4 (CGA) Chair/nbl-hz-elbzo transfer: 4 (CGA) Walk 10 feet: 4 (cga) Walk 50 feet with two turns: 4 (CGA) Walk 150 feet: 4 (CGA) PT Night Filler Goals Penitentiary Goals PT Night Filler Goals Time Frame: Mar 13, 2019 Roll Left & Right (QC): 6 Sit to Lying (QC): 6 Lying-Sitting on Side/Bed(QC): 6 Sit to Stand (QC): 4 (SBA) Chair/Kdn-lj-Mivir Xfer(QC): 4 (SBA) Toilet Transfer (QC): 4 (SBA) Car Transfer (QC): 4 (SBA) Does the Patient Walk: Yes Walk 10 feet (QC): 5 Walk 50ft with 2 Turns (QC): 4 (SBA) Walk 150 ft (QC): 4 (SBA) Walking 10ft on Uneven Surface: 4 (SBA) 1 Step (curb) (QC): 4 (SBA) 4 Steps (QC): 4 (CGA) 12 Steps (QC): 4 (CGA) Picking up an Object (QC): 4 (CGA) Does the Pt use WC or Scooter?: No Type: N/A Type: N/A PT Plan Problem List Problem List: Activity Tolerance, Functional Strength, Safety, Balance, Gait, Transfer, Bed Mobility, ROM Treatment/Plan Treatment Plan: Continue Plan of Care Treatment Plan: Bed Mobility, Concurrent Therapy, Education, Functional Activity Juancarlos, Functional Strength, Group Therapy, Gait, Safety, Therapeutic Exercise, Transfers Treatment Duration: Mar 13, 2019 Frequency: At least 5 of 7 days/Wk (IRF) Estimated Hrs Per Day: 1.5 hours per day Patient and/or Family Agrees t: Yes Safety Risks/Education Patient Education: Gait Training, Transfer Techniques, Steps, Correct Positioning, Safety Issues Teaching Recipient: Patient Teaching Methods: Demonstration, Discussion Response to Teaching: Return Demonstration, Reinforcement Needed Discharge Recommendations Plan pt will perform transfer training, bed mobility training, skilled ambulation training, functional LE strengthening, step training, and education. Therapy Discharge Recommendati: Other, See Comments (home with family or NH) Time/GCodes Time In: 1320 Time Out: 1500 Total Billed Treatment Time: 90 Total Billed Treatment PT eval [id number] OT eval [id number] Co-TX [id number] 1 visit EVM 10' EX 20' FA 60 JOSEPHLEONARDO DIAZ PT Feb 20, 2019 15:02 POS
[2019-02-20] MEDS ORDERED: PRAS10TA6 PO (15:10)
[2019-02-20] MEDS ORDERED: ALB0.5V INH (15:10)
[2019-02-20] MEDS ORDERED: FURO-124 PO (15:10)
[2019-02-20] MEDS ORDERED: ATOR80TA76 PO (15:10)
[2019-02-20] MEDS ORDERED: SPIR25TA PO (15:10)
[2019-02-20] MEDS ORDERED: LOSA50TA63 PO (15:10)
[2019-02-20] MEDS ORDERED: CARV12.52 PO (15:10)
[2019-02-20] MEDS ORDERED: ASPI-983 PO (15:10)
--- NOTE | 2019-02-20 15:10 | NUR ---
ENTERED THE MED REC FROM THE DISCHARGE SUMMARY FROM [facility]. I CALLED [facility] TO VERIFY THE LASIX DOSE; IT SAYS ON THE DISCHARGE SUMMARY " LASIX 40M-40MG PO 0800, 1400 30 DAYS #45. I CALLED TO CHECKED AND SEE HOW THEY WANTED THAT GIVEN, I SPOKE WITH BRITTNEE IN THE [facility] AND SHE SAYS 20MG BID. THEREFORE THAT IS HOW I ENTERED IT ON THE MED REC, Addendum: 02/23/19 at 1423 by DOMENIC IVORY CPhT PLEASE NOTE THE FOLLOWING CHARGES WERE MADE AT DISCHARGE: START TAKING SPIRONOLACTONE ATORVASTATIN ASPIRIN CARVEDILOL LOSARTAN EFFIENT FUROSEMIDE DISCONTINUE: MELOXICAM THERE WAS NO ACTION ON THE FOLLOWING MEDS: BREO DUONEB MIRTAZAPINE SERTRALINE ALBUTEROL PROAIR I WILL UPDATE THE MED REC AT A LATER DATE BACK TO THE HOME MEDS THE PT WAS TAKING PRIOR TO HOSPITAL STAY FOR PROPER DISCHARGE ORDERS. Addendum: 02/23/19 at 1521 by DOMENIC IVORY CPhT I REMOVED THE NEW MEDICATION ORDERED AT DISCHARGE FROM [facility] WHICH INCLUDED: SPIRONOLACTONE, ATORVASTATIN, ASPIRIN, COREG, LOSARTAN, EFFIENT, FUROSEMIDE AND ALBUTEROL NEB SOLUTION (THE NOTE ABOVE SAYS THIS WAS A PREVIOUS MED- BUT IT WAS NOT) I ADDED MELOXICAM 7.5 MG BACK TO THE MED REC I ALSO SPOKE WITH ANOTHER NURSE FROM [facility] TO VERIFY THE FUROSEMIDE DOSE. ABOVE IS A NOTE WHERE I HAD QUESTIONED THE DIRECTIONS. UPON CALLING TO CHECK AGAIN I WAS TOLD THAT HE SHOULD BE TAKING LASIX 40M TAB 0800 AND 1/2 TAB (20MG) AT NOON- AND THESE HAVE ALSO BEEN LEDT OFF THE MED REC.
--- NOTE | 2019-02-20 15:10 | Occupational Therapy Eval ---
OT Evaluation-General/PLF Medical Diagnosis Admission Date Feb 20, 2019 at 13:39 Medical Diagnosis: pneumonia/ debility Onset Date: Feb 20, 2019 Therapy Diagnosis Therapy Diagnosis: Decreased functional mobility and ADL function Height/Weight Height (Feet): 6 Height (Inches): 0.00 Weight (Pounds): 156 Weight (Ounces): 6.0 Precautions Precautions/Isolations: Fall Prevention, Standard Precautions Weight Bear Status Weight Bearing Restriction: Weight Bearing/Tolerated Referral Physician: Debbi Florian DO Referral Reason: Activity Tolerance, Self Care, Evaluation/Treatment, Strengthening/ROM Medical History Pertinent Medical History: COPD, GERD, Smoking Additional Medical History Current History pneumonia Reviewed History: Yes Social History Home: Single Level Current Living Status: Children Entry Into Home: Stairs With Railing (3) Steps Into Home: 3 Steps Inside Home: 0 ADL-Prior Level of Function SCALE: Activities may be completed with or without assistive devices. 8-Nngwoodgjj-voatsbx completes the activity by him/herself with no assistance from a helper. 5-Set-up or Clean-up Assistance-helper sets up or cleans up; patient completes activity. [place] assists only prior to or following the activity. 4-Supervision or Touching Assistance-helper provides verbal cues and/or touching/steadying and/or contact guard assistance as patient completes activity. Assistance may be provided throughout the activity or intermittently. 3-Partial/Moderate Assistance-helper does LESS THAN HALF the effort. [place] lifts, holds or supports trunk or limbs, but provides less than half the effort. 2-Substantial/Maximal Assistance-helper does MORE THAN HALF the effort. [place] lifts or holds trunk or limbs and provides more than half the effort. 0-Deojjjkzx-cpmdsa does ALL the effort. Patient does none of the effort to complete the activity. Or, the assistance of 2 or more helpers is required for the patient to complete the activity. If activity was not attempted, code reason: 7-Patient Refused. 9-Not Applicable-not attempted and the patient did not perform the activity before the current illness, exacerbation or injury. 10-Not Attempted due to Environmental Limitations-(lack of equipment, weather restraints, etc.). 88-Not Attempted due to Medical Conditions or Safety Concerns. ADL PLOF Comments Pt states he was IND with use of cane within the home. Self Care: Needed Some Help Functional Cognition: Independent DME/Equipment: Grab Bars, Tub/Shower DME/Equipment Comments cane, walker, grab bars Occupation: retired Drive Self: No Leisure Interests: TV OT Current Status Subjective Pt seen within therapy gym, pt states 5/10 pain in R knee due to wound. Pt states pain increases with movement. Pt agreeable to OT/ PT eval and treat. Co-treatment rendered due to pt's mentation, pain, and decreased functional mobility and safety rendering the use of two therapists that an aide would not be able to provide. OT focused on ADLs, sequencing, problem solving and UE strength while PT focused on functional mobility, transfers, gross motor and LE strength. Mental Status/Objective Patient Orientation: Person, Place, Situation, Normal For Age Current Glasses/Contacts: No Hearing Aids: No Dentures/Partials: No Hand Dominance: Right Upper Extremity ROM WFL BUE Upper Extremity Coordination WFL BUE Upper Extremity Sensation WFL no c/o paresthesias Upper Extremity Strength 4-/5 BUE ADL-Treatment Eating (QC): 6 Oral Hygiene (QC): 7 Shower/Bathe Self (QC): 4 (CGA in stance. Pt able to reach all eric (excluding back)) Upper Body Dressing (QC): 5 (s/u, pt able to unbutton jacket and doff/ don shirt.) Lower Body Dressing (QC): 3 (intermittent assist for sequencing and problem solving with LB dressing) On/Off Footwear (QC): 2 (Max A due to pt's SOB and decreased energy toward end of dressing tasks.) Toileting Hygiene (QC): 4 (CGA and cues for thoroughness) Toilet Transfer (QC): 3 (Min A sit to stand standard toilet) Other Treatments Pt sits EOM to complete 10 minute OT eval ([id number]) Pt has good static sitting balance. Pt c/o RLE leg pain, nursing notified and wound addressed. Pt stated his gallbladder was taken out by nursing at [facility], when lifting his shirt no incision was seen. Pt stated strange but convinced he completed the procedure within the past week. Daughter states gallbladder removed to nursing years prior. Pt's daughter was asked of pt's mentation, daughter states pt has been saying "funny things" and has been more confused than at home. OT/ PT co-treatment completed ([id number]); co-treat rendered due to pt's mentation, pain, and decreased functional mobility and safety rendering the use of two therapists that an aide would not be able to provide. OT focused on ADLs, sequencing, problem solving and UE strength while PT focused on functional mobility, transfers, gross motor and LE strength. Pt completes sponge bath EOB; pt c/o SOB/ lightheadedness EOB during LB dressing tasks. Pt's 02 @ 87%, nasal cannula and 2L 02 given to pt through session, nursing notified of pt's 02 sats in stand/ sit. Pt completes LB dressing EOB, multiple trials needed for pant donning. Pt completes sit to stand, requires cues for safety and transfer technique multiple times. Pt requests return to bed due to fatigue, pt's bed mob SBA. Pt educated on sitting up throughout day, requests bed but allows adjustment for HOB elevation. Pt educated on diaphragmatic breathing techniques and ARU expectation. Pt states goals are to be able to breathe better and complete transfers with increased success/ decreased fatigue. Pt able to request needs; pt left in bed, HOB elevated, 02 on, all needs met, call light within reach. Education OT Patient Education: Correct positioning, Disease process, Modified ADL techniques, Progress toward Goal/Update tx plan, Purpose of tx/functional activities, Rehab process, Safety issues, Transfer techniques Teaching Recipient: Patient Teaching Methods: Demonstration, Discussion Response to Teaching: Verbalize Understanding, Return Demonstration OT Cotton Ginner Helper Goals Cotton Ginner Helper Goals Time Frame: Mar 06, 2019 Eating (QC): 6 Oral Hygiene (QC): 6 Toileting Hygiene (QC): 6 Shower/Bathe Self (QC): 6 Upper Body Dressing (QC): 6 Lower Body Dressing (QC): 6 On/Off Footwear (QC): 6 Additional Goals: 1-Demonstrate ADL Tasks, 2-Verbalize Understanding, 3- ImproveStrength/Juancarlos 1=Demonstrate adherence to instructed precautions during ADL tasks. 2=Patient will verbalize/demonstrate understanding of assistive devices/modifications for ADL. 3=Patient will improve strength/tolerance for activity to enable patient to perform ADL's. OT Education/Plan Problem List/Assessment Assessment: Decreased Activ Tolerance, Decreased Safety Aware, Decreased UE Strength, Dependent Transfers, Impaired Cognition, Impaired Funct Balance, Impaired I ADL's, Impaired Self-Care Skills Discharge Recommendations Plan/Recommendations: Continue POC Equpiment Recommendations-D/C: Bath Chair Patient/Family Goals Increase sit to stand/ strength and increase breathing abilities Treatment Plan/Plan of Care Treatment,Training & Education: Yes Patient would benefit from OT for education, treatment and training to promote independence in ADL's, mobility, safety and/or upper extremity function for ADL's. Plan of Care: ADL Retraining, Caregiver Training, Concurrent Therapy, Functional Mobility, Group Exercise/Act as Ind, UE Funct Exercise/Act Treatment Duration: Mar 06, 2019 Frequency: At least 5 of 7 days/Wk (IRF) Estimated Hrs Per Day: 1.5 hours per day Agreement: Yes Rehab Potential: Fair Time/GCodes Start Time: 13:30 Stop Time: 15:00 Total Time Billed (hr/min): 90 Billed Treatment Time 1, EVM (10), ADL 5 (80)= 90 EVM: [id number] Co-treat: [id number]: Co-treatment rendered due to pt's mentation, pain, and decreased functional mobility and safety rendering the use of two therapists that an aide would not be able to provide. OT focused on ADLs, sequencing, problem solving and UE strength while PT focused on functional mobility, transfers, gross motor and LE strength. WING BURROUGHS OTR Feb 20, 2019 15:10 POS
[2019-02-20] MEDS: ENOXAPARIN 40 MG/0.4 ML (LOVENOX) SYR SC SCH (15:21)
--- NOTE | 2019-02-20 15:35 | ST Cognitive Linguistic Eval ---
Speech Evaluation-General Medical Diagnosis pneumonia/ debility Onset Date: Feb 20, 2019 Therapy Diagnosis Therapy Diagnosis: Cognitive-communication Referral Referring Physician: Dr. Florian Medical History Pertinent Medical History: COPD, GERD, Smoking Reviewed History: Yes Social History Current Living Status: Children Speech PLF-Current Status Prior Level of Function Patient lives with his children and is independent for some of his daily needs. Family supports him with his needs as needed. Subjective Patient was pleasant and cooperative with the cognitive assessment. Language Eval: Auditory Comprehends Simple Yes/No Ques: Functional Indent/Objects Multiple Guillen: Functional Ident/Pics in Multiple Guillen: Functional Follows 1-Step Commands: Functional Follows Complex Directions: Mild Follows General Conversations: Mild Language Eval: Verbal Language Completes Spontaneous Greeting: Functional Produces Auto, Serial Info: Mild Imitates Simple Words/Phrases: Functional Word Finding: Functional Requests Basic Needs: Functional States Basic Personal Info: Mild Expresses Complex Ideas: Moderate Objective Cognitive Domain Attention: WNL Memory: Moderate Problem Solving: Mild Executive Functions: Mild Visuospatial Skills: WNL Composite Severity Rating: Mild Clock Drawing Severity Rating: Moderate Objective Formal/Standardized Tests [facility] Status ([facility]) Results 14/30, moderate dementia level of function Oral Motor/Speech Production Within Normal Limits Impression The patient is a pleasant, confused 68 year old male who was admitted to the ARU due to debility. The patient was given the SLUMS at bedside with a score of 14/30 obtained. This score falls in the moderate dementia range of function. Patient will receive skilled ST services for improving cognitive function with focus on safety and independence. Speech Patient Assess Expression of Ideas/Wants: Frequently (2) Understanding Verbal Content: Sometimes Understands(2) Brief Interview-Mental Status: Yes Repetition of Three Words: Three (3) Temporal Orientation: Year: Correct (3) Temporal Orientation: Month: Accurate within 5 days(2) Temporal Orientation: Day: Incorrect or No Answer(0) Recall : Wear to say "Sock": Yes,after cueing (1) Recall : Color: No, could not recall (0) Recall : Bed: No, could not recall (0) Memory/Recall Ability: Current season, That he or she is in a hsp/hsp unit Speech Short Term Goals Short Term Goals Short Term Goals 1) The patient will complete memory tasks related to his daily needs with 80% or greater with minimal cuing. 2) The patient will complete safety awareness tasks related to his daily needs with 80% or greater with minimal cuing. 3) The patient will complete problem solving tasks related to his daily needs with 80% or greater with minimal cuing. Speech Licensed Tax Consultant Goals Licensed Tax Consultant Goals The patient will improve cognitive-communication necessary for safety and daily living tasks with minimal assist. Speech-Plan Patient/Family Goals Patient/Family Goals: The patient plans on returning to his home, however this will be determined by progress and team input. Treatment Plan Speech Therapy Treatment Plan: Continue Plan of Care The patient will receive skilled ST services for cognition. Treatment Duration: Mar 05, 2019 Frequency: 5 times per week Estimated Hrs Per Day: .25 hour per day Rehab Potential: Fair Barriers to Learning: Patient has moderate level of cognitive function. Pt/Family Agrees to Plan: Yes Safety Risks/Education Teaching Recipient: Patient Teaching Methods: Discussion Response to Teaching: Verbalize Understanding Education Topics Provided: Safety within his room and communication of his wants/needs. Time Speech Therapy Time In: 15:20 Speech Therapy Time Out: 15:35 Total Billed Time: 15 Billed Treatment Time 1, JACOB Guan Feb 20, 2019 15:35 POS
--- NOTE | 2019-02-20 16:17 | PM&R Post Admission Assessment ---
PM&R HP Date of Visit: Feb 20, 2019 Time of Visit: 16:00 History of Present Illness Chief complaint: Critical illness myopathy History of present illness: This is a 68-year-old white male clinic patient of Sharlene Henderson at [facility] who is known to me from her brief hospital stay when he was transferred from [facility] intubated due to respiratory failure elevated troponin and evidence of slight ST elevation. He was stabilized on the ventilator per pulmonology intensive care and underwent cardiac catheterization by Dr. Salguero revealing extensive coronary artery disease with stenosis in need of higher level of care for complex PCI and or emergent bypass surgery. Patient is a bit of a poor historian and I know doubt he has a component of vascular dementia. His daughter pretty much confirmed that to the nurse. He quit smoking since this acute illness occurred. He does drink 4 beers a day of Laine. He has 3 daughters and he lives with 2 of them. 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 He does use oxygen at home as needed and does use nebulizer treatments as needed. At this current time his bowels and bladder are functioning normally and he denies any significant pain. His prior level of functioning was independent with ambulation and independent of ADLs. Past Zpwlpms-Tfhmis-Ypqsav Hx Past Med/Social Hx: Reviewed Nursing Past Med/Soc Hx, Reviewed and Corrections made Patient Social History Marrital Status: single Employed/Student: retired (building construction ironworker for 30 years old [employer]) Alcohol Use: Regular Use Alcohol Beverage of Choice: Beer Smoking Status: Current Everyday Smoker Type Used: Cigarettes Recent Hopitalizations: Yes Immunizations Up To Date Pediatric: No Date of Pneumonia Vaccine: Mar 25, 2010 Date of Influenza Vaccine: Nov 24, 2018 Seasonal Allergies Seasonal Allergies: No Past Medical History right leg sarcoma type excision Respiratory: COPD Currently Using CPAP: No Currently Using BIPAP: No Cardiac: Coronary Artery Disease, High Cholesterol, Hypertension Neurological: Dementia Reproductive: No Sexually Transmitted Disease: No Gastrointestinal: Gastroesophageal Reflux Musculoskeletal: Arthritis, Chronic Back Pain Hearing Impairment: Hard of Hearing Cancer: Bone Did You Recieve Any Treatments: Yes What Type of Treatment Did You: Chemotherapy, Radiation, Surgical Intervention Psychosocial: Anxiety, Depression History of Blood Disorders: No Adverse Reaction to Blood Schaefer: No Family History Patient reports no known family medical history. No Pertinent Family Hx Prior Level of Function Bed Mobility: 3 (Espinoza) Transfers: 3 (Espinoza) Gait: 3 (Espinoza) Indoor Mobility (Ambulation): Needed Some Help Stairs: Needed Some Help Prior Devices Use: Manual wheelchair, Other-see list below pt reports he used a cane around the house. Self Care: Needed Some Help Functional Cognition: Independent Occupation: retired Drive Self: No Leisure Interests: TV Current Level of Fuctioning Roll Left to Right: 4 (SBA) Sit to Lyin (SBA) Lying to Sitting/Side of Bed: 4 (SBA) Sit to Stand: 3 (Espinoza) Chair/Vyf-cx-Wjncr Xfer: 3 (Espinoza) Car Transfer: 3 (Espinoza) Does the Patient Walk: Yes Mode of Locomotion: Both Anticipated Mode of Locomotion: Both Walk 10 feet: 4 (CGA) Walk 50 ft with 2 Turns: 4 (CGA) Walk 150 ft: 88 Walking 10ft on uneven surface: 3 (Espinoza) Gait Assistive Device: FWW Does the Pt Use a Wheelchair: No Wheel 50 ft with 2 turns: 88 Wheel 150 ft: 88 Type of Wheelchair: Manual 1 Step (curb): 3 (Espinoza) 4 Steps: 88 Walking Assistive Device: Walker 12 Steps: 8 Picking up an Object: 4 (CGA) Eatin Oral Hygiene: 7 Shower/Bathe Self: 4 (CGA in stance. Pt able to reach all eric (excluding back)) Upper Body Dressin (s/u, pt able to unbutton jacket and doff/ don shirt.) Lower Body Dressin (intermittent assist for sequencing and problem solving with LB dressing) On/Off Footwear: 2 (Max A due to pt's SOB and decreased energy toward end of dressing tasks.) Toileting Hygiene: 4 (CGA and cues for thoroughness) Toilet Transfer: 3 (Min A sit to stand standard toilet) PM&R Allergy/Meds/Data Review Allergies Coded Allergies: No Known Drug Allergies (Unverified , 12/02/16) Home Medications Scheduled Albuterol Sulfate (Albuterol Sulfate), 2.5 MG INH Q8H, (Reported) Aspirin (Aspirin EC), 81 MG PO DAILY, (Reported) Atorvastatin Calcium (Atorvastatin Calcium), 80 MG PO DAILY, (Reported) Carvedilol (Coreg), 12.5 MG PO BID WITH MEALS, (Reported) Fluticasone/Vilanterol (Breo Ellipta 100-25 Mcg INH), 1 PUFF INH DAILY, (Reported) Furosemide (Lasix), 20 MG PO BID, (Reported) Losartan Potassium (Losartan Potassium), 50 MG PO DAILY, (Reported) Mirtazapine (Mirtazapine), 15 MG PO HS, (Reported) Prasugrel HCl (Effient), 10 MG PO DAILY, (Reported) Sertraline HCl (Sertraline HCl), 50 MG PO DAILY, (Reported) Spironolactone (Aldactone), 25 MG PO DAILY, (Reported) Scheduled PRN Albuterol Sulfate (Ventolin Hfa), 2 PUFF INH Q4H PRN for SHORTNESS OF BREATH, (Reported) Ipratropium/Albuterol Sulfate (Iprat-Albut 0.5-3(2.5) mg/3 ml), 3 ML IH Q6H PRN for SHORTNESS OF BREATH, (Reported) Discontinued Medications Meloxicam (Meloxicam), 7.5 MG PO BID, (Reported) Discontinued Reason: No Longer Taking Current Medications Current Medications Reviewed Review of Systems Constitutional: see HPI, dizziness, malaise, weakness EENTM: no symptoms reported Respiratory: no symptoms reported Cardiovascular: no symptoms reported Gastrointestinal: no symptoms reported Genitourinary: no symptoms reported Musculoskeletal: no symptoms reported Skin: no symptoms reported Psychiatric/Neurological: No Symptoms Reported All Other Systems Reviewed Negative Unless Noted: Yes Physical Exam Physical Exam Vital Signs Capillary Refill : Height, Weight, BMI Height: 6'0.00" Weight: 156lbs. 6.0oz. [id number]; 21.67 BMI Method: General Appearance: No Apparent Distress, WD/WN, Chronically ill, Thin Eyes: Bilateral Eye Normal Inspection, Bilateral Eye PERRL HEENT: PERRL/EOMI, Normal ENT Inspection, Pharynx Normal Neck: Full Range of Motion, Normal Inspection, Non Tender, Supple, Carotid Bruit Respiratory: Chest Non Tender, Lungs Clear, Normal Breath Sounds, No Accessory Muscle Use, No Respiratory Distress Cardiovascular: Regular Rate, Rhythm, No Edema, No Gallop, No JVD, No Murmur, Normal Peripheral Pulses Gastrointestinal: Normal Bowel Sounds, No Organomegaly, No Pulsatile Mass, Non Tender, Soft Back: Normal Inspection, No CVA Tenderness, No Vertebral Tenderness Extremity: Normal Capillary Refill, Normal Inspection, Normal Range of Motion, Non Tender, No Calf Tenderness, No Pedal Edema Neurologic/Psychiatric: Alert, Oriented x3, No Motor/Sensory Deficits, manager analysis II-XII Norm as Tested, Depressed Affect, Disoriented (subtle poor recall), Motor Weakness (generalized 4/5 upper and lower extremities) Skin: Normal Color, Warm/Dry Lymphatic: No Adenopathy PM&R Medical Assessment & Plan REHAB/MEDICAL ASSESSMENT AND PLAN: REHAB IMPAIRMENT GROUP: Critical illness myopathy ETIOLOGIC DIAGNOSIS: Critical illness myopathy The comorbidities that impact the patients function and/or functional outcome by: Mild vascular dementia, recent stent placement, oxygen dependent, COPD, alcohol use, frail status REHAB PLAN: The patient is being admitted to our comprehensive inpatient rehabilitation facility and can tolerate the intensity of service consisting of at least: 180 minutes of therapy a day, 5 out of 7 days a week Rehab treatment will consist of: PT will focus on regaining strengthening of muscles while ambulating and fall risk prevention, OT will focus on function, speech therapy will focus on memory loss The patient/family has a good understanding of our discharge process and will benefit from an interdisciplinary inpatient rehabilitation program. The patient has potential to make improvement and is in need of at least two of the following multidisciplinary therapies including but not limited to physical, occupational, speech, and prosthetics and orthotics. Additionally the patient will need services from respiratory, nutritional services, wound care, psychology, etc. (Customize this to each patient). Given the patients complex condition and risk of further medical complications, rehabilitation services cannot be safely or effectively provided at a lower level of care such as a [facility] facility. BARRIERS TO DISCHARGE: Cognitive ability along with strength in order to take care of himself at home with family help ESTIMATED LOS: 7 days DISPOSITION: Home RELEVANT CHANGES SINCE PREADMISSION SCREENING: I have compared the patients medical and functional status at the time of the preadmission screening and there are: no changes PROGNOSIS: Good REHABILITATION GOALS: 1. Regain enough strength and function and cleared delirium in order to function at home All the above goals were reviewed with the patient and he/she is in agreement. By signing this document, I acknowledge that I have personally performed a full physical examination on this patient within 24 hours of admission to this inpatient rehabilitation facility and have determined the patient to be able to tolerate the above course of treatment at an intensive level for a reasonable period of time. I will be completing a detailed individualized Plan of Care for this patient by day #4 of the patients stay based upon the Preadmission Screen, the Post-Admission Evaluation, and the therapy evaluations. Admission Dx/Comorbidities: (1) Myopathy ICD Codes: G72.9 - Myopathy, unspecified (2) Dementia ICD Codes: F03.90 - Unspecified dementia without behavioral disturbance (3) Memory loss ICD Codes: R41.3 - Other amnesia (4) Delirium ICD Codes: R41.0 - Disorientation, unspecified (5) S/P coronary artery stent placement ICD Codes: Z95.5 - Presence of coronary angioplasty implant and graft (6) Smoker ICD Codes: F17.200 - Nicotine dependence, unspecified, uncomplicated (7) Alcohol use ICD Codes: Z72.89 - Other problems related to lifestyle (8) Hyperlipidemia ICD Codes: E78.5 - Hyperlipidemia, unspecified (9) Hypertension ICD Codes: I10 - Essential (primary) hypertension (10) Multi-vessel coronary artery stenosis ICD Codes: I25.10 - Atherosclerotic heart disease of [place] coronary artery without angina pectoris (11) COPD (chronic obstructive pulmonary disease) ICD Codes: J44.9 - Chronic obstructive pulmonary disease, unspecified (12) History of respiratory failure ICD Codes: Z87.09 - Personal history of other diseases of the respiratory system (13) History of ventilator dependency ICD Codes: Z99.11 - Dependence on respirator [ventilator] status CHELSEY WHEATLEY DO Feb 20, 2019 16:16 POS
--- NOTE | 2019-02-20 16:33 | NUR ---
Notified Dr. Lindo of consult r/t patient's Chronic leg wound at this time. Dr. Lindo states "Do a silver alginate dressing cover with gauze and roller gauze then secure with tape. Change the dressing daily." Dr. Lindo also states, " I am out of town so I will be up to see him Saturday."
[2019-02-20 17:32] VITALS: BP 110/63
[2019-02-20] MEDS: FUROSEMIDE 40 MG (LASIX) TAB PO SCH (18:14)
[2019-02-20] MEDS: CARVEDILOL 12.5 MG (COREG) TABLET PO SCH (18:14)
--- NOTE | 2019-02-20 19:02 | Consultation-Cardiology ---
HPI-Cardiology Cardiology Consultation: Date of Consultation 02/20/19 Time Seen by a Provider: 18:15 Date of Admission Attending Physician Debbi Florian DO Admitting Physician [place] Consulting Physician KARIN SANDHU MD, MA, FACP, [facility], [facility], [facility] Primary counselor camp: Dr Salguero HPI: Chief Complaint: CC: Gen weakness HPI 68 yo man admitted by Dr Florian to her service for eval and treatment of gen weakness after he was transferred from [facility] where he has recently undergone complex PCI. Had earlier been admitted with ac resp failure, sepsis and ac OK. Card cath by Dr Salguero on 02/12/19 showed complex CAD and he was transferred to [facility] for complex intervention. He denies cp or palp or syncope He has chronic exertional shortness of breath, moderate, unchanged in the recent past He denies ankle swelling He notes gen malaise and weakness Review of Systems-Cardiology Review of Systems Constitutional: As described under HPI Eyes: No vision change Ears/Nose/Throat: No ear discharge, No nasal drainage, No recent hearing loss Respiratory: As described under HPI Cardiovascular: As described under HPI Gastrointestinal: No constipation, No diarrhea, No nausea Genitourinary: No dysuria, No hematuria, No urine frequency changes Musculoskeletal: No back pain, No joint pain Skin: No rash, No ulcerations Psychiatric/Neurological: No seizure, No focal weakness, No syncope Hematologic: No bleeding abnormalities All Other Systems Reviewed Negative Unless Noted: Yes CJW-Prcucq-Mehzrv Hx Patient Social History Marrital Status: single 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 Family Medical History Family Medical History: He does not report fam h/o early CAD or SCD Family History: Patient reports no known family medical history. Allergies and Home Medications Allergies Coded Allergies: No Known Drug Allergies (Unverified , 12/02/16) Home Medications Albuterol Sulfate 18 Gm Hfa.aer.ad, 2 PUFF INH Q4H PRN for SHORTNESS OF BREATH, (Reported) Albuterol Sulfate 2.5 Mg/0.5 Ml Vial.neb, 2.5 MG INH Q8H, (Reported) Aspirin 81 Mg Tablet.dr, 81 MG PO DAILY, (Reported) Atorvastatin Calcium 80 Mg Tablet, 80 MG PO DAILY, (Reported) Carvedilol 12.5 Mg Tablet, 12.5 MG PO BID WITH MEALS, (Reported) Fluticasone/Vilanterol 1 Each Blst.w.dev, 1 PUFF INH DAILY, (Reported) Furosemide 40 Mg Tablet, 20 MG PO BID, (Reported) Ipratropium/Albuterol Sulfate 3 Ml Ampul.neb, 3 ML IH Q6H PRN for SHORTNESS OF BREATH, (Reported) Losartan Potassium 50 Mg Tablet, 50 MG PO DAILY, (Reported) Mirtazapine 15 Mg Tablet, 15 MG PO HS, (Reported) Prasugrel HCl 10 Mg Tablet, 10 MG PO DAILY, (Reported) Sertraline HCl 50 Mg Tablet, 50 MG PO DAILY, (Reported) Spironolactone 25 Mg Tablet, 25 MG PO DAILY, (Reported) Patient Home Medication List Home Medication List Reviewed: Yes Physical Exam-Cardiology Physical Exam Vital Signs/I&O 02/20/19 02/20/19 13:45 17:32 Temp 36.9 37.7 Pulse 82 69 Resp 16 20 B/P (MAP) 99/67 110/63 (79) Pulse Ox 99 95 O2 Delivery Nasal Cannula Room Air O2 Flow Rate 2.00 Capillary Refill : Constitutional: AAO x 3, well-developed, well-nourished HEENT: other (several missing teets), EOMI, hearing is well preserved; No xanthelasmas are seen Neck: carotid pulses are 2 + bilaterally, with good upstrokes Respiratory: No accessory muscle use; other (fair air entry, diminished at the bases, prolonged exp) Cardiovascular: regular rate-rhythm, S1 and S2, systolic murmur (2/6 LUISANA at card base) Gastrointestinal: No tender; soft; No guarding, No rebound; audible bowel sounds Extremities: No clubbing, No cyanosis, No significant edema Neurologic/Psychiatric: oriented x 3, other (moves all limbs equally) Skin: No rash on exposed areas, No ulcerations on exposed areas A/P-Cardiology Assessment/Admission Diagnosis CAD. S/p complex, multivessel PCI at [facility] (details unavailable at the time of this writing) Ischemic cardiomyopathy. 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 Richmond Discussion and Recomendations * DAPT for cor stents * Statin for CAD * Carvedilol, furosemide, and spironolactone for ischemic cardiomyopathy and chronic systolic CHF * MERRICK-inhib if bp allows * Monitor labs * Obtain details of cor intervention at [facility] * Echo to eval cm * Advised to quit smoking immediately and completely Clinical Quality Measures DVT/VTE Risk/Contraindication: Risk Factor Score Per Nursin RFS Level Per Nursing on Admit: 4+=Very High KARIN SANDHU MD FACP FAC CCDS Feb 20, 2019 19:02 POS
[2019-02-20] MEDS: MELATONIN 3 MG TABLET PO PRN (20:48)
[2019-02-20] MEDS: DOCUSATE SODIUM 100 MG (COLACE) CAP PO SCH (20:48)
[2019-02-20] MEDS: MIRTAZAPINE 15 MG (REMERON) TAB PO SCH (20:49)
[2019-02-20] MEDS ORDERED: NON-FORMULARY MEDICATION 1 EA EA (Mirtazapine 15 MG) PO SCH (21:00)
[2019-02-20] MEDS ORDERED: RT-ALBUTEROL SULF 2.5 MG/3 ML PRE-MIX VIAL INH SCH (21:00)
[2019-02-20] MEDS: POLYETHYLENE GLYCOL 17 GM (MIRALAX) PACK PO SCH (21:56)
[2019-02-20] MEDS: SENNA W/DOCUSATE (SENOKOT S) TABLET PO SCH (21:56)
[2019-02-21 05:47] LABS: BASOPHILS % (AUTO) 0 % (0-10); EOSINOPHILS # (AUTO) 0.2 10^3/uL (0.0-0.3); EOSINOPHILS % (AUTO) 3 % (0-10); HEMATOCRIT 40 % (40-54); HEMOGLOBIN 13.6 G/DL (13.3-17.7); LYMPHOCYTES # (AUTO) 1.5 X 10^3 (1.0-4.0); LYMPHOCYTES % (AUTO) 22 % (12-44); MEAN CORPUSCULAR HEMOGLOBIN 33 PG (25-34); MEAN CORPUSCULAR HGB CONC 34 G/DL (32-36); MEAN CORPUSCULAR VOLUME 97 FL (80-99); MEAN PLATELET VOLUME 11.4 FL (7.4-10.4); MONOCYTES % (AUTO) 14 % (0-12); NEUTROPHILS # (AUTO) 4.2 X 10^3 (1.8-7.8); NEUTROPHILS % (AUTO) 60 % (42-75); PLATELET COUNT 206 10^3/uL (130-400); RED CELL DISTRIBUTION WIDTH 12.8 % (10.0-14.5); WHITE BLOOD COUNT 6.9 10^3/uL (4.3-11.0)
[2019-02-21 06:00] VITALS: BP 114/68
[2019-02-21 06:15] LABS: ALANINE AMINOTRANSFERASE 32 U/L (0-55); ALBUMIN 2.8 GM/DL (3.2-4.5); ALKALINE PHOSPHATASE 94 U/L (40-136); BILIRUBIN,TOTAL 1.1 MG/DL (0.1-1.0); BUN/CREATININE RATIO 26; CALCIUM 8.9 MG/DL (8.5-10.1); CARBON DIOXIDE 28 MMOL/L (21-32); CHLORIDE 96 MMOL/L (98-107); GFR ESTIMATED > 60; GLUCOSE 89 MG/DL (70-105); POTASSIUM 3.8 MMOL/L (3.6-5.0); SODIUM 134 MMOL/L (135-145); TOTAL PROTEIN 6.9 GM/DL (6.4-8.2)
[2019-02-21] MEDS: CARVEDILOL 12.5 MG (COREG) TABLET PO SCH ×2 (06:21→17:04)
[2019-02-21] MEDS: FUROSEMIDE 40 MG (LASIX) TAB PO SCH ×2 (06:22→17:05)
[2019-02-21] MEDS: RT-ADVAIR HFA 115/21 MCG PER PUFF IH SCH ×2 (07:21→14:37)
--- NOTE | 2019-02-21 07:40 | Pulmonary Consultation ---
History of Present Illness History of Present Illness Date Seen by Provider: Feb 22, 2019 Time Seen by Provider: 07:35 Date of Admission History of Present Illness 68yo transferred for inpt rehab from [facility] where he has recently undergone complex PCI. Was recently admitted here for acute respiratory failure, sepsis and acute PR. Cardiac cath recently by Dr Salguero on 02/12/19 showed complex CAD and he was transferred to [facility] for complex intervention. Pt also complains of SOB worse with exertion. I am consulted for pulmonary management. Allergies and Home Medications Allergies Coded Allergies: No Known Drug Allergies (Unverified , 12/02/16) Home Medications Albuterol Sulfate 18 Gm Hfa.aer.ad, 2 PUFF INH Q4H PRN for SHORTNESS OF BREATH, (Reported) Aspirin 81 Mg Tablet.dr, 81 MG PO DAILY Prescribed by: CHELSEY WHEATLEY on 02/26/19830 Atorvastatin Calcium 80 Mg Tablet, 80 MG PO DAILY Prescribed by: CHELSEY WHEATLEY on 02/26/19830 Carvedilol 12.5 Mg Tablet, 12.5 MG PO BID WITH MEALS Prescribed by: CHELSEY WHEATLEY on 02/26/19830 Fluticasone/Vilanterol 1 Each Blst.w.dev, 1 PUFF INH DAILY, (Reported) Ipratropium/Albuterol Sulfate 3 Ml Ampul.neb, 3 ML IH Q6H PRN for SHORTNESS OF BREATH, (Reported) Losartan Potassium 50 Mg Tablet, 25 MG PO DAILY Prescribed by: CHELSEY WHEATLEY on 02/26/19830 Mirtazapine 15 Mg Tablet, 15 MG PO HS, (Reported) Prasugrel HCl 10 Mg Tablet, 10 MG PO DAILY Prescribed by: CHELSEY WHEATLEY on 02/26/19830 Sertraline HCl 50 Mg Tablet, 50 MG PO DAILY, (Reported) Spironolactone 25 Mg Tablet, 25 MG PO DAILY Prescribed by: CHELSEY WHEATLEY on 02/26/19830 Past Fnafpoe-Rubdnp-Rcybon Hx Past Med/Social Hx: Reviewed Nursing Past Med/Soc Hx, Reviewed and Corrections made Patient Social History Alcohol Use: Regular Use Number of Drinks Today: 0 Alcohol Beverage of Choice: Beer Recreational Drug Use: No Smoking Status: Current Everyday Smoker Type Used: Cigarettes Former Smoker, Quit: Feb 20, 2019 Recent Foreign Travel: No Contact w/Someone Who Travel: No Recent Infectious Disease Expo: No Recent Hopitalizations: Yes Immunizations Up To Date PED Vaccines UTD: No Date of Pneumonia Vaccine: Mar 25, 2010 Date of Influenza Vaccine: Jan 20, 2019 Seasonal Allergies Seasonal Allergies: No Past Medical History Surgeries: No Respiratory: Yes Pneumonia, COPD Currently Using CPAP: No Currently Using BIPAP: No Cardiac: Yes (recent heart cath with stents place x 5) Coronary Artery Disease, High Cholesterol, Hypertension Neurological: Yes Dementia Reproductive Disorders: No Sexually Transmitted Disease: No Genitourinary: No Gastrointestinal: Yes Gastroesophageal Reflux Musculoskeletal: Yes (RIGHT LEG 3" SHORTER THAN LEFT LEG/ osteoarthrithis) Arthritis, Chronic Back Pain Endocrine: No HEENT: Yes Hearing Impairment: Hard of Hearing 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 No Pertinent Family Hx Review of Systems Time Seen by Provider: 07:09 Sepsis Event Evaluation Height, Weight, BMI Height: 6'0.00" Weight: 156lbs. 6.0oz. 70.993231qa; 19.09 BMI Method: Exam Exam Vital Signs Date Time Temp Pulse Resp B/P (MAP) Pulse Ox O2 Delivery O2 Flow Rate FiO2 02/21/19 07:21 96 Nasal Cannula 1.00 02/21/19 07:15 94 Nasal Cannula 1.00 02/21/19 06:00 36.7 62 18 114/68 (83) 94 Nasal Cannula 2.00 02/20/19 21:00 95 Room Air 02/20/19 17:32 37.7 69 20 110/63 (79) 95 Room Air 02/20/19 13:45 36.9 82 16 99/67 99 Nasal Cannula 2.00 02/20/19 13:40 Room Air I & O 02/21/19 07:00 Intake Total 1060 ml Output Total 250 ml Balance 810 ml Height & Weight Height: 6'0.00" Weight: 156lbs. 6.0oz. 70.311379mk; 19.09 BMI Method: General Appearance: No Apparent Distress, WD/WN, Chronically ill, Thin HEENT: PERRL/EOMI, Normal ENT Inspection, Pharynx Normal Neck: Full Range of Motion, Normal Inspection, Non Tender, Supple, Carotid Bruit Respiratory: Chest Non Tender, Lungs Clear, Normal Breath Sounds, No Accessory Muscle Use, No Respiratory Distress Cardiovascular: Regular Rate, Rhythm, No Edema, No Gallop, No JVD, No Murmur, Normal Peripheral Pulses Extremity: Normal Capillary Refill, Normal Inspection, Normal Range of Motion, Non Tender, No Calf Tenderness, No Pedal Edema Neurologic/Psychiatric: Alert, Oriented x3, No Motor/Sensory Deficits, accounts payable assistant II- XII Norm as Tested, Depressed Affect, Disoriented (subtle poor recall), Motor Weakness (generalized 4/5 upper and lower extremities) Skin: Normal Color, Warm/Dry Lymphatic: No Adenopathy Results Lab Laboratory Tests 02/21/19 05:31 Assessment/Plan Assessment/Plan SOB worse with exertion -Will need out pt testing -SVNS Tobacco use -Education CAD s/p Cath Ischemic cardiomyopathy -EF 25% 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
[2019-02-21] MEDS ORDERED: RT-ADVAIR HFA 115/21 MCG PER PUFF IH SCH (08:00)
--- NOTE | 2019-02-21 08:32 | Diagnostic Imaging Report ---
EXAMINATION: Chest 1 view HISTORY: Shortness of breath. COMPARISON: 02/12/2019 FINDINGS: There has been interval extubation and removal of the enteric tube and right internal jugular central line. The lung volumes are normal. There is improved aeration in the right hemithorax with residual interstitial and alveolar opacities in the perihilar and right basilar regions. A small amount of opacities are also seen in the left lung base. No large pleural effusion or pneumothorax. Stable cardiac silhouette. There is calcified aortic atherosclerotic plaque. No acute osseous abnormalities. IMPRESSION: 1. Improved aeration in the right hemithorax. Residual opacities are seen in the bilateral lung bases and right perihilar region. 2. Interval extubation and removal of the enteric tube and right internal jugular central line. Dictated by: Dictated on workstation # [id number]
[2019-02-21] MEDS: PRASUGREL 10 MG (EFFIENT) TABLET PO SCH (08:57)
[2019-02-21] MEDS: LOSARTAN 50 MG (COZAAR) TAB PO SCH (08:57)
[2019-02-21] MEDS: SPIRONOLACTONE 25 MG (ALDACTONE) TAB PO SCH (08:57)
[2019-02-21] MEDS: SERTRALINE 50 MG (ZOLOFT) TABLET PO SCH (08:57)
[2019-02-21] MEDS: DOCUSATE SODIUM 100 MG (COLACE) CAP PO SCH ×2 (08:58→19:56)
[2019-02-21] MEDS: ASPIRIN E.C. 81 MG (ECOTRIN) TAB PO SCH (08:58)
[2019-02-21] MEDS ORDERED: NON-FORMULARY MEDICATION 1 EA EA (Losartan Potassium 50 MG) PO SCH (09:00)
[2019-02-21] MEDS: POLYETHYLENE GLYCOL 17 GM (MIRALAX) PACK PO SCH ×2 (09:00→20:44)
[2019-02-21] MEDS ORDERED: NON-FORMULARY MEDICATION 1 EA EA (Spironolactone (Aldactone) 25 MG) PO SCH (09:00)
[2019-02-21] MEDS ORDERED: NON-FORMULARY MEDICATION 1 EA EA (Fluticasone/Vilanterol (Breo Ellipta 100-25 Mcg INH) 1 P INH SCH (09:00)
[2019-02-21] MEDS ORDERED: PRASUGREL HCL 10 MG PO SCH (09:00)
[2019-02-21] MEDS: SENNA W/DOCUSATE (SENOKOT S) TABLET PO SCH ×2 (09:00→20:45)
[2019-02-21] MEDS ORDERED: LOSARTAN 50 MG (COZAAR) TAB PO SCH (09:00)
[2019-02-21] MEDS: RT-ALBUTEROL/IPRATROPIUM 3 ML (DUONEB) VIAL INH SCH ×2 (10:33→14:31)
--- NOTE | 2019-02-21 10:46 | Physical Therapy Daily Note ---
PT Daily Note-Current Subjective Pt agreeable to PT session. States feeling exhausted, "all i want to do is close my eyes and fall back to sleep and let my body catch up with me". Pain Numeric Pain Scale: 0-No Pain Appearance Pt supine in bed upon arrival and at end of session, call light, phone and bedside table within reach. US tech with pt at end of session Mental Status Patient Orientation: Person, Place, Time, Eyes Open, Situation Attachments: SCD's, Oxygen (1 L O2/NC) Transfers SCALE: Activities may be completed with or without assistive devices. 2-Zfxlefqtvb-aolhrwe completes the activity by him/herself with no assistance from a helper. 5-Set-up or Clean-up Assistance-helper sets up or cleans up; patient completes activity. Franklin assists only prior to or following the activity. 4-Supervision or Touching Assistance-helper provides verbal cues and/or touching/steadying and/or contact guard assistance as patient completes activity. Assistance may be provided throughout the activity or intermittently. 3-Partial/Moderate Assistance-helper does LESS THAN HALF the effort. Franklin lifts, holds or supports trunk or limbs, but provides less than half the effort. 2-Substantial/Maximal Assistance-helper does MORE THAN HALF the effort. Franklin lifts or holds trunk or limbs and provides more than half the effort. 3-Zbriokjnb-hffvfh does ALL the effort. Patient does none of the effort to complete the activity. Or, the assistance of 2 or more helpers is required for the patient to complete the activity. If activity was not attempted, code reason: 7-Patient Refused. 9-Not Applicable-not attempted and the patient did not perform the activity before the current illness, exacerbation or injury. 10-Not Attempted due to Environmental Limitations-(lack of equipment, weather restraints, etc.). 88-Not Attempted due to Medical Conditions or Safety Concerns. Roll Left & Right (QC): 4 Sit to Lying (QC): 4 Lying to Sitting/Side of Bed(Q: 4 very slow movements, effort required, fatigued from each transition Exercises Seated Therapy Exercises: Ankle pumps, Long arc quads, Hip flexion, Hamstring Curls, Hip abd/add Seated Reps: 10 (max encouragement to continue, fatigue and SOA) Treatments bed mobility, education, safety, strength, activity tolerance, functional mobility Assessment Current Status: Fair Progress PT Short Term Goals Short Term Goals Time Frame: Feb 27, 2019 Lying to sitting on side of be: 5 Sit to stand: 4 (CGA) Chair/pdf-ef-nugku transfer: 4 (CGA) Walk 10 feet: 4 (cga) Walk 50 feet with two turns: 4 (CGA) Walk 150 feet: 4 (CGA) PT Skilled Nursing Goals Skilled Nursing Goals PT Golf Cart Maker Goals Time Frame: Mar 13, 2019 Roll Left & Right (QC): 6 Sit to Lying (QC): 6 Lying-Sitting on Side/Bed(QC): 6 Sit to Stand (QC): 4 (SBA) Chair/Vhm-ar-Uekdx Xfer(QC): 4 (SBA) Toilet Transfer (QC): 4 (SBA) Car Transfer (QC): 4 (SBA) Does the Patient Walk: Yes Walk 10 feet (QC): 5 Walk 50ft with 2 Turns (QC): 4 (SBA) Walk 150 ft (QC): 4 (SBA) Walking 10ft on Uneven Surface: 4 (SBA) 1 Step (curb) (QC): 4 (SBA) 4 Steps (QC): 4 (CGA) 12 Steps (QC): 4 (CGA) Picking up an Object (QC): 4 (CGA) Does the Pt use WC or Scooter?: No Type: N/A Type: N/A PT Plan Treatment/Plan Treatment Plan: Continue Plan of Care Treatment Plan: Bed Mobility, Concurrent Therapy, Education, Functional Activity Juancarlos, Functional Strength, Group Therapy, Gait, Safety, Therapeutic Exercise, Transfers Treatment Duration: Mar 13, 2019 Frequency: At least 5 of 7 days/Wk (IRF) Estimated Hrs Per Day: 1.5 hours per day Patient and/or Family Agrees t: Yes Safety Risks/Education Patient Education: Safety Issues Teaching Recipient: Patient Teaching Methods: Discussion Response to Teaching: Verbalize Understanding Time/GCodes Time In: 1040 Time Out: 1053 Total Billed Treatment Time: 13 Total Billed Treatment 1 visit, EX x1 unit RAZIA FRANK CLINICAL EDUCATION CONSULTANT Feb 21, 2019 10:46 POS
--- NOTE | 2019-02-21 12:32 | Individualized Plan of Care ---
Individualized Plan of Care Rehab Nursing IPOC Order Admission Date Feb 20, 2019 at 13:39 Current Orders Orders Admission Order(Inpt,Obs,Sdc) (02/20/19 12:21) Vital Signs: Per Unit Policy ( 08,16,00 (02/20/19 12:21) Paul Hyde (02/20/19 12:21) Sequential Compression Device Q4H (02/20/19 12:21) Die Set Up Worker-Inpt Rehab Con (02/20/19 12:21) Rehab Nursing Orders-Ipoc (02/20/19 12:21) Physical Therapy Rehab Orders (02/20/19 12:21) Occupational Therapy Rehab Ord (02/20/19 12:21) Speech Therapy Rehab Orders (02/20/19 12:21) Cbc With Automated Diff (02/21/19 06:00) Comprehensive Metabolic Panel (02/21/19 06:00) Intake & Output 06,14,22 (02/20/19 12:21) Precautions (Aru) (02/20/19 12:21) Weekly Weight WEEK (02/20/19 12:21) Rehab-Intensity Of Therapy (02/20/19 12:21) Initiate Admission Nursing Pro .admission (02/20/19 12:21) Acetaminophen Tablet (Tylenol Tablet) (02/20/19 12:30) Alprazolam Tablet (Xanax Tablet) (02/20/19 12:30) Calcium Carbonate Chew Tablet (Antacid C (02/20/19 12:30) Diphenhydramine Tablet (Benadryl Tablet) (02/20/19 12:30) Docusate Sodium Capsule (Colace Capsule) (02/20/19 21:00) Docusate Sodium Capsule (Colace Capsule) (02/20/19 12:30) Bisacodyl Suppository (Dulcolax Supposit (02/20/19 12:30) Lactulose Oral Solution (Enulose Oral So (02/20/19 12:30) Na Phos/Na Biphos Enema (Fleet Enema Stuart (02/20/19 12:30) Guaifenesin/Codeine Syrup (Robitussin Ac (02/20/19 12:30) Hydrocodone/Apap 5/325 Tablet (Lortab 5 (02/20/19 12:30) Loperamide Tablet (Imodium Tablet) (02/20/19 12:30) Enoxaparin Injection (Lovenox Injection) (02/20/19 12:30) Melatonin Tablet (Melatonin Tablet) (02/20/19 12:30) Polyethylene Glycol Powder Pkt (Miralax (02/20/19 21:00) Ondansetron Injection (Zofran Injectio (02/20/19 12:30) Ondansetron Oral Dissolve Tab (Zofran (02/20/19 12:30) Senna S Tablet (Senokot S Tablet) (02/20/19 21:00) Tramadol Tablet (Ultram Tablet) (02/20/19 12:30) Heart Healthy (02/20/19 Dinner) Transfer - Bed/Room/Location (02/20/19 13:39) Consult Cardiology (02/20/19 14:01) Patient Visit (02/20/19 ) Pt Eval Moderate Complexity (02/20/19 ) Exercise Therap, Ea 15 Min (02/20/19 ) Functional Activities, Ea 15 (02/20/19 ) Patient Visit (02/20/19 ) Speech Sound Lang Comp (02/20/19 ) Consult Wound Care Physician (02/20/19 15:50) Aspirin Enteric Coated Tablet (Ecotrin T (02/21/19 09:00) Atorvastatin Tablet (Lipitor Tablet) (02/21/19 09:00) Carvedilol Tablet (Coreg Tablet) (02/20/19 17:00) Furosemide Tablet (Lasix Tablet) (02/20/19 17:00) Sertraline Tablet (Zoloft Tablet) (02/21/19 09:00) (Nf) Fluticasone/Vilanterol (Breo Ellipt (02/21/19 09:00) (Nf) Losartan Potassium (02/21/19 09:00) (Nf) Mirtazapine (02/20/19 21:00) (Nf) Prasugrel Hcl (Effient) (02/21/19 09:00) (Nf) Spironolactone (Aldactone) (02/21/19 09:00) Mirtazapine Tablet (Remeron Tablet) (02/20/19 21:00) Losartan Tablet (Cozaar Tablet) (02/21/19 09:00) Prasugrel Tablet (Effient Tablet) (02/21/19 09:00) Spironolactone Tablet (Aldactone Tablet) (02/21/19 09:00) Fluticasone/Salmeterol Common (Advair 11 (02/21/19 08:00) Sequential Compression Device Q4H (02/20/19 17:47) Dvt/Vte Risk - Notifiy Physici Q4H (02/20/19 17:47) Edu Tobacco/Smoking Cessation .prn (02/20/19 17:47) Ensure Enlive (02/21/19 Breakfast) Consult Pulmonology (02/20/19 18:35) Albuterol Pre-Mix Nebs (Rt) (Proventil (02/20/19 21:00) Svn Small Volume Nebulizer (02/20/19 18:35) Losartan Tablet (Cozaar Tablet) (02/21/19 09:00) Magnesium (02/21/19 05:00) Echo W Doppler/Color Flow (02/21/19 06:00) Ekg Tracing (02/21/19 06:00) Nursing Communication (Order) (02/21/19 06:14) Fluticasone/Salmeterol Common (Advair 11 (02/21/19 08:00) Mdi Treatment (02/21/19 07:40) Chest 1 View, Ap/Pa Only (02/21/19 07:40) Albuterol/Ipra Inhalation Soln (Duoneb I (02/21/19 11:00) Svn Small Volume Nebulizer (02/21/19 08:03) Fluticasone/Salmeterol Common (Advair 11 (02/21/19 08:08) Mdi Treatment (02/21/19 08:03) Patient Visit (02/21/19 ) Exercise Therap, Ea 15 Min (02/21/19 ) Rehab Nursing Orders: Ongoing Assess. of Cognitive Status, Ongoing Assess. of Function Status, Bladder Scan, Bladder Training, Bowel Management, Bowel Training, Disease Management & Educaiton, DVT Prophylaxis, Fall Prevention, Fluid/Electrolyte/Nutrition Mgmt, Infection Prevention, Medication Management & Education, Management of Risks & Complications, Management of Skin Intergrity, Nutrition Management, Pain Management, Patient/Family Support, Safety Management Intensity of Therapy to be met Patient to be seen: Min.3h per day/5 of 7d PT IPOC Problem List: Activity Tolerance, Functional Strength, Safety, Balance, Gait, Transfer, Bed Mobility, ROM Treatment Plan: Continue Plan of Care Bed Mobility, Concurrent Therapy, Education, Functional Activity Juancarlos, Functional Strength, Group Therapy, Gait, Safety, Therapeutic Exercise, Transfers Treatment Duration: Mar 13, 2019 Frequency: At least 5 of 7 days/Wk (IRF) Estimated Hrs Per Day: 1.5 hours per day OT IPOC Problems: Decreased Activ Tolerance, Decreased Safety Aware, Decreased UE Strength, Dependent Transfers, Impaired Cognition, Impaired Funct Balance, Impaired I ADL's, Impaired Self-Care Skills OT Treatment, Training and Edu: Yes Plan of Care: ADL Retraining, Caregiver Training, Concurrent Therapy, Functional Mobility, Group Exercise/Act as Ind, UE Funct Exercise/Act Treatment Duration: Mar 06, 2019 Frequency: At least 5 of 7 days/Wk (IRF) Estimated Hrs Per Day: 1.[address] IPOC Speech Therapy Treatment Plan: Continue Plan of Care Treatment Duration: Mar 05, 2019 Frequency: 5 times per week Estimated Hrs Per Day: .25 hour per day Die Set Up Worker/Case Mgmt Die Set Up Worker/Case Managemen: Discharge Planning Dietitian/Cash Applications Associate Dietitian/Cash Applications Associate to monitor nutritional status and make changes and/or recommendations as needed and work with speech pathology on dietary upgrades as the occur. Physician IPOC Medical Issues being managed closely and that require the 24 hour availability of a physician: Patient with severe multivessel CAD recent PCI complex type with delirium and COPD wlll require close monitoring for decompensation Medical Issues: Bowel/Bladder Function, DVT Prophylaxis, Falls Precautions, Fluid/Electrolyte/Nutrition Balance, Infection Protection, Pain Management Brief Synthesis of Preadmission Screen, Post-Admission Evaluation, and Therapy Evaluations: PT will focus on regaining independence with ambulation with walker OT will help regain independence on ADL's ST will help confusion Medical Prognosis: Good Anticipated Length of Stay: 7 days CHELSEY WHEATLEY DO Feb 21, 2019 12:32 POS
--- NOTE | 2019-02-21 12:32 | PM&R Progress Note ---
Subjective HPI/CC On Admission Date Seen by Provider: Feb 21, 2019 Time Seen by Provider: 11:15 Subjective/Events-last exam Labs are OK Doing well overall BM+ yesterday CXR reviewed no acute issues Nebs TID DR Gonzalez and Dr Hernandez are appreciated Checked meds and labs Conferred with RN Reviewed therapy notes Review of Systems General: Fatigue Pulmonary: Dyspnea Objective Exam Vital Signs Vital Signs Date Time Temp Pulse Resp B/P (MAP) Pulse Ox O2 Delivery O2 Flow Rate FiO2 02/21/19 14:33 100 Nasal Cannula 1.00 02/21/19 06:00 36.7 62 18 114/68 (83) Capillary Refill : General Appearance: No Apparent Distress, WD/WN, Chronically ill, Thin HEENT: PERRL/EOMI, Normal ENT Inspection, Pharynx Normal Neck: Full Range of Motion, Normal Inspection, Non Tender, Supple, Carotid Bruit Respiratory: Chest Non Tender, Lungs Clear, Normal Breath Sounds, No Accessory Muscle Use, No Respiratory Distress Cardiovascular: Regular Rate, Rhythm, No Edema, No Gallop, No JVD, No Murmur, Normal Peripheral Pulses Gastrointestinal: Normal Bowel Sounds, No Organomegaly, No Pulsatile Mass, Non Tender, Soft Back: Normal Inspection, No CVA Tenderness, No Vertebral Tenderness Extremity: Normal Capillary Refill, Normal Inspection, Normal Range of Motion, Non Tender, No Calf Tenderness, No Pedal Edema Neurologic/Psychiatric: Alert, Oriented x3, No Motor/Sensory Deficits, 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 FIM Transfers Therapy Code Descriptions/Definitions Functional [place] Measure: 0=Not Assessed/NA 4=Minimal Assistance 1=Total Assistance 5=Supervision or Setup 2=Maximal Assistance 6=Modified [place] 3=Moderate Assistance 7=Complete IndependenceSCALE: Activities may be completed with or without assistive devices. 0-Csjgkvsqak-epcxvsx completes the activity by him/herself with no assistance from a helper. 5-Set-up or Clean-up Assistance-helper sets up or cleans up; patient completes activity. [place] assists only prior to or following the activity. 4-Supervision or Touching Assistance-helper provides verbal cues and/or touching/steadying and/or contact guard assistance as patient completes activity. Assistance may be provided throughout the activity or intermittently. 3-Partial/Moderate Assistance-helper does LESS THAN HALF the effort. [place] lifts, holds or supports trunk or limbs, but provides less than half the effort. 2-Substantial/Maximal Assistance-helper does MORE THAN HALF the effort. [place] l ifts or holds trunk or limbs and provides more than half the effort. 8-Jlrmlynpe-eqhwyq does ALL the effort. Patient does none of the effort to complete the activity. Or, the assistance of 2 or more helpers is required for the patient to complete the activity. If activity was not attempted, code reason: 7-Patient Refused. 9-Not Applicable-not attempted and the patient did not perform the activity before the current illness, exacerbation or injury. 10-Not Attempted due to Environmental Limitations-(lack of equipment, weather restraints, etc.). 88-Not Attempted due to Medical Conditions or Safety Concerns. Roll Left to Right (QC): 4 (SBA) Sit to Lying (QC): 4 (SBA) Sit to Stand (QC): 3 (Espinoza) Chair/Txd-gz-Kbpiz Xfer(QC): 3 (Espinoza) Car Transfer (QC): 3 (Espinoza) Gait Training Does the Patient Walk?: Yes Walk 10 feet (QC): 4 (CGA) Walk 50 ft with 2 Turns(QC): 4 (CGA) Walk 150 ft (QC): 88 Walking 10ft/uneven surface-QC: 3 (Espinoza) Gait Assistive Device: FWW Wheelchair Training Does the Pt Use a Wheelchair?: No Wheel 50 ft with 2 turns (QC): 88 Wheel 150 ft (QC): 88 Type of Wheelchair: Manual Stair Training 1 Step (curb) (QC): 3 (Espinoza) 4 Steps (QC): 88 12 Steps (QC): 8 Balance Picking up an Object (QC): 4 (CGA) ADL-Treatment Eating (QC): 6 Oral Hygiene (QC): 7 Shower/Bathe Self (QC): 4 (CGA in stance. Pt able to reach all eric (excluding back)) Upper Body Dressing (QC): 5 (s/u, pt able to unbutton jacket and doff/ don shirt.) Lower Body Dressing (QC): 3 (intermittent assist for sequencing and problem solving with LB dressing) On/Off Footwear (QC): 2 (Max A due to pt's SOB and decreased energy toward end of dressing tasks.) Toileting Hygiene (QC): 4 (CGA and cues for thoroughness) Toilet Transfer (QC): 3 (Min A sit to stand standard toilet) Assessment/Plan Assessment and Plan Assess & Plan/Chief Complaint Assessment: Critical illness myopathy CAD s/p complex PCI at [place] for severe multi-vessel disease with main disease Smoker COPD O2 prn at home Dementia? Plan: Home meds per DC med list [place] Appreciate Nohelia Hernandez and Lisa Conferred with RN Checked meds and labs Reviewed therapy notes (1) Myopathy (2) Dementia (3) Memory loss (4) Delirium (5) S/P coronary artery stent placement (6) Smoker (7) Alcohol use (8) Hyperlipidemia (9) Hypertension (10) Multi-vessel coronary artery stenosis (11) COPD (chronic obstructive pulmonary disease) (12) History of respiratory failure (13) History of ventilator dependency CHELSEY WHEATLEY DO Feb 21, 2019 12:32 POS
[2019-02-21] MEDS: ENOXAPARIN 40 MG/0.4 ML (LOVENOX) SYR SC SCH (13:42)
--- NOTE | 2019-02-21 14:47 | Progress Note - Cardiology ---
Cardiology SOAP Progress Note Subjective: Reports gen weakness Reports gen body pains, mostly back and joints Denies cp or palp or syncope or leg swelling Has chronic exertional shortness of breath Objective: I&O/Vital Signs 02/21/19 02/21/19 02/21/19 02/21/19 06:00 07:15 07:21 09:00 Temp 36.7 Pulse 62 Resp 18 B/P (MAP) 114/68 (83) Pulse Ox 94 94 96 O2 Delivery Nasal Cannula Nasal Cannula Nasal Cannula Room Air O2 Flow Rate 2.00 1.00 1.00 02/21/19 02/21/19 10:33 14:33 Pulse Ox 94 100 O2 Delivery Nasal Cannula Nasal Cannula O2 Flow Rate 1.00 1.00 02/21/19 00:00 Intake Total 620 ml Balance 620 ml Weight (Pounds): 156 Weight (Ounces): 6.0 Weight (Calculated Kilograms): 70.859926 Constitutional: AAO x 3, well-developed, well-nourished Respiratory: No accessory muscle use; other (fair air entry, diminished at the bases, prolonged exp) Cardiovascular: regular rate-rhythm, S1 and S2, systolic murmur (2/6 LUISANA at card base) Gastrointestional: No tender; soft; No guarding, No rebound; audible bowel sounds Extremities: No clubbing, No cyanosis, No significant edema Neurologic/Psychiatric: oriented x 3, other (moves all limbs equally) Skin: No rash on exposed areas, No ulcerations on exposed areas Results/Procedures: Labs Laboratory Tests 02/21/19 05:31: White Blood Count 6.9, Red Blood Count 4.09L, Hemoglobin 13.6, Hematocrit 40, Mean Corpuscular Volume 97, Mean Corpuscular Hemoglobin 33, Mean Corpuscular Hemoglobin Concent 34, Red Cell Distribution Width 12.8, Platelet Count 206, Mean Platelet Volume 11.4H, Neutrophils (%) (Auto) 60, Lymphocytes (%) (Auto) 22, Monocytes (%) (Auto) 14H, Eosinophils (%) (Auto) 3, Basophils (%) (Auto) 0, Neutrophils # (Auto) 4.2, Lymphocytes # (Auto) 1.5, Monocytes # (Auto) 1.0, Eosinophils # (Auto) 0.2, Basophils # (Auto) 0.0, Sodium Level 134L, Potassium Level 3.8, Chloride Level 96L, Carbon Dioxide Level 28, Anion Gap 10, Blood Urea Nitrogen 26H, Creatinine 1.00, Estimat Glomerular Filtration Rate > 60, BUN/Creatinine Ratio 26, Glucose Level 89, Calcium Level 8.9, Corrected Calcium 9.9, Magnesium Level 2.0, Total Bilirubin 1.1H, Aspartate Amino Transf (AST/SGOT) 39H, Alanine Aminotransferase (ALT/SGPT) 32, Alkaline Phosphatase 94, Total Protein 6.9, Albumin 2.8L A/P: Assessment: CAD. S/p complex, multivessel PCI at [facility] (details unavailable at the time of this writing) Ischemic cardiomyopathy. 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 Richmond Plan: * Continue current cardiac regimen * I discussed his CV issues and the findings of today's echocardiogram with him. This shows that EF has improved significantly after most recent cor interventions * Monitor labs * Obtain details of cor intervention at [facility] * We have advised to quit smoking immediately and completely * I answered his CV-related questions KARIN SANDHU MD FACP [facility] CCDS Feb 21, 2019 14:47 POS
[2019-02-21 17:25] VITALS: BP 91/51
[2019-02-21] MEDS: MELATONIN 3 MG TABLET PO PRN (19:54)
[2019-02-21] MEDS: MIRTAZAPINE 15 MG (REMERON) TAB PO SCH (19:55)
--- NOTE | 2019-02-21 21:20 | NUR ---
Assumed care of patient due to staffing changes.
[2019-02-22] MEDS: RT-ALBUTEROL/IPRATROPIUM 3 ML (DUONEB) VIAL INH SCH ×4 (01:32→15:49)
[2019-02-22] MEDS: RT-ADVAIR HFA 115/21 MCG PER PUFF IH SCH ×2 (01:33→08:43)
[2019-02-22 06:00] VITALS: BP 114/61
[2019-02-22] MEDS: CARVEDILOL 12.5 MG (COREG) TABLET PO SCH ×2 (06:39→17:49)
[2019-02-22] MEDS: FUROSEMIDE 40 MG (LASIX) TAB PO SCH ×2 (06:39→17:49)
[2019-02-22] MEDS: ASPIRIN E.C. 81 MG (ECOTRIN) TAB PO SCH (08:51)
[2019-02-22] MEDS: SENNA W/DOCUSATE (SENOKOT S) TABLET PO SCH ×2 (08:51→21:21)
[2019-02-22] MEDS: SPIRONOLACTONE 25 MG (ALDACTONE) TAB PO SCH (08:51)
[2019-02-22] MEDS: DOCUSATE SODIUM 100 MG (COLACE) CAP PO SCH ×2 (08:51→21:20)
[2019-02-22] MEDS: LOSARTAN 50 MG (COZAAR) TAB PO SCH (08:52)
[2019-02-22] MEDS: SERTRALINE 50 MG (ZOLOFT) TABLET PO SCH (08:52)
[2019-02-22] MEDS: PRASUGREL 10 MG (EFFIENT) TABLET PO SCH (08:52)
[2019-02-22] MEDS: POLYETHYLENE GLYCOL 17 GM (MIRALAX) PACK PO SCH ×2 (08:58→21:21)
--- NOTE | 2019-02-22 09:34 | Pulmonary Progress Note ---
Subjective Time Seen by a Provider: 07:14 Subjective/Events-last exam Appears to be doing better. Sepsis Event Evaluation Height, Weight, BMI Height: 6'0.00" Weight: 156lbs. 6.0oz. 70.321078bm; 19.09 BMI Method: Exam Exam Vital Signs Date Time Temp Pulse Resp B/P (MAP) Pulse Ox O2 Delivery O2 Flow Rate FiO2 02/22/19 08:43 94 Nasal Cannula 0.50 02/22/19 08:37 94 Nasal Cannula 0.50 02/22/19 06:00 37.2 66 16 114/61 (78) 98 Nasal Cannula 1.00 02/21/19 21:00 Nasal Cannula 2.00 02/21/19 17:25 37.4 66 20 91/51 (64) 97 Nasal Cannula 1.00 02/21/19 14:33 100 Nasal Cannula 1.00 02/21/19 10:33 94 Nasal Cannula 1.00 I & O 02/22/19 07:00 Intake Total 540 ml Output Total 650 ml Balance -110 ml Height & Weight Height: 6'0.00" Weight: 156lbs. 6.0oz. 70.503018sq; 19.09 BMI Method: General Appearance: No Apparent Distress, WD/WN, Chronically ill, Thin HEENT: PERRL/EOMI, Normal ENT Inspection, Pharynx Normal Neck: Full Range of Motion, Normal Inspection, Non Tender, Supple, Carotid Bruit Respiratory: Chest Non Tender, Lungs Clear, Normal Breath Sounds, No Accessory Muscle Use, No Respiratory Distress Cardiovascular: Regular Rate, Rhythm, No Edema, No Gallop, No JVD, No Murmur, Normal Peripheral Pulses Extremity: Normal Capillary Refill, Normal Inspection, Normal Range of Motion, Non Tender, No Calf Tenderness, No Pedal Edema Neurologic/Psychiatric: Alert, Oriented x3, No Motor/Sensory Deficits, 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
--- NOTE | 2019-02-22 12:26 | PM&R Progress Note ---
Subjective HPI/CC On Admission Date Seen by Provider: Feb 22, 2019 Time Seen by Provider: 11:00 Subjective/Events-last exam Doing well overall BM+ yesterday CXR reviewed no acute issues Breathing better per patient Nebs TID DR Gonzalez and Dr Hernandez are appreciated Difficulty to motivate to get OOB and likely he wasn't very active at home pre- admit ECHO improved from 25% to 50% Checked meds and labs Conferred with RN Reviewed therapy notes Review of Systems General: Fatigue Objective Exam Vital Signs Vital Signs Date Time Temp Pulse Resp B/P (MAP) Pulse Ox O2 Delivery O2 Flow Rate FiO2 02/22/19 15:49 95 Room Air 02/22/19 12:04 0.50 02/22/19 06:00 37.2 66 16 114/61 (78) Capillary Refill : General Appearance: No Apparent Distress, WD/WN, Chronically ill, Thin HEENT: PERRL/EOMI, Normal ENT Inspection, Pharynx Normal Neck: Full Range of Motion, Normal Inspection, Non Tender, Supple, Carotid Bruit Respiratory: Chest Non Tender, Lungs Clear, Normal Breath Sounds, No Accessory Muscle Use, No Respiratory Distress Cardiovascular: Regular Rate, Rhythm, No Edema, No Gallop, No JVD, No Murmur, Normal Peripheral Pulses Gastrointestinal: Normal Bowel Sounds, No Organomegaly, No Pulsatile Mass, Non Tender, Soft Back: Normal Inspection, No CVA Tenderness, No Vertebral Tenderness Extremity: Normal Capillary Refill, Normal Inspection, Normal Range of Motion, Non Tender, No Calf Tenderness, No Pedal Edema Neurologic/Psychiatric: Alert, Oriented x3, No Motor/Sensory Deficits, 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 FIM Transfers Therapy Code Descriptions/Definitions Functional [place] Measure: 0=Not Assessed/NA 4=Minimal Assistance 1=Total Assistance 5=Supervision or Setup 2=Maximal Assistance 6=Modified [place] 3=Moderate Assistance 7=Complete IndependenceSCALE: Activities may be completed with or without assistive devices. 8-Bdaasubaxy-czukboj completes the activity by him/herself with no assistance from a helper. 5-Set-up or Clean-up Assistance-helper sets up or cleans up; patient completes activity. [place] assists only prior to or following the activity. 4-Supervision or Touching Assistance-helper provides verbal cues and/or touching/steadying and/or contact guard assistance as patient completes activity. Assistance may be provided throughout the activity or intermittently. 3-Partial/Moderate Assistance-helper does LESS THAN HALF the effort. [place] lifts, holds or supports trunk or limbs, but provides less than half the effort. 2-Substantial/Maximal Assistance-helper does MORE THAN HALF the effort. [place] lifts or holds trunk or limbs and provides more than half the effort. 6-Jermpyjmd-cwqqzm does ALL the effort. Patient does none of the effort to complete the activity. Or, the assistance of 2 or more helpers is required for the patient to complete the activity. If activity was not attempted, code reason: 7-Patient Refused. 9-Not Applicable-not attempted and the patient did not perform the activity before the current illness, exacerbation or injury. 10-Not Attempted due to Environmental Limitations-(lack of equipment, weather restraints, etc.). 88-Not Attempted due to Medical Conditions or Safety Concerns. Roll Left to Right (QC): 4 Sit to Lying (QC): 4 Sit to Stand (QC): 3 (Espinoza) Chair/Uon-ak-Rwhij Xfer(QC): 3 (Espinoza) Car Transfer (QC): 3 (Espinoza) Gait Training Does the Patient Walk?: Yes Walk 10 feet (QC): 4 (CGA) Walk 50 ft with 2 Turns(QC): 4 (CGA) Walk 150 ft (QC): 88 Walking 10ft/uneven surface-QC: 3 (Espinoza) Gait Assistive Device: FWW Wheelchair Training Does the Pt Use a Wheelchair?: No Wheel 50 ft with 2 turns (QC): 88 Wheel 150 ft (QC): 88 Type of Wheelchair: Manual Stair Training 1 Step (curb) (QC): 3 (Espinoza) 4 Steps (QC): 88 12 Steps (QC): 8 Balance Picking up an Object (QC): 4 (CGA) ADL-Treatment Eating (QC): 6 Oral Hygiene (QC): 7 Shower/Bathe Self (QC): 4 (CGA in stance. Pt able to reach all eric (excluding back)) Upper Body Dressing (QC): 5 (s/u, pt able to unbutton jacket and doff/ don shirt.) Lower Body Dressing (QC): 3 (intermittent assist for sequencing and problem solving with LB dressing) On/Off Footwear (QC): 2 (Max A due to pt's SOB and decreased energy toward end of dressing tasks.) Toileting Hygiene (QC): 4 (CGA and cues for thoroughness) Toilet Transfer (QC): 3 (Min A sit to stand standard toilet) Assessment/Plan Assessment and Plan Assess & Plan/Chief Complaint Assessment: Critical illness myopathy CAD s/p complex PCI at [place] for severe multi-vessel disease with main disease Smoker COPD O2 prn at home Dementia? Plan: Home meds per DC med list [place] Appreciate Nohelia Hernandez and Lisa Conferred with RN Checked meds and labs Reviewed therapy notes (1) Myopathy (2) Dementia (3) Memory loss (4) Delirium (5) S/P coronary artery stent placement (6) Smoker (7) Alcohol use (8) Hyperlipidemia (9) Hypertension (10) Multi-vessel coronary artery stenosis (11) COPD (chronic obstructive pulmonary disease) (12) History of respiratory failure (13) History of ventilator dependency CHELSEY WHEATLEY DO Feb 22, 2019 12:26 POS
[2019-02-22] MEDS: ENOXAPARIN 40 MG/0.4 ML (LOVENOX) SYR SC SCH (13:30)
--- NOTE | 2019-02-22 15:55 | Progress Note - Cardiology ---
Cardiology SOAP Progress Note Subjective: No cp or palp or syncope No shortness of breath at rest Weakness slowly improving No N/V Objective: I&O/Vital Signs 02/22/19 02/22/19 02/22/19 02/22/19 06:00 08:37 08:43 09:00 Temp 37.2 Pulse 66 Resp 16 B/P (MAP) 114/61 (78) Pulse Ox 98 94 94 O2 Delivery Nasal Cannula Nasal Cannula Nasal Cannula Room Air O2 Flow Rate 1.00 0.50 0.50 02/22/19 12:04 Pulse Ox 93 O2 Delivery Nasal Cannula O2 Flow Rate 0.50 02/22/19 00:00 Intake Total 440 ml Output Total 450 ml Balance -10 ml Weight (Pounds): 156 Weight (Ounces): 6.0 Weight (Calculated Kilograms): 70.245038 Constitutional: AAO x 3, well-developed, well-nourished Respiratory: No accessory muscle use; other (fair air entry, diminished at the bases, prolonged exp) Cardiovascular: regular rate-rhythm, S1 and S2, systolic murmur (2/6 LUISANA at card base) Gastrointestional: No tender; soft; No guarding, No rebound; audible bowel sounds Extremities: No clubbing, No cyanosis, No significant edema Neurologic/Psychiatric: oriented x 3, other (moves all limbs equally) Skin: No rash on exposed areas, No ulcerations on exposed areas Results/Procedures: Labs Laboratory Tests 02/21/19 05:31 A/P: Assessment: CAD. S/p complex, multivessel PCI at [facility] in Jan 2019 (details unavailable at the time of this writing) Ischemic cardiomyopathy, much improved after PCI. LVEF 25% at time of cath of 02/12/[address] Salguero. 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 Richmond Plan: * Continue current cardiac regimen * We have advised to quit smoking immediately and completely * I answered his CV-related questions KARIN SANDHU MD FACP [facility] CCDS Feb 22, 2019 15:55 POS
--- NOTE | 2019-02-22 17:19 | NUR ---
Initial Visit Patient was admitted to ARU from [facility] 02/20/19 for critical illness myopathy. He had presented to [facility] ER 02/11/19, intubated and transferred to [facility], cardiac cath 02/12 with transfer to higher level of care at [facility] same day. DME: Patient has home O2, nebulizer, FWW, shower chair. He reports he had a cane but believes that may have been left at [facility]. INSURANCE: Patient is insured Medicare and [employer]. FOLLOWUP PHYSICIAN VISITS: [facility] discharge documents reflect recommended followup in 2 weeks with environmental management specialist Dr. Mykel Toribio. His PCP is [facility]. These appointments should be coordinated with patient ARU stay and/or discharge. ADVANCED DIRECTIVE: Conversation initiated during information resources manager, technical writer will followup. SUMMARY: Patient resides alone, he has 3 daughters. Carolina Lorelei Comstock, two doors down from patient. [address] [facility]. [phone] Flor Bermudez, [address] [place] [address]. [phone] Melissa Velazquez. As noted, Carolina is in close proximity. Patient reports that he has a room for his girls, Flor said that she and Jennifer stay intermittently with patient generally relative to their relationship issues with boyfriend/spouse. High School Librarian spoke with both Carolina and Flor by phone this date for additional information. Continue intermittent review of progress relative to post hospital care.
[2019-02-22 18:15] VITALS: BP 93/50
[2019-02-22] MEDS: MIRTAZAPINE 15 MG (REMERON) TAB PO SCH (20:26)
[2019-02-23] MEDS: RT-ADVAIR HFA 115/21 MCG PER PUFF IH SCH ×4 (01:18→20:42)
[2019-02-23] MEDS: RT-ALBUTEROL/IPRATROPIUM 3 ML (DUONEB) VIAL INH SCH ×5 (01:19→20:43)
[2019-02-23 05:13] VITALS: BP 133/55
[2019-02-23 06:17] LABS: BASOPHILS # (AUTO) 0.1 10^3/uL (0.0-0.1); BASOPHILS % (AUTO) 1 % (0-10); EOSINOPHILS # (AUTO) 0.3 10^3/uL (0.0-0.3); EOSINOPHILS % (AUTO) 5 % (0-10); HEMATOCRIT 38 % (40-54); HEMOGLOBIN 12.4 G/DL (13.3-17.7); LYMPHOCYTES # (AUTO) 1.8 X 10^3 (1.0-4.0); LYMPHOCYTES % (AUTO) 27 % (12-44); MEAN CORPUSCULAR HEMOGLOBIN 33 PG (25-34); MEAN CORPUSCULAR HGB CONC 33 G/DL (32-36); MEAN CORPUSCULAR VOLUME 99 FL (80-99); MEAN PLATELET VOLUME 11.4 FL (7.4-10.4); MONOCYTES # (AUTO) 1.2 X 10^3 (0.0-1.0); MONOCYTES % (AUTO) 18 % (0-12); NEUTROPHILS # (AUTO) 3.2 X 10^3 (1.8-7.8); NEUTROPHILS % (AUTO) 50 % (42-75); PLATELET COUNT 206 10^3/uL (130-400); RED CELL DISTRIBUTION WIDTH 12.8 % (10.0-14.5); WHITE BLOOD COUNT 6.5 10^3/uL (4.3-11.0)
[2019-02-23] MEDS: CARVEDILOL 12.5 MG (COREG) TABLET PO SCH ×2 (06:18→17:11)
[2019-02-23] MEDS: FUROSEMIDE 40 MG (LASIX) TAB PO SCH ×2 (06:18→17:11)
[2019-02-23 06:36] LABS: ALANINE AMINOTRANSFERASE 29 U/L (0-55); ALBUMIN 2.8 GM/DL (3.2-4.5); ALKALINE PHOSPHATASE 106 U/L (40-136); BILIRUBIN,TOTAL 0.7 MG/DL (0.1-1.0); BUN/CREATININE RATIO 27; CALCIUM 8.7 MG/DL (8.5-10.1); CARBON DIOXIDE 28 MMOL/L (21-32); CHLORIDE 97 MMOL/L (98-107); CREATININE SERUM 0.85 MG/DL (0.60-1.30); GFR ESTIMATED > 60; GLUCOSE 80 MG/DL (70-105); POTASSIUM 3.9 MMOL/L (3.6-5.0); SODIUM 135 MMOL/L (135-145)
--- NOTE | 2019-02-23 08:35 | Occupational Ther Daily Note ---
OT Current Status-Daily Note Subjective Pt seen in bed, finishing breakfast. Pt agreeable to OT tx session with encouragement. Pt states he "did nothing" this weekend and was "bored", states moderate pain in R leg. Pt agreeable to shower, pt's nurse notified for bandaging instructions to R leg/ ankles. Mental Status/Objective Patient Orientation: Person, Place, Situation, Normal For Age Attachments: Oxygen (1.5L) ADL-Treatment Therapy Code Descriptions/Definitions Functional [place] Measure: 0=Not Assessed/NA 4=Minimal Assistance 1=Total Assistance 5=Supervision or Setup 2=Maximal Assistance 6=Modified [place] 3=Moderate Assistance 7=Complete IndependenceSCALE: Activities may be completed with or without assistive devices. 6-Reixovsbeu-qzhinkk completes the activity by him/herself with no assistance fr om a helper. 5-Set-up or Clean-up Assistance-helper sets up or cleans up; patient completes activity. [place] assists only prior to or following the activity. 4-Supervision or Touching Assistance-helper provides verbal cues and/or touching/steadying and/or contact guard assistance as patient completes activity. Assistance may be provided throughout the activity or intermittently. 3-Partial/Moderate Assistance-helper does LESS THAN HALF the effort. [place] lifts, holds or supports trunk or limbs, but provides less than half the effort. 2-Substantial/Maximal Assistance-helper does MORE THAN HALF the effort. [place] lifts or holds trunk or limbs and provides more than half the effort. 6-Ermrcdohi-rceazf does ALL the effort. Patient does none of the effort to complete the activity. Or, the assistance of 2 or more helpers is required for the patient to complete the activity. If activity was not attempted, code reason: 7-Patient Refused. 9-Not Applicable-not attempted and the patient did not perform the activity before the current illness, exacerbation or injury. 10-Not Attempted due to Environmental Limitations-(lack of equipment, weather restraints, etc.). 88-Not Attempted due to Medical Conditions or Safety Concerns. Eating (QC): 6 Oral Hygiene (QC): 7 Shower/Bathe Self (QC): 4 (SUP during showering, able to reach all areas. SBA during stance at grab bars.) Upper Body Dressing (QC): 6 Lower Body Dressing (QC): 4 (SBA in stance while pulling up pants.) on/ off footwear: 6 Other Treatment Pt completes eating tasks while education presented on ARU expectations and pain management techniques. Bed mob with SUP, sit to stand with CGA and cues for safe transferring with FWW from bed. Pt completes ADLs in room with 02 connected, demonstrates SOB during dressing tasks. Pt requires cues for rest breaks to regain breath. Pt educated on HEP, given handout to complete when increased energy. Pt educated on daily schedule. Pt left in recliner chair, all needs met, call light within reach. Education OT Patient Education: Correct positioning, Energy conservation (during dressing tasks.), Modified ADL techniques, Rehab process, Safety issues, Transfer techniques Teaching Recipient: Patient Teaching Methods: Demonstration, Discussion Response to Teaching: Verbalize Understanding, Return Demonstration OT Machine Stapler Goals Senior Living Goals Time Frame: Mar 06, 2019 Eating (QC): 6 (met) Oral Hygiene (QC): 6 Toileting Hygiene (QC): 6 Shower/Bathe Self (QC): 6 Upper Body Dressing (QC): 6 (met) Lower Body Dressing (QC): 6 On/Off Footwear (QC): 6 (met) Additional Goals: 1-Demonstrate ADL Tasks, 2-Verbalize Understanding, 3- ImproveStrength/Juancarlos 1=Demonstrate adherence to instructed precautions during ADL tasks. 2=Patient will verbalize/demonstrate understanding of assistive devices/modifications for ADL. 3=Patient will improve strength/tolerance for activity to enable patient to perform ADL's. OT Education/Plan Problem List/Assessment Assessment: Decreased Activ Tolerance, Decreased UE Strength, Impaired Funct Balance, Impaired I ADL's, Impaired Self-Care Skills Discharge Recommendations Plan/Recommendations: Continue POC Therapy Discharge Recommendati: Home & Family Treatment Plan/Plan of Care Treatment,Training & Education: Yes Patient would benefit from OT for education, treatment and training to promote independence in ADL's, mobility, safety and/or upper extremity function for ADL's. Plan of Care: ADL Retraining, Caregiver Training, Concurrent Therapy, Functional Mobility, Group Exercise/Act as Ind, UE Funct Exercise/Act Treatment Duration: Mar 06, 2019 Frequency: At least 5 of 7 days/Wk (IRF) Estimated Hrs Per Day: 1.5 hours per day Agreement: Yes Rehab Potential: Fair Time/GCodes Start Time: 08:00 Stop Time: 09:00 Total Time Billed (hr/min): 60 Billed Treatment Time 1, ADL x4 (60) WING BURROUGHS OTR Feb 23, 2019 08:35 POS
[2019-02-23] MEDS: PRASUGREL 10 MG (EFFIENT) TABLET PO SCH (09:43)
[2019-02-23] MEDS: ASPIRIN E.C. 81 MG (ECOTRIN) TAB PO SCH (09:43)
[2019-02-23] MEDS: SPIRONOLACTONE 25 MG (ALDACTONE) TAB PO SCH (09:43)
[2019-02-23] MEDS: DOCUSATE SODIUM 100 MG (COLACE) CAP PO SCH ×2 (09:43→20:54)
[2019-02-23] MEDS: LOSARTAN 50 MG (COZAAR) TAB PO SCH (09:43)
[2019-02-23] MEDS: SERTRALINE 50 MG (ZOLOFT) TABLET PO SCH (09:43)
[2019-02-23] MEDS: SENNA W/DOCUSATE (SENOKOT S) TABLET PO SCH ×2 (09:44→20:54)
[2019-02-23] MEDS: POLYETHYLENE GLYCOL 17 GM (MIRALAX) PACK PO SCH ×2 (09:44→20:54)
--- NOTE | 2019-02-23 09:50 | PM&R Progress Note ---
Subjective HPI/CC On Admission Date Seen by Provider: Feb 23, 2019 Time Seen by Provider: 08:30 Subjective/Events-last exam Pt just took a shower and is up in chair Labs okay Echocardiogram 50% ejection fraction Dr. Lindo will evaluate right lateral thigh previous excision of a sarcoma Follow up with cardiology and pulmonology locally rather than [place], decided by family Checked meds and labs Conferred with RN Reviewed therapy notes Review of Systems General: Fatigue Pulmonary: Dyspnea Objective Exam Vital Signs Vital Signs Date Time Temp Pulse Resp B/P (MAP) Pulse Ox O2 Delivery O2 Flow Rate FiO2 02/23/19 21:00 97 Nasal Cannula 2.00 02/23/19 17:36 37.0 72 16 108/51 (70) Capillary Refill : General Appearance: No Apparent Distress, WD/WN, Chronically ill, Thin HEENT: PERRL/EOMI, Normal ENT Inspection, Pharynx Normal Neck: Full Range of Motion, Normal Inspection, Non Tender, Supple, Carotid Bru it Respiratory: Chest Non Tender, Lungs Clear, Normal Breath Sounds, No Accessory Muscle Use, No Respiratory Distress Cardiovascular: Regular Rate, Rhythm, No Edema, No Gallop, No JVD, No Murmur, Normal Peripheral Pulses Gastrointestinal: Normal Bowel Sounds, No Organomegaly, No Pulsatile Mass, Non Tender, Soft Back: Normal Inspection, No CVA Tenderness, No Vertebral Tenderness Extremity: Normal Capillary Refill, Normal Inspection, Normal Range of Motion, Non Tender, No Calf Tenderness, No Pedal Edema Neurologic/Psychiatric: Alert, Oriented x3, No Motor/Sensory Deficits, bpm architect II- XII Norm as Tested, Depressed Affect, Disoriented (subtle poor recall), Motor Weakness (generalized 4/5 upper and lower extremities) Skin: Normal Color, Warm/Dry Lymphatic: No Adenopathy Results/Procedures Lab Laboratory Tests 02/23/19 05:14 Patient resulted labs reviewed. FIM Transfers Therapy Code Descriptions/Definitions Functional [place] Measure: 0=Not Assessed/NA 4=Minimal Assistance 1=Total Assistance 5=Supervision or Setup 2=Maximal Assistance 6=Modified [place] 3=Moderate Assistance 7=Complete IndependenceSCALE: Activities may be completed with or without assistive devices. 9-Xitawhnnrs-hbmeydr completes the activity by him/herself with no assistance f rom a helper. 5-Set-up or Clean-up Assistance-helper sets up or cleans up; patient completes activity. [place] assists only prior to or following the activity. 4-Supervision or Touching Assistance-helper provides verbal cues and/or touching/steadying and/or contact guard assistance as patient completes activity. Assistance may be provided throughout the activity or intermittently. 3-Partial/Moderate Assistance-helper does LESS THAN HALF the effort. [place] lifts, holds or supports trunk or limbs, but provides less than half the effort. 2-Substantial/Maximal Assistance-helper does MORE THAN HALF the effort. [place] lifts or holds trunk or limbs and provides more than half the effort. 1-Onttlhwqc-nlxrhy does ALL the effort. Patient does none of the effort to complete the activity. Or, the assistance of 2 or more helpers is required for the patient to complete the activity. If activity was not attempted, code reason: 7-Patient Refused. 9-Not Applicable-not attempted and the patient did not perform the activity before the current illness, exacerbation or injury. 10-Not Attempted due to Environmental Limitations-(lack of equipment, weather restraints, etc.). 88-Not Attempted due to Medical Conditions or Safety Concerns. Roll Left to Right (QC): 4 Sit to Lying (QC): 4 Sit to Stand (QC): 3 (Espinoza) Chair/Qzo-rf-Rlmdb Xfer(QC): 3 (Espinoza) Car Transfer (QC): 3 (Espinoza) Gait Training Does the Patient Walk?: Yes Walk 10 feet (QC): 4 (CGA) Walk 50 ft with 2 Turns(QC): 4 (CGA) Walk 150 ft (QC): 88 Walking 10ft/uneven surface-QC: 3 (Espinoza) Gait Assistive Device: FWW Wheelchair Training Does the Pt Use a Wheelchair?: No Wheel 50 ft with 2 turns (QC): 88 Wheel 150 ft (QC): 88 Type of Wheelchair: Manual Stair Training 1 Step (curb) (QC): 3 (Espinoza) 4 Steps (QC): 88 12 Steps (QC): 88 Balance Picking up an Object (QC): 4 (CGA) ADL-Treatment Eating (QC): 6 Oral Hygiene (QC): 7 Shower/Bathe Self (QC): 4 (SUP during showering, able to reach all areas. SBA during stance at grab bars.) Upper Body Dressing (QC): 6 Lower Body Dressing (QC): 4 (SBA in stance while pulling up pants.) On/Off Footwear (QC): 2 (Max A due to pt's SOB and decreased energy toward end of dressing tasks.) Toileting Hygiene (QC): 4 (CGA and cues for thoroughness) Toilet Transfer (QC): 3 (Min A sit to stand standard toilet) Assessment/Plan Assessment and Plan Assess & Plan/Chief Complaint Assessment: Critical illness myopathy CAD s/p complex PCI at [facility] for severe multi-vessel disease with main disease Smoker COPD O2 prn at home Dementia? Plan: Home meds per DC med list [facility] Appreciate Nohelia Hernandez and Lisa Conferred with RN Checked meds and labs Reviewed therapy notes Nebs (1) Myopathy (2) Dementia (3) Memory loss (4) Delirium (5) S/P coronary artery stent placement (6) Smoker (7) Alcohol use (8) Hyperlipidemia (9) Hypertension (10) Multi-vessel coronary artery stenosis (11) COPD (chronic obstructive pulmonary disease) (12) History of respiratory failure (13) History of ventilator dependency CHELSEY WHEATLEY DO Feb 23, 2019 09:50 POS
--- NOTE | 2019-02-23 09:51 | Physical Therapy Daily Note ---
PT Daily Note-Current Subjective pt in recliner pre-tx agrees to therapy and denies any pain. Appearance pt in recliner post-tx with call light, room phone, tray table in reach with all needs met at this time. Mental Status Patient Orientation: Person, Place, Time, Situation Transfers SCALE: Activities may be completed with or without assistive devices. 5-Ssxeviwdjf-eaxgglc completes the activity by him/herself with no assistance from a helper. 5-Set-up or Clean-up Assistance-helper sets up or cleans up; patient completes activity. [place] assists only prior to or following the activity. 4-Supervision or Touching Assistance-helper provides verbal cues and/or touching/steadying and/or contact guard assistance as patient completes activity. Assistance may be provided throughout the activity or intermittently. 3-Partial/Moderate Assistance-helper does LESS THAN HALF the effort. [place] lifts, holds or supports trunk or limbs, but provides less than half the effort. 2-Substantial/Maximal Assistance-helper does MORE THAN HALF the effort. [place] lifts or holds trunk or limbs and provides more than half the effort. 8-Pkmajbply-kamfhp does ALL the effort. Patient does none of the effort to complete the activity. Or, the assistance of 2 or more helpers is required for the patient to complete the activity. If activity was not attempted, code reason: 7-Patient Refused. 9-Not Applicable-not attempted and the patient did not perform the activity before the current illness, exacerbation or injury. 10-Not Attempted due to Environmental Limitations-(lack of equipment, weather restraints, etc.). 88-Not Attempted due to Medical Conditions or Safety Concerns. Sit to Stand (QC): 4 (CGA) Gait Training Distance: 100'x2 Walk 10 feet (QC): 3 (Espinoza) Walk 50 ft with 2 Turns(QC): 3 (Chrissy) Gait Assistive Device: FWW pt continues to walk with the RLE in a flexed position with the FWW far in front of himself and stays hunched over flexed at the hips. Pt walks slowly with flat foot contact. Exercises Supine Ex: Ankle pumps, Quad Set, Glut sets, Heel Slides, Hip abd/add Supine Reps: 20 (10reps 2 sets) PT performed 2 low load stretches to the R hamstring with a towel under the R ankle applying load over the knee into extension. NuStep Minutes: 10 NuStep Workload: 3 Treatments pt performed transfer training, skilled ambulation training, functional ambulation training, and education Assessment Current Status: Fair Progress pt continues to have poor ambulation pattern but is able to ambulate distances without having to stop for breaks. pt continues to c/o pain over the wound on his lateral R thigh. Pts O2 remained above 95% for this session. PT Short Term Goals Short Term Goals Time Frame: Feb 27, 2019 Lying to sitting on side of be: 5 Sit to stand: 4 (CGA) Chair/btq-pm-zoddl transfer: 4 (CGA) Walk 10 feet: 4 (cga) Walk 50 feet with two turns: 4 (CGA) Walk 150 feet: 4 (CGA) PT Financial Assistance Specialist Goals Financial Assistance Specialist Goals PT Financial Assistance Specialist Goals Time Frame: Mar 13, 2019 Roll Left & Right (QC): 6 Sit to Lying (QC): 6 Lying-Sitting on Side/Bed(QC): 6 Sit to Stand (QC): 4 (SBA) Chair/Zpm-ob-Jvvim Xfer(QC): 4 (SBA) Toilet Transfer (QC): 4 (SBA) Car Transfer (QC): 4 (SBA) Does the Patient Walk: Yes Walk 10 feet (QC): 5 Walk 50ft with 2 Turns (QC): 4 (SBA) Walk 150 ft (QC): 4 (SBA) Walking 10ft on Uneven Surface: 4 (SBA) 1 Step (curb) (QC): 4 (SBA) 4 Steps (QC): 4 (CGA) 12 Steps (QC): 4 (CGA) Picking up an Object (QC): 4 (CGA) Does the Pt use WC or Scooter?: No Type: N/A Type: N/A PT Plan Problem List Problem List: Activity Tolerance, Functional Strength, Safety, Balance, Gait, Transfer, Bed Mobility, ROM Treatment/Plan Treatment Plan: Continue Plan of Care Treatment Plan: Bed Mobility, Concurrent Therapy, Education, Functional Activity Juancarlos, Functional Strength, Group Therapy, Gait, Safety, Therapeutic Exercise, Transfers Treatment Duration: Mar 13, 2019 Frequency: At least 5 of 7 days/Wk (IRF) Estimated Hrs Per Day: 1.5 hours per day Patient and/or Family Agrees t: Yes Safety Risks/Education Patient Education: Gait Training, Transfer Techniques, Correct Positioning, Safety Issues Teaching Recipient: Patient Teaching Methods: Demonstration, Discussion Response to Teaching: Return Demonstration, Reinforcement Needed Time/GCodes Time In: 0900 Time Out: 1000 Total Billed Treatment Time: 60 Total Billed Treatment 1 visit FA 10' EX 30' GT 20' LEONARDO PERSON PT Feb 23, 2019 09:51 POS
--- NOTE | 2019-02-23 09:58 | Cardiology Progress Note ---
Cardiology SOAP Progress Note Subjective: seen during active rehab. Objective: I&O/Vital Signs 02/23/19 05:13 Temp 37.3 Pulse 65 Resp 18 B/P (MAP) 133/55 (81) Pulse Ox 98 O2 Delivery Nasal Cannula O2 Flow Rate 2.00 02/22/19 23:59 Intake Total 1060 ml Balance 1060 ml Weight (Pounds): 156 Weight (Ounces): 6.0 Weight (Calculated Kilograms): 70.085441 Constitutional: AAO x 3, well-developed, well-nourished Respiratory: No accessory muscle use; chest is bilaterally symmetric, other (fair air entry, diminished at the bases, prolonged exp) Cardiovascular: regular rate-rhythm, S1 and S2, systolic murmur (2/6 LUISANA at card base) Gastrointestional: No tender; soft; No guarding, No rebound; audible bowel sounds Extremities: No clubbing, No cyanosis, No significant edema Neurologic/Psychiatric: oriented x 3, other (moves all limbs equally) Skin: No rash on exposed areas, No ulcerations on exposed areas Results/Procedures: Labs Laboratory Tests 02/23/19 05:14: White Blood Count 6.5, Red Blood Count 3.78L, Hemoglobin 12.4L, Hematocrit 38L, Mean Corpuscular Volume 99, Mean Corpuscular Hemoglobin 33, Mean Corpuscular Hemoglobin Concent 33, Red Cell Distribution Width 12.8, Platelet Count 206, Mean Platelet Volume 11.4H, Neutrophils (%) (Auto) 50, Lymphocytes (%) (Auto) 27, Monocytes (%) (Auto) 18H, Eosinophils (%) (Auto) 5, Basophils (%) (Auto) 1, Neutrophils # (Auto) 3.2, Lymphocytes # (Auto) 1.8, Monocytes # (Auto) 1.2H, Eosinophils # (Auto) 0.3, Basophils # (Auto) 0.1, Sodium Level 135, Potassium Level 3.9, Chloride Level 97L, Carbon Dioxide Level 28, Anion Gap 10, Blood Urea Nitrogen 23H, Creatinine 0.85, Estimat Glomerular Filtration Rate > 60, BUN/Creatinine Ratio 27, Glucose Level 80, Calcium Level 8.7, Corrected Calcium 9.7, Total Bilirubin 0.7, Aspartate Amino Transf (AST/SGOT) 40H, Alanine Aminotransferase (ALT/SGPT) 29, Alkaline Phosphatase 106, Total Protein 7.0, Albumin 2.8L A/P: Assessment/Dx: CAD. S/p complex, multivessel PCI at [facility] in Jan 2019. Ischemic cardiomyopathy, much improved after PCI. LVEF 25% at time of cath of 02/12/19. 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 Richmond Plan: Plan: * Continue current cardiac regimen. * emphasis on dual antiplatelet therapy. Thank you for your consultation. Please call me if you have any questions. Carlos Enrique Salguero MD, FACP, FACC, FSCAI, FHRS, CCDS Interventional Cardiology Cardiac Electrophysiology Vascular Medicine and Endovascular Interventions Catherine SALGUERO MD Feb 23, 2019 09:58 POS
--- NOTE | 2019-02-23 11:01 | Occupational Ther Daily Note ---
OT Current Status-Daily Note Subjective Pt seen in recliner chair, pt hesitant but agreeable to OT tx session. Pt states moderate pain in RLE, denies need for medication. Mental Status/Objective Patient Orientation: Normal For Age ADL-Treatment Therapy Code Descriptions/Definitions Functional [place] Measure: 0=Not Assessed/NA 4=Minimal Assistance 1=Total Assistance 5=Supervision or Setup 2=Maximal Assistance 6=Modified [place] 3=Moderate Assistance 7=Complete IndependenceSCALE: Activities may be completed with or without assistive devices. 3-Wqztgtctms-vkesnyi completes the activity by him/herself with no assistance from a helper. 5-Set-up or Clean-up Assistance-helper sets up or cleans up; patient completes activity. [place] assists only prior to or following the activity. 4-Supervision or Touching Assistance-helper provides verbal cues and/or touching/steadying and/or contact guard assistance as patient completes activity. Assistance may be provided throughout the activity or intermittently. 3-Partial/Moderate Assistance-helper does LESS THAN HALF the effort. [place] lifts, holds or supports trunk or limbs, but provides less than half the effort. 2-Substantial/Maximal Assistance-helper does MORE THAN HALF the effort. [place] lifts or holds trunk or limbs and provides more than half the effort. 4-Pjjtrfslr-uygymm does ALL the effort. Patient does none of the effort to complete the activity. Or, the assistance of 2 or more helpers is required for the patient to complete the activity. If activity was not attempted, code reason: 7-Patient Refused. 9-Not Applicable-not attempted and the patient did not perform the activity before the current illness, exacerbation or injury. 10-Not Attempted due to Environmental Limitations-(lack of equipment, weather restraints, etc.). 88-Not Attempted due to Medical Conditions or Safety Concerns. Eating (QC): 6 Other Treatment Pt educated on HEP, completes 1 set of 10 reps bilaterally with red theraband and 1# wrist weights attached with focus on biceps, triceps, anterior deltoid, and back muscles. Pt completes with cues for positioning and cues for tension. Pt requires rest breaks intermittently and cues for breathing techniques. Pt left in recliner chair, all needs met, family member present end of session, call light in reach. Education OT Patient Education: Correct positioning, Exercise program, Home exercise program, Safety issues Teaching Recipient: Patient Teaching Methods: Demonstration, Discussion Response to Teaching: Verbalize Understanding, Return Demonstration OT Usp Goals Usp Goals Time Frame: Mar 06, 2019 Eating (QC): 6 (met) Oral Hygiene (QC): 6 Toileting Hygiene (QC): 6 Shower/Bathe Self (QC): 6 Upper Body Dressing (QC): 6 (met) Lower Body Dressing (QC): 6 On/Off Footwear (QC): 6 (met) Additional Goals: 1-Demonstrate ADL Tasks, 2-Verbalize Understanding, 3-ImproveStrength/Juancarlos 1=Demonstrate adherence to instructed precautions during ADL tasks. 2=Patient will verbalize/demonstrate understanding of assistive devices/modifications for ADL. 3=Patient will improve strength/tolerance for activity to enable patient to perform ADL's. OT Education/Plan Problem List/Assessment Assessment: Decreased Activ Tolerance, Decreased UE Strength, Impaired Funct Balance, Impaired I ADL's, Impaired Self-Care Skills Discharge Recommendations Plan/Recommendations: Continue POC Therapy Discharge Recommendati: Home & Family Treatment Plan/Plan of Care Treatment,Training & Education: Yes Patient would benefit from OT for education, treatment and training to promote independence in ADL's, mobility, safety and/or upper extremity function for AD L's. Plan of Care: ADL Retraining, Caregiver Training, Concurrent Therapy, Functional Mobility, Group Exercise/Act as Ind, UE Funct Exercise/Act Treatment Duration: Mar 06, 2019 Frequency: At least 5 of 7 days/Wk (IRF) Estimated Hrs Per Day: 1.5 hours per day Agreement: Yes Rehab Potential: Fair Time/GCodes Start Time: 10:30 Stop Time: 11:00 Total Time Billed (hr/min): 30 Billed Treatment Time 1, EX 2 (30) WING BURROUGHS OTR Feb 23, 2019 11:01 POS
--- NOTE | 2019-02-23 12:48 | Wound Care Assessment ---
Wound Care Assessment Date Seen by Provider: Feb 23, 2019 Time Seen by Provider: 12:30 Chief Complaint R lateral thigh ulcer. HPI The patient is a 68 year old male with a R lateral thigh ulcer in the bed of a surgical excision of reported malignancy (sarcoma with excision and radiation therapy) more than 10 years ago. Past Medical History: Admits Heart Disease (coronary artery disease, ), Admits Cancer, Treaments (sarcoma of R distal thigh, s/p multiple resections and rediation therapy.) Smoking Status: Current Everyday Smoker Recreational Drug Use: No Alcohol Use: Regular Use Review of Systems Pulmonary: No Dyspnea Cardiovascular: No: Chest Pain Exam Vital Signs Date Time Temp Pulse Resp B/P (MAP) Pulse Ox O2 Delivery O2 Flow Rate FiO2 02/23/19 11:53 96 Room Air 02/23/19 05:13 37.3 65 18 133/55 (81) 2.00 Capillary Refill : General Appearance: no apparent distress Extremities: other (R lateral thigh -- 1.2 x 1.5 x 0.2 cm, base 100% slough, mod. s.s. drainage.) Results Laboratory Tests 02/23/19 05:14: White Blood Count 6.5, Red Blood Count 3.78L, Hemoglobin 12.4L, Hematocrit 38L, Mean Corpuscular Volume 99, Mean Corpuscular Hemoglobin 33, Mean Corpuscular Hemoglobin Concent 33, Red Cell Distribution Width 12.8, Platelet Count 206, Mean Platelet Volume 11.4H, Neutrophils (%) (Auto) 50, Lymphocytes (%) (Auto) 27, Monocytes (%) (Auto) 18H, Eosinophils (%) (Auto) 5, Basophils (%) (Auto) 1, Neutrophils # (Auto) 3.2, Lymphocytes # (Auto) 1.8, Monocytes # (Auto) 1.2H, Eosinophils # (Auto) 0.3, Basophils # (Auto) 0.1, Sodium Level 135, Potassium Level 3.9, Chloride Level 97L, Carbon Dioxide Level 28, Anion Gap 10, Blood Urea Nitrogen 23H, Creatinine 0.85, Estimat Glomerular Filtration Rate > 60, BUN/Creatinine Ratio 27, Glucose Level 80, Calcium Level 8.7, Corrected Calcium 9.7, Total Bilirubin 0.7, Aspartate Amino Transf (AST/SGOT) 40H, Alanine Aminotransferase (ALT/SGPT) 29, Alkaline Phosphatase 106, Total Protein 7.0, Albumin 2.8L Assessment/Plan/Dx 1. R lateral thigh ulcer, history of sarcoma with radiation treatments. 2. Coronary artery disease. 3. Tobacco abuse. Plan: Continue silver alginate dressings. Will follow-up in the clinic. May need biopsy if wound does not heal rapidly. BRITTANY JEFFERY MD Feb 23, 2019 12:47 POS
--- NOTE | 2019-02-23 13:29 | Physical Therapy Daily Note ---
PT Daily Note-Current Subjective pt in bed pre-tx agrees to therapy and denies pain at this time. Appearance pt in recliner post-tx with call light, phone, table in reach with all needs met at this time. Mental Status Patient Orientation: Person, Place, Time, Situation Transfers SCALE: Activities may be completed with or without assistive devices. 8-Efrrhajiuv-jjmecmh completes the activity by him/herself with no assistance from a helper. 5-Set-up or Clean-up Assistance-helper sets up or cleans up; patient completes activity. [place] assists only prior to or following the activity. 4-Supervision or Touching Assistance-helper provides verbal cues and/or touching/steadying and/or contact guard assistance as patient completes activity. Assistance may be provided throughout the activity or intermittently. 3-Partial/Moderate Assistance-helper does LESS THAN HALF the effort. [place] lifts, holds or supports trunk or limbs, but provides less than half the effort. 2-Substantial/Maximal Assistance-helper does MORE THAN HALF the effort. [place] lifts or holds trunk or limbs and provides more than half the effort. 3-Dhjnjmdii-vnkean does ALL the effort. Patient does none of the effort to complete the activity. Or, the assistance of 2 or more helpers is required for the patient to complete the activity. If activity was not attempted, code reason: 7-Patient Refused. 9-Not Applicable-not attempted and the patient did not perform the activity before the current illness, exacerbation or injury. 10-Not Attempted due to Environmental Limitations-(lack of equipment, weather restraints, etc.). 88-Not Attempted due to Medical Conditions or Safety Concerns. Lying to Sitting/Side of Bed(Q: 4 (SBA) Sit to Stand (QC): 4 (SBA) Gait Training Distance: 150' Walk 10 feet (QC): 4 (CGA) Walk 50 ft with 2 Turns(QC): 4 (CGA) Walk 150 ft (QC): 4 (CGA) Gait Assistive Device: FWW pt continues to ambulate with flexed hips and flexed knees and is unable to reach TKE with the RLE. pt continues to have foot flat contact at this time. Exercises Seated Therapy Exercises: Ankle pumps, Long arc quads, Hip flexion Seated Reps: 15 Treatments pt performed skilled ambulation training, functional LE strengthening exercises, transfer training, bed mobility training, and education. Assessment Current Status: Fair Progress pt having reports increased unrated pain in the RLE (posterior thigh and "all over the knee") with knee extension activities and the R quad tendons are very tight to palpation. Pt very fatigued following structured therapy. PT Short Term Goals Short Term Goals Time Frame: Feb 27, 2019 Lying to sitting on side of be: 5 Sit to stand: 4 (CGA) Chair/shg-es-zbsup transfer: 4 (CGA) Walk 10 feet: 4 (cga) Walk 50 feet with two turns: 4 (CGA) Walk 150 feet: 4 (CGA) PT [facility] Goals Windows Server Specialist Goals PT Windows Server Specialist Goals Time Frame: Mar 13, 2019 Roll Left & Right (QC): 6 Sit to Lying (QC): 6 Lying-Sitting on Side/Bed(QC): 6 Sit to Stand (QC): 4 (SBA) Chair/Ebx-ii-Jznif Xfer(QC): 4 (SBA) Toilet Transfer (QC): 4 (SBA) Car Transfer (QC): 4 (SBA) Does the Patient Walk: Yes Walk 10 feet (QC): 5 Walk 50ft with 2 Turns (QC): 4 (SBA) Walk 150 ft (QC): 4 (SBA) Walking 10ft on Uneven Surface: 4 (SBA) 1 Step (curb) (QC): 4 (SBA) 4 Steps (QC): 4 (CGA) 12 Steps (QC): 4 (CGA) Picking up an Object (QC): 4 (CGA) Does the Pt use WC or Scooter?: No Type: N/A Type: N/A PT Plan Problem List Problem List: Activity Tolerance, Functional Strength, Safety, Balance, Gait, Transfer, Bed Mobility, ROM Treatment/Plan Treatment Plan: Continue Plan of Care Treatment Plan: Bed Mobility, Concurrent Therapy, Education, Functional Activity Juancarlos, Functional Strength, Group Therapy, Gait, Safety, Therapeutic Exercise, Transfers Treatment Duration: Mar 13, 2019 Frequency: At least 5 of 7 days/Wk (IRF) Estimated Hrs Per Day: 1.5 hours per day Patient and/or Family Agrees t: Yes Safety Risks/Education Patient Education: Gait Training, Transfer Techniques, Correct Positioning, Safety Issues Teaching Recipient: Patient Teaching Methods: Demonstration, Discussion Response to Teaching: Return Demonstration, Reinforcement Needed Time/GCodes Time In: 1300 Time Out: 1315 Total Billed Treatment Time: 15 Total Billed Treatment 1 visit 15' EX BEV PERALTA PT Feb 23, 2019 13:29 POS
[2019-02-23] MEDS: ENOXAPARIN 40 MG/0.4 ML (LOVENOX) SYR SC SCH (13:40)
--- NOTE | 2019-02-23 14:21 | Speech Therapy Daily Note ---
Speech Daily Progress Note Subjective Date Seen by Provider: Feb 23, 2019 Time Seen by Provider: 00:30 Patient was resting in his recliner watching television when I entered his room. Objective Patient completed problem solving tasks related to his daily needs at 75% with 25% verbal cues and/or repetitions. Assessment Assessment Current Status: Good Progress Treatment Plan Continue Plan of Care Speech Short Term Goals Short Term Goals Short Term Goals 1) The patient will complete memory tasks related to his daily needs with 80% or greater with minimal cuing. 2) The patient will complete safety awareness tasks related to his daily needs with 80% or greater with minimal cuing. 3) The patient will complete problem solving tasks related to his daily needs with 80% or greater with minimal cuing. Speech Intermediate Goals Insulating Machine Operator Goals The patient will improve cognitive-communication necessary for safety and daily living tasks with minimal assist. Speech-Plan Patient/Family Goals Patient/Family Goals: Ptient plans on returning home with family support post rehab. Treatment Plan Speech Therapy Treatment Plan: Continue Plan of Care Patient exhibited much more alertness today. Treatment Duration: Mar 06, 2019 Frequency: 5 times per week Estimated Hrs Per Day: .25 hour per day Rehab Potential: Fair Barriers to Learning: Patient has cognitive deficits. Pt/Family Agrees to Plan: Yes Safety Risks/Education Teaching Recipient: Patient Teaching Methods: Demonstration, Discussion Response to Teaching: Verbalize Understanding, Return Demonstration Education Topics Provided: Safety within his room Time Speech Therapy Time In: 14:30 Speech Therapy Time Out: 14:30 Total Billed Time: 30 Billed Treatment Time 1, JACOB Brower Feb 23, 2019 14:21 POS
[2019-02-23] MEDS ORDERED: FURO40TA4 PO (15:10)
[2019-02-23] MEDS ORDERED: MELO7.5T46 PO (15:16)
--- NOTE | 2019-02-23 15:55 | NUR ---
RD ASSESSMENT PMHx: CAD; CA(squamous cell carcinoma); ischemic cardiomyopathy; PCI PT INTERACTION: Pt was awake and pleasant during nutrition assessment. Pt states current appetite is "okay" and has been for some time. Note pt avg PO intake of 66% x2d, per chart review. Pt states living alone and following a regular diet, and currently has no issues with chewing/swallowing food. Pt states no recent issues with n/v/c/d at this time. Note last BM was 02/22 and pt currently on bowel regimen of colace BID; miralax BID; and senna BID, per chart review. Pt states no recent wt changes. Note unable to determine recent wt hx, per chart review. ABNORMAL NUTRITION-RELATED LAB VALUES LOW: Cl 97; alb 2.8 HIGH: BUN 23; AST 40 Est. kcal needs: 0735-0411 kcal | 25-30 kcal/kg Est. Pro needs: 64-77 g Pro/kg PES STATEMENT: Inadequate oral intake (NI-2.1) related to loss of appetite as evidenced by pt interview INTERVENTION: Continue with current diet order of Heart Healthy diet. Pt may benefit from nutrition supplementation if PO intake declines. Will continue to follow and reassess as pt needs and status change. MONITOR/EVALUATE: PO Intake; Plan of Care; Hydration Status; Weight Status; Lab Values Kaur Garduno, MS, RD, LD
[2019-02-23 17:36] VITALS: BP 108/51
[2019-02-23] MEDS: MIRTAZAPINE 15 MG (REMERON) TAB PO SCH (20:53)
[2019-02-23] MEDS: MELATONIN 3 MG TABLET PO PRN (20:53)
[2019-02-24 06:00] VITALS: BP 138/64
[2019-02-24] MEDS: FUROSEMIDE 40 MG (LASIX) TAB PO SCH ×2 (06:38→17:56)
[2019-02-24] MEDS: CARVEDILOL 12.5 MG (COREG) TABLET PO SCH ×2 (06:38→17:56)
[2019-02-24] MEDS: RT-ADVAIR HFA 115/21 MCG PER PUFF IH SCH ×2 (08:16→20:48)
[2019-02-24] MEDS: RT-ALBUTEROL/IPRATROPIUM 3 ML (DUONEB) VIAL INH SCH ×4 (08:16→20:48)
--- NOTE | 2019-02-24 08:39 | PM&R Progress Note ---
Subjective HPI/CC On Admission Date Seen by Provider: Feb 24, 2019 Time Seen by Provider: 08:45 Subjective/Events-last exam BP was a little bit low earlier last night. No confusion noted. Poor historian. Dr. Lindo recommended continued dressing changes on the right leg and follow up as an outpatient. Checked meds and labs Conferred with RN Reviewed therapy notes Review of Systems General: Fatigue Pulmonary: Dyspnea Objective Exam Vital Signs Vital Signs Date Time Temp Pulse Resp B/P (MAP) Pulse Ox O2 Delivery O2 Flow Rate FiO2 02/24/19 21:00 Nasal Cannula 2.00 02/24/19 20:57 94 02/24/19 17:49 37.6 72 16 123/68 (86) Capillary Refill : General Appearance: No Apparent Distress, WD/WN, Chronically ill, Thin HEENT: PERRL/EOMI, Normal ENT Inspection, Pharynx Normal Neck: Full Range of Motion, Normal Inspection, Non Tender, Supple, Carotid Bruit Respiratory: Chest Non Tender, Lungs Clear, Normal Breath Sounds, No Accessory Muscle Use, No Respiratory Distress Cardiovascular: Regular Rate, Rhythm, No Edema, No Gallop, No JVD, No Murmur, Normal Peripheral Pulses Gastrointestinal: Normal Bowel Sounds, No Organomegaly, No Pulsatile Mass, Non Tender, Soft Back: Normal Inspection, No CVA Tenderness, No Vertebral Tenderness Extremity: Normal Capillary Refill, Normal Inspection, Normal Range of Motion, Non Tender, No Calf Tenderness, No Pedal Edema Neurologic/Psychiatric: Alert, Oriented x3, No Motor/Sensory Deficits, real estate inspector II- XII Norm as Tested, Depressed Affect, Disoriented (subtle poor recall), Motor Weakness (generalized 4/5 upper and lower extremities) Skin: Normal Color, Warm/Dry Lymphatic: No Adenopathy Results/Procedures Lab Patient resulted labs reviewed. FIM Transfers Therapy Code Descriptions/Definitions Functional [place] Measure: 0=Not Assessed/NA 4=Minimal Assistance 1=Total Assistance 5=Supervision or Setup 2=Maximal Assistance 6=Modified [place] 3=Moderate Assistance 7=Complete IndependenceSCALE: Activities may be completed with or without assistive devices. 2-Fmvoizrubv-mgwnqsg completes the activity by him/herself with no assistance from a helper. 5-Set-up or Clean-up Assistance-helper sets up or cleans up; patient completes activity. [place] assists only prior to or following the activity. 4-Supervision or Touching Assistance-helper provides verbal cues and/or touching/steadying and/or contact guard assistance as patient completes activity. Assistance may be provided throughout the activity or intermittently. 3-Partial/Moderate Assistance-helper does LESS THAN HALF the effort. [place] lifts, holds or supports trunk or limbs, but provides less than half the effort. 2-Substantial/Maximal Assistance-helper does MORE THAN HALF the effort. [place] lifts or holds trunk or limbs and provides more than half the effort. 7-Rlcketpgn-yxdqdu does ALL the effort. Patient does none of the effort to complete the activity. Or, the assistance of 2 or more helpers is required for the patient to complete the activity. If activity was not attempted, code reason: 7-Patient Refused. 9-Not Applicable-not attempted and the patient did not perform the activity before the current illness, exacerbation or injury. 10-Not Attempted due to Environmental Limitations-(lack of equipment, weather restraints, etc.). 88-Not Attempted due to Medical Conditions or Safety Concerns. Roll Left to Right (QC): 4 Sit to Lying (QC): 4 Sit to Stand (QC): 4 (SBA) Chair/Ruy-ik-Venef Xfer(QC): 3 (Espinoza) Car Transfer (QC): 3 (Espinoza) Gait Training Does the Patient Walk?: Yes Distance: 150' Walk 10 feet (QC): 4 (CGA) Walk 50 ft with 2 Turns(QC): 4 (CGA) Walk 150 ft (QC): 4 (CGA) Walking 10ft/uneven surface-QC: 3 (Espinoza) Gait Assistive Device: FWW Wheelchair Training Does the Pt Use a Wheelchair?: No Wheel 50 ft with 2 turns (QC): 88 Wheel 150 ft (QC): 88 Type of Wheelchair: Manual Stair Training 1 Step (curb) (QC): 3 (Espinoza) 4 Steps (QC): 88 12 Steps (QC): 88 Balance Picking up an Object (QC): 4 (CGA) ADL-Treatment Eating (QC): 6 Oral Hygiene (QC): 7 Shower/Bathe Self (QC): 4 (SUP during showering, able to reach all areas. SBA during stance at grab bars.) Upper Body Dressing (QC): 6 Lower Body Dressing (QC): 4 (SBA in stance while pulling up pants.) On/Off Footwear (QC): 2 (Max A due to pt's SOB and decreased energy toward end of dressing tasks.) Toileting Hygiene (QC): 4 (CGA and cues for thoroughness) Toilet Transfer (QC): 3 (Min A sit to stand standard toilet) Assessment/Plan Assessment and Plan Assess & Plan/Chief Complaint Assessment: Critical illness myopathy CAD s/p complex PCI at [place] for severe multi-vessel disease with main disease Smoker COPD O2 prn at home Dementia? Plan: Home meds per DC med list [place] Appreciate Nohelia Hernandez and Lisa Conferred with RN Checked meds and labs Reviewed therapy notes Nebs (1) Myopathy (2) Dementia (3) Memory loss (4) Delirium (5) S/P coronary artery stent placement (6) Smoker (7) Alcohol use (8) Hyperlipidemia (9) Hypertension (10) Multi-vessel coronary artery stenosis (11) COPD (chronic obstructive pulmonary disease) (12) History of respiratory failure (13) History of ventilator dependency CHELSEY WHEATLEY DO Feb 24, 2019 08:39 POS
[2019-02-24] MEDS: DOCUSATE SODIUM 100 MG (COLACE) CAP PO SCH ×2 (08:55→20:25)
[2019-02-24] MEDS: SERTRALINE 50 MG (ZOLOFT) TABLET PO SCH (08:55)
[2019-02-24] MEDS: SPIRONOLACTONE 25 MG (ALDACTONE) TAB PO SCH (08:55)
[2019-02-24] MEDS: LOSARTAN 50 MG (COZAAR) TAB PO SCH (08:56)
[2019-02-24] MEDS: PRASUGREL 10 MG (EFFIENT) TABLET PO SCH (08:56)
[2019-02-24] MEDS: SENNA W/DOCUSATE (SENOKOT S) TABLET PO SCH ×2 (08:56→20:25)
[2019-02-24] MEDS: ASPIRIN E.C. 81 MG (ECOTRIN) TAB PO SCH (08:56)
[2019-02-24] MEDS: POLYETHYLENE GLYCOL 17 GM (MIRALAX) PACK PO SCH ×2 (09:00→20:25)
--- NOTE | 2019-02-24 09:53 | Speech Therapy Daily Note ---
Speech Daily Progress Note Subjective Date Seen by Provider: Feb 24, 2019 Time Seen by Provider: 00:30 Patient was resting in his bed when I entered his room. Patient was sleepy but able to participate. Objective Patient completed memory tasks at the beginning level with 20% verbal cues at 75%. Assessment Assessment Current Status: Good Progress Treatment Plan Continue Plan of Care Speech Short Term Goals Short Term Goals Short Term Goals 1) The patient will complete memory tasks related to his daily needs with 80% or greater with minimal cuing. 2) The patient will complete safety awareness tasks related to his daily needs with 80% or greater with minimal cuing. 3) The patient will complete problem solving tasks related to his daily needs with 80% or greater with minimal cuing. Speech Spark Tester Goals [place] Goals The patient will improve cognitive-communication necessary for safety and daily living tasks with minimal assist. Speech-Plan Patient/Family Goals Patient/Family Goals: Patient plans on returning home post rehab with family support. Treatment Plan Speech Therapy Treatment Plan: Continue Plan of Care Patient is progressing toward meeting ST goals. Treatment Duration: Mar 06, 2019 Frequency: 5 times per week Estimated Hrs Per Day: .25 hour per day Rehab Potential: Fair Barriers to Learning: Patient has cognitive deficits. Pt/Family Agrees to Plan: Yes Safety Risks/Education Teaching Recipient: Patient Teaching Methods: Demonstration, Discussion Response to Teaching: Verbalize Understanding, Return Demonstration Education Topics Provided: Reoriented to his call light and discussed communication of his wants/needs. Time Speech Therapy Time In: 09:00 Speech Therapy Time Out: 09:30 Total Billed Time: 30 Billed Treatment Time 1, JACOB Brower Feb 24, 2019 09:53 POS
--- NOTE | 2019-02-24 10:25 | Physical Therapy Daily Note ---
PT Daily Note-Current Subjective pt in bed pre-tx agrees to therapy and denies pain. Appearance pt in recliner post tx with call light, room phone, table in reach with all needs met at this time. Mental Status Patient Orientation: Person, Place, Time, Situation Transfers SCALE: Activities may be completed with or without assistive devices. 1-Qgdocdwton-mugkymw completes the activity by him/herself with no assistance from a helper. 5-Set-up or Clean-up Assistance-helper sets up or cleans up; patient completes activity. [place] assists only prior to or following the activity. 4-Supervision or Touching Assistance-helper provides verbal cues and/or touching/steadying and/or contact guard assistance as patient completes activity. Assistance may be provided throughout the activity or intermittently. 3-Partial/Moderate Assistance-helper does LESS THAN HALF the effort. [place] lifts, holds or supports trunk or limbs, but provides less than half the effort. 2-Substantial/Maximal Assistance-helper does MORE THAN HALF the effort. [place] lifts or holds trunk or limbs and provides more than half the effort. 9-Ptjrfocvg-xabhtm does ALL the effort. Patient does none of the effort to complete the activity. Or, the assistance of 2 or more helpers is required for the patient to complete the activity. If activity was not attempted, code reason: 7-Patient Refused. 9-Not Applicable-not attempted and the patient did not perform the activity before the current illness, exacerbation or injury. 10-Not Attempted due to Environmental Limitations-(lack of equipment, weather restraints, etc.). 88-Not Attempted due to Medical Conditions or Safety Concerns. Lying to Sitting/Side of Bed(Q: 4 (SBA) Sit to Stand (QC): 4 (SBA) Gait Training Distance: 150'X2 Walk 10 feet (QC): 4 (SBA) Walk 50 ft with 2 Turns(QC): 4 (SBA) Walk 150 ft (QC): 4 (SBA) Gait Assistive Device: FWW pt responds to cues to stay inside walker and stay standing tall but requires continued cuing to maintain this positioning. Pt this session is not taking steps but is just shuffling feet this date and is not lifting when cued. Exercises Supine Ex: Ankle pumps, Quad Set, Glut sets, Straight leg raise Supine Reps: 15 Seated Therapy Exercises: Ankle pumps, Long arc quads, Hip flexion Seated Reps: 15 NuStep Minutes: 15 NuStep Workload: 2 Treatments pt performed transfer training, bed mobility training, skilled ambulation training, functional LE endurance/ROM, education. 7.5min of nustep seat at 10 for extension 7.5min of nustep seat at 7 for flexion. Assessment Current Status: Fair Progress pt ambulation improved at the end of this session with increased speed and stays inside walker with continued cuing. Pt moves very slowly and requires multiple rest breaks during exercises during sets and in between sets. pt continues to have unrated pain with motion of the R knee and has decreased motion in the R knee. PT Short Term Goals Short Term Goals Time Frame: Feb 27, 2019 Lying to sitting on side of be: 5 Sit to stand: 4 (CGA) Chair/ukm-py-utzxw transfer: 4 (CGA) Walk 10 feet: 4 (cga) Walk 50 feet with two turns: 4 (CGA) Walk 150 feet: 4 (CGA) PT Commercial Floor Covering Installer Goals Commercial Floor Covering Installer Goals PT Alf Goals Time Frame: Mar 13, 2019 Roll Left & Right (QC): 6 Sit to Lying (QC): 6 Lying-Sitting on Side/Bed(QC): 6 Sit to Stand (QC): 4 (SBA) Chair/Ifd-an-Qrcps Xfer(QC): 4 (SBA) Toilet Transfer (QC): 4 (SBA) Car Transfer (QC): 4 (SBA) Does the Patient Walk: Yes Walk 10 feet (QC): 5 Walk 50ft with 2 Turns (QC): 4 (SBA) Walk 150 ft (QC): 4 (SBA) Walking 10ft on Uneven Surface: 4 (SBA) 1 Step (curb) (QC): 4 (SBA) 4 Steps (QC): 4 (CGA) 12 Steps (QC): 4 (CGA) Picking up an Object (QC): 4 (CGA) Does the Pt use WC or Scooter?: No Type: N/A Type: N/A PT Plan Problem List Problem List: Activity Tolerance, Functional Strength, Safety, Balance, Gait, Transfer, Bed Mobility, ROM Treatment/Plan Treatment Plan: Continue Plan of Care Treatment Plan: Bed Mobility, Concurrent Therapy, Education, Functional Activity Juancarlos, Functional Strength, Group Therapy, Gait, Safety, Therapeutic Exercise, Transfers Treatment Duration: Mar 13, 2019 Frequency: At least 5 of 7 days/Wk (IRF) Estimated Hrs Per Day: 1.5 hours per day Patient and/or Family Agrees t: Yes Safety Risks/Education Patient Education: Gait Training, Transfer Techniques, Correct Positioning, Safety Issues Teaching Recipient: Patient Teaching Methods: Demonstration, Discussion Response to Teaching: Return Demonstration, Reinforcement Needed Time/GCodes Time In: 0930 Time Out: 1030 Total Billed Treatment Time: 60 Total Billed Treatment 1 visit GT 20' FA 15' EX 25' LEONARDO PERSON PT Feb 24, 2019 10:25 POS
--- NOTE | 2019-02-24 10:40 | NUR ---
Pastoral care visit.
--- NOTE | 2019-02-24 11:41 | Occupational Ther Daily Note ---
OT Current Status-Daily Note Subjective Pt seen in recliner chair, denies pain. Pt questioned of pain in R knee, pt states he always has pain in knee/ leg but does not rate. Pt agreeable to OT tx session. Mental Status/Objective Patient Orientation: Normal For Age ADL-Treatment Therapy Code Descriptions/Definitions Functional [place] Measure: 0=Not Assessed/NA 4=Minimal Assistance 1=Total Assistance 5=Supervision or Setup 2=Maximal Assistance 6=Modified [place] 3=Moderate Assistance 7=Complete IndependenceSCALE: Activities may be completed with or without assistive devices. 4-Gmsmowbsxu-cpzzhze completes the activity by him/herself with no assistance from a helper. 5-Set-up or Clean-up Assistance-helper sets up or cleans up; patient completes activity. [place] assists only prior to or following the activity. 4-Supervision or Touching Assistance-helper provides verbal cues and/or touching/steadying and/or contact guard assistance as patient completes activity. Assistance may be provided throughout the activity or intermittently. 3-Partial/Moderate Assistance-helper does LESS THAN HALF the effort. [place] lifts, holds or supports trunk or limbs, but provides less than half the effort. 2-Substantial/Maximal Assistance-helper does MORE THAN HALF the effort. [place] lifts or holds trunk or limbs and provides more than half the effort. 4-Btggaoagw-asjabt does ALL the effort. Patient does none of the effort to complete the activity. Or, the assistance of 2 or more helpers is required for the patient to complete the activity. If activity was not attempted, code reason: 7-Patient Refused. 9-Not Applicable-not attempted and the patient did not perform the activity before the current illness, exacerbation or injury. 10-Not Attempted due to Environmental Limitations-(lack of equipment, weather restraints, etc.). 88-Not Attempted due to Medical Conditions or Safety Concerns. Eating (QC): 6 Oral Hygiene (QC): 7 Shower/Bathe Self (QC): 4 (Pt reaches all areas excluding back with SBA during stance for bottom hygiene) Upper Body Dressing (QC): 6 Lower Body Dressing (QC): 4 (SUP during LB dressing, SBA in stance to pull tab dealer hips. Pt requires cues for changing breifs as pt attempts to put clean briefs over old breifs.) Toileting Hygiene (QC): 4 (SBA in stance during bottom hygiene.) Toilet Transfer (QC): 7 on/off footwear: 6 completes edge of chair. Other Treatment Pt agreeable to sponge bath on this date. Pt completes ADLs in room, walks to laundry room with FWW to complete laundry routine with intermittent assist. Pt states he is "worn out" and demonstrates increased SOB while in standing at laundry unit. Pt ambulates with FWW back to room, completes UE exercises with 2# wrist weights donned BUE. Pt completes 1 set of 15 reps of the following exercises with breaks in between: shoulder flexion, shoulder abduction, shoulder horizontal adduction, bicep curls, tricep dips, and back flies. Pt completes sit to stands with SBA with one instance of standing by pushing off of FWW and walker moving forward, requiring pt to self-correct; pt educated on sit to stand safety. Pt comments through exercises that he is able to complete different exercises at home, stating, "These aren't real exercises." Pt states he utilizes 2 chairs to complete tricep dips and other stretching/ body weight activities, pt states at home he is not going to utilize FWW; when OT suggests increasing weight, reps, or difficulty, pt denies the need. Pt completes seated exercises with 97% 02 sats on room air, stands to complete dynamic balance activities, completes reaching across midline with BUE and modified jumping jacks, requires CGA throughout and min A to right intermittently as BUE are not placed on FWW. Pt returns to chair, remains in recliner chair end of session, all needs met, call light in reach. Education OT Patient Education: Correct positioning, Exercise program, Safety issues, Transfer techniques, Use of adapted equipment Teaching Recipient: Patient Teaching Methods: Demonstration, Discussion Response to Teaching: Verbalize Understanding, Return Demonstration, Reinforcement Needed OT Forming Operator Goals Long-Term Goals Time Frame: Mar 06, 2019 Eating (QC): 6 (met) Oral Hygiene (QC): 6 Toileting Hygiene (QC): 6 Shower/Bathe Self (QC): 6 Upper Body Dressing (QC): 6 (met) Lower Body Dressing (QC): 6 On/Off Footwear (QC): 6 (met) Additional Goals: 1-Demonstrate ADL Tasks, 2-Verbalize Understanding, 3- ImproveStrength/Juancarlos 1=Demonstrate adherence to instructed precautions during ADL tasks. 2=Patient will verbalize/demonstrate understanding of assistive devices/modifications for ADL. 3=Patient will improve strength/tolerance for activity to enable patient to perform ADL's. OT Education/Plan Problem List/Assessment Assessment: Decreased Activ Tolerance, Decreased Safety Aware, Decreased UE Strength, Impaired Funct Balance, Impaired I ADL's, Impaired Self-Care Skills Discharge Recommendations Plan/Recommendations: Continue POC Treatment Plan/Plan of Care Treatment,Training & Education: Yes Patient would benefit from OT for education, treatment and training to promote independence in ADL's, mobility, safety and/or upper extremity function for ADL's. Plan of Care: ADL Retraining, Caregiver Training, Concurrent Therapy, Functional Mobility, Group Exercise/Act as Ind, UE Funct Exercise/Act Treatment Duration: Mar 06, 2019 Frequency: At least 5 of 7 days/Wk (IRF) Estimated Hrs Per Day: 1.5 hours per day Agreement: Yes Rehab Potential: Fair Time/GCodes Start Time: 10:30 Stop Time: 11:30 Total Time Billed (hr/min): 60 Billed Treatment Time 1, ADL 2 (30), EX 2 (30)= 60 WING BURROUGHS OTR Feb 24, 2019 11:41 POS
[2019-02-24] MEDS: ENOXAPARIN 40 MG/0.4 ML (LOVENOX) SYR SC SCH (14:18)
--- NOTE | 2019-02-24 14:28 | Therapy Group Daily Note ---
Therapy Daily Group Note Patient Education Topic Home Safety Exercises LE Seated Exercise, UE Exercise Session Ratio (pt:therapist): 4:1 Goal of Session: Home Safety Strategies, UE/LE Strengthing Goal Met for this Session: Yes Pt Benefit of Group: Contributions to Others, F/U Use of Strategies @Home, Increased Functional Safety, Increased Functional Strength, Improved Cognition, Recognition of Peers, Socialization Other/Notes Pt ambulated to therapy gym for OT group. Group consisted of introductions (name, place, Sammy song tridona), socialization, UE/LE seated exercises and home safety education. Pt introduced self appropriately and actively listened to peers. Pt was able to complete UE/LE seated exercises with education of exercise benefits. Pt acknowledged understanding of educational topic by giving own strategies and modifications at their home. After therapy, pt lying in bed with call light/phone in reach. All needs met in room. Start Time: 13:00 Stop Time: 14:10 Total Billed Treatment Time: 70 Total Billed Treatment 1-GRP BEV NEELY Feb 24, 2019 14:28 POS
--- NOTE | 2019-02-24 14:54 | Cardiology Progress Note ---
Cardiology SOAP Progress Note Subjective: No cardiac complaints. Objective: I&O/Vital Signs 02/24/19 02/24/19 02/24/19 02/24/19 06:00 08:16 09:00 11:03 Temp 36.8 Pulse 72 Resp 16 B/P (MAP) 138/64 (88) Pulse Ox 98 93 97 O2 Delivery Room Air Room Air Room Air Room Air 02/24/19 00:00 Intake Total 700 ml Output Total 425 ml Balance 275 ml Weight (Pounds): 156 Weight (Ounces): 6.0 Weight (Calculated Kilograms): [id number] Constitutional: AAO x 3, well-developed, well-nourished Respiratory: No accessory muscle use; chest is bilaterally symmetric, other (fair air entry, diminished at the bases, prolonged exp) Cardiovascular: regular rate-rhythm, S1 and S2, systolic murmur (2/6 LUISANA at card base) Gastrointestional: No tender; soft; No guarding, No rebound; audible bowel sounds Extremities: No clubbing, No cyanosis, No significant edema Neurologic/Psychiatric: oriented x 3, other (moves all limbs equally) Skin: No rash on exposed areas, No ulcerations on exposed areas A/P: Assessment/Dx: CAD. S/p complex, multivessel PCI at [facility] in Jan 2019. Ischemic cardiomyopathy, much improved after PCI. LVEF 25% at time of cath of 02/12/19. 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 Richmond Plan: Plan: * Continue current cardiac regimen. * emphasis on dual antiplatelet therapy. Thank you for your consultation. Please call me if you have any questions. Carlos Enrique Salguero MD, FACP, FACC, FSCAI, FHRS, CCDS Interventional Cardiology Cardiac Electrophysiology Vascular Medicine and Endovascular Interventions Catherine SALGUERO MD Feb 24, 2019 14:53 POS
[2019-02-24 17:49] VITALS: BP 123/68
[2019-02-24] MEDS: MIRTAZAPINE 15 MG (REMERON) TAB PO SCH (20:25)
[2019-02-24] MEDS: MELATONIN 3 MG TABLET PO PRN (20:25)
[2019-02-25 05:44] VITALS: BP 146/76
[2019-02-25] MEDS: FUROSEMIDE 40 MG (LASIX) TAB PO SCH ×2 (06:13→17:28)
[2019-02-25] MEDS: CARVEDILOL 12.5 MG (COREG) TABLET PO SCH ×2 (06:13→17:28)
[2019-02-25] MEDS: RT-ALBUTEROL/IPRATROPIUM 3 ML (DUONEB) VIAL INH SCH ×4 (07:38→19:29)
[2019-02-25] MEDS: RT-ADVAIR HFA 115/21 MCG PER PUFF IH SCH ×2 (07:39→19:29)
[2019-02-25] MEDS: POLYETHYLENE GLYCOL 17 GM (MIRALAX) PACK PO SCH ×2 (09:00→20:52)
[2019-02-25] MEDS: DOCUSATE SODIUM 100 MG (COLACE) CAP PO SCH ×2 (09:00→20:52)
[2019-02-25] MEDS: SENNA W/DOCUSATE (SENOKOT S) TABLET PO SCH ×2 (09:00→20:52)
--- NOTE | 2019-02-25 09:01 | Physical Therapy Daily Note ---
PT Daily Note-Current Subjective pt laying in bed pre-tx. Pt reports "I'm tired of this therapy shit" but still reluctantly abides by therapy requests to move to EOB. Pt initially denies pain pre-tx, however, mid treatment pt reports he has 8/10 pain "all over the R knee" all the time. Appearance pt in recliner post-tx with call light, phone, table in reach with all needs met at this time. Mental Status Patient Orientation: Person, Place, Time, Situation Transfers SCALE: Activities may be completed with or without assistive devices. 1-Ydfavnlxnh-jgjuzzn completes the activity by him/herself with no assistance from a helper. 5-Set-up or Clean-up Assistance-helper sets up or cleans up; patient completes activity. [place] assists only prior to or following the activity. 4-Supervision or Touching Assistance-helper provides verbal cues and/or touching/steadying and/or contact guard assistance as patient completes activity. Assistance may be provided throughout the activity or intermittently. 3-Partial/Moderate Assistance-helper does LESS THAN HALF the effort. [place] lifts, holds or supports trunk or limbs, but provides less than half the effort. 2-Substantial/Maximal Assistance-helper does MORE THAN HALF the effort. [place] lifts or holds trunk or limbs and provides more than half the effort. 5-Mgaeudyhu-ufjvew does ALL the effort. Patient does none of the effort to complete the activity. Or, the assistance of 2 or more helpers is required for the patient to complete the activity. If activity was not attempted, code reason: 7-Patient Refused. 9-Not Applicable-not attempted and the patient did not perform the activity before the current illness, exacerbation or injury. 10-Not Attempted due to Environmental Limitations-(lack of equipment, weather restraints, etc.). 88-Not Attempted due to Medical Conditions or Safety Concerns. Lying to Sitting/Side of Bed(Q: 4 (SBA) Sit to Stand (QC): 4 (SBA) pt pushes walker very far forward when he attempts to stand and becomes agitated when cued to use improved safety. Gait Training Distance: 150',100' Walk 10 feet (QC): 4 (SBA) Walk 50 ft with 2 Turns(QC): 4 (SBA) Walk 150 ft (QC): 4 (SBA) Gait Assistive Device: FWW Pt continues to ambulate with flexed hips and R knee with flat foot contact and with the FWW far infront of him. Today pt is resistant to any cues for safety to stay inside walker and reports he will do it how he wants to and if he falls he will just get back up. Exercises Supine Ex: Ankle pumps, Quad Set, Glut sets, Straight leg raise, Hip abd/add Supine Reps: 15 NuStep Minutes: 15 NuStep Workload: 3 Treatments pt performed transfer training, skilled ambulation training, bed mobility training, functional LE strengthening/endurance training, and education. Assessment Current Status: Poor Progress Pt has become resistant to safety cues and becomes agitated with therapy. Pt continues to work with therapy but works slowly at his own pace and takes multiple breaks working very slowly. Pt continues to be a fall risk secondary to poor UE placement and use of FWW for sit to stands and ambulation. PT Short Term Goals Short Term Goals Time Frame: Feb 27, 2019 Lying to sitting on side of be: 5 Sit to stand: 4 (CGA) Chair/fob-ob-cuhzx transfer: 4 (CGA) Walk 10 feet: 4 (cga) Walk 50 feet with two turns: 4 (CGA) Walk 150 feet: 4 (CGA) PT Net Developer Software Engineer C Goals Net Developer Software Engineer C Goals PT Alf Goals Time Frame: Mar 13, 2019 Roll Left & Right (QC): 6 Sit to Lying (QC): 6 Lying-Sitting on Side/Bed(QC): 6 Sit to Stand (QC): 4 (SBA) Chair/Mhm-mg-Yerje Xfer(QC): 4 (SBA) Toilet Transfer (QC): 4 (SBA) Car Transfer (QC): 4 (SBA) Does the Patient Walk: Yes Walk 10 feet (QC): 5 Walk 50ft with 2 Turns (QC): 4 (SBA) Walk 150 ft (QC): 4 (SBA) Walking 10ft on Uneven Surface: 4 (SBA) 1 Step (curb) (QC): 4 (SBA) 4 Steps (QC): 4 (CGA) 12 Steps (QC): 4 (CGA) Picking up an Object (QC): 4 (CGA) Does the Pt use WC or Scooter?: No Type: N/A Type: N/A PT Plan Problem List Problem List: Activity Tolerance, Functional Strength, Safety, Balance, Gait, Transfer, Bed Mobility, ROM Treatment/Plan Treatment Plan: Continue Plan of Care Treatment Plan: Bed Mobility, Concurrent Therapy, Education, Functional Activity Juancarlos, Functional Strength, Group Therapy, Gait, Safety, Therapeutic Exercise, Transfers Treatment Duration: Mar 13, 2019 Frequency: At least 5 of 7 days/Wk (IRF) Estimated Hrs Per Day: 1.5 hours per day Patient and/or Family Agrees t: Yes Safety Risks/Education Patient Education: Gait Training, Transfer Techniques, Correct Positioning, Safety Issues Teaching Recipient: Patient Teaching Methods: Demonstration, Discussion Response to Teaching: Return Demonstration, Reinforcement Needed Time/GCodes Time In: 0800 Time Out: 0900 Total Billed Treatment Time: 60 Total Billed Treatment 1 visit GT 15' FA 15' EX 30' LEONARDO PERSON PT Feb 25, 2019 09:01 POS
--- NOTE | 2019-02-25 09:28 | PM&R Progress Note ---
Subjective HPI/CC On Admission Date Seen by Provider: Feb 25, 2019 Time Seen by Provider: 09:00 Subjective/Events-last exam Pt doing very well Wound on the right lateral leg is improved Still weak and unsteady but improving Has skill workers to help him DC planned for 02/27/19 Checked meds and labs Conferred with RN Reviewed therapy notes Review of Systems General: Fatigue Objective Exam Vital Signs Vital Signs Date Time Temp Pulse Resp B/P (MAP) Pulse Ox O2 Delivery O2 Flow Rate FiO2 02/25/19 19:29 93 Room Air 02/25/19 17:46 37.4 71 18 149/67 (94) 02/24/19 21:00 2.00 Capillary Refill : General Appearance: No Apparent Distress, WD/WN, Chronically ill, Thin HEENT: PERRL/EOMI, Normal ENT Inspection, Pharynx Normal Neck: Full Range of Motion, Normal Inspection, Non Tender, Supple, Carotid Bruit Respiratory: Chest Non Tender, Lungs Clear, Normal Breath Sounds, No Accessory Muscle Use, No Respiratory Distress Cardiovascular: Regular Rate, Rhythm, No Edema, No Gallop, No JVD, No Murmur, Normal Peripheral Pulses Gastrointestinal: Normal Bowel Sounds, No Organomegaly, No Pulsatile Mass, Non Tender, Soft Back: Normal Inspection, No CVA Tenderness, No Vertebral Tenderness Extremity: Normal Capillary Refill, Normal Inspection, Normal Range of Motion, Non Tender, No Calf Tenderness, No Pedal Edema Neurologic/Psychiatric: Alert, Oriented x3, No Motor/Sensory 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 FIM Transfers Therapy Code Descriptions/Definitions Functional [place] Measure: 0=Not Assessed/NA 4=Minimal Assistance 1=Total Assistance 5=Supervision or Setup 2=Maximal Assistance 6=Modified [place] 3=Moderate Assistance 7=Complete IndependenceSCALE: Activities may be completed with or without assistive devices. 4-Bwzqxoebuh-zbpibtt completes the activity by him/herself with no assistance from a helper. 5-Set-up or Clean-up Assistance-helper sets up or cleans up; patient completes activity. [place] assists only prior to or following the activity. 4-Supervision or Touching Assistance-helper provides verbal cues and/or touching/steadying and/or contact guard assistance as patient completes activity. Assistance may be provided throughout the activity or intermittently. 3-Partial/Moderate Assistance-helper does LESS THAN HALF the effort. [place] lifts, holds or supports trunk or limbs, but provides less than half the effort. 2-Substantial/Maximal Assistance-helper does MORE THAN HALF the effort. [place] lifts or holds trunk or limbs and provides more than half the effort. 0-Gdzwkkuoj-dvniwj does ALL the effort. Patient does none of the effort to complete the activity. Or, the assistance of 2 or more helpers is required for the patient to complete the activity. If activity was not attempted, code reason: 7-Patient Refused. 9-Not Applicable-not attempted and the patient did not perform the activity before the current illness, exacerbation or injury. 10-Not Attempted due to Environmental Limitations-(lack of equipment, weather restraints, etc.). 88-Not Attempted due to Medical Conditions or Safety Concerns. Roll Left to Right (QC): 4 Sit to Lying (QC): 4 Sit to Stand (QC): 4 (SBA) Chair/Bmj-bj-Svyeo Xfer(QC): 3 (Espinoza) Car Transfer (QC): 3 (Espinoza) Gait Training Does the Patient Walk?: Yes Distance: 150',100' Walk 10 feet (QC): 4 (SBA) Walk 50 ft with 2 Turns(QC): 4 (SBA) Walk 150 ft (QC): 4 (SBA) Walking 10ft/uneven surface-QC: 3 (Espinoza) Gait Assistive Device: FWW Wheelchair Training Does the Pt Use a Wheelchair?: No Wheel 50 ft with 2 turns (QC): 88 Wheel 150 ft (QC): 88 Stair Training 1 Step (curb) (QC): 3 (Espinoza) 4 Steps (QC): 88 12 Steps (QC): 88 Balance Picking up an Object (QC): 4 (CGA) ADL-Treatment Eating (QC): 6 Oral Hygiene (QC): 7 Shower/Bathe Self (QC): 4 (Pt reaches all areas excluding back with SBA during stance for bottom hygiene) Upper Body Dressing (QC): 6 Lower Body Dressing (QC): 4 (SUP during LB dressing, SBA in stance to machine puller hips. Pt requires cues for changing breifs as pt attempts to put clean briefs over old breifs.) On/Off Footwear (QC): 2 (Max A due to pt's SOB and decreased energy toward end of dressing tasks.) Toileting Hygiene (QC): 4 (SBA in stance during bottom hygiene.) Toilet Transfer (QC): 7 Assessment/Plan Assessment and Plan Assess & Plan/Chief Complaint Assessment: Critical illness myopathy CAD s/p complex PCI at [facility] for severe multi-vessel disease with main disease Smoker COPD O2 prn at home Dementia? seems improved Plan: Home meds per DC med list [facility] Appreciate Nohelia Hernandez and Lisa Conferred with RN Checked meds and labs Reviewed therapy notes Nebs (1) Myopathy (2) Dementia (3) Memory loss (4) Delirium (5) S/P coronary artery stent placement (6) Smoker (7) Alcohol use (8) Hyperlipidemia (9) Hypertension (10) Multi-vessel coronary artery stenosis (11) COPD (chronic obstructive pulmonary disease) (12) History of respiratory failure (13) History of ventilator dependency CHELSEY WHEATLEY DO Feb 25, 2019 09:28 POS
[2019-02-25] MEDS: SERTRALINE 50 MG (ZOLOFT) TABLET PO SCH (09:51)
[2019-02-25] MEDS: PRASUGREL 10 MG (EFFIENT) TABLET PO SCH (09:51)
[2019-02-25] MEDS: LOSARTAN 50 MG (COZAAR) TAB PO SCH (09:51)
[2019-02-25] MEDS: ASPIRIN E.C. 81 MG (ECOTRIN) TAB PO SCH (09:51)
[2019-02-25] MEDS: SPIRONOLACTONE 25 MG (ALDACTONE) TAB PO SCH (09:51)
--- NOTE | 2019-02-25 10:28 | Occupational Ther Daily Note ---
OT Current Status-Daily Note Subjective Pt seen in bed, pt awake and alert while watching TV. Pt does not rate pain. ADL-Treatment Therapy Code Descriptions/Definitions Functional [place] Measure: 0=Not Assessed/NA 4=Minimal Assistance 1=Total Assistance 5=Supervision or Setup 2=Maximal Assistance 6=Modified [place] 3=Moderate Assistance 7=Complete IndependenceSCALE: Activities may be completed with or without assistive devices. 2-Crhboydalu-rioizfj completes the activity by him/herself with no assistance from a helper. 5-Set-up or Clean-up Assistance-helper sets up or cleans up; patient completes activity. [place] assists only prior to or following the activity. 4-Supervision or Touching Assistance-helper provides verbal cues and/or touching/steadying and/or contact guard assistance as patient completes activity. Assistance may be provided throughout the activity or intermittently. 3-Partial/Moderate Assistance-helper does LESS THAN HALF the effort. [place] lifts, holds or supports trunk or limbs, but provides less than half the effort. 2-Substantial/Maximal Assistance-helper does MORE THAN HALF the effort. [place] lifts or holds trunk or limbs and provides more than half the effort. 3-Ejplupkrs-gkzcue does ALL the effort. Patient does none of the effort to complete the activity. Or, the assistance of 2 or more helpers is required for the patient to complete the activity. If activity was not attempted, code reason: 7-Patient Refused. 9-Not Applicable-not attempted and the patient did not perform the activity before the current illness, exacerbation or injury. 10-Not Attempted due to Environmental Limitations-(lack of equipment, weather restraints, etc.). 88-Not Attempted due to Medical Conditions or Safety Concerns. Eating (QC): 7 Oral Hygiene (QC): 7 Shower/Bathe Self (QC): 7 Upper Body Dressing (QC): 7 Lower Body Dressing (QC): 7 Toileting Hygiene (QC): 7 Toilet Transfer (QC): 7 Other Treatment Pt seen in bed, pt asked what he wants to work on on this date. Pt states, "Nothing," Pt educated on ARU expectations, pt states he is "fine going home," and "can do everything I'm going to do at home." Pt educated on safety and yesterday's session's concern on pt's balance during UE tasks. Pt states he is going to use the walker or cane at home and "exercise how (he) wants." Pt affirmed that he is respected, but [facility] standards require specific minutes so that all therapists observe every aspect of his ADL activities to ensure safety at home. OT/ pt go through specific environmental hazards at home, OT recommends grabbars within the shower. Pt agrees. Pt states he is going to walk for exercise and complete his daily stretching. Pt expresses annoyance at "people coming in every 5 minutes." Pt affirmed his feelings are valid, and that OT can do other activities he plans to do at home. Pt agrees to walk around hospital at a later time, declines activity at this time. Pt seen for 15 minutes within room as pt in bed. Pt returns to TV show, call light in reach, all needs met. OT, therapy head, and PT discuss pt's status post-session. Education OT Patient Education: Rehab process, Safety issues, Use of adapted equipment Teaching Recipient: Patient Teaching Methods: Discussion Response to Teaching: Verbalize Understanding, Reinforcement Needed OT Skilled Nursing Goals Telescope Maintenance Goals Time Frame: Mar 06, 2019 Eating (QC): 6 (met) Oral Hygiene (QC): 6 Toileting Hygiene (QC): 6 Shower/Bathe Self (QC): 6 Upper Body Dressing (QC): 6 (met) Lower Body Dressing (QC): 6 On/Off Footwear (QC): 6 (met) Additional Goals: 1-Demonstrate ADL Tasks, 2-Verbalize Understanding, 3- ImproveStrength/Juancarlos 1=Demonstrate adherence to instructed precautions during ADL tasks. 2=Patient will verbalize/demonstrate understanding of assistive devices/modifications for ADL. 3=Patient will improve strength/tolerance for activity to enable patient to perform ADL's. OT Education/Plan Problem List/Assessment Assessment: Decreased Activ Tolerance, Decreased Safety Aware, Decreased UE Strength, Impaired Funct Balance, Impaired I ADL's, Impaired Self-Care Skills Discharge Recommendations Plan/Recommendations: Continue POC Equpiment Recommendations-D/C: Rails on Tub/Shower Treatment Plan/Plan of Care Patient would benefit from OT for education, treatment and training to promote independence in ADL's, mobility, safety and/or upper extremity function for ADL's. Plan of Care: ADL Retraining, Caregiver Training, Concurrent Therapy, Functional Mobility, Group Exercise/Act as Ind, UE Funct Exercise/Act Treatment Duration: Mar 06, 2019 Frequency: At least 5 of 7 days/Wk (IRF) Estimated Hrs Per Day: 1.5 hours per day Agreement: Yes Rehab Potential: Fair Time/GCodes Start Time: 10:00 Stop Time: 10:15 Total Time Billed (hr/min): 15 Billed Treatment Time 1, FA (15) WING BURROUGHS OTR Feb 25, 2019 10:28 POS
--- NOTE | 2019-02-25 12:33 | Occupational Ther Daily Note ---
OT Current Status-Daily Note Subjective Pt seen in bed with PALLIATIVE CARE NURSE PRACTITIONER present, pt agreeable to OT tx session with plans to go outside for functional exercise and activity. Pt does not rate pain beginning of session, rates in stance while walking back to room as 8/10 in R knee. Mental Status/Objective Patient Orientation: Normal For Age ADL-Treatment Therapy Code Descriptions/Definitions Functional [place] Measure: 0=Not Assessed/NA 4=Minimal Assistance 1=Total Assistance 5=Supervision or Setup 2=Maximal Assistance 6=Modified [place] 3=Moderate Assistance 7=Complete IndependenceSCALE: Activities may be completed with or without assistive devices. 0-Wxvxsmgwcp-tvpdcge completes the activity by him/herself with no assistance from a helper. 5-Set-up or Clean-up Assistance-helper sets up or cleans up; patient completes activity. [place] assists only prior to or following the activity. 4-Supervision or Touching Assistance-helper provides verbal cues and/or touching/steadying and/or contact guard assistance as patient completes activity. Assistance may be provided throughout the activity or intermittently. 3-Partial/Moderate Assistance-helper does LESS THAN HALF the effort. [place] lifts, holds or supports trunk or limbs, but provides less than half the effort. 2-Substantial/Maximal Assistance-helper does MORE THAN HALF the effort. [place] lifts or holds trunk or limbs and provides more than half the effort. 0-Esgaomqko-vbclib does ALL the effort. Patient does none of the effort to complete the activity. Or, the assistance of 2 or more helpers is required for the patient to complete the activity. If activity was not attempted, code reason: 7-Patient Refused. 9-Not Applicable-not attempted and the patient did not perform the activity before the current illness, exacerbation or injury. 10-Not Attempted due to Environmental Limitations-(lack of equipment, weather restraints, etc.). 88-Not Attempted due to Medical Conditions or Safety Concerns. Eating (QC): 6 Oral Hygiene (QC): 7 Shower/Bathe Self (QC): 7 Upper Body Dressing (QC): 6 (dons jacket EOB) Lower Body Dressing (QC): 7 Toileting Hygiene (QC): 4 (SUP) Toilet Transfer (QC): 4 (SBA during transfer, does not use grab bars (i nstructed to not use) as pt does not have grab bars at home near toilet.) on/off footwear: 6 EOB Other Treatment Pt agreeable to walk downstairs/ outside, denies showering or LB dressing tasks. Pt agreeable to toilet transfer with pants donned due to no need for BM/ urination. Pt walks with FWW, navigates environment with good direction following. Pt ambulates from elevator to main entrance, SOB and requires sit on chair to rest. Pt rests ~5 minutes, ambulates outside across different terrains with SBA. Pt does not have any instances of balance loss with use of FWW. Pt completes AROM of BUE throughout range. Pt educated in home environmental modifications and hazards. Pt expresses he will not have any difficulty at home and states daughter "put (him) in here", pt's safety addressed within home environment with recommendations of daughters to supervise shower/ toilet transfer. Pt agrees. Pt states that he has grab bar within shower and describes lay-out. Pt agrees balance and endurance requires additional attention, pt returns to room without any breaks. Pt sits in recliner chair end of session, with increased SOB. Pt states he is not use to so much activity. Pt educated on ADLs that will need to be addressed as pt denies on this date and further ARU expectations and processes. Pt agrees to further sponge bath and dressing tasks following day. Pt states no needs, call light in place. Education OT Patient Education: Exercise program, Progress toward Goal/Update tx plan, Purpose of tx/functional activities, Rehab process, Safety issues, Transfer techniques Teaching Recipient: Patient Teaching Methods: Demonstration, Discussion Response to Teaching: Verbalize Understanding, Return Demonstration, Reinforcement Needed OT Maintenance Groundman Goals Maintenance Groundman Goals Time Frame: Mar 06, 2019 Eating (QC): 6 (met) Oral Hygiene (QC): 6 Toileting Hygiene (QC): 6 Shower/Bathe Self (QC): 6 Upper Body Dressing (QC): 6 (met) Lower Body Dressing (QC): 6 On/Off Footwear (QC): 6 (met) Additional Goals: 1-Demonstrate ADL Tasks, 2-Verbalize Understanding, 3- ImproveStrength/Juancarlos 1=Demonstrate adherence to instructed precautions during ADL tasks. 2=Patient will verbalize/demonstrate understanding of assistive de vices/modifications for ADL. 3=Patient will improve strength/tolerance for activity to enable patient to perform ADL's. OT Education/Plan Problem List/Assessment Assessment: Decreased Activ Tolerance, Decreased Safety Aware, Decreased UE Strength, Impaired Funct Balance, Impaired I ADL's, Impaired Self-Care Skills Discharge Recommendations Plan/Recommendations: Continue POC Treatment Plan/Plan of Care Treatment,Training & Education: Yes Patient would benefit from OT for education, treatment and training to promote independence in ADL's, mobility, safety and/or upper extremity function for ADL's. Plan of Care: ADL Retraining, Caregiver Training, Concurrent Therapy, Functional Mobility, Group Exercise/Act as Ind, UE Funct Exercise/Act Treatment Duration: Mar 06, 2019 Frequency: At least 5 of 7 days/Wk (IRF) Estimated Hrs Per Day: 1.5 hours per day Agreement: Yes Rehab Potential: Fair Time/GCodes Start Time: 11:30 Stop Time: 12:15 Total Time Billed (hr/min): 45 Billed Treatment Time 1, EX (15), FA 2 (30)= 45 WING BURROUGHS OTR Feb 25, 2019 12:33 POS
--- NOTE | 2019-02-25 12:42 | Speech Therapy Daily Note ---
Speech Daily Progress Note Subjective Date Seen by Provider: Feb 25, 2019 Time Seen by Provider: 00:30 Patient was much more alert today. Objective Patient completed safety awareness tasks related to his daily needs at 80% with 20% verbal cuing. Assessment Assessment Current Status: Good Progress Treatment Plan Continue Plan of Care Speech Short Term Goals Short Term Goals Short Term Goals 1) The patient will complete memory tasks related to his daily needs with 80% or greater with minimal cuing. 2) The patient will complete safety awareness tasks related to his daily needs with 80% or greater with minimal cuing. 3) The patient will complete problem solving tasks related to his daily needs with 80% or greater with minimal cuing. Speech Assisted Goals Assisted Goals The patient will improve cognitive-communication necessary for safety and daily living tasks with minimal assist. Speech-Plan Patient/Family Goals Patient/Family Goals: Patient plans on returning home where he lives with two of his daughters. Treatment Plan Speech Therapy Treatment Plan: Continue Plan of Care Patient is progressing and states he just wants to go home. Treatment Duration: Mar 06, 2019 Frequency: 5 times per week Estimated Hrs Per Day: .25 hour per day Rehab Potential: Fair Barriers to Learning: Patient has cognitive deficits. Pt/Family Agrees to Plan: Yes Safety Risks/Education Teaching Recipient: Patient Teaching Methods: Demonstration, Discussion Response to Teaching: Verbalize Understanding, Return Demonstration Education Topics Provided: Continued safety while inpatient and upon his return home. Time Speech Therapy Time In: 11:00 Speech Therapy Time Out: 11:30 Total Billed Time: 30 Billed Treatment Time 1ROXYJACOB ST Feb 25, 2019 12:42 POS
[2019-02-25] MEDS: ENOXAPARIN 40 MG/0.4 ML (LOVENOX) SYR SC SCH (12:48)
--- NOTE | 2019-02-25 14:52 | Therapy Group Daily Note ---
Therapy Daily Group Note Patient Education Topic Other List Below (Benefits of exercise) Exercises LE Seated Exercise, UE Exercise Session Ratio (pt:therapist): 4:1 Goal of Session: Other (list) (Understanding and demonstrating benefits of a variety of physical activity as you age) Goal Met for this Session: Yes Pt Benefit of Group: Contributions to Others, Increased Functional Strength, Socialization Other/Notes Patient participated in group PT/OT session. Patient ambulated to/from session with assistance. Patient shared during group introductions and was attentive to session but not vocal and did not participate in discussions or questions. Patient participated in few exercise demonstrations and activities during session. Pt. to room after group with mcmillan at hand and needs met Start Time: 13:00 Stop Time: 14:15 Total Billed Treatment Time: 75 Total Billed Treatment 1 GRP 75min RYAN DOS SANTOS COMPRESSED GAS TESTER Feb 25, 2019 14:52 POS
[2019-02-25 17:46] VITALS: BP 149/67
--- NOTE | 2019-02-25 18:07 | Cardiology Progress Note ---
Cardiology SOAP Progress Note Subjective: No cardiac complaints Objective: I&O/Vital Signs 02/25/19 02/25/19 02/25/19 02/25/19 07:39 09:00 10:51 17:46 Temp 37.4 Pulse 71 Resp 18 B/P (MAP) 149/67 (94) Pulse Ox 92 92 97 O2 Delivery Room Air Room Air Room Air Room Air 02/25/19 00:00 Intake Total 860 ml Balance 860 ml Weight (Pounds): 156 Weight (Ounces): 6.0 Weight (Calculated Kilograms): [id number] Constitutional: AAO x 3, well-developed, well-nourished Respiratory: No accessory muscle use; chest is bilaterally symmetric, other (fair air entry, diminished at the bases, prolonged exp) Cardiovascular: regular rate-rhythm, S1 and S2, systolic murmur (2/6 LUISANA at card base) Gastrointestional: No tender; soft; No guarding, No rebound; audible bowel sounds Extremities: No clubbing, No cyanosis, No significant edema Neurologic/Psychiatric: oriented x 3, other (moves all limbs equally) Skin: No rash on exposed areas, No ulcerations on exposed areas A/P: Assessment/Dx: CAD. S/p complex, multivessel PCI at [facility] in Jan 2019. Ischemic cardiomyopathy, much improved after PCI. LVEF 25% at time of cath of 02/12/19. 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 Richmond Plan: Plan: * Continue current cardiac regimen. * emphasis on dual antiplatelet therapy. Thank you for your consultation. Please call me if you have any questions. Carlos Enrique Salguero MD, FACP, FACC, FSCAI, FHRS, CCDS Interventional Cardiology Cardiac Electrophysiology Vascular Medicine and Endovascular Interventions Catherine SALGUERO MD Feb 25, 2019 18:07 POS
[2019-02-25] MEDS: MIRTAZAPINE 15 MG (REMERON) TAB PO SCH (20:54)
[2019-02-26 05:56] VITALS: BP 141/67
[2019-02-26] MEDS: FUROSEMIDE 40 MG (LASIX) TAB PO SCH (06:43)
[2019-02-26] MEDS: CARVEDILOL 12.5 MG (COREG) TABLET PO SCH (06:43)
--- NOTE | 2019-02-26 07:16 | Pulmonary Progress Note ---
Subjective Time Seen by a Provider: 07:16 Subjective/Events-last exam PT appears to be doing well. Sepsis Event Evaluation Height, Weight, BMI Height: 6'0.00" Weight: 156lbs. 6.0oz. [id number]; 19.09 BMI Method: Exam Exam Vital Signs Date Time Temp Pulse Resp B/P (MAP) Pulse Ox O2 Delivery O2 Flow Rate FiO2 02/26/19 05:56 36.2 72 18 141/67 (91) 99 Room Air 02/25/19 20:30 Nasal Cannula 2.00 02/25/19 19:29 93 Room Air 02/25/19 17:46 37.4 71 18 149/67 (94) 97 Room Air 02/25/19 10:51 92 Room Air 02/25/19 09:00 Room Air 02/25/19 07:39 92 Room Air I & O 02/26/19 07:00 Intake Total 1010 ml Output Total 400 ml Balance 610 ml Height & Weight Height: 6'0.00" Weight: 156lbs. 6.0oz. [id number]; 19.09 BMI Method: General Appearance: No Apparent Distress, WD/WN, Chronically ill, Thin HEENT: PERRL/EOMI, Normal ENT Inspection, Pharynx Normal Neck: Full Range of Motion, Normal Inspection, Non Tender, Supple, Carotid Bruit Respiratory: Chest Non Tender, Lungs Clear, Normal Breath Sounds, No Accessory Muscle Use, No Respiratory Distress Cardiovascular: Regular Rate, Rhythm, No Edema, No Gallop, No JVD, No Murmur, Normal Peripheral Pulses Extremity: Normal Capillary Refill, Normal Inspection, Normal Range of Motion, Non Tender, No Calf Tenderness, No Pedal Edema Neurologic/Psychiatric: Alert, Oriented x3, No Motor/Sensory Deficits, bread pan greaser II- XII Norm as Tested, Depressed Affect, Disoriented (subtle poor recall), Motor Weakness (generalized 4/5 upper and lower extremities) Skin: Normal Color, Warm/Dry Lymphatic: No Adenopathy Assessment/Plan Assessment/Plan COPD -SOB is improved -Will need out pt testing -SVNS Tobacco use -Education CAD s/p Cath Ischemic cardiomyopathy -EF 25% 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
[2019-02-26] MEDS ORDERED: LOSA50TA63 PO (08:31)
[2019-02-26] MEDS ORDERED: ATOR80TA76 PO (08:31)
[2019-02-26] MEDS ORDERED: SPIR25TA5 PO (08:31)
[2019-02-26] MEDS ORDERED: PRAS10TA6 PO (08:31)
[2019-02-26] MEDS ORDERED: CARV12.53 PO (08:31)
[2019-02-26] MEDS ORDERED: ASPI-983 PO (08:31)
--- NOTE | 2019-02-26 08:33 | Discharge Summary ---
Diagnosis/Chief Complaint Date of Admission Feb 20, 2019 at 13:39 Date of Discharge Discharge Date: Feb 26, 2019 Discharge Diagnosis Assessment: Critical illness myopathy CAD s/p complex PCI at [place] for severe multi-vessel disease with main disease Smoker COPD O2 prn at home Dementia? seems improved Plan: Home meds per DC med list [place] Appreciate Nohelia Hernandez and Lisa Conferred with RN Checked meds and labs Reviewed therapy notes Nebs (1) Myopathy (2) Dementia (3) Memory loss (4) Delirium (5) S/P coronary artery stent placement (6) Smoker (7) Alcohol use (8) Hyperlipidemia (9) Hypertension (10) Multi-vessel coronary artery stenosis (11) COPD (chronic obstructive pulmonary disease) (12) History of respiratory failure (13) History of ventilator dependency Discharge Summary Discharge Physical Examination Allergies: Coded Allergies: No Known Drug Allergies (Unverified , 12/02/16) Vitals & I&Os Vital Signs Date Time Temp Pulse Resp B/P (MAP) Pulse Ox O2 Delivery O2 Flow Rate FiO2 02/26/19 10:45 36.2 79 18 123/68 95 Room Air 02/25/19 20:30 2.00 General Appearance: Alert, Oriented X3, Cooperative Respiratory: Clear to Auscultation Cardiovascular: Regular Rate Neuro: Normal Gait, Normal Speech, Strength at 5/5 X4 Ext Psych/Mental Status: Mental Status NL Hospital Course Was the Problem List Reviewed?: Yes Hospital course: Pt had a hospital course that was uncomplicated after he was admitted for complex PCI done at [facility] after critical illness myopathy intubation, he was maintained on all cardiology recommended medications, cardiology was consulted along with Dr. Gonzalez. Pt dramatically improved, participated in all therapy and was ready to go home with his daughter in improved condition and return back to prior level of functioning although he wasn't very active at home. Labs (last 24 hrs) Laboratory Tests 02/21/19 05:31: White Blood Count 6.9, Red Blood Count 4.09L, Hemoglobin 13.6, Hematocrit 40, Mean Corpuscular Volume 97, Mean Corpuscular Hemoglobin 33, Mean Corpuscular Hemoglobin Concent 34, Red Cell Distribution Width 12.8, Platelet Count 206, Mean Platelet Volume 11.4H, Neutrophils (%) (Auto) 60, Lymphocytes (%) (Auto) 22, Monocytes (%) (Auto) 14H, Eosinophils (%) (Auto) 3, Basophils (%) (Auto) 0, Neutrophils # (Auto) 4.2, Lymphocytes # (Auto) 1.5, Monocytes # (Auto) 1.0, Eosinophils # (Auto) 0.2, Basophils # (Auto) 0.0, Sodium Level 134L, Potassium Level 3.8, Chloride Level 96L, Carbon Dioxide Level 28, Anion Gap 10, Blood Urea Nitrogen 26H, Creatinine 1.00, Estimat Glomerular Filtration Rate > 60, BUN/Creatinine Ratio 26, Glucose Level 89, Calcium Level 8.9, Corrected Calcium 9.9, Magnesium Level 2.0, Total Bilirubin 1.1H, Aspartate Amino Transf (AST/SGOT) 39H, Alanine Aminotransferase (ALT/SGPT) 32, Alkaline Phosphatase 94, Total Protein 6.9, Albumin 2.8L 02/23/19 05:14: White Blood Count 6.5, Red Blood Count 3.78L, Hemoglobin 12.4L, Hematocrit 38L, Mean Corpuscular Volume 99, Mean Corpuscular Hemoglobin 33, Mean Corpuscular Hemoglobin Concent 33, Red Cell Distribution Width 12.8, Platelet Count 206, Mean Platelet Volume 11.4H, Neutrophils (%) (Auto) 50, Lymphocytes (%) (Auto) 27, Monocytes (%) (Auto) 18H, Eosinophils (%) (Auto) 5, Basophils (%) (Auto) 1, Neutrophils # (Auto) 3.2, Lymphocytes # (Auto) 1.8, Monocytes # (Auto) 1.2H, Eosinophils # (Auto) 0.3, Basophils # (Auto) 0.1, Sodium Level 135, Potassium Level 3.9, Chloride Level 97L, Carbon Dioxide Level 28, Anion Gap 10, Blood Urea Nitrogen 23H, Creatinine 0.85, Estimat Glomerular Filtration Rate > 60, BUN/Creatinine Ratio 27, Glucose Level 80, Calcium Level 8.7, Corrected Calcium 9.7, Total Bilirubin 0.7, Aspartate Amino Transf (AST/SGOT) 40H, Alanine Aminotransferase (ALT/SGPT) 29, Alkaline Phosphatase 106, Total Protein 7.0, Albumin 2.8L Pending Labs Laboratory Tests 02/21/19 05:31: White Blood Count 6.9, Red Blood Count 4.09, Hemoglobin 13.6, Hematocrit 40, M garret Corpuscular Volume 97, Mean Corpuscular Hemoglobin 33, Mean Corpuscular Hemoglobin Concent 34, Red Cell Distribution Width 12.8, Platelet Count 206, Mean Platelet Volume 11.4, Neutrophils (%) (Auto) 60, Lymphocytes (%) (Auto) 22, Monocytes (%) (Auto) 14, Eosinophils (%) (Auto) 3, Basophils (%) (Auto) 0, Neutrophils # (Auto) 4.2, Lymphocytes # (Auto) 1.5, Monocytes # (Auto) 1.0, Eosinophils # (Auto) 0.2, Basophils # (Auto) 0.0, Sodium Level 134, Potassium Level 3.8, Chloride Level 96, Carbon Dioxide Level 28, Anion Gap 10, Blood Urea Nitrogen 26, Creatinine 1.00, Estimat Glomerular Filtration Rate > 60, BUN/Creatinine Ratio 26, Glucose Level 89, Calcium Level 8.9, Corrected Calcium 9.9, Magnesium Level 2.0, Total Bilirubin 1.1, Aspartate Amino Transf (AST/SGOT) 39, Alanine Aminotransferase (ALT/SGPT) 32, Alkaline Phosphatase 94, Total Protein 6.9, Albumin 2.8 02/23/19 05:14: White Blood Count 6.5, Red Blood Count 3.78, Hemoglobin 12.4, Hematocrit 38, Mean Corpuscular Volume 99, Mean Corpuscular Hemoglobin 33, Mean Corpuscular Hemoglobin Concent 33, Red Cell Distribution Width 12.8, Platelet Count 206, Mean Platelet Volume 11.4, Neutrophils (%) (Auto) 50, Lymphocytes (%) (Auto) 27, Monocytes (%) (Auto) 18, Eosinophils (%) (Auto) 5, Basophils (%) (Auto) 1, Neutrophils # (Auto) 3.2, Lymphocytes # (Auto) 1.8, Monocytes # (Auto) 1.2, Eosinophils # (Auto) 0.3, Basophils # (Auto) 0.1, Sodium Level 135, Potassium Level 3.9, Chloride Level 97, Carbon Dioxide Level 28, Anion Gap 10, Blood Urea Nitrogen 23, Creatinine 0.85, Estimat Glomerular Filtration Rate > 60, BUN/Creatinine Ratio 27, Glucose Level 80, Calcium Level 8.7, Corrected Calcium 9.7, Total Bilirubin 0.7, Aspartate Amino Transf (AST/SGOT) 40, Alanine Aminotransferase (ALT/SGPT) 29, Alkaline Phosphatase 106, Total Protein 7.0, Albumin 2.8 Discharge Home Medications: Active Scripts Active Aspirin EC (Aspirin) 81 Mg Tablet.dr 81 Mg PO DAILY Spironolactone 25 Mg Tablet 25 Mg PO DAILY Losartan Potassium 50 Mg Tablet 25 Mg PO DAILY Carvedilol 12.5 Mg Tablet 12.5 Mg PO BID WITH MEALS Atorvastatin Calcium 80 Mg Tablet 80 Mg PO DAILY Effient (Prasugrel HCl) 10 Mg Tablet 10 Mg PO DAILY Reported Iprat-Albut 0.5-3(2.5) mg/3 ml (Ipratropium/Albuterol Sulfate) 3 Ml Ampul.neb 3 Ml IH Q6H PRN Breo Ellipta 100-25 Mcg INH (Fluticasone/Vilanterol) 1 Each Blst.w.dev 1 Puff INH DAILY Ventolin Hfa (Albuterol Sulfate) 18 Gm Hfa.aer.ad 2 Puff INH Q4H PRN Mirtazapine 15 Mg Tablet 15 Mg PO HS Sertraline HCl 50 Mg Tablet 50 Mg PO DAILY Instructions to patient/family Please see electronic discharge instructions given to patient. Diagnosis/Problems Diagnosis/Problems (1) Myopathy (2) Dementia (3) Memory loss (4) Delirium (5) S/P coronary artery stent placement (6) Smoker (7) Alcohol use (8) Hyperlipidemia (9) Hypertension (10) Multi-vessel coronary artery stenosis (11) COPD (chronic obstructive pulmonary disease) (12) History of respiratory failure (13) History of ventilator dependency Clinical Quality Measures DVT/VTE Risk/Contraindication: Risk Factor Score Per Nursin RFS Level Per Nursing on Admit: 4+=Very High CHELSEY WHEATLEY DO Feb 26, 2019 08:33 POS
[2019-02-26] MEDS: ASPIRIN E.C. 81 MG (ECOTRIN) TAB PO SCH (08:34)
[2019-02-26] MEDS: PRASUGREL 10 MG (EFFIENT) TABLET PO SCH (08:34)
[2019-02-26] MEDS: LOSARTAN 50 MG (COZAAR) TAB PO SCH (08:35)
[2019-02-26] MEDS: SPIRONOLACTONE 25 MG (ALDACTONE) TAB PO SCH (08:35)
[2019-02-26] MEDS: SERTRALINE 50 MG (ZOLOFT) TABLET PO SCH (08:35)
[2019-02-26] MEDS: DOCUSATE SODIUM 100 MG (COLACE) CAP PO SCH (08:35)
[2019-02-26] MEDS: SENNA W/DOCUSATE (SENOKOT S) TABLET PO SCH (08:36)
[2019-02-26] MEDS: POLYETHYLENE GLYCOL 17 GM (MIRALAX) PACK PO SCH (08:36)
[2019-02-26 08:37] VITALS: BP 123/68
--- NOTE | 2019-02-26 08:44 | Occupational Ther Daily Note ---
OT Current Status-Daily Note Subjective Pt seen in bed post-PT treatement session. Pt to D/c on this date. QC's gathered. Pt states no current pain, agreeable to OT tx session. Mental Status/Objective Patient Orientation: Normal For Age Attachments: Oxygen (1 L) ADL-Treatment Therapy Code Descriptions/Definitions Functional [place] Measure: 0=Not Assessed/NA 4=Minimal Assistance 1=Total Assistance 5=Supervision or Setup 2=Maximal Assistance 6=Modified [place] 3=Moderate Assistance 7=Complete IndependenceSCALE: Activities may be completed with or without assistive devices. 5-Ykpthmpbtm-drpzxin completes the activity by him/herself with no assistance from a helper. 5-Set-up or Clean-up Assistance-helper sets up or cleans up; patient completes activity. [place] assists only prior to or following the activity. 4-Supervision or Touching Assistance-helper provides verbal cues and/or touching/steadying and/or contact guard assistance as patient completes activity. Assistance may be provided throughout the activity or intermittently. 3-Partial/Moderate Assistance-helper does LESS THAN HALF the effort. [place] lifts, holds or supports trunk or limbs, but provides less than half the effort. 2-Substantial/Maximal Assistance-helper does MORE THAN HALF the effort. [place] lifts or holds trunk or limbs and provides more than half the effort. 8-Dovesking-wfajpr does ALL the effort. Patient does none of the effort to complete the activity. Or, the assistance of 2 or more helpers is required for the patient to complete the activity. If activity was not attempted, code reason: 7-Patient Refused. 9-Not Applicable-not attempted and the patient did not perform the activity before the current illness, exacerbation or injury. 10-Not Attempted due to Environmental Limitations-(lack of equipment, weather restraints, etc.). 88-Not Attempted due to Medical Conditions or Safety Concerns. Eating (QC): 6 Oral Hygiene (QC): 7 (denies, based on clinical judgement pt would be IND.) Shower/Bathe Self (QC): 4 (CGA in stance during bottom hygiene, SUP during sponge bathing tasks while seated EOB.) Upper Body Dressing (QC): 6 Lower Body Dressing (QC): 4 (CGA in stance during pulling up.) Toileting Hygiene (QC): 4 (CGA in stance at FWW.) Toilet Transfer (QC): 4 (CGA) on/off footwear: socks and shoes with IND (6) Other Treatment Pt agreeable to OT tx session. Pt completes ADLs in room. Pt states excitement for d/c home with daughter on this date. OT recommends grab bars near toilet for safer and more IND toilet transfer. Pt completes seated dressing; nursing present, 02 assessed in sitting without 02= 94% and rising to 96%. Pt stands and maintains 02 percentage. Pt remains with 02 off per nursing. Pt left in recliner chair with all needs met and call light in reach. Education OT Patient Education: Correct positioning, Progress toward Goal/Update tx plan, Rehab process, Safety issues, Transfer techniques Teaching Recipient: Patient Teaching Methods: Demonstration, Discussion Response to Teaching: Verbalize Understanding, Return Demonstration, Reinforcement Needed OT Synthetic Filament Spinner Goals Synthetic Filament Spinner Goals Time Frame: Mar 06, 2019 Eating (QC): 6 (met) Oral Hygiene (QC): 6 Toileting Hygiene (QC): 6 Shower/Bathe Self (QC): 6 Upper Body Dressing (QC): 6 (met) Lower Body Dressing (QC): 6 On/Off Footwear (QC): 6 (met) Additional Goals: 1-Demonstrate ADL Tasks, 2-Verbalize Understanding, 3- ImproveStrength/Juancarlos 1=Demonstrate adherence to instructed precautions during ADL tasks. 2=Patient will verbalize/demonstrate understanding of assistive devices/modifications for ADL. 3=Patient will improve strength/tolerance for activity to enable patient to perform ADL's. OT Education/Plan Problem List/Assessment Assessment: Decreased Activ Tolerance, Decreased Safety Aware, Decreased UE Strength, Impaired Funct Balance, Impaired I ADL's, Impaired Self-Care Skills Discharge Recommendations Plan/Recommendations: Continue POC Therapy Discharge Recommendati: Intermittent Supervision, Home & Family Comment Grab bars on toilet. Treatment Plan/Plan of Care Treatment,Training & Education: Yes Patient would benefit from OT for education, treatment and training to promote independence in ADL's, mobility, safety and/or upper extremity function for ADL's. Plan of Care: ADL Retraining, Caregiver Training, Concurrent Therapy, Functional Mobility, Group Exercise/Act as Ind, UE Funct Exercise/Act Treatment Duration: Mar 06, 2019 Frequency: At least 5 of 7 days/Wk (IRF) Estimated Hrs Per Day: 1.5 hours per day Agreement: Yes Rehab Potential: Fair Time/GCodes Start Time: 08:20 Stop Time: 08:40 Total Time Billed (hr/min): 20 Billed Treatment Time 1, ADL (20) WING BURROUGHS OTR Feb 26, 2019 08:44 POS
--- NOTE | 2019-02-26 08:45 | NUR ---
Patient has been wearing 02 at 2L per [place] at . Patient states that he does not have any oxygen at home. Dr. Florian informed. Asked if we need to do a 02 qualification sleep study tonight??? No need for sleep study per Dr. Florian. Continue with DC as planned.
--- NOTE | 2019-02-26 09:02 | Physical Therapy Daily Note ---
PT Daily Note-Current Subjective Patient reports he is ready to go home. Physician in to assess and dismiss patient this a.m. Pain Numeric Pain Scale: 0-No Pain Location: No Pain Reported Mental Status Patient Orientation: Normal For Age Attachments: Oxygen (has home O2 established) Transfers SCALE: Activities may be completed with or without assistive devices. 1-Nrnjpjallw-razgfee completes the activity by him/herself with no assistance f rom a helper. 5-Set-up or Clean-up Assistance-helper sets up or cleans up; patient completes activity. [place] assists only prior to or following the activity. 4-Supervision or Touching Assistance-helper provides verbal cues and/or touching/steadying and/or contact guard assistance as patient completes activity. Assistance may be provided throughout the activity or intermittently. 3-Partial/Moderate Assistance-helper does LESS THAN HALF the effort. [place] lifts, holds or supports trunk or limbs, but provides less than half the effort. 2-Substantial/Maximal Assistance-helper does MORE THAN HALF the effort. [place] lifts or holds trunk or limbs and provides more than half the effort. 2-Qjhymzvwm-sxhopu does ALL the effort. Patient does none of the effort to complete the activity. Or, the assistance of 2 or more helpers is required for the patient to complete the activity. If activity was not attempted, code reason: 7-Patient Refused. 9-Not Applicable-not attempted and the patient did not perform the activity before the current illness, exacerbation or injury. 10-Not Attempted due to Environmental Limitations-(lack of equipment, weather restraints, etc.). 88-Not Attempted due to Medical Conditions or Safety Concerns. Roll Left & Right (QC): 6 Sit to Lying (QC): 6 Lying to Sitting/Side of Bed(Q: 6 Sit to Stand (QC): 6 Chair/Jut-pw-Domuj Xfer(QC): 6 Toilet Transfer (QC): 6 Car Transfer (QC): 6 Gait Training Does the Patient Walk?: Yes Distance: 200' x 2 Walk 10 feet (QC): 6 Walk 50 ft with 2 Turns(QC): 6 Walk 150 ft (QC): 6 Walking 10ft/uneven surface-QC: 6 Gait Assistive Device: FWW NBOS/shuffle gait sequence with no deviation/LOB Wheelchair Training Does the Pt Use a Wheelchair?: No Stair Training Stair Training: Handrails/: 2 handrails #of Steps: 12 1 Step (curb) (QC): 5 4 Steps (QC): 5 12 Steps (QC): 5 Stairs: Pattern: Step to Balance Picking up an Object (QC): 6 Assessment Patient tolerated treatment well and returned to room for OT session. Patient has attained all functional goals set and will dismiss to home on this date. PT Short Term Goals Short Term Goals Time Frame: Feb 27, 2019 Lying to sitting on side of be: 5 Sit to stand: 4 (CGA) Chair/mgs-ex-jbdih transfer: 4 (CGA) Walk 10 feet: 4 (cga) Walk 50 feet with two turns: 4 (CGA) Walk 150 feet: 4 (CGA) PT Exterior Interior Specialist Goals Exterior Interior Specialist Goals PT Exterior Interior Specialist Goals Time Frame: Mar 13, 2019 Roll Left & Right (QC): 6 (met 02/26/19) Sit to Lying (QC): 6 (met 02/26/19) Lying-Sitting on Side/Bed(QC): 6 (met 02/26/19) Sit to Stand (QC): 4 (SBA) Chair/Grf-ny-Jscfi Xfer(QC): 4 (SBA) Toilet Transfer (QC): 4 (SBA) Car Transfer (QC): 4 (SBA) Does the Patient Walk: Yes Walk 10 feet (QC): 5 (met 02/26/19) Walk 50ft with 2 Turns (QC): 4 (SBA) Walk 150 ft (QC): 4 (SBA) Walking 10ft on Uneven Surface: 4 (SBA) 1 Step (curb) (QC): 4 (SBA) 4 Steps (QC): 4 (CGA) 12 Steps (QC): 4 (CGA) Picking up an Object (QC): 4 (CGA) Does the Pt use WC or Scooter?: No Type: N/A Type: N/A PT Plan Treatment/Plan Treatment Plan: Discontinue PT, goals met Treatment Plan: Bed Mobility, Concurrent Therapy, Education, Functional Activity Juancarlos, Functional Strength, Group Therapy, Gait, Safety, Therapeutic Exercise, Transfers Treatment Duration: Mar 13, 2019 Frequency: At least 5 of 7 days/Wk (IRF) Estimated Hrs Per Day: 1.5 hours per day Patient and/or Family Agrees t: Yes Time/GCodes Time In: 810 Time Out: 820 Total Billed Treatment Time: 10 Total Billed Treatment 1 visit FA 10 min ERNIE COVINGTON PT Feb 26, 2019 09:02 POS
--- NOTE | 2019-02-26 09:37 | PM&R Progress Note ---
Subjective HPI/CC On Admission Date Seen by Provider: Feb 26, 2019 Time Seen by Provider: 08:15 Subjective/Events-last exam Pt doing very well Wound on the right lateral leg is improved Still weak and unsteady but improving Has skill workers to help him DC planned for 02/27/19 Checked meds and labs Conferred with RN Reviewed therapy notes Objective Exam Vital Signs Vital Signs Date Time Temp Pulse Resp B/P (MAP) Pulse Ox O2 Delivery O2 Flow Rate FiO2 02/26/19 10:45 36.2 79 18 123/68 95 Room Air 02/25/19 20:30 2.00 Capillary Refill : General Appearance: No Apparent Distress, WD/WN, Chronically ill, Thin HEENT: PERRL/EOMI, Normal ENT Inspection, Pharynx Normal Neck: Full Range of Motion, Normal Inspection, Non Tender, Supple, Carotid Bruit Respiratory: Chest Non Tender, Lungs Clear, Normal Breath Sounds, No Accessory Muscle Use, No Respiratory Distress Cardiovascular: Regular Rate, Rhythm, No Edema, No Gallop, No JVD, No Murmur, Normal Peripheral Pulses Gastrointestinal: Normal Bowel Sounds, No Organomegaly, No Pulsatile Mass, Non Tender, Soft Back: Normal Inspection, No CVA Tenderness, No Vertebral Tenderness Extremity: Normal Capillary Refill, Normal Inspection, Normal Range of Motion, Non Tender, No Calf Tenderness, No Pedal Edema Neurologic/Psychiatric: Alert, Oriented x3, No Motor/Sensory Deficits, fireboat operator II- XII Norm as Tested, Depressed Affect, Disoriented (subtle poor recall), Motor Weakness (generalized 4/5 upper and lower extremities) Skin: Normal Color, Warm/Dry Lymphatic: No Adenopathy Results/Procedures Lab Patient resulted labs reviewed. FIM Transfers Therapy Code Descriptions/Definitions Functional [place] Measure: 0=Not Assessed/NA 4=Minimal Assistance 1=Total Assistance 5=Supervision or Setup 2=Maximal Assistance 6=Modified [place] 3=Moderate Assistance 7=Complete IndependenceSCALE: Activities may be completed with or without assistive devices. 5-Pbxbnearnb-rqlpsrj completes the activity by him/herself with no assistance from a helper. 5-Set-up or Clean-up Assistance-helper sets up or cleans up; patient completes activity. [place] assists only prior to or following the activity. 4-Supervision or Touching Assistance-helper provides verbal cues and/or touching/steadying and/or contact guard assistance as patient completes activity. Assistance may be provided throughout the activity or intermittently. 3-Partial/Moderate Assistance-helper does LESS THAN HALF the effort. [place] lifts, holds or supports trunk or limbs, but provides less than half the effort. 2-Substantial/Maximal Assistance-helper does MORE THAN HALF the effort. [place] lifts or holds trunk or limbs and provides more than half the effort. 9-Wjqevupjx-bdlvmr does ALL the effort. Patient does none of the effort to co mplete the activity. Or, the assistance of 2 or more helpers is required for the patient to complete the activity. If activity was not attempted, code reason: 7-Patient Refused. 9-Not Applicable-not attempted and the patient did not perform the activity before the current illness, exacerbation or injury. 10-Not Attempted due to Environmental Limitations-(lack of equipment, weather restraints, etc.). 88-Not Attempted due to Medical Conditions or Safety Concerns. Roll Left to Right (QC): 6 Sit to Lying (QC): 6 Sit to Stand (QC): 6 Chair/Ilp-lk-Uvmss Xfer(QC): 6 Car Transfer (QC): 6 Gait Training Does the Patient Walk?: Yes Distance: 200' x 2 Walk 10 feet (QC): 6 Walk 50 ft with 2 Turns(QC): 6 Walk 150 ft (QC): 6 Walking 10ft/uneven surface-QC: 6 Gait Assistive Device: FWW Wheelchair Training Does the Pt Use a Wheelchair?: No Wheel 50 ft with 2 turns (QC): 88 Wheel 150 ft (QC): 88 Stair Training Stair Training: Handrails/: 2 handrails #of Steps: 12 1 Step (curb) (QC): 5 4 Steps (QC): 5 12 Steps (QC): 5 Stairs: Pattern: Step to Balance Picking up an Object (QC): 6 ADL-Treatment Eating (QC): 6 Oral Hygiene (QC): 7 (denies, based on clinical judgement pt would be IND.) Shower/Bathe Self (QC): 4 (CGA in stance during bottom hygiene, SUP during sponge bathing tasks while seated EOB.) Upper Body Dressing (QC): 6 Lower Body Dressing (QC): 4 (CGA in stance during pulling up.) On/Off Footwear (QC): 2 (Max A due to pt's SOB and decreased energy toward end of dressing tasks.) Toileting Hygiene (QC): 4 (CGA in stance at FWW.) Toilet Transfer (QC): 4 (CGA) Assessment/Plan Assessment and Plan Assess & Plan/Chief Complaint Assessment: Critical illness myopathy CAD s/p complex PCI at [place] for severe multi-vessel disease with main disease Smoker COPD O2 prn at home Dementia? seems improved Plan: Home meds per DC med list [place] Appreciate Nohelia Hernandez and Lisa Conferred with RN Checked meds and labs Reviewed therapy notes Nebs (1) Myopathy (2) Dementia (3) Memory loss (4) Delirium (5) S/P coronary artery stent placement (6) Smoker (7) Alcohol use (8) Hyperlipidemia (9) Hypertension (10) Multi-vessel coronary artery stenosis (11) COPD (chronic obstructive pulmonary disease) (12) History of respiratory failure (13) History of ventilator dependency CHELSEY WHEATLEY DO Feb 26, 2019 09:37 POS
--- NOTE | 2019-02-26 09:53 | D/C HH Face to Face Order ---
D/C Face to Face Orders Reconcile Patient Problems Problems Reviewed?: Yes Instructions for Patient [facility] Patient Instructions/FollowUp: [facility] 1 week Cardiology in 2 weeks Physician to follow Patient: [facility] Discharge Diet for Home: Cardiac Diet Patient Problems: Complex PCI stents Confusion COPD Goals for Patient: Independent living Patient Data-Allergies,Ht & Wt Patient Allergies: Coded Allergies: No Known Drug Allergies (Unverified , 12/02/16) Height (Feet): 6 Height (Inches): 0.00 Weight (Pounds): 156 Weight (Ounces): 6.0 Home Health Need/Face to Face Date of Face to Face: Feb 26, 2019 Clinical Findings: Generalized weakness and fatigue, Instability, Muscle weakness, Shortness of breath, Unsteady gait I have seen Pt usxi-ph-igfl: Yes Discharged To: Home Diagnosis/Conditions: Complex PCI stents Confusion COPD Patient is Homebound due to: CognItive deficits, Muscle weakness Homebound Status Due to the above stated illness, injury or surgical procedure (medical condition or diagnosis) and associated clinical findings, the patient is homebound because of his/her inability to leave home except with aid of a supportive device and/or person AND leaving the home requires a considerable and taxing effort or is medically contraindicated. Pt req the following assistanc: [facility] Home Health Nursing Orders Home Health Services Order: Nursing Services, Physical Therapy-Evaluate & Treat Certify Stmt I certify that this patient is under my care and that I, a nurse practitioner or a physician; a assistant corporate secretary working with me, had a face to face encounter that - meets the physician face to face encounter requirements with this patient as dated. CHELSEY WHEATLEY DO Feb 26, 2019 09:53 POS
--- NOTE | 2019-02-26 10:09 | NUR ---
Reviewed weekly rehab team conference summary with patient and his target discharge date was for tomorrow; however, during physician rounds patient stated he did not want to wait and requested to leave today. Patient signature obtained on summary and proceeded into final discharge arrangements. [facility]: Reviewed providers in patient service area with patient and with daughter by phone, Medicare compare information given for review. Referral completed with their preferred agency, [facility] for RN and PT. SKIL: Patient has 20 SKIL hours weekly, daughter Carolina asked for increase up to 40. Beveler advised her to contact [facility] because they would need to re-assess patient and validate increased need prior to approval. DME: From previous interviews, indications were no new needs. Patient is dressed and ready to leave, daughter is leaving her school employment and coming to take him home because otherwise it would be 6 p.m. before she could come back. Anil discharge information provided in discharge packet, patient/family to contact Dr. Toribio, Ballistic Technician, for followup as well as [place] physician followups.
[2019-02-26 10:45] VITALS: BP 123/68
--- NOTE | 2019-02-26 10:51 | NUR ---
Went over wound care instructions (right lateral thigh) with patient and daughter. Orders to cleanse with NS. Cover with Silver Alginate and gauze. Secure with tape. Patient/daughter verbalize understanding.
--- NOTE | 2019-02-26 11:03 | Speech Therapy Daily Note ---
Speech Daily Progress Note Subjective Date Seen by Provider: Feb 26, 2019 Time Seen by Provider: 00:30 The patient was excited to discharging to home today. Objective Patient completed problem solving tasks related to his return home with 80%. Assessment Assessment Current Status: Good Progress Treatment Plan Discontinue ST, Goals Met Speech Short Term Goals Short Term Goals Short Term Goals 1) The patient will complete memory tasks related to his daily needs with 80% or greater with minimal cuing. 2) The patient will complete safety awareness tasks related to his daily needs with 80% or greater with minimal cuing. 3) The patient will complete problem solving tasks related to his daily needs with 80% or greater with minimal cuing. Speech Logistics Administrator Goals Logistics Administrator Goals The patient will improve cognitive-communication necessary for safety and daily living tasks with minimal assist. Met Speech-Plan Patient/Family Goals Patient/Family Goals: Patient is discharging home today with family. Treatment Plan Speech Therapy Treatment Plan: Discontinue ST, Goals Met Patient has progressed well. Treatment Duration: Mar 06, 2019 Frequency: 5 times per week Estimated Hrs Per Day: .25 hour per day Rehab Potential: Fair Barriers to Learning: Patient has mild cognitive deficits, however these have resolved mostly Pt/Family Agrees to Plan: Yes Safety Risks/Education Teaching Recipient: Patient Teaching Methods: Demonstration, Discussion Response to Teaching: Verbalize Understanding, Return Demonstration Education Topics Provided: Continued safety when he returns home. Time Speech Therapy Time In: 10:30 Speech Therapy Time Out: 10:40 Total Billed Time: 10 Billed Treatment Time 1, SLTS No QUALITY CODES: EXPRESSION OF IDEAS/WANTS: 4 UNDERSTANDING VERBAL CONTENT: 4 BRIEF INTERVIEW MENTAL STATUS: YES REPETITION OF 3 WORDS: 3 TEMPORAL ORIENTATION: YEAR: CORRECT, MONTH: CORRECT, DAY: CORRECT RECALL: SOCK WITH CUE, COLOR WITH CUE, BED WITH CUE MEMORY/RECALL ABILITY: SEASON, LOCATION OF ROOM, STAFF NAMES, HE IS IN THE HOSPITAL JACOB LOVE Feb 26, 2019 11:03 POS
--- NOTE | 2019-02-26 11:05 | Therapy Team Discharge Summary ---
Therapy Discharge Summary Discharge Recommendations Date of Discharge Occupational Therapy Decreased Activ Tolerance, Decreased Safety Aware, Decreased UE Strength, Impaired Funct Balance, Impaired I ADL's, Impaired Self-Care Skills Speech-Language Pathology Patient was admitted to the ARU s/p debility/pneumonia. Patient was given the SLUMS which indicated a need for cognitive therapy. ST treatments 5x/wk provided during admit. Patient is discharging home this date. He has met ST goals. He will discharge from [facility] ST at this time as well. PT Detention Goals Detention Goals PT Detention Goals Time Frame: Mar 13, 2019 Roll Left to Right (QC): 6 (met 02/26/19) Sit to Lying (QC): 6 (met 02/26/19) Lying-Sitting on Side/Bed(QC): 6 (met 02/26/19) Sit to Stand (QC): 4 (SBA) Chair/Wpt-xb-Dkncs Xfer(QC): 4 (SBA) Car Transfer (QC): 4 (SBA) Does the Patient Walk: Yes Walk 10 feet (QC): 5 (met 02/26/19) Walk 10ft-Uneven Surface(QC): 4 (SBA) Walk 50ft with 2 Turns (QC): 4 (SBA) Walk 150 ft (QC): 4 (SBA) Does the Pt use WC or Scooter?: No 1 Step (curb) (QC): 4 (SBA) 4 Steps (QC): 4 (CGA) 12 Steps (QC): 4 (CGA) Picking up an Object (QC): 4 (CGA) OT Sourcing Manager Goals Detention Goals Time Frame: Mar 06, 2019 Eating (QC): 6 (met) Oral Hygiene (QC): 6 Shower/Bathe Self (QC): 6 Upper Body Dressing (QC): 6 (met) Lower Body Dressing (QC): 6 On/Off Footwear (QC): 6 (met) Toileting Hygiene (QC): 6 Toilet/Commode Transfer (QC): 4 (SBA) Additional Goals: 1-Demonstrate ADL Tasks, 2-Verbalize Understanding, 3- ImproveStrength/Juancarlos 1=Demonstrate adherence to instructed precautions during ADL tasks. 2=Patient will verbalize/demonstrate understanding of assistive devices/modifications for ADL. 3=Patient will improve strength/tolerance for activity to enable patient to perform ADL's. Speech Detention Goals Sourcing Manager Goals The patient will improve cognitive-communication necessary for safety and daily living tasks with minimal assist. Met JACOB LOVE Feb 26, 2019 11:05 POS
--- NOTE | 2019-02-26 13:33 | NUR ---
Cardiology F/U appointment changed from Dr. Hernandez to Dr. Salguero (per Dr. Salguero's request). New appointment with Dr. Salguero is on 03/11/19 at 11:15 AM. Nneka, patient's daughter, notified of changes. Verbalized understanding.
--- NOTE | 2019-02-27 10:53 | Therapy Team Discharge Summary ---
Therapy Discharge Summary Discharge Recommendations Date of Discharge Feb 26, 2019 at 10:45 Occupational Therapy Pt admits with pneumonia/ debility dx. Pt admitting ability: showering CGA, UB dressing s/u, LB dressing mod A, footwear max A due to SOB. Pt and OT worked towards higher functional IND within ADL tasks through UE exercises, balance tasks, deep breathing, and functional mobility tasks. Pt limited by motivation and pain in R knee. Pt d/c's with showering in CGA, UB IND, LB dress with CGA, and IND with footwear. Pt d/c to home with daughters; d/c OT services at this time. Decreased Activ Tolerance, Decreased Safety Aware, Decreased UE Strength, Impaired Funct Balance, Impaired I ADL's, Impaired Self-Care Skills PT Half-Way Goals Half-Way Goals PT Half-Way Goals Time Frame: Mar 13, 2019 Roll Left to Right (QC): 6 (met 02/26/19) Sit to Lying (QC): 6 (met 02/26/19) Lying-Sitting on Side/Bed(QC): 6 (met 02/26/19) Sit to Stand (QC): 4 (SBA) Chair/Nut-va-Qogsg Xfer(QC): 4 (SBA) Car Transfer (QC): 4 (SBA) Does the Patient Walk: Yes Walk 10 feet (QC): 5 (met 02/26/19) Walk 10ft-Uneven Surface(QC): 4 (SBA) Walk 50ft with 2 Turns (QC): 4 (SBA) Walk 150 ft (QC): 4 (SBA) Does the Pt use WC or Scooter?: No 1 Step (curb) (QC): 4 (SBA) 4 Steps (QC): 4 (CGA) 12 Steps (QC): 4 (CGA) Picking up an Object (QC): 4 (CGA) OT Half-Way Goals Half-Way Goals Time Frame: Mar 06, 2019 Eating (QC): 6 (met) Oral Hygiene (QC): 6 Shower/Bathe Self (QC): 6 Upper Body Dressing (QC): 6 (met) Lower Body Dressing (QC): 6 On/Off Footwear (QC): 6 (met) Toileting Hygiene (QC): 6 Toilet/Commode Transfer (QC): 4 (SBA) Additional Goals: 1-Demonstrate ADL Tasks, 2-Verbalize Understanding, 3- ImproveStrength/Juancarlos 1=Demonstrate adherence to instructed precautions during ADL tasks. 2=Patient will verbalize/demonstrate understanding of assistive devices/modifi cations for ADL. 3=Patient will improve strength/tolerance for activity to enable patient to perform ADL's. Speech Spanish Interpreter/Translator Goals Spanish Interpreter/Translator Goals The patient will improve cognitive-communication necessary for safety and daily living tasks with minimal assist. Met WING BURROUGHS OTR Feb 27, 2019 10:53 POS
--- OUTSIDE RECORDS SUMMARY | 2019-03-18 13:52 | XMS REPORT | Clinical Summary ---
Author Author [facility] Organization [facility] Address Unknown Phone Unavailable Care Team Providers Care Circular Knitter Name Role Phone Kendal Chinchilla MD Unavailable Doctor, Miscellaneous Unavailable Unavailable Rodrigo Ayala MD PCP Hieu Salgado MD Unavailable Jennifer Lindo RN Unavailable Unavailable Peri Bae MD Unavailable Source Comments Some departments are not documenting in the electronic medical record. If you d o not see the information that you expected, contact Release of Information in [facility] [employer] Information Management department at [phone] for further assistan ce in locating additional records.[facility] Allergies Comments Active Allergy Reactions Severity Noted Date Can tolerate it now Codeine RASH 01/04/2011 Vancomycin RASH 06/04/2011 Medications End Date Status Medication Sig Dispensed Refills Start Date Active ascorbic acid (VITAMIN-C) Take 1 Tab by 30 Tab 0 500 mg tablet mouth daily. 1 Active PARoxetine (PAXIL) 10 mg Take 20 mg by 0 tablet mouth daily. Active omeprazole DR(+) Take 20 mg by 0 (PRILOSEC) 20 mg capsule mouth daily. Active oxyCODONE/acetaminophen Take 1-2 Tabs 90 Tab 0 (PERCOCET; ENDOCET; by mouth 2 ROXICET) 5/325 mg tablet every 4 hours as needed for Pain. Max 12 tabs/day Active enoxaparin (LOVENOX) 40 Inject 0.4 mL 40 Syringe 0 mg Syrg into area(s) 2 as directed daily. 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 Drinks/Week oz/Week Comments Alcohol Use 6 Cans of beer 6.0 Yes Sex Assigned at Date Recorded Not on file Industry Job Start Date Occupation Not on file Not on file Not on file Travel End Travel History Travel Start No recent travel history available. 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 Respiratory Rate 100% 06/25/2011 4:42 PM CDT Oxygen Saturation - - Inhaled Oxygen Concentration 65.1 kg (143 lb 9.6 oz) 06/22/2011 8:30 PM CDT Weight 182.9 cm (6') 06/22/2011 2:49 PM CDT Height 19.48 06/22/2011 2:49 PM CDT Body Mass Index Plan of Treatment Health Maintenance Due Date Last Done Comments HEPATITIS C SCREENING 1950 PHYSICAL (COMPREHENSIVE) 1966 EXAM COLORECTAL CANCER 1998 SCREENING SHINGLES RECOMBINANT 1998 VACCINE (1 of 2) ABDOMINAL AORTIC ANEURYSM 2013 SCREENING PNEUMONIA (PCV13/PPSV23) 2013 01/04/2011 VACCINES (1 of 2 - PCV13) INFLUENZA VACCINE 10/23/2018 01/04/2011 DTAP/TDAP VACCINES (2 - 01/04/2021 01/04/2011 Td) Results Not on filefrom Last 3 Months Advance Directives Date Inactivated Comments Code Status Date Activated 06/25/2011 10:30 PM Full Code 06/22/2011 7:36 PM Provider has discussed Code Status Yes w/Patient or Family? 02/07/2011 3:56 PM Full Code 02/02/2011 2:42 PM Provider has discussed Code Status Yes w/Patient or Family? 02/02/2011 2:42 PM Full Code 02/02/2011 1:21 PM Provider has discussed Code Status No, more discussi on w/Patient or Family? needed
--- OUTSIDE RECORDS SUMMARY | 2019-03-18 13:54 | XMS REPORT | Continuity of Care Document ---
Author Organization Unknown Address Unknown Phone Unavailable Allergies Active Description Code Type Severity Reaction Onset Reported/Identified Relationship to Patient Clinical Status Yes vancomycin [id number] Drug Allerg y Unknown RASH 04/26/2011 Yes No Known Drug Allergies [id number] Drug Allergy Unknown N/A 12/02/2016 Medications There is no data. Problems Date Dx Coded Attending Type Code Diagnosis Diagnosed By 02/21/1199 DAVID MCFARLANE APRN Ot L59.8 OTH DISRD OF THE SKIN, SUBCU RELATED TO 02/21/1199 DAVID MCFARLANE APRN Ot L97.112 NON-PRS CHRONIC ULCER OF RIGHT THIGH W F 02/21/1199 [address]ID MCF[address]LANE APRN Ot Z92.3 PERSONAL HISTORY OF IRRADIATION 12/27/2008 HEMANT EVANGELISTA APRN S 239.89 NEOPLASMS OF UNSPECIFIED NATURE, OTHER SPECIFIED SITES 12/27/2008 DEBI EVANGELISTA APRNA S 239.89 NEOPLASMS OF UNSPECIFIED NATURE, OTHER SPECIFIED SITES 01/19/2009 HEMANT EVANGELISTA APRN S 300.4 DYSTHYMIC DISORDER 01/19/2009 NATALIE EVANGELISTA APRNNDA S 305.1 NONDEPENDENT ABUSE OF DRUGS, TOBACCO USE DISORDER 01/19/2009 HEMANT EVANGELISTA APRN S V58.69 MEDICATION HIGH RISK 01/19/2009 DEBI EVANGELISTA APRNA S 300.4 DYSTHYMIC DISORDER 01/19/2009 DEBI EVANGELISTA APRNA S 305.1 NONDEPENDENT ABUSE OF DRUGS, TOBACCO USE DISORDER 01/19/2009 DEBI EVANGELISTA APRNA S V58.69 MEDICATION HIGH RISK 07/26/2009 DEBI EVANGELISTA APRNA S 307.42 PERSISTENT DISORDER OF INITIATING OR MAINTAINING SLEEP 07/26/2009 HEMANT EVANGELISTA APRN S V15.09 OTHER PERSONAL HISTORY PRESENTING HAZARD S TO HEALTH, OTHER ALLERGY, OTHER THAN TO MEDICINAL AGENTS 07/26/2009 HEMANT EVANGELISTA APRN S 307.42 PERSISTENT DISORDER OF INITIATING OR MAINTAINING SLEEP 07/26/2009 HEMANT EVANGELISTA APRN V15.09 OTHER PERSONAL HISTORY PRESENTING HAZARD S TO HEALTH, OTHER ALLERGY, OTHER THAN TO MEDICINAL AGENTS 07/27/2009 HEMANT EVANGELISTA APRN 296.32 MO DEPRESSIVE RECURRENT MODERATE 07/27/2009 HEMANT EVANGELISTA APRN 296.32 MO DEPRESSIVE RECURRENT MODERATE 09/13/2009 HEMANT EVANGELISTA APRN 300.00 AN ANXIETY UNSPEC 09/13/2009 HEMANT EVANGELISTA APRN S 300.00 AN ANXIETY UNSPEC 03/16/2010 HEMANT EVANGELISTA APRN V76.44 SCREENING FOR MALIGNANT NEOPLASMS OF THE PROSTATE 03/16/2010 HEMANT EVANGELISTA APRN V76.44 SCREENING FOR MALIGNANT NEOPLASMS OF THE PROSTATE 06/30/2010 Ot 173.7 06/30/2010 Ot 305.1 08/03/2010 Ot 173.7 11/28/2010 Ot 173.7 11/28/2010 Ot 305.1 03/25/2011 Ot 173.72 03/25/2011 Ot 305.1 03/25/2011 Ot 518.89 05/01/2011 Ot 173.72 05/01/2011 Ot 998.59 07/12/2011 Ot 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 07/12/2011 Ot 577.2 PANC REAT CYST/PSEUDOCYST 07/12/2011 Ot 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 10/24/2011 Ot 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 10/24/2011 Ot 577.2 PANC REAT CYST/PSEUDOCYST 10/24/2011 Ot 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 10/24/2011 Ot V58.0 ENCO UNTER FOR RADIOTHERAPY 11/21/2011 HEMANT EVANGELISTA APRN 195.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 LIMB 11/21/2011 HEMANT EVANGELISTA APRN 296.30 MAJOR DEPRESSION, RECURRENT 11/21/2011 HEMANT EVANGELISTA APRN 535.00 GASTRITIS ACUTE 11/21/2011 HEMANT EVANGELISTA APRN 783.7 ADULT FAILURE TO THRIVE 11/21/2011 HEMANT EVANGELISTA APRN 787.91 diarrhea 11/21/2011 HEMANT EVANGELISTA APRN S 195.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 LIMB 11/21/2011 HEMANT EVANGELISTA APRN S 296.30 MAJOR DEPRESSION, RECURRENT 11/21/2011 HEMANT EVANGELISTA APRN S 535.00 GASTRITIS ACUTE 11/21/2011 HEMANT EVANGELISTA APRN S 783.7 ADULT FAILURE TO THRIVE 11/21/2011 HEMANT EVANGELISTA APRN S 787.91 diarrhea 01/29/2012 Ot 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 01/29/2012 Ot V58.0 ENCO UNTER FOR RADIOTHERAPY 01/31/2012 HEMANT EVANEGLISTA APRN S V04.81 FLU DX (3 YRS AND ABOVE, IM) 01/31/2012 HEMANT EVANGELISTA APRN S V04.81 FLU DX (3 YRS AND ABOVE, IM) 08/03/2012 LYNNEALIREZA DALLASINES Otoole Ot 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 08/03/2012 ALIREZA BATISTAINES N Ot 305.1 TOBACCO USE DISORDER 08/03/2012 DONTRELL BATISTA N Ot 401.9 HYPERTENSION NOS 08/03/2012 DONTRELL BATISTA N Ot 793.11 SOLITARY PULMONARY NODULE 08/03/2012 DONTRELL BATISTA N Ot V15.3 HX OF IRRADIATION 08/03/2012 DONTRELL BATISTA Xiang Ot V58.69 OTH MED,LT,CURRENT USE 11/24/2012 DONTRELL BATISTA N Ot 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 11/24/2012 LYNNEDONTRELL N Ot 305.1 TOBACCO USE DISORDER 11/24/2012 LYNNEDONTRELL N Ot 401.9 HYPERTENSION NOS 11/24/2012 DONTRELL BATISTA N Ot 793.11 SOLITARY PULMONARY NODULE 11/24/2012 DONTRELL BATISTA N Ot V15.3 HX OF IRRADIATION 11/24/2012 DONTRELL BATISTA N Ot V58.69 OTH MED,LT,CURRENT USE 12/24/2012 ORACIO MARIE, BILL Craft Ot 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 12/24/2012 BILL NARAYANAN MD Ot 305.1 TOBACCO USE DISORDER 12/24/2012 BILL NARAYANAN MD Ot 401.9 HYPERTENSION NOS 12/24/2012 ORACIO MARIE, BILL Craft Ot 49 6 CHR AIRWAY OBSTRUCT NEC 12/24/2012 BILL NARAYANAN MD Ot 702.0 ACTINIC KERATOSIS 12/24/2012 BILL NARAYANAN MD Ot V10.83 HX-SKIN MALIGNANCY NEC 12/24/2012 BILL NARAYANAN MD Ot V15.3 HX OF IRRADIATION 12/24/2012 BILL NARAYANAN MD Ot V58.69 OTH MED,LT,CURRENT USE 03/06/2013 BILL NARAYANAN MD Ot 707.11 ULCER OF THIGH 04/10/2013 BILL NARAAYNAN MD Ot 709.9 SKIN DISORDER NOS 08/18/2013 DONTRELL BATISTA N Ot 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 08/18/2013 DONTRELL BATISTA N Ot 305.1 TOBACCO USE DISORDER 08/18/2013 DONTRELL BATISTA N Ot 401.9 HYPERTENSION NOS 08/18/2013 DONTRELL BATISTA N Ot 793.11 SOLITARY PULMONARY NODULE 08/18/2013 DONTRELL BATISTA N Ot V15.3 HX OF IRRADIATION 08/18/2013 DONTRELL BATISTA N Ot V58.69 OTH MED,LT,CURRENT USE 08/19/2013 BILL NARAYANAN MD Ot 709.8 SKIN DISORDERS NEC 09/17/2013 BILL NARAYANAN MD Ot 709.8 SKIN DISORDERS NEC 02/17/2014 DONTRELL BATISTA N Ot 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 02/17/2014 DONTRELL BATISTA N Ot 305.1 TOBACCO USE DISORDER 02/17/2014 DONTRELL BATISTA N Ot 401.9 HYPERTENSION NOS 02/17/2014 LYNNEDONTRELL N Ot 793.11 SOLITARY PULMONARY NODULE 02/17/2014 LYNNEDONTRELL DALLAS N Ot V15.3 HX OF IRRADIATION 02/17/2014 DONTRELL BATISTA N Ot V58.69 OTH MED,LT,CURRENT USE 04/07/2014 LYNNEDONTRELL DALLAS N Ot 173.72 04/07/2014 LYNNEDONTRELL DALLAS N Ot 305.1 04/07/2014 LYNNEDONTRELL DALLAS N Ot 401.9 04/07/2014 LYNNE BOBINES N Ot 793.11 04/07/2014 LYNNE, BOBAN N Ot V15.3 04/07/2014 LYNNE, BOBAN N Ot V58.69 04/07/2014 LYNNE, BOBAN N Ot 173.72 04/07/2014 LYNNE, BOBAN N Ot 305.1 04/07/2014 LYNNE, BOBAN N Ot 401.9 04/07/2014 LYNNE, BOBAN N Ot 793.11 04/07/2014 LYNNE, BOBAN N Ot V15.3 04/07/2014 LYNNE, BOBAN N Ot V58.69 04/07/2014 LYNNE, BOBAN N Ot 173.72 04/07/2014 LYNNE, BOBAN N Ot 305.1 04/07/2014 LYNNE, BOBAN N Ot 401.9 04/07/2014 LYNNE, BOBAN N Ot 793.11 04/07/2014 LYNNE, BOBAN N Ot V15.3 04/07/2014 LYNNE, BOBAN N Ot V58.69 04/07/2014 LYNNE, BOBAN N Ot 173.72 04/07/2014 LYNNE, BOBAN N Ot 305.1 04/07/2014 LYNNE, BOBAN N Ot 401.9 04/07/2014 LYNNE, BOBAN N Ot 793.11 04/07/2014 LYNNE, BOBAN N Ot V15.3 04/07/2014 LYNNE, BOBAN N Ot V58.69 04/07/2014 LYNNE, BOBAN N Ot 173.72 04/07/2014 LYNNE, BOBAN N Ot 305.1 04/07/2014 LYNNE, BOBAN N Ot 401.9 04/07/2014 LYNNE, BOBAN N Ot 793.11 04/07/2014 LYNNE, BOBAN N Ot V15.3 04/07/2014 LYNNE, BOBAN N Ot V58.69 04/08/2014 LYNNE, BOBAN N Ot 173.72 04/08/2014 LYNNE, BOBAN N Ot 305.1 04/08/2014 LYNNE, BOBAN N Ot 401.9 04/08/2014 LYNNE, BOBAN N Ot 793.11 04/08/2014 LYNNE, BOBAN N Ot V04.81 04/08/2014 LYNNE, BOBAN N Ot V15.3 04/08/2014 LYNNE, BOBAN N Ot V58.69 05/13/2014 STEPHIE RODRIGUEZ BASKETBALL COACH Ot 173.72 05/13/2014 STEPHIE RODRIGUEZ BASKETBALL COACH Ot 305.1 05/13/2014 STEPHIE RODRIGUEZ BASKETBALL COACH Ot 401.9 05/13/2014 STEPHIE RODRIGUEZ BASKETBALL COACH Ot 793.11 05/13/2014 STEPHIE RODRIGUEZ BASKETBALL COACH Ot V15.3 05/13/2014 STEPHIE RODRIGUEZ BASKETBALL COACH Ot V58.69 05/18/2014 STEPHIE RODRIGUEZ BASKETBALL COACH Ot 173.72 05/18/2014 STEPHIE RODRIGUEZ BASKETBALL COACH Ot 305.1 05/18/2014 STEPHIE RODRIGUEZ BASKETBALL COACH Ot 401.9 05/18/2014 STEPHIE RODRIGUEZ BASKETBALL COACH Ot 793.11 05/18/2014 STEPHIE RODRIGUEZ BASKETBALL COACH Ot V15.3 05/18/2014 STEPHIE RODRIGUEZ BASKETBALL COACH Ot V58.69 07/06/2014 DONTRELL BATISTA Xiang Ot 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 07/06/2014 DOTNRELL BATISTA Xiang Ot 305.1 TOBACCO USE DISORDER 07/06/2014 DONTRELL BATISTA Xiang Ot 401.9 HYPERTENSION NOS 07/06/2014 LYNNE DONTRELL Xiang Ot 793.11 SOLITARY PULMONARY NODULE 07/06/2014 DONTRELL BATISTA Xiang Ot V04.81 ND FOR PROPHYLACTIC VACCIN AND INOCULATI 07/06/2014 LYNNE DONTRELL Xiang Ot V15.3 HX OF IRRADIATION 07/06/2014 DONTRELL BATISTA Xiang Ot V58.69 OT MED,LT,CURRENT USE 08/02/2014 Ot 171.3 08/02/2014 Ot V72.83 08/02/2014 Ot V74.8 08/02/2014 Ot 711.96 08/02/2014 Ot 715.36 08/02/2014 Ot V45.89 08/02/2014 Ot 711.96 08/02/2014 Ot V81.5 08/02/2014 Ot 173.7 08/02/2014 Ot V72.63 08/02/2014 Ot V74.8 08/02/2014 Ot 173.7 08/02/2014 Ot V58.69 08/02/2014 Ot V67.09 08/02/2014 Ot 173.7 08/02/2014 Ot 518.89 08/02/2014 Ot 562.10 08/02/2014 Ot 173.7 08/02/2014 Ot 518.89 08/02/2014 Ot 577.2 08/02/2014 Ot 709.9 08/02/2014 Ot 707.10 08/02/2014 Ot V72.83 08/02/2014 Ot 682.6 08/02/2014 Ot 998.59 08/02/2014 Ot V58.62 08/02/2014 Ot V58.62 08/02/2014 Ot V58.83 08/02/2014 Ot 998.59 08/02/2014 Ot V58.62 08/02/2014 Ot 998.59 08/02/2014 Ot V58.62 08/02/2014 Ot 998.59 08/02/2014 Ot V58.62 08/02/2014 Ot 998.59 08/02/2014 Ot 998.59 08/02/2014 Ot 173.72 08/02/2014 Ot 728.0 08/02/2014 Ot 998.59 08/02/2014 Ot V58.62 08/02/2014 Ot 998.59 08/02/2014 Ot V58.69 08/02/2014 Ot 998.59 08/02/2014 Ot V58.69 08/02/2014 Ot 998.59 08/02/2014 Ot 998.59 08/02/2014 Ot 173.72 08/02/2014 Ot 492.8 08/02/2014 Ot 577.2 08/02/2014 Ot 728.9 08/02/2014 Ot 785.6 08/02/2014 Ot 793.19 08/02/2014 Ot 173.72 08/02/2014 Ot 793.11 08/02/2014 Ot 492.8 08/02/2014 Ot 786.09 08/02/2014 Ot 786.2 08/02/2014 Ot 173.72 08/02/2014 Ot 305.1 08/02/2014 Ot 793.11 08/02/2014 Ot V15.3 08/02/2014 Ot V58.69 08/02/2014 Ot 173.72 08/02/2014 Ot 305.1 08/02/2014 Ot 338.3 08/02/2014 Ot 401.9 08/02/2014 Ot 793.11 08/02/2014 Ot V15.3 08/02/2014 Ot V58.69 08/02/2014 Ot 173.72 08/02/2014 Ot 305.1 08/02/2014 Ot 401.9 08/02/2014 Ot 729.5 08/02/2014 Ot 793.11 08/02/2014 Ot V15.3 08/02/2014 Ot V58.69 08/02/2014 MICHAELSTEPHIE S BASKETBALL COACH Ot 173.72 08/02/2014 MICHAELSTEPHIE S BASKETBALL COACH Ot 282.7 08/02/2014 MICHAELCARO S BASKETBALL COACH Ot 305.1 08/02/2014 MICHAELSTEPHIE S BASKETBALL COACH Ot 338.28 08/02/2014 MICHAELSTEPHIE S BASKETBALL COACH Ot 790.6 08/02/2014 MICHAELSTEPHIE S BASKETBALL COACH Ot 793.19 08/02/2014 MICHAEL STEPHIE S BASKETBALL COACH Ot V15.3 08/02/2014 MICHAELSTEPHIE S BASKETBALL COACH Ot V58.69 08/02/2014 MICHAELCARO S BASKETBALL COACH Ot 173.72 08/02/2014 MICHAELSTEPHIE S BASKETBALL COACH Ot 577.8 08/02/2014 MICHAELSTEPHIE S BASKETBALL COACH Ot 793.11 08/02/2014 MICHAELSTEPHIE S BASKETBALL COACH Ot 173.72 08/02/2014 MICHAELSTEPHIE S BASKETBALL COACH Ot 282.7 08/02/2014 MICHAEL STEPHIE S BASKETBALL COACH Ot 305.00 08/02/2014 MICHAEL STEPHIE S BASKETBALL COACH Ot 305.1 08/02/2014 RODRIGUEZ, HIL S BASKETBALL COACH Ot 401.9 08/02/2014 RODRIGUEZSTEPHIE Craft S BASKETBALL COACH Ot 4 96 08/02/2014 MICHAELSTEPHIE S BASKETBALL COACH Ot 793.19 08/02/2014 MICHAEL STEPHIE S BASKETBALL COACH Ot V15.3 08/02/2014 MICHAELSTEPHIE S BASKETBALL COACH Ot V58.69 08/02/2014 MICHAEL STEPHIE S BASKETBALL COACH Ot 173.72 08/02/2014 MICHAEL STEPHIE S BASKETBALL COACH Ot 282.7 08/02/2014 MICHAEL STEPHIE S BASKETBALL COACH Ot 305.00 08/02/2014 STEPHIE RODRIGUEZ BASKETBALL COACH Ot 305.1 08/02/2014 STEPHIE RODRIGUEZ BASKETBALL COACH Ot 401.9 08/02/2014 STEPHIE RODRIGUEZ S BASKETBALL COACH Ot 4 96 08/02/2014 STEPHIE RODRIGUEZ S BASKETBALL COACH Ot 793.19 08/02/2014 STEPHIE RODRIGUEZ S BASKETBALL COACH Ot V15.3 08/02/2014 STEPHIE RODRIGUEZ S BASKETBALL COACH Ot V58.69 08/02/2014 ORACIO MARIE, BILL S Ot 173.72 08/02/2014 ORACIO MARIE, BILL S Ot V72.63 08/02/2014 ORACIO MARIE, BILL S Ot V72.81 08/02/2014 ORACIO MARIE, BILL S Ot V74.8 08/02/2014 STEPHIE RODRIGUEZ S BASKETBALL COACH Ot 173.72 08/02/2014 STEPHIE RODRIGUEZ S BASKETBALL COACH Ot 275.01 08/02/2014 STEPHIE RODRIGUEZ S BASKETBALL COACH Ot 305.1 08/02/2014 STEPHIE RODRIGUEZ S BASKETBALL COACH Ot 355.9 08/02/2014 STEPHIE RODRIGUEZ BASKETBALL COACH Ot 4 96 08/02/2014 STEPHIE RODRIGUEZ BASKETBALL COACH Ot V15.3 08/02/2014 STEPHIE RODRIGUEZ S BASKETBALL COACH Ot V58.69 08/02/2014 JAZMIN MARIE, AUREA Castillo Ot 300. 00 08/02/2014 AUREA MILLER MD Ot 397. 0 08/02/2014 JAZMIN MARIE, AUREA Castillo Ot 424. 0 08/02/2014 AUREA MILLER MD Ot 477. 9 08/02/2014 JAZMIN MARIE, AUREA Castillo Ot 496 08/02/2014 AUREA MILLER MD Ot 780. 4 08/02/2014 JAZMIN MARIE, AUREA Castillo Ot 780. 79 08/02/2014 AUREA MILLER MD Ot 785. 1 08/02/2014 AUREA MILLER MD Ot 786. 05 08/02/2014 AUREA MILLER MD Ot 786. 50 08/02/2014 AUREA MILLER MD Ot 793. 11 08/02/2014 AUREA MILLER MD Ot 496 08/02/2014 AUREA MILLER MD Ot 786. 50 08/02/2014 RODRIGUEZSTEPHIE Craft S BASKETBALL COACH Ot 173.72 08/02/2014 RODRIGUEZSTEPHIE Craft S BASKETBALL COACH Ot 275.01 08/02/2014 STEPHIE RODRIGUEZ S BASKETBALL COACH Ot V15.3 08/02/2014 STEPHIE RODRIGUEZ S BASKETBALL COACH Ot V58.69 08/02/2014 ORACIO MARIE, BILL S Ot 709.9 08/02/2014 ORACIO MARIE, BILL S Ot V72.83 08/02/2014 ORACIO MARIE, BILL S Ot V74.8 08/02/2014 ALIREZA BATISTAAN N Ot 173.72 08/02/2014 LYNNE, ALIREZAAN N Ot 492.8 08/02/2014 LYNNEDONTRELL DALLAS N Ot 793.11 08/02/2014 LYNNEDONTRELL DALLAS N Ot 793.99 08/02/2014 RODRIGUEZSTEPHIE Craft S BASKETBALL COACH Ot 173.72 08/02/2014 RODRIGUEZ STEPHIE S BASKETBALL COACH Ot 275.01 08/02/2014 RODRIGUEZ STEPHIE S BASKETBALL COACH Ot 305.1 08/02/2014 RODRIGUEZ STEPHIE S BASKETBALL COACH Ot 401.9 08/02/2014 RODRIGUEZ STEPHIE S BASKETBALL COACH Ot 729.5 08/02/2014 RODRIGUEZ STEPHIE S BASKETBALL COACH Ot 793.11 08/02/2014 RODRIGUEZ STEPHIE S BASKETBALL COACH Ot V15.3 08/02/2014 RODRIGUEZ TSEPHIE S BASKETBALL COACH Ot V58.69 08/02/2014 ALIREZA BATISTAAN N Ot 173.72 08/02/2014 LYNNE, ALIREZAAN N Ot 355.8 08/02/2014 LYNNE, ALIREZAAN N Ot 707.11 08/02/2014 LYNNE, BOBAN N Ot 173.72 08/02/2014 LYNNEALIREZA DALLSAAN N Ot 355.8 08/02/2014 RODRIGUEZ STEPHIE S BASKETBALL COACH Ot 173.72 08/02/2014 RODRIGUEZ STEPHIE S BASKETBALL COACH Ot 305.1 08/02/2014 RODRIGUEZ STEPHIE S BASKETBALL COACH Ot 401.9 08/02/2014 RODRIGUEZ STEPHIE S BASKETBALL COACH Ot 793.11 08/02/2014 MICHAEL STEPHIE S BASKETBALL COACH Ot V15.3 08/02/2014 MICHAEL STEPHIE S BASKETBALL COACH Ot V58.69 08/02/2014 LATIA MARIE, BRITTANY Sheree Ot 039 .8 08/02/2014 LATIA MARIE, BRITTANY Sheree Ot 173.72 08/02/2014 LATIA MARIE, BRITTANY Sheree Ot 692.82 08/02/2014 LATIA MARIE, BRITTANY Bentley Ot 707.11 08/02/2014 DONTRELL BATISTA N Ot 173.72 08/02/2014 DONTRELL BATISTA N Ot 305.1 08/02/2014 DONTRELL BATISTA N Ot 401.9 08/02/2014 DONTRELL BATISTA N Ot 793.11 08/02/2014 DONTRELL BATISTA N Ot V04.81 08/02/2014 DONTRELL BATISTA N Ot V15.3 08/02/2014 DONTRELL BATISTA N Ot V58.69 08/11/2014 Ot 171.3 08/11/2014 Ot V72.83 08/11/2014 Ot V74.8 08/11/2014 Ot 711.96 08/11/2014 Ot 715.36 08/11/2014 Ot V45.89 08/11/2014 Ot 711.96 08/11/2014 Ot V81.5 08/11/2014 Ot 173.7 08/11/2014 Ot V72.63 08/11/2014 Ot V74.8 08/11/2014 Ot 173.7 08/11/2014 Ot V58.69 08/11/2014 Ot V67.09 08/11/2014 Ot 173.7 08/11/2014 Ot 518.89 08/11/2014 Ot 562.10 08/11/2014 Ot 173.7 08/11/2014 Ot 518.89 08/11/2014 Ot 577.2 08/11/2014 Ot 709.9 08/11/2014 Ot 707.10 08/11/2014 Ot V72.83 08/11/2014 Ot 682.6 08/11/2014 Ot 998.59 08/11/2014 Ot V58.62 08/11/2014 Ot V58.62 08/11/2014 Ot V58.83 08/11/2014 Ot 998.59 08/11/2014 Ot V58.62 08/11/2014 Ot 998.59 08/11/2014 Ot V58.62 08/11/2014 Ot 998.59 08/11/2014 Ot V58.62 08/11/2014 Ot 998.59 08/11/2014 Ot 998.59 08/11/2014 Ot 173.72 08/11/2014 Ot 728.0 08/11/2014 Ot 998.59 08/11/2014 Ot V58.62 08/11/2014 Ot 998.59 08/11/2014 Ot V58.69 08/11/2014 Ot 998.59 08/11/2014 Ot V58.69 08/11/2014 Ot 998.59 08/11/2014 Ot 998.59 08/11/2014 Ot 173.72 08/11/2014 Ot 492.8 08/11/2014 Ot 577.2 08/11/2014 Ot 728.9 08/11/2014 Ot 785.6 08/11/2014 Ot 793.19 08/11/2014 Ot 173.72 08/11/2014 Ot 793.11 08/11/2014 Ot 492.8 08/11/2014 Ot 786.09 08/11/2014 Ot 786.2 08/11/2014 Ot 173.72 08/11/2014 Ot 305.1 08/11/2014 Ot 793.11 08/11/2014 Ot V15.3 08/11/2014 Ot V58.69 08/11/2014 Ot 173.72 08/11/2014 Ot 305.1 08/11/2014 Ot 338.3 08/11/2014 Ot 401.9 08/11/2014 Ot 793.11 08/11/2014 Ot V15.3 08/11/2014 Ot V58.69 08/11/2014 Ot 173.72 08/11/2014 Ot 305.1 08/11/2014 Ot 401.9 08/11/2014 Ot 729.5 08/11/2014 Ot 793.11 08/11/2014 Ot V15.3 08/11/2014 Ot V58.69 08/11/2014 STEPHIE RODRIGUEZ BASKETBALL COACH Ot 173.72 08/11/2014 STEPHIE RODRIGUEZ BASKETBALL COACH Ot 282.7 08/11/2014 STEPHIE RODRIGUEZ BASKETBALL COACH Ot 305.1 08/11/2014 STEPHIE RODRIGUEZ BASKETBALL COACH Ot 338.28 08/11/2014 STEPHIE RODRIGUEZ BASKETBALL COACH Ot 790.6 08/11/2014 STEPHIE RODRIGUEZ BASKETBALL COACH Ot 793.19 08/11/2014 STEPHIE RODRIGUEZ BASKETBALL COACH Ot V15.3 08/11/2014 STEPHIE RODRIGUEZ S BASKETBALL COACH Ot V58.69 08/11/2014 STEPHIE RODRIGUEZ S BASKETBALL COACH Ot 173.72 08/11/2014 STEPHIE RODRIGUEZ BASKETBALL COACH Ot 577.8 08/11/2014 STEPHIE RODRIGUEZ S BASKETBALL COACH Ot 793.11 08/11/2014 STEPHIE RODRIGUEZ S BASKETBALL COACH Ot 173.72 08/11/2014 STEPHIE RODRIGUEZ S BASKETBALL COACH Ot 282.7 08/11/2014 STEPHIE RODRIGUEZ S BASKETBALL COACH Ot 305.00 08/11/2014 STEPHIE RODRIGUEZ S BASKETBALL COACH Ot 305.1 08/11/2014 STEPHIE RODRIGUEZ S BASKETBALL COACH Ot 401.9 08/11/2014 STEPHIE RODRIGUEZ S BASKETBALL COACH Ot 4 96 08/11/2014 STEPHIE RODRIGUEZ S BASKETBALL COACH Ot 793.19 08/11/2014 STEPHIE RODRIGUEZ S BASKETBALL COACH Ot V15.3 08/11/2014 STEPIHE RODRIGUEZ S BASKETBALL COACH Ot V58.69 08/11/2014 STEPHIE RODRIGUEZ S BASKETBALL COACH Ot 173.72 08/11/2014 STEPHIE RODRIGUEZ S BASKETBALL COACH Ot 282.7 08/11/2014 STEPHIE RODRIGUEZ S BASKETBALL COACH Ot 305.00 08/11/2014 STEPHIE RODRIGUEZ S BASKETBALL COACH Ot 305.1 08/11/2014 STEPHIE RODRIGUEZ S BASKETBALL COACH Ot 401.9 08/11/2014 STEPHIE RODRIGUEZ S BASKETBALL COACH Ot 4 96 08/11/2014 STEPHIE RODRIGUEZ S BASKETBALL COACH Ot 793.19 08/11/2014 STEPHIE RODRIGUEZ S BASKETBALL COACH Ot V15.3 08/11/2014 RODRIGUEZSTEPHIE Craft S BASKETBALL COACH Ot V58.69 08/11/2014 ORACIO MARIE, BILL S Ot 173.72 08/11/2014 ORACIO MARIE, BILL S Ot V72.63 08/11/2014 ORACIO MARIE, BILL S Ot V72.81 08/11/2014 ORACIO MARIE, BILL S Ot V74.8 08/11/2014 RODRIGUEZSTEPHIE S BASKETBALL COACH Ot 173.72 08/11/2014 STEPHIE RODRIGUEZ S BASKETBALL COACH Ot 275.01 08/11/2014 STEPHIE RODRIGUEZ S BASKETBALL COACH Ot 305.1 08/11/2014 STEPHIE RODRIGUEZ S BASKETBALL COACH Ot 355.9 08/11/2014 STEPHIE RODRIGUEZ S BASKETBALL COACH Ot 4 96 08/11/2014 STEPHIE RODRIGUEZ S BASKETBALL COACH Ot V15.3 08/11/2014 STEPHIE RODRIGUEZ S BASKETBALL COACH Ot V58.69 08/11/2014 JAZMIN MARIE, AUREA J Ot 300. 00 08/11/2014 JAZMIN MARIE, AUREA J Ot 397. 0 08/11/2014 JAZMIN MARIE, AUREA J Ot 424. 0 08/11/2014 JAZMIN MARIE, AUREA J Ot 477. 9 08/11/2014 JAZMIN MARIE, AUREA J Ot 496 08/11/2014 JAZMIN MARIE, AUREA J Ot 780. 4 08/11/2014 JAZMIN MARIE, AUREA J Ot 780. 79 08/11/2014 JAZMIN MARIE, AUREA J Ot 785. 1 08/11/2014 JAZMIN MARIE, AUREA J Ot 786. 05 08/11/2014 JAZMIN MARIE, AUREA J Ot 786. 50 08/11/2014 JAZMIN MARIE, ARUEA J Ot 793. 11 08/11/2014 JAZMIN MARIE, AUREA J Ot 496 08/11/2014 JAZMIN MARIE, AUREA J Ot 786. 50 08/11/2014 STEPHIE RODRIGUEZ BASKETBALL COACH Ot 173.72 08/11/2014 STEPHIE RODRIGUEZ S BASKETBALL COACH Ot 275.01 08/11/2014 STEPHIE RODRIGUEZ S BASKETBALL COACH Ot V15.3 08/11/2014 STEPHIE RODRIGUEZ S BASKETBALL COACH Ot V58.69 08/11/2014 ORACIO MARIE, BILL S Ot 709.9 08/11/2014 ORACIO MARIE, BILL S Ot V72.83 08/11/2014 ORACIO MARIE, BILL S Ot V74.8 08/11/2014 DONTRELL BATISTA Ot 173.72 08/11/2014 DONTRELL BATISTA Ot 492.8 08/11/2014 DONTRELL BATISTA Ot 793.11 08/11/2014 DONTRELL BATISTA Ot 793.99 08/11/2014 STEPHIE RODRIGUEZ BASKETBALL COACH Ot 173.72 08/11/2014 STEPHIE RODRIGUEZ S BASKETBALL COACH Ot 275.01 08/11/2014 STEPHIE RODRIGUEZ S BASKETBALL COACH Ot 305.1 08/11/2014 STEPHIE RODRIGUEZ S BASKETBALL COACH Ot 401.9 08/11/2014 STEPHIE RODRIGUEZ S BASKETBALL COACH Ot 729.5 08/11/2014 STEPHIE RODRIGUEZ S BASKETBALL COACH Ot 793.11 08/11/2014 STEPHIE RODRIGUEZ S BASKETBALL COACH Ot V15.3 08/11/2014 STEPHIE RODRIGUEZ S BASKETBALL COACH Ot V58.69 08/11/2014 LYNNE, BOBAN N Ot 173.72 08/11/2014 LYNNE, BOBAN N Ot 355.8 08/11/2014 LYNNE, BOBAN N Ot 707.11 08/11/2014 LYNNE, BOBAN N Ot 173.72 08/11/2014 LYNNE, BOBAN N Ot 355.8 08/11/2014 STEPHIE RODRIGUEZ S BASKETBALL COACH Ot 173.72 08/11/2014 STEPHIE RODRIGUEZ BASKETBALL COACH Ot 305.1 08/11/2014 STEPHIE RODRIGUEZ BASKETBALL COACH Ot 401.9 08/11/2014 STEPHIE RODRIGUEZ BASKETBALL COACH Ot 793.11 08/11/2014 STEPHIE RODRIGUEZ S BASKETBALL COACH Ot V15.3 08/11/2014 STEPHIE RODRIGUEZ S BASKETBALL COACH Ot V58.69 08/11/2014 LATIA MARIE, BRITTANY Bentley Ot 039 .8 08/11/2014 LATIA MARIE, BRITTANY Bentley Ot 173.72 08/11/2014 LATIA MARIE, BRITTANY Bentley Ot 692.82 08/11/2014 LATIA MARIE, BRITTANY Bentley Ot 707.11 08/11/2014 LYNNE, BOBAN N Ot 173.72 08/11/2014 LYNNE, BOBAN N Ot 305.1 08/11/2014 LYNNE, BOBAN N Ot 401.9 08/11/2014 LYNNE, BOBAN N Ot 793.11 08/11/2014 LYNNE, BOBAN N Ot V04.81 08/11/2014 LYNNE, BOBAN N Ot V15.3 08/11/2014 LYNNE, BOBAN N Ot V58.69 08/12/2014 LATIA MARIE, BRITTANY Bentley Ot 492 .8 08/12/2014 LATIA MARIE, BRITTANY Bentley Ot 707.11 08/12/2014 LATIA MARIE, BRITTANY Bentley Ot V10.83 08/12/2014 LATIA MARIE, BRITTANY Bentley Ot V15 .3 08/23/2014 LATIA MARIE, BRITTANY Bentley Ot 039 .8 08/23/2014 LATIA MARIE, BRITTANY Bentley Ot 173.72 08/23/2014 LATIA MARIE, BRITTANY Bentley Ot 692.82 08/23/2014 LATIA MARIE, BRITTANY Bentley Ot 707.11 08/23/2014 Ot 171.3 08/23/2014 Ot V72.83 08/23/2014 Ot V74.8 08/23/2014 Ot 711.96 08/23/2014 Ot 715.36 08/23/2014 Ot V45.89 08/23/2014 Ot 711.96 08/23/2014 Ot V81.5 08/23/2014 Ot 173.7 08/23/2014 Ot V72.63 08/23/2014 Ot V74.8 08/23/2014 Ot 173.7 08/23/2014 Ot V58.69 08/23/2014 Ot V67.09 08/23/2014 Ot 173.7 08/23/2014 Ot 518.89 08/23/2014 Ot 562.10 08/23/2014 Ot 173.7 08/23/2014 Ot 518.89 08/23/2014 Ot 577.2 08/23/2014 Ot 709.9 08/23/2014 Ot 707.10 08/23/2014 Ot V72.83 08/23/2014 Ot 682.6 08/23/2014 Ot 998.59 08/23/2014 Ot V58.62 08/23/2014 Ot V58.62 08/23/2014 Ot V58.83 08/23/2014 Ot 998.59 08/23/2014 Ot V58.62 08/23/2014 Ot 998.59 08/23/2014 Ot V58.62 08/23/2014 Ot 998.59 08/23/2014 Ot V58.62 08/23/2014 Ot 998.59 08/23/2014 Ot 998.59 08/23/2014 Ot 173.72 08/23/2014 Ot 728.0 08/23/2014 Ot 998.59 08/23/2014 Ot V58.62 08/23/2014 Ot 998.59 08/23/2014 Ot V58.69 08/23/2014 Ot 998.59 08/23/2014 Ot V58.69 08/23/2014 Ot 998.59 08/23/2014 Ot 998.59 08/23/2014 Ot 173.72 08/23/2014 Ot 492.8 08/23/2014 Ot 577.2 08/23/2014 Ot 728.9 08/23/2014 Ot 785.6 08/23/2014 Ot 793.19 08/23/2014 Ot 173.72 08/23/2014 Ot 793.11 08/23/2014 Ot 492.8 08/23/2014 Ot 786.09 08/23/2014 Ot 786.2 08/23/2014 Ot 173.72 08/23/2014 Ot 305.1 08/23/2014 Ot 793.11 08/23/2014 Ot V15.3 08/23/2014 Ot V58.69 08/23/2014 Ot 173.72 08/23/2014 Ot 305.1 08/23/2014 Ot 338.3 08/23/2014 Ot 401.9 08/23/2014 Ot 793.11 08/23/2014 Ot V15.3 08/23/2014 Ot V58.69 08/23/2014 Ot 173.72 08/23/2014 Ot 305.1 08/23/2014 Ot 401.9 08/23/2014 Ot 729.5 08/23/2014 Ot 793.11 08/23/2014 Ot V15.3 08/23/2014 Ot V58.69 08/23/2014 STEPHIE RODRIGUEZ BASKETBALL COACH Ot 173.72 08/23/2014 STEPHIE RODRIGUEZ BASKETBALL COACH Ot 282.7 08/23/2014 STEHPIE RODRIGUEZ BASKETBALL COACH Ot 305.1 08/23/2014 STEPHIE RODRIGUEZ BASKETBALL COACH Ot 338.28 08/23/2014 STEPHIE RODRIGUEZP Ot 790.6 08/23/2014 STEPHIE RODRIGUEZ BASKETBALL COACH Ot 793.19 08/23/2014 STEPHIE RODRIGUEZ BASKETBALL COACH Ot V15.3 08/23/2014 STEPHIE RODRIGUEZP Ot V58.69 08/23/2014 STEPHIE RODRIGUEZ BASKETBALL COACH Ot 173.72 08/23/2014 STEPHIE RODRIGUEZ BASKETBALL COACH Ot 577.8 08/23/2014 STEPHIE RODRIGUEZ S BASKETBALL COACH Ot 793.11 08/23/2014 STEPHIE RODRIGUEZ S BASKETBALL COACH Ot 173.72 08/23/2014 STEPHIE RODRIGUEZ S BASKETBALL COACH Ot 282.7 08/23/2014 STEPHIE RODRIGUEZ S BASKETBALL COACH Ot 305.00 08/23/2014 STEPHIE RODRIGUEZ S BASKETBALL COACH Ot 305.1 08/23/2014 STEPHIE RODRIGUEZ S BASKETBALL COACH Ot 401.9 08/23/2014 STEPHIE RODRIGUEZ S BASKETBALL COACH Ot 4 96 08/23/2014 STEPHIE RODRIGUEZ S BASKETBALL COACH Ot 793.19 08/23/2014 STEPHIE RODRIGUEZ S BASKETBALL COACH Ot V15.3 08/23/2014 STEPHIE RODRIGUEZ S BASKETBALL COACH Ot V58.69 08/23/2014 STEPHIE RODRIGUEZ S BASKETBALL COACH Ot 173.72 08/23/2014 STEPHIE RODRIGUEZ S BASKETBALL COACH Ot 282.7 08/23/2014 STEPHIE RODRIGUEZ S BASKETBALL COACH Ot 305.00 08/23/2014 STEPHIE RODRIGUEZ S BASKETBALL COACH Ot 305.1 08/23/2014 STEPHIE RODRIGUEZ S BASKETBALL COACH Ot 401.9 08/23/2014 STEPHIE RODRIGUEZ S BASKETBALL COACH Ot 4 96 08/23/2014 STEPHIE RODRIGUEZ S BASKETBALL COACH Ot 793.19 08/23/2014 STEPHIE RODRIGUEZ S BASKETBALL COACH Ot V15.3 08/23/2014 STEPHIE RODRIGUEZ S BASKETBALL COACH Ot V58.69 08/23/2014 ORACIO MARIE, BILL S Ot 173.72 08/23/2014 ORACIO MARIE, BILL S Ot V72.63 08/23/2014 ORACIO MARIE, BILL S Ot V72.81 08/23/2014 ORACIO MARIE, BILL S Ot V74.8 08/23/2014 RODRIGUEZSTEPHIE Craft S BASKETBALL COACH Ot 173.72 08/23/2014 RODRIGUEZSTEPHIE Craft S BASKETBALL COACH Ot 275.01 08/23/2014 RODRIGUEZSTEPHIE Craft S BASKETBALL COACH Ot 305.1 08/23/2014 RODRIGUEZSTEPHIE Craft S BASKETBALL COACH Ot 355.9 08/23/2014 RODRIGUEZSTEPHIE Craft S BASKETBALL COACH Ot 4 96 08/23/2014 MICHAEL STEPHIE Craft BASKETBALL COACH Ot V15.3 08/23/2014 MICHAEL STEPHIE S BASKETBALL COACH Ot V58.69 08/23/2014 JAZMIN MARIE, AUREA J Ot 300. 00 08/23/2014 JAZMIN MARIE, ARUEA J Ot 397. 0 08/23/2014 JAZMIN MARIE, AUREA J Ot 424. 0 08/23/2014 JAZMIN MARIE, AUREA Castillo Ot 477. 9 08/23/2014 JAZMIN MARIE, AUREA J Ot 496 08/23/2014 JAZMIN MARIE, AUREA J Ot 780. 4 08/23/2014 JAZMIN MARIE, AUREA J Ot 780. 79 08/23/2014 JAZMIN MARIE, AUREA Castillo Ot 785. 1 08/23/2014 JAZMIN MARIE, AUREA Castillo Ot 786. 05 08/23/2014 JAZMIN MARIE, AUREA Castillo Ot 786. 50 08/23/2014 JAZMIN MARIE, AUREA Castillo Ot 793. 11 08/23/2014 JAZMIN MARIE, AUREA J Ot 496 08/23/2014 JAZMIN MARIE, AUREA Castillo Ot 786. 50 08/23/2014 MICHAEL STEPHIE Luana BASKETBALL COACH Ot 173.72 08/23/2014 STEPHIE RODRIGUEZ BASKETBALL COACH Ot 275.01 08/23/2014 STEPHIE RODRIGUEZ BASKETBALL COACH Ot V15.3 08/23/2014 MICHAEL STEPHIE S BASKETBALL COACH Ot V58.69 08/23/2014 ORACIO MARIE, BILL S Ot 709.9 08/23/2014 ORACIO MARIE, BILL S Ot V72.83 08/23/2014 ORACIO MARIE, BILL S Ot V74.8 08/23/2014 DONTRELL BATISTA N Ot 173.72 08/23/2014 LYNNEDONTRELL DALLAS N Ot 492.8 08/23/2014 DONTRELL BATISTA N Ot 793.11 08/23/2014 DONTRELL BATISTA N Ot 793.99 08/23/2014 STEPHIE RODRIGUEZ S BASKETBALL COACH Ot 173.72 08/23/2014 STEPHIE RODRIGUEZ S BASKETBALL COACH Ot 275.01 08/23/2014 STEPHIE RODRIGUEZ BASKETBALL COACH Ot 305.1 08/23/2014 STEPHIE RODRIGUEZ S BASKETBALL COACH Ot 401.9 08/23/2014 STEPHIE RODRIGUEZ BASKETBALL COACH Ot 729.5 08/23/2014 RODRIGUEZSTEPHIE Craft S BASKETBALL COACH Ot 793.11 08/23/2014 STEPHIE RODRIGUEZ S BASKETBALL COACH Ot V15.3 08/23/2014 STEPHIE RODRIGUEZ S BASKETBALL COACH Ot V58.69 08/23/2014 LYNNE, ALIREZAAN N Ot 173.72 08/23/2014 LYNNE, BOBAN N Ot 355.8 08/23/2014 LYNNE, BOBAN N Ot 707.11 08/23/2014 LYNNE, BOBAN N Ot 173.72 08/23/2014 LYNNE, BOBAN N Ot 355.8 08/23/2014 RODRIGUEZSTEPHIE Craft S BASKETBALL COACH Ot 173.72 08/23/2014 STEPHIE RODRIGUEZ S BASKETBALL COACH Ot 305.1 08/23/2014 STEPHIE RODRIGUEZ S BASKETBALL COACH Ot 401.9 08/23/2014 RODRIGUEZSTEPHIE Craft S BASKETBALL COACH Ot 793.11 08/23/2014 STEPHIE RODRIGUEZ S BASKETBALL COACH Ot V15.3 08/23/2014 STEPHIE RODRIGUEZ S BASKETBALL COACH Ot V58.69 08/23/2014 LATIA MARIE, BRITTANY Bentley Ot 039 .8 08/23/2014 LATIA MARIE, BRITTANY Bentley Ot 173.72 08/23/2014 LATIA MARIE, BRITTANY Bentley Ot 692.82 08/23/2014 LATIA MARIE, BRITTANY Bentley Ot 707.11 08/23/2014 LYNNE, BOBAN N Ot 173.72 08/23/2014 LYNNE, BOBAN N Ot 305.1 08/23/2014 LYNNE, BOBAN N Ot 401.9 08/23/2014 LYNNE, BOBAN N Ot 793.11 08/23/2014 LYNNE, BOBAN N Ot V04.81 08/23/2014 LYNNE, BOBAN N Ot V15.3 08/23/2014 LYNNE, BOBAN N Ot V58.69 08/23/2014 LATIA MARIE, BRITTANY Bentley Ot 492 .8 08/23/2014 LATIA MARIE, BRITTANY Bentley Ot 707.11 08/23/2014 LATIA MARIE, BRITTANY Bentley Ot V10.83 08/23/2014 LATIA MARIE, BRITTANY Bentley Ot V15 .3 09/02/2014 LATIA MARIE, BRITTANY Bentley Ot 492 .8 09/02/2014 LATIA MARIE, BRITTANY Bentley Ot 707.11 09/02/2014 LATIA MARIE, BRITTANY Bentley Ot V10.83 09/02/2014 LATIA MARIE, BRITTANY Bentley Ot V15 .3 09/06/2014 Ot 171.3 09/06/2014 Ot V72.83 09/06/2014 Ot V74.8 09/06/2014 Ot 711.96 09/06/2014 Ot 715.36 09/06/2014 Ot V45.89 09/06/2014 Ot 711.96 09/06/2014 Ot V81.5 09/06/2014 Ot 173.7 09/06/2014 Ot V72.63 09/06/2014 Ot V74.8 09/06/2014 Ot 173.7 09/06/2014 Ot V58.69 09/06/2014 Ot V67.09 09/06/2014 Ot 173.7 09/06/2014 Ot 518.89 09/06/2014 Ot 562.10 09/06/2014 Ot 173.7 09/06/2014 Ot 518.89 09/06/2014 Ot 577.2 09/06/2014 Ot 709.9 09/06/2014 Ot 707.10 09/06/2014 Ot V72.83 09/06/2014 Ot 682.6 09/06/2014 Ot 998.59 09/06/2014 Ot V58.62 09/06/2014 Ot V58.62 09/06/2014 Ot V58.83 09/06/2014 Ot 998.59 09/06/2014 Ot V58.62 09/06/2014 Ot 998.59 09/06/2014 Ot V58.62 09/06/2014 Ot 998.59 09/06/2014 Ot V58.62 09/06/2014 Ot 998.59 09/06/2014 Ot 998.59 09/06/2014 Ot 173.72 09/06/2014 Ot 728.0 09/06/2014 Ot 998.59 09/06/2014 Ot V58.62 09/06/2014 Ot 998.59 09/06/2014 Ot V58.69 09/06/2014 Ot 998.59 09/06/2014 Ot V58.69 09/06/2014 Ot 998.59 09/06/2014 Ot 998.59 09/06/2014 Ot 173.72 09/06/2014 Ot 492.8 09/06/2014 Ot 577.2 09/06/2014 Ot 728.9 09/06/2014 Ot 785.6 09/06/2014 Ot 793.19 09/06/2014 Ot 173.72 09/06/2014 Ot 793.11 09/06/2014 Ot 492.8 09/06/2014 Ot 786.09 09/06/2014 Ot 786.2 09/06/2014 Ot 173.72 09/06/2014 Ot 305.1 09/06/2014 Ot 793.11 09/06/2014 Ot V15.3 09/06/2014 Ot V58.69 09/06/2014 Ot 173.72 09/06/2014 Ot 305.1 09/06/2014 Ot 338.3 09/06/2014 Ot 401.9 09/06/2014 Ot 793.11 09/06/2014 Ot V15.3 09/06/2014 Ot V58.69 09/06/2014 Ot 173.72 09/06/2014 Ot 305.1 09/06/2014 Ot 401.9 09/06/2014 Ot 729.5 09/06/2014 Ot 793.11 09/06/2014 Ot V15.3 09/06/2014 Ot V58.69 09/06/2014 STEPHIE RODRIGUEZ BASKETBALL COACH Ot 173.72 09/06/2014 STEPHIE RODRIGUEZ BASKETBALL COACH Ot 282.7 09/06/2014 STEPHIE RODRIGUEZ BASKETBALL COACH Ot 305.1 09/06/2014 STEPHIE RODRIGUEZ BASKETBALL COACH Ot 338.28 09/06/2014 STEPHIE RODRIGUEZ BASKETBALL COACH Ot 790.6 09/06/2014 STEPHIE RODRIGUEZ BASKETBALL COACH Ot 793.19 09/06/2014 STEPHIE RODRIGUEZ BASKETBALL COACH Ot V15.3 09/06/2014 STEPHIE RODRIGUEZ BASKETBALL COACH Ot V58.69 09/06/2014 STEPHIE RODRIGUEZ BASKETBALL COACH Ot 173.72 09/06/2014 STEPHIE RODRIGUEZ BASKETBALL COACH Ot 577.8 09/06/2014 STEPHIE RODRIGUEZ BASKETBALL COACH Ot 793.11 09/06/2014 STEPHIE RODRIGUEZ BASKETBALL COACH Ot 173.72 09/06/2014 STEPHIE RODRIGUEZ BASKETBALL COACH Ot 282.7 09/06/2014 RODRIGUEZSTEPHIE Craft S BASKETBALL COACH Ot 305.00 09/06/2014 STEPHIE RODRIGUEZ S BASKETBALL COACH Ot 305.1 09/06/2014 STEPHIE RODRIGUEZ S BASKETBALL COACH Ot 401.9 09/06/2014 STEPHIE RODRIGUEZ S BASKETBALL COACH Ot 4 96 09/06/2014 STEPHIE RODRIGUEZ S BASKETBALL COACH Ot 793.19 09/06/2014 STEPHIE RODRIGUEZ S BASKETBALL COACH Ot V15.3 09/06/2014 STEPHIE RODRIGUEZ S BASKETBALL COACH Ot V58.69 09/06/2014 STEPHIE RODRIGUEZ S BASKETBALL COACH Ot 173.72 09/06/2014 STEPHIE RODRIGUEZ S BASKETBALL COACH Ot 282.7 09/06/2014 STEPHIE RODRIGUEZ S BASKETBALL COACH Ot 305.00 09/06/2014 STEPHIE RODRIGUEZ S BASKETBALL COACH Ot 305.1 09/06/2014 STEPHIE RODRIGUEZ S BASKETBALL COACH Ot 401.9 09/06/2014 STEPHIE ORDRIGUEZ S BASKETBALL COACH Ot 4 96 09/06/2014 STEPHIE RODRIGUEZ S BASKETBALL COACH Ot 793.19 09/06/2014 STEPHIE RODRIGUEZ S BASKETBALL COACH Ot V15.3 09/06/2014 STEPHIE RODRIGUEZ S BASKETBALL COACH Ot V58.69 09/06/2014 ORACIO MARIE, BILL S Ot 173.72 09/06/2014 ORACIO MARIE, BILL S Ot V72.63 09/06/2014 ORACIO MARIE, BILL S Ot V72.81 09/06/2014 ORACIO MARIE, BILL S Ot V74.8 09/06/2014 STEPHIE RODRIGUEZ S BASKETBALL COACH Ot 173.72 09/06/2014 STEPHIE RODRIGUEZ S BASKETBALL COACH Ot 275.01 09/06/2014 STEPHIE RODIRGUEZ S BASKETBALL COACH Ot 305.1 09/06/2014 STEPHIE RODRIGUEZ S BASKETBALL COACH Ot 355.9 09/06/2014 RODRIGUEZSTEPHIE Craft S BASKETBALL COACH Ot 4 96 09/06/2014 RODRIGUEZSTEPHIE Craft S BASKETBALL COACH Ot V15.3 09/06/2014 RODRIGUEZSTEPHIE Craft S BASKETBALL COACH Ot V58.69 09/06/2014 JAZMIN MARIE, AUREA Castillo Ot 300. 00 09/06/2014 JAZMIN MARIE, AUREA Castillo Ot 397. 0 09/06/2014 JAZMIN MARIE, AUREA J Ot 424. 0 09/06/2014 JAZMIN MARIE, AUREA J Ot 477. 9 09/06/2014 JAZMIN MARIE, AUREA J Ot 496 09/06/2014 JAZMIN MARIE, AUREA J Ot 780. 4 09/06/2014 JAZMIN MARIE, AUREA J Ot 780. 79 09/06/2014 JAZMIN MARIE, AUREA Castillo Ot 785. 1 09/06/2014 JAZMIN MARIE, AUREA Castillo Ot 786. 05 09/06/2014 JAZMIN MARIE, AUREA Castillo Ot 786. 50 09/06/2014 JAZMIN MARIE, AUREA Castillo Ot 793. 11 09/06/2014 JAZMIN MARIE, AUREA Castillo Ot 496 09/06/2014 JAZMIN MARIE, AUREA Castillo Ot 786. 50 09/06/2014 STEPHIE RODRIGUEZ S BASKETBALL COACH Ot 173.72 09/06/2014 STEPHIE RODRIGUEZ S BASKETBALL COACH Ot 275.01 09/06/2014 STEPHIE RODRIGUEZ S BASKETBALL COACH Ot V15.3 09/06/2014 STEPHIE RORDIGUEZ S BASKETBALL COACH Ot V58.69 09/06/2014 ORACIO MARIE, BILL S Ot 709.9 09/06/2014 ORACIO MARIE, BILL S Ot V72.83 09/06/2014 ORACIO MARIE, BILL S Ot V74.8 09/06/2014 DONTRELL BATISTA N Ot 173.72 09/06/2014 DONTRELL BATISTA N Ot 492.8 09/06/2014 DONTRELL BATISTA N Ot 793.11 09/06/2014 DONTRELL BATISTA N Ot 793.99 09/06/2014 STEPHIE RODRIGUEZ S BASKETBALL COACH Ot 173.72 09/06/2014 STEPHIE RODRIGUEZ S BASKETBALL COACH Ot 275.01 09/06/2014 STEPHIE RODRIGUEZ S BASKETBALL COACH Ot 305.1 09/06/2014 STEPHIE RODRIGUEZ S BASKETBALL COACH Ot 401.9 09/06/2014 STEPHIE RODRIGUEZ S BASKETBALL COACH Ot 729.5 09/06/2014 STEPHIE RODRIGUEZ S BASKETBALL COACH Ot 793.11 09/06/2014 STEPHIE RODRIGUEZ S BASKETBALL COACH Ot V15.3 09/06/2014 STEPHIE RODRIGUEZ S BASKETBALL COACH Ot V58.69 09/06/2014 LYNNE, ALIREZAAN N Ot 173.72 09/06/2014 LYNNE, BOBAN N Ot 355.8 09/06/2014 LYNNE, BOBAN N Ot 707.11 09/06/2014 LYNNE, BOBAN N Ot 173.72 09/06/2014 LYNNE, BOBAN N Ot 355.8 09/06/2014 RODRIGUEZSTEPHIE Craft S BASKETBALL COACH Ot 173.72 09/06/2014 RODRIGUEZSTEPHIE S BASKETBALL COACH Ot 305.1 09/06/2014 RODRIGUEZSTEPHIE S BASKETBALL COACH Ot 401.9 09/06/2014 RODRIGUEZSTEPHIE S BASKETBALL COACH Ot 793.11 09/06/2014 RODRIGUEZSTEPHIE Craft S BASKETBALL COACH Ot V15.3 09/06/2014 RODRIGUEZSTEPHIE S BASKETBALL COACH Ot V58.69 09/06/2014 LATIA MARIE, BRITTANY Bentley Ot 039 .8 09/06/2014 LATIA MARIE, BRITTANY Bentley Ot 173.72 09/06/2014 LATIA MARIE, BRITTANY Bentley Ot 692.82 09/06/2014 LATIA MARIE, BRITTANY Bentley Ot 707.11 09/06/2014 LYNNE, BOBAN N Ot 173.72 09/06/2014 LYNNE, BOBAN N Ot 305.1 09/06/2014 LYNNE, BOBAN N Ot 401.9 09/06/2014 LYNNE, BOBAN N Ot 793.11 09/06/2014 LYNNE, BOBAN N Ot V04.81 09/06/2014 LYNNE, BOBAN N Ot V15.3 09/06/2014 LYNNE, BOBAN N Ot V58.69 09/06/2014 LATIA MARIE, BRITTANY Bentley Ot 492 .8 09/06/2014 LATIA MARIE, BRITTANY Bentley Ot 707.11 09/06/2014 LATIA MARIE, BRITTANY Bentley Ot V10.83 09/06/2014 LATIA MARIE, BRITTANY Bentley Ot V15 .3 09/14/2014 LATIA MARIE, BRITTANY Bentley Ot 492 .8 09/14/2014 LATIA MARIE, BRITTANY Bentley Ot 707.11 09/14/2014 LATIA MARIE, BRITTANY Bentley Ot V10.83 09/14/2014 LATIA MARIE, BRITTANY Bentley Ot V15 .3 09/20/2014 LATIA MARIE, BRITTANY Bentley Ot 039 .8 09/20/2014 LATIA MARIE, BRITTANY Bentley Ot 173.72 09/20/2014 LATIA MARIE, BRITTANY Bentley Ot 692.82 09/20/2014 LATIA MARIE, BRITTANY Bentley Ot 707.11 09/20/2014 LATIA MARIE, BRITTANY Bentley Ot 039 .8 09/20/2014 LATIA MARIE, BRITTANY Bentley Ot 173.72 09/20/2014 LATIA MARIE, BRITTANY Bentley Ot 692.82 09/20/2014 LATIA MARIE, BRITTANY Bentley Ot 707.11 09/28/2014 LATIA MARIE, BRITTANY Bentley Ot 039 .8 09/28/2014 LATIA MARIE, BRITTANY Bentley Ot 173.72 09/28/2014 LATIA MARIE, BRITTANY Bentley Ot 692.82 09/28/2014 LATIA MARIE, BRITTANY Bentley Ot 707.11 10/05/2014 LATIA MARIE, BRITTANY Bentley Ot 039 .8 ACTINOMYCOSIS NEC 10/05/2014 LATIA MARIE, BRITTANY Bentley Ot 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 10/05/2014 LATIA MARIE, BRITTANY Bentley Ot 305 .1 TOBACCO USE DISORDER 10/05/2014 LATIA MARIE, BRITTANY Bentley Ot 692.82 DERMATITIS DUE TO OTHER RADIATION 10/05/2014 LATIA MARIE, BRITTANY Bentley Ot 707.11 ULCER OF THIGH 10/05/2014 LATIA MARIE, BRITTANY Bentley Ot 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 10/11/2014 LATIA MARIE, BRITTANY Bentley Ot 039 .8 10/11/2014 LATIA MARIE, BRITTANY Bentley Ot 173.72 10/11/2014 LATIA MARIE, BRITTANY Bentley Ot 692.82 10/11/2014 LATIA MARIE, BRITTANY Bentley Ot 707.11 10/11/2014 LATIA MARIE, BRITTANY Bentley Ot 039 .8 10/11/2014 LATIA MARIE, BRITTANY Bentley Ot 173.72 10/11/2014 LATIA MARIE, BRITTANY Bentley Ot 692.82 10/11/2014 LATIA MARIE, BRITTANY Bentley Ot 707.11 10/12/2014 LATIA MARIE, BRITTANY Bentley Ot 039 .8 10/12/2014 LATIA MARIE, BRITTANY Bentley Ot 173.72 10/12/2014 LATIA MARIE, BRITTANY Bentley Ot 692.82 10/12/2014 LATIA MARIE, BRITTANY Bentley Ot 707.11 10/18/2014 DONTRELL BATISTA Ot 173.72 10/18/2014 DONTRELL BATISTA N Ot 305.1 10/18/2014 DONTRELL BATISTA N Ot 401.9 10/18/2014 DONTRELL BATISTA N Ot 793.11 10/18/2014 DONTRELL BATISTA N Ot V04.81 10/18/2014 DONTRELL BATISTA N Ot V15.3 10/18/2014 DONTRELL BATISTA N Ot V58.69 11/19/2014 BRITTANY JEFFERY MD Ot 427 .9 11/22/2014 Ot 171.3 11/22/2014 Ot V72.83 11/22/2014 Ot V74.8 11/22/2014 Ot 711.96 11/22/2014 Ot 715.36 11/22/2014 Ot V45.89 11/22/2014 Ot 711.96 11/22/2014 Ot V81.5 11/22/2014 Ot 173.7 11/22/2014 Ot V72.63 11/22/2014 Ot V74.8 11/22/2014 Ot 173.7 11/22/2014 Ot V58.69 11/22/2014 Ot V67.09 11/22/2014 Ot 173.7 11/22/2014 Ot 518.89 11/22/2014 Ot 562.10 11/22/2014 Ot 173.7 11/22/2014 Ot 518.89 11/22/2014 Ot 577.2 11/22/2014 Ot 709.9 11/22/2014 Ot 707.10 11/22/2014 Ot V72.83 11/22/2014 Ot 682.6 11/22/2014 Ot 998.59 11/22/2014 Ot V58.62 11/22/2014 Ot V58.62 11/22/2014 Ot V58.83 11/22/2014 Ot 998.59 11/22/2014 Ot V58.62 11/22/2014 Ot 998.59 11/22/2014 Ot V58.62 11/22/2014 Ot 998.59 11/22/2014 Ot V58.62 11/22/2014 Ot 998.59 11/22/2014 Ot 998.59 11/22/2014 Ot 173.72 11/22/2014 Ot 728.0 11/22/2014 Ot 998.59 11/22/2014 Ot V58.62 11/22/2014 Ot 998.59 11/22/2014 Ot V58.69 11/22/2014 Ot 998.59 11/22/2014 Ot V58.69 11/22/2014 Ot 998.59 11/22/2014 Ot 998.59 11/22/2014 Ot 173.72 11/22/2014 Ot 492.8 11/22/2014 Ot 577.2 11/22/2014 Ot 728.9 11/22/2014 Ot 785.6 11/22/2014 Ot 793.19 11/22/2014 Ot 173.72 11/22/2014 Ot 793.11 11/22/2014 Ot 492.8 11/22/2014 Ot 786.09 11/22/2014 Ot 786.2 11/22/2014 Ot 173.72 11/22/2014 Ot 305.1 11/22/2014 Ot 793.11 11/22/2014 Ot V15.3 11/22/2014 Ot V58.69 11/22/2014 Ot 173.72 11/22/2014 Ot 305.1 11/22/2014 Ot 338.3 11/22/2014 Ot 401.9 11/22/2014 Ot 793.11 11/22/2014 Ot V15.3 11/22/2014 Ot V58.69 11/22/2014 Ot 173.72 11/22/2014 Ot 305.1 11/22/2014 Ot 401.9 11/22/2014 Ot 729.5 11/22/2014 Ot 793.11 11/22/2014 Ot V15.3 11/22/2014 Ot V58.69 11/22/2014 STEPHIE RODRIGUEZ BASKETBALL COACH Ot 173.72 11/22/2014 STEPHIE RODRIGUEZ BASKETBALL COACH Ot 282.7 11/22/2014 STEPHIE RODRIGUEZ BASKETBALL COACH Ot 305.1 11/22/2014 STEPHIE RODRIGUEZ BASKETBALL COACH Ot 338.28 11/22/2014 STEPHIE RODRIGUEZP Ot 790.6 11/22/2014 STEPHIE RODRIGUEZ BASKETBALL COACH Ot 793.19 11/22/2014 STEPHIE RODRIGUEZ BASKETBALL COACH Ot V15.3 11/22/2014 STEPHIE RODRIGUEZP Ot V58.69 11/22/2014 STEPHIE RODRIGUEZ BASKETBALL COACH Ot 173.72 11/22/2014 STEPHIE RODRIGUEZ BASKETBALL COACH Ot 577.8 11/22/2014 STEPHIE RODRIGUEZ BASKETBALL COACH Ot 793.11 11/22/2014 STEPHIE RODRIGUEZ BASKETBALL COACH Ot 173.72 11/22/2014 STEPHIE RODRIGUEZ S BASKETBALL COACH Ot 282.7 11/22/2014 STEPHIE RODRIGUEZ S BASKETBALL COACH Ot 305.00 11/22/2014 STEPHIE RODRIGUEZ S BASKETBALL COACH Ot 305.1 11/22/2014 STEPHIE RODRIGUEZ S BASKETBALL COACH Ot 401.9 11/22/2014 STEPHIE RODRIGUEZ BASKETBALL COACH Ot 4 96 11/22/2014 STEPHIE RODRIGUEZ BASKETBALL COACH Ot 793.19 11/22/2014 STEPHIE RODRIGUEZ S BASKETBALL COACH Ot V15.3 11/22/2014 STEPHIE RODRIGUEZ S BASKETBALL COACH Ot V58.69 11/22/2014 STEPHIE RODRIGUEZ S BASKETBALL COACH Ot 173.72 11/22/2014 STEPHIE RODRIGUEZ BASKETBALL COACH Ot 282.7 11/22/2014 STEPHIE RODRIGUEZ S BASKETBALL COACH Ot 305.00 11/22/2014 STEPHIE RODRIGUEZ BASKETBALL COACH Ot 305.1 11/22/2014 STEPHIE RODRIGUEZ BASKETBALL COACH Ot 401.9 11/22/2014 STEPHIE RODRIGUEZ S BASKETBALL COACH Ot 4 96 11/22/2014 STEPHIE RODRIGUEZ BASKETBALL COACH Ot 793.19 11/22/2014 STEPHIE RODRIGUEZ S BASKETBALL COACH Ot V15.3 11/22/2014 RODRIGUEZSTEPHIE Craft S BASKETBALL COACH Ot V58.69 11/22/2014 ORACIO MARIE, BILL S Ot 173.72 11/22/2014 ORACIO MARIE, BILL S Ot V72.63 11/22/2014 ORACIO MARIE, BILL S Ot V72.81 11/22/2014 ORACIO MARIE, BILL S Ot V74.8 11/22/2014 STEPHIE RODRIGUEZ S BASKETBALL COACH Ot 173.72 11/22/2014 STEPHIE RODRIGUEZ S BASKETBALL COACH Ot 275.01 11/22/2014 RODRIGUEZSTEPHIE Craft S BASKETBALL COACH Ot 305.1 11/22/2014 RODRIGUEZSTEPHIE Craft S BASKETBALL COACH Ot 355.9 11/22/2014 RODRIGUEZSTEPHIE Craft S BASKETBALL COACH Ot 4 96 11/22/2014 MICHAEL STEPHIE Craft BASKETBALL COACH Ot V15.3 11/22/2014 MICHAEL STEPHIE Craft BASKETBALL COACH Ot V58.69 11/22/2014 JAZMIN MARIE, AUREA J Ot 300. 00 11/22/2014 JAZMIN MARIE, AUREA J Ot 397. 0 11/22/2014 JAZMIN MARIE, AUREA J Ot 424. 0 11/22/2014 JAZMIN MARIE, AUREA J Ot 477. 9 11/22/2014 JAZMIN MARIE, ALYHAR J Ot 496 11/22/2014 JAZMIN MARIE, BASHAR J Ot 780. 4 11/22/2014 JAZMIN MARIE, ALYHAR J Ot 780. 79 11/22/2014 JAZMIN MARIE, AUREA Castillo Ot 785. 1 11/22/2014 JAZMIN MARIE, AUREA J Ot 786. 05 11/22/2014 JAZMIN MARIE, AUREA J Ot 786. 50 11/22/2014 JAZMIN MARIE, AUREA J Ot 793. 11 11/22/2014 JAZMIN MARIE, AUREA J Ot 496 11/22/2014 JAZMIN MARIE, AUREA J Ot 786. 50 11/22/2014 STEPHIE RODRIGUEZ BASKETBALL COACH Ot 173.72 11/22/2014 STEPHIE RODRIGUEZ BASKETBALL COACH Ot 275.01 11/22/2014 STEPHIE RODRIGUEZ BASKETBALL COACH Ot V15.3 11/22/2014 STEPHIE RODRIGUEZ S BASKETBALL COACH Ot V58.69 11/22/2014 ORACIO MARIE, BILL S Ot 709.9 11/22/2014 ORACIO MARIE, BILL S Ot V72.83 11/22/2014 ORACIO MARIE, BILL S Ot V74.8 11/22/2014 DONTRELL BATISTA N Ot 173.72 11/22/2014 DONTRELL BATISTA N Ot 492.8 11/22/2014 DONTRELL BATISTA N Ot 793.11 11/22/2014 DONTRELL BATISTA N Ot 793.99 11/22/2014 STEPHIE RODRIGUEZ S BASKETBALL COACH Ot 173.72 11/22/2014 STEPHIE RODRIGUEZ BASKETBALL COACH Ot 275.01 11/22/2014 STEPHIE RODRIGUEZ BASKETBALL COACH Ot 305.1 11/22/2014 STEPHIE RODRIGUEZ BASKETBALL COACH Ot 401.9 11/22/2014 STEPHIE RODRIGUEZ BASKETBALL COACH Ot 729.5 11/22/2014 STEPHIE RODRIGUEZ BASKETBALL COACH Ot 793.11 11/22/2014 STEPHIE RODRIGUEZ S BASKETBALL COACH Ot V15.3 11/22/2014 STEPHIE RODRIGUEZ S BASKETBALL COACH Ot V58.69 11/22/2014 LYNNEALIREZA DALLASAN N Ot 173.72 11/22/2014 LYNNE, ALIREZAAN N Ot 355.8 11/22/2014 LYNNE, ALIREZAAN N Ot 707.11 11/22/2014 LYNNE, ALIREZAAN N Ot 173.72 11/22/2014 LYNNEALIREZA DALLASAN N Ot 355.8 11/22/2014 RODRIGUEZSTEPHIE Craft S BASKETBALL COACH Ot 173.72 11/22/2014 STEPHIE RODRIGUEZ S BASKETBALL COACH Ot 305.1 11/22/2014 STEPHIE RODRIGUEZ S BASKETBALL COACH Ot 401.9 11/22/2014 STEPHIE RODRIGUEZ S BASKETBALL COACH Ot 793.11 11/22/2014 STEPHIE RODRIGUEZ S BASKETBALL COACH Ot V15.3 11/22/2014 STEPHIE RODRIGUEZ S BASKETBALL COACH Ot V58.69 11/22/2014 LYNNEALIREZA DALLASAN N Ot 173.72 11/22/2014 LYNNE, ALIREZAAN N Ot 305.1 11/22/2014 LYNNE, BOBAN N Ot 401.9 11/22/2014 LYNNE, ALIREZAAN N Ot 793.11 11/22/2014 LYNNE, DONTRELL N Ot V04.81 11/22/2014 LYNNE, ALIREZAAN N Ot V15.3 11/22/2014 LYNNE, BOBAN N Ot V58.69 11/22/2014 LATIA MARIE, BRITTANY Bentley Ot 492 .8 11/22/2014 LATIA MARIE, BRITTANY Bentley Ot 707.11 11/22/2014 LATIA MARIE, BRITTANY Bentley Ot V10.83 11/22/2014 LATIA MARIE, BRITTANY Bentley Ot V15 .3 11/22/2014 LATIA MARIE, BRITTANY Bentley Ot 039 .8 11/22/2014 LATIA MARIE, BRITTANY Bentley Ot 173.72 11/22/2014 LATIA MARIE, BRITTANY Bentley Ot 692.82 11/22/2014 LATIA MARIE, BRITTANY Bentley Ot 707.11 11/22/2014 LATIA MARIE, BRITTANY Bentley Ot 427 .9 11/22/2014 BRITTANY JEFFERY MD Ot 039 .8 11/22/2014 LATIA MARIE, BRITTANY Bentley Ot 173.72 11/22/2014 LATIA MARIE, BRITTANY Bentley Ot 692.82 11/22/2014 LATIA MARIE, BRITTANY Bentley Ot 707.11 11/22/2014 LATIA MARIE, BRITTANY Bentley Ot 427 .9 11/25/2014 LATIA MARIE, BRITTANY Bentley Ot 039 .8 ACTINOMYCOSIS NEC 11/25/2014 BRITTANY JEFFERY MD Ot 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 11/25/2014 LATIA MARIE, BRITTANY Bentley Ot 692.82 DERMATITIS DUE TO OTHER RADIATION 11/25/2014 BRITTANY JEFFERY MD Ot 707.11 ULCER OF THIGH 11/25/2014 BRITTANY JEFFERY MD Ot C44.721 SQUAMOUS CELL CARCINOMA SKIN/ UNSP LOWER 11/25/2014 BRITTANY JEFFERY MD Ot L58 .9 RADIODERMATITIS, UNSPECIFIED 11/25/2014 BRITTANY JEFFERY MD Ot L97.109 NON-PRESSURE CHRONIC ULCER OF UNSP THIGH 11/30/2014 BRITTANY JEFFERY MD Ot 039 .8 11/30/2014 BRITTANY JEFFERY MD Ot 173.72 11/30/2014 LATIA MARIE, BRITTANY Bentley Ot 692.82 11/30/2014 LATIA MARIE, BRITTANY Bentley Ot 707.11 12/14/2014 LATIA MARIE, BRITTANY Bentley Ot 707.11 12/14/2014 LATIA MARIE, BRITTANY Bentley Ot 990 12/14/2014 LATIA MARIE, BRITTANY Bentley Ot E947.8 12/28/2014 LATIA MARIE, BRITTANY Bentley Ot 707.11 12/28/2014 LATIA MARIE, BRITTANY Bentley Ot 990 12/28/2014 LATIA MARIE, BRITTANY Bentley Ot E947.8 09/19/2015 DAVID MCFARLANE PINION POLISHER Ot L59.8 OTH DISRD OF THE SKIN, SUBCU RELATED TO 09/19/2015 DAVID MCFARLANE PINION POLISHER Ot L97.112 NON-PRS CHRONIC ULCER OF RIGHT THIGH W F 09/19/2015 DAVID MCFARLANE PINION POLISHER Ot Z92.3 PERSONAL HISTORY OF IRRADIATION 10/04/2015 DAVID MCFARLANE PINION POLISHER Ot L59.8 OTH DISRD OF THE SKIN, SUBCU RELATED TO 10/04/2015 MAEVE, DAVID R PINION POLISHER Ot L97.112 NON-PRS CHRONIC ULCER OF RIGHT THIGH W F 10/04/2015 MAEVE DAVID R PINION POLISHER Ot Z92.3 PERSONAL HISTORY OF IRRADIATION 10/07/2015 MAEVEJONIN R PINION POLISHER Ot L59.8 OTH DISRD OF THE SKIN, SUBCU RELATED TO 10/07/2015 MAEVE DAVID R PINION POLISHER Ot L97.112 NON-PRS CHRONIC ULCER OF RIGHT THIGH W F 10/07/2015 MAEVE DAVID R PINION POLISHER Ot Z92.3 PERSONAL HISTORY OF IRRADIATION 10/13/2015 MAEVE DAVID R PINION POLISHER Ot L59.8 OTH DISRD OF THE SKIN, SUBCU RELATED TO 10/13/2015 MAEVE DAVID R PINION POLISHER Ot L97.112 NON-PRS CHRONIC ULCER OF RIGHT THIGH W F 10/13/2015 MAEVE DAVID R PINION POLISHER Ot Z92.3 PERSONAL HISTORY OF IRRADIATION 10/28/2015 MAEVE DAVID R PINION POLISHER Ot L59.8 OTH DISRD OF THE SKIN, SUBCU RELATED TO 10/28/2015 MAEVE DAVID R PINION POLISHER Ot L97.112 NON-PRS CHRONIC ULCER OF RIGHT THIGH W F 10/28/2015 MAEVEJONIN R PINION POLISHER Ot Z92.3 PERSONAL HISTORY OF IRRADIATION 12/01/2015 DONTRELL BATISTA N Ot 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 12/01/2015 DONTRELL BATISTA N Ot 305.1 TOBACCO USE DISORDER 12/01/2015 DONTRELL BATISTA N Ot 401.9 HYPERTENSION NOS 12/01/2015 DONTRELL BATISTA N Ot 793.11 SOLITARY PULMONARY NODULE 12/01/2015 DONTRELL BATISTA N Ot V04.81 ND FOR PROPHYLACTIC VACCIN AND INOCULATI 12/01/2015 DONTRELL BATISTA N Ot V15.3 HX OF IRRADIATION 12/01/2015 DONTRELL BATISTA N Ot V58.69 OTH MED,LT,CURRENT USE 12/02/2016 DONTRELL BATISTA N Ot 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 12/02/2016 DONTRELL BATISTA N Ot 305.1 TOBACCO USE DISORDER 12/02/2016 ALIREZA BATISTAINES N Ot 401.9 HYPERTENSION NOS 12/02/2016 ALIREZA BATISTAINES N Ot 793.11 SOLITARY PULMONARY NODULE 12/02/2016 DONTRELL BATISTA N Ot V04.81 ND FOR PROPHYLACTIC VACCIN AND INOCULATI 12/02/2016 DONTRELL BATISTA Ot V15.3 HX OF IRRADIATION 12/02/2016 DONTRELL BATISTA Ot V58.69 OTH MED,LT,CURRENT USE 12/03/2016 Ot 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 12/03/2016 Ot 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 12/03/2016 Ot 492.8 EMPH YSEMA NEC 12/03/2016 Ot 786.09 RES PIRATORY ABNORM NEC 12/03/2016 Ot 786.2 COUGH 12/03/2016 Ot 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 12/03/2016 Ot 305.1 TOBA VP RESEARCH USE DISORDER 12/03/2016 Ot 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 12/03/2016 Ot V15.3 HX O F IRRADIATION 12/03/2016 Ot V58.69 OTH MED,LT,CURRENT USE 12/03/2016 Ot 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 12/03/2016 Ot 305.1 TOBA VP RESEARCH USE DISORDER 12/03/2016 Ot 338.3 NEOP LASM RELATED PAIN (ACUTE)(CHRONIC) 12/03/2016 Ot 401.9 HYPE RTENSION NOS 12/03/2016 Ot 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 12/03/2016 Ot V15.3 HX O F IRRADIATION 12/03/2016 Ot V58.69 OTH MED,LT,CURRENT USE 12/03/2016 Ot 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 12/03/2016 Ot 305.1 TOBA VP RESEARCH USE DISORDER 12/03/2016 Ot 401.9 HYPE RTENSION NOS 12/03/2016 Ot 729.5 PAIN IN LIMB 12/03/2016 Ot 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 12/03/2016 Ot V15.3 HX O F IRRADIATION 12/03/2016 Ot V58.69 OTH MED,LT,CURRENT USE 12/03/2016 STEPHIE RODRIGUEZP Ot 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 12/03/2016 STEPHIE RODRIGUEZ Ot 282.7 HEMOGLOBINOPATHIES NEC 12/03/2016 STEPHIE RODRIGUEZ Ot 305.1 TOBACCO USE DISORDER 12/03/2016 RODRIGUEZ, HILAH S BASKETBALL COACH Ot 338.28 OTHER CHRONIC POSTOPERATIVE PAIN 12/03/2016 RODRIGUEZSTEPHIE Craft BASKETBALL COACH Ot 790.6 ABN BLOOD CHEMISTRY NEC 12/03/2016 RODRIGUEZSTEPHIE Craft BASKETBALL COACH Ot 793.19 OTHER NONSPECIFIC ABNORMAL FINDING OF PAT 12/03/2016 RODRIGUEZ STEPHIE Craft BASKETBALL COACH Ot V15.3 HX OF IRRADIATION 12/03/2016 MICHAEL STEPHIE Craft BASKETBALL COACH Ot V58.69 OTH MED,LT,CURRENT USE 12/03/2016 MICHAEL STEPHIE S BASKETBALL COACH Ot 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 12/03/2016 MICHAEL STEPHIE S BASKETBALL COACH Ot 577.8 PANCREATIC DISEASE NEC 12/03/2016 MICHAEL STEPHIE S BASKETBALL COACH Ot 793.11 SOLITARY PULMONARY NODULE 12/03/2016 MICHAEL STEPHIE S BASKETBALL COACH Ot 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 12/03/2016 MICHAEL STEPHIE S BASKETBALL COACH Ot 282.7 HEMOGLOBINOPATHIES NEC 12/03/2016 MICHAEL STEPHIE S BASKETBALL COACH Ot 305.00 ALCOHOL ABUSE-UNSPEC 12/03/2016 MICHAEL STEPHIE S BASKETBALL COACH Ot 305.1 TOBACCO USE DISORDER 12/03/2016 MICHAEL STEPHIE S BASKETBALL COACH Ot 401.9 HYPERTENSION NOS 12/03/2016 MICHAEL STEPHIE S BASKETBALL COACH Ot 4 96 CHR AIRWAY OBSTRUCT NEC 12/03/2016 MICHAEL STEPHIE S BASKETBALL COACH Ot 793.19 OTHER NONSPECIFIC ABNORMAL FINDING OF PAT 12/03/2016 CARO RODRIGUEZJEWEL Craft BASKETBALL COACH Ot V15.3 HX OF IRRADIATION 12/03/2016 MICHAEL STEPHIE Craft BASKETBALL COACH Ot V58.69 OTH MED,LT,CURRENT USE 12/03/2016 MICHAEL STEPHIE Craft BASKETBALL COACH Ot 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 12/03/2016 MICHAEL STEPHIE S BASKETBALL COACH Ot 282.7 HEMOGLOBINOPATHIES NEC 12/03/2016 MICHAEL STEPHIE S BASKETBALL COACH Ot 305.00 ALCOHOL ABUSE-UNSPEC 12/03/2016 MICHAEL CAROAH S BASKETBALL COACH Ot 305.1 TOBACCO USE DISORDER 12/03/2016 RODRIGUEZ, CAROAH S BASKETBALL COACH Ot 401.9 HYPERTENSION NOS 12/03/2016 MICHAEL CAROAH S BASKETBALL COACH Ot 4 96 CHR AIRWAY OBSTRUCT NEC 12/03/2016 CARO RODRIGUEZJEWEL Craft BASKETBALL COACH Ot 793.19 OTHER NONSPECIFIC ABNORMAL FINDING OF PAT 12/03/2016 STEPHIE RODRIGUEZ BASKETBALL COACH Ot V15.3 HX OF IRRADIATION 12/03/2016 MICHAEL STEPHIE Craft BASKETBALL COACH Ot V58.69 OTH MED,LT,CURRENT USE 12/03/2016 BILL NARAYANAN MD Ot 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 12/03/2016 BILL NARAYANAN MD Ot V72.63 PRE-PROCEDURAL LABORATORY EXAMINATION 12/03/2016 BILL NARAYANAN MD Ot V72.81 [id number] CARDIOVASCULAR 12/03/2016 BILL NARAYANAN MD Ot V74.8 SCREEN-BACTERIAL DIS NEC 12/03/2016 MICHAEL STEPHIE S BASKETBALL COACH Ot 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 12/03/2016 MICHAEL STEPHIE Craft BASKETBALL COACH Ot 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 00 ANXIETY STATE NOS 12/03/2016 AUREA MILLER MD Ot 397. 0 TRICUSPID VALVE DISEASE 12/03/2016 AUREA MILLER MD Ot 424. 0 MITRAL VALVE DISORDER 12/03/2016 AUREA MILLER MD Ot 477. 9 ALLERGIC RHINITIS NOS 12/03/2016 AUREA MILLER MD Ot 496 CHR AIRWAY OBSTRUCT NEC 12/03/2016 AUREA MILLER MD Ot 780. 4 DIZZINESS AND GIDDINESS 12/03/2016 AUREA MILLER MD Ot 780. 79 OTH MALAISE FATIGUE 12/03/2016 AUREA MILLER MD Ot 785. 1 PALPITATIONS 12/03/2016 AUREA MILLER MD Ot 786. 05 SHORTNESS OF BREATH 12/03/2016 AUREA MILLER MD Ot 786. 50 CHEST PAIN NOS 12/03/2016 JAZMIN MARIE, AUREA Castillo Ot 793. 11 SOLITARY PULMONARY NODULE 12/03/2016 JAZMIN MARIE, AUREA Castillo Ot 496 CHR AIRWAY OBSTRUCT NEC 12/03/2016 JAZMIN MARIE, AUREA Castillo Ot 786. 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 12/03/2016 STEPHIE RODRIGUEZ S BASKETBALL COACH Ot V15.3 HX OF IRRADIATION 12/03/2016 STEPHIE RODRIGUEZ S BASKETBALL COACH Ot V58.69 OTH MED,LT,CURRENT USE 12/03/2016 BILL NARAYANAN MD Ot 709.9 SKIN DISORDER NOS 12/03/2016 BILL NARAYANAN MD Ot V72.83 EXAM PRE-OPERATIVE NEC 12/03/2016 BILL NARAYANAN MD Ot V74.8 SCREEN-BACTERIAL DIS NEC 12/03/2016 DONTRELL BATISTA Ot 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 12/03/2016 DONTRELL BATISTA Ot 492.8 EMPHYSEMA NEC 12/03/2016 DONTRELL BATISTA Ot 793.11 SOLITARY PULMONARY NODULE 12/03/2016 DONTRELL BATISTA Ot 793.99 OTH NOSP (ABN) FINDINGS RADIOLOGICAL O 12/03/2016 STEPHIE RODRIGUEZ S BASKETBALL COACH Ot 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 12/03/2016 STEPHIE RODRIGUEZ BASKETBALL COACH Ot 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 12/03/2016 STEPHIE RODRIGUEZ BASKETBALL COACH Ot 305.1 TOBACCO USE DISORDER 12/03/2016 STEPHIE RODRIGUEZ BASKETBALL COACH Ot 401.9 HYPERTENSION NOS 12/03/2016 STEPHIE RODRIGUEZ S BASKETBALL COACH Ot 729.5 PAIN IN LIMB 12/03/2016 STEPHIE RODRIGUEZ S BASKETBALL COACH Ot 793.11 SOLITARY PULMONARY NODULE 12/03/2016 STEPHIE RODRIGUEZ S BASKETBALL COACH Ot V15.3 HX OF IRRADIATION 12/03/2016 STEPHIE RODRIGUEZ S BASKETBALL COACH Ot V58.69 OTH MED,LT,CURRENT USE 12/03/2016 DONTRELL BATISTA Ot 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 12/03/2016 DONTRELL BATISTA Ot 355.8 MONONEURITIS LEG NOS 12/03/2016 DONTRELL BATISTA N Ot 707.11 ULCER OF THIGH 12/03/2016 DONTRELL BATISTA N Ot 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 12/03/2016 DONTRELL BATISTA N Ot 355.8 MONONEURITIS LEG NOS 12/03/2016 STEPHIE RODRIGUEZ BASKETBALL COACH Ot 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 12/03/2016 STEPHIE RODRIGUEZ S BASKETBALL COACH Ot 305.1 TOBACCO USE DISORDER 12/03/2016 RODRIGUEZ STEPHIE S BASKETBALL COACH Ot 401.9 HYPERTENSION NOS 12/03/2016 RODRIGUEZ STEPHIE S BASKETBALL COACH Ot 793.11 SOLITARY PULMONARY NODULE 12/03/2016 RODRIGUEZ STEPHIE S BASKETBALL COACH Ot V15.3 HX OF IRRADIATION 12/03/2016 RODRIGUEZ STEPHIE Craft BASKETBALL COACH Ot V58.69 OTH MED,LT,CURRENT USE 12/03/2016 DONTRELL BATISTA N Ot 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 12/03/2016 DONTRELL BATISTA N Ot 305.1 TOBACCO USE DISORDER 12/03/2016 DONTRELL BATISTA N Ot 401.9 HYPERTENSION NOS 12/03/2016 DONTRELL BATISTA N Ot 793.11 SOLITARY PULMONARY NODULE 12/03/2016 DONTRELL BATISTA Ot V04.81 ND FOR PROPHYLACTIC VACCIN AND INOCULATI 12/03/2016 DONRTELL BATISTA Xiang Ot V15.3 HX OF IRRADIATION 12/03/2016 DONTRELL BATISTA Ot V58.69 OTH MED,LT,CURRENT USE 12/03/2016 BRITTANY JEFFERY MD Ot 492 .8 EMPHYSEMA NEC 12/03/2016 BRITTANY JEFFERY MD Ot 707.11 ULCER OF THIGH 12/03/2016 BRITTANY JEFFERY MD Ot V10.83 HX-SKIN MALIGNANCY NEC 12/03/2016 BRITTANY JEFFERY MD Ot V15 .3 HX OF IRRADIATION 12/03/2016 BRITTANY JEFFERY MD Ot 427 .9 CARDIAC DYSRHYTHMIA NOS 12/03/2016 BRITTANY JEFFERY MD Ot 707.11 ULCER OF THIGH 12/03/2016 BRITTANY JEFFERY MD Ot 990 EFFECTS RADIATION NOS 12/03/2016 BRITTANY JEFFERY MD, Ot E947.8 ADV EFF MEDICINAL NEC 12/03/2016 ADVID MCFARLANE APRN Ot L59.8 OTH DISRD OF THE SKIN, SUBCU RELATED TO 12/03/2016 [address]ID MCFARLANE APRN Ot L97.112 NON-PRS CHRONIC ULCER OF RIGHT THIGH W F 12/03/[address] MCFARLANE APRN Ot Z92.3 PERSONAL HISTORY OF IRRADIATION 12/08/2016 LUL ADRIAN MD Ot F17.210 NICOTINE DEPENDENCE, CIGARETTES, UNCOMPL 12/08/2016 LUL ADRIAN MD, Ot F32 .9 MAJOR DEPRESSIVE DISORDER, SINGLE EPISOD 12/08/2016 LUL ADRIAN MD, Ot F41 .9 ANXIETY DISORDER, UNSPECIFIED 12/08/2016 LUL ADRIAN MD, Ot G89.29 OTHER CHRONIC PAIN 12/08/2016 LUL ADRIAN MD, Ot H91.90 UNSPECIFIED HEARING LOSS, UNSPECIFIED EA 12/08/2016 LUL ADRIAN MD Ot I47 .1 SUPRAVENTRICULAR TACHYCARDIA 12/08/2016 LUL ADRIAN MD Ot I47 .2 VENTRICULAR TACHYCARDIA 12/08/2016 LUL ADRIAN MD Ot I50.31 ACUTE DIASTOLIC (CONGESTIVE) HEART FAILU 12/08/2016 LUL ADRIAN MD Ot I95 .9 HYPOTENSION, UNSPECIFIED 12/08/2016 LUL ADRIAN MD, Ot J44 .9 CHRONIC OBSTRUCTIVE PULMONARY DISEASE, U 12/08/2016 LUL ADRIAN MD Ot J96.00 ACUTE RESPIRATORY FAILURE, UNSP W HYPOXI 12/08/2016 LUL ADRIAN MD Ot K21 .9 GASTRO-ESOPHAGEAL REFLUX DISEASE WITHOUT 12/08/2016 LUL ADRIAN MD Ot M19.91 PRIMARY OSTEOARTHRITIS, UNSPECIFIED SITE 12/08/2016 LUL ADRIAN MD Ot R07 .9 CHEST PAIN, UNSPECIFIED 12/08/2016 LUL ADRIAN MD Ot R50 .9 FEVER, UNSPECIFIED 12/08/2016 LUL ADRIAN MD Ot R64 CACHEXIA 12/08/2016 LUL ADRIAN MD Ot R79.89 OTHER SPECIFIED ABNORMAL FINDINGS OF BLO 12/08/2016 LUL ADRIAN MD Ot R91 .1 SOLITARY PULMONARY NODULE 12/08/2016 LUL ADRIAN MD, Ot Z85.828 PERSONAL HISTORY OF OTHER MALIGNANT NEOP 12/08/2016 LUL ADRIAN MD, Ot Z87.09 PERSONAL HISTORY OF OTHER DISEASES OF TH 12/08/2016 LUL ADRIAN MD, Ot Z92.21 PERSONAL HISTORY OF ANTINEOPLASTIC CHEMO 12/08/2016 LUL ADRIAN MD, Ot Z92 .3 PERSONAL HISTORY OF IRRADIATION 12/08/2016 LUL ADRIAN MD, Ot Z97 .8 PRESENCE OF OTHER SPECIFIED DEVICES 12/09/2016 LUL ADRIAN MD Ot F17.210 NICOTINE DEPENDENCE, CIGARETTES, UNCOMPL 12/09/2016 LUL ADRIAN MD, Ot F32 .9 MAJOR DEPRESSIVE DISORDER, SINGLE EPISOD 12/09/2016 LUL ADRIAN MD, Ot F41 .9 ANXIETY DISORDER, UNSPECIFIED 12/09/2016 LUL ADRIAN MD Ot G89.29 OTHER CHRONIC PAIN 12/09/2016 LUL ADRIAN MD Ot H91.90 UNSPECIFIED HEARING LOSS, UNSPECIFIED EA 12/09/2016 LUL ADRIAN MD Ot I47 .1 SUPRAVENTRICULAR TACHYCARDIA 12/09/2016 LUL ADRIAN MD Ot I47 .2 VENTRICULAR TACHYCARDIA 12/09/2016 LUL ADRIAN MD Ot I50.31 ACUTE DIASTOLIC (CONGESTIVE) HEART FAILU 12/09/2016 LUL ADRIAN MD Ot I95 .9 HYPOTENSION, UNSPECIFIED 12/09/2016 LUL ADRIAN MD, Ot J44 .9 CHRONIC OBSTRUCTIVE PULMONARY DISEASE, U 12/09/2016 LUL ADRIAN MD Ot J96.00 ACUTE RESPIRATORY FAILURE, UNSP W HYPOXI 12/09/2016 LUL ADRIAN MD Ot K21 .9 GASTRO-ESOPHAGEAL REFLUX DISEASE WITHOUT 12/09/2016 LUL ADRIAN MD Ot M19.91 PRIMARY OSTEOARTHRITIS, UNSPECIFIED SITE 12/09/2016 LUL ADRIAN MD Ot R07 .9 CHEST PAIN, UNSPECIFIED 12/09/2016 LUL ADRIAN MD Ot R50 .9 FEVER, UNSPECIFIED 12/09/2016 LUL ADRIAN MD Ot R64 CACHEXIA 12/09/2016 LUL ADRIAN MD, Ot R79.89 OTHER SPECIFIED ABNORMAL FINDINGS OF BLO 12/09/2016 LUL ADRIAN MD, Ot R91 .1 SOLITARY PULMONARY NODULE 12/09/2016 LUL ADRIAN MD, Ot Z85.828 PERSONAL HISTORY OF OTHER MALIGNANT NEOP 12/09/2016 LUL ADRIAN MD, Ot Z87.09 PERSONAL HISTORY OF OTHER DISEASES OF TH 12/09/2016 LUL ADRIAN MD, Ot Z92.21 PERSONAL HISTORY OF ANTINEOPLASTIC CHEMO 12/09/2016 LUL ADRIAN MD, Ot Z92 .3 PERSONAL HISTORY OF IRRADIATION 12/09/2016 LUL ADRIAN MD, Ot Z97 .8 PRESENCE OF OTHER SPECIFIED DEVICES 12/10/2016 LUL ADRIAN MD, Ot F17.210 NICOTINE DEPENDENCE, CIGARETTES, UNCOMPL 12/10/2016 LUL ADRIAN MD, Ot F32 .9 MAJOR DEPRESSIVE DISORDER, SINGLE EPISOD 12/10/2016 LUL ADRIAN MD, Ot F41 .9 ANXIETY DISORDER, UNSPECIFIED 12/10/2016 LUL ADRIAN MD, Ot G89.29 OTHER CHRONIC PAIN 12/10/2016 LUL ADRIAN MD, Ot H91.90 UNSPECIFIED HEARING LOSS, UNSPECIFIED EA 12/10/2016 LUL ADRIAN MD Ot I47 .1 SUPRAVENTRICULAR TACHYCARDIA 12/10/2016 LUL ADRIAN MD, Ot I47 .2 VENTRICULAR TACHYCARDIA 12/10/2016 LUL ADRIAN MD Ot I50.31 ACUTE DIASTOLIC (CONGESTIVE) HEART FAILU 12/10/2016 LUL ADRIAN MD Ot I95 .9 HYPOTENSION, UNSPECIFIED 12/10/2016 LUL ADRIAN MD, Ot J44 .9 CHRONIC OBSTRUCTIVE PULMONARY DISEASE, U 12/10/2016 LUL ADRIAN MD, Ot J96.00 ACUTE RESPIRATORY FAILURE, UNSP W HYPOXI 12/10/2016 LUL ADRIAN MD, Ot K21 .9 GASTRO-ESOPHAGEAL REFLUX DISEASE WITHOUT 12/10/2016 LUL ADRIAN MD, Ot M19.91 PRIMARY OSTEOARTHRITIS, UNSPECIFIED SITE 12/10/2016 LUL ADRIAN MD Ot R07 .9 CHEST PAIN, UNSPECIFIED 12/10/2016 LUL ADRIAN MD, Ot R50 .9 FEVER, UNSPECIFIED 12/10/2016 LUL ADRIAN MD Ot R64 CACHEXIA 12/10/2016 LUL ADRIAN MD, Ot R79.89 OTHER SPECIFIED ABNORMAL FINDINGS OF BLO 12/10/2016 LUL ADRIAN MD, Ot R91 .1 SOLITARY PULMONARY NODULE 12/10/2016 LUL ADRIAN MD, Ot Z85.828 PERSONAL HISTORY OF OTHER MALIGNANT NEOP 12/10/2016 LUL ADRIAN MD, Ot Z87.09 PERSONAL HISTORY OF OTHER DISEASES OF TH 12/10/2016 LUL ADRIAN MD, Ot Z92.21 PERSONAL HISTORY OF ANTINEOPLASTIC CHEMO 12/10/2016 LUL ADRIAN MD, Ot Z92 .3 PERSONAL HISTORY OF IRRADIATION 12/10/2016 LUL ADRIAN MD, Ot Z97 .8 PRESENCE OF OTHER SPECIFIED DEVICES 12/10/2016 LUL ADRIAN MD, Ot D64 .9 ANEMIA, UNSPECIFIED 12/10/2016 LUL ADRIAN MD Ot E87 .2 ACIDOSIS 12/10/2016 LUL ADRIAN MD Ot E87 .6 HYPOKALEMIA 12/10/2016 LUL ADRIAN MD Ot F17.210 NICOTINE DEPENDENCE, CIGARETTES, UNCOMPL 12/10/2016 LUL ADRIAN MD Ot F32 .9 MAJOR DEPRESSIVE DISORDER, SINGLE EPISOD 12/10/2016 LUL ADRIAN MD, Ot F41 .9 ANXIETY DISORDER, UNSPECIFIED 12/10/2016 LUL ADRIAN MD Ot G89.29 OTHER CHRONIC PAIN 12/10/2016 LUL ADRIAN MD Ot H91.90 UNSPECIFIED HEARING LOSS, UNSPECIFIED EA 12/10/2016 LUL ADRIAN MD Ot I11 .0 HYPERTENSIVE HEART DISEASE WITH HEART FA 12/10/2016 LUL ADRIAN MD Ot I47 .1 SUPRAVENTRICULAR TACHYCARDIA 12/10/2016 LUL ADRIAN MD Ot I47 .2 VENTRICULAR TACHYCARDIA 12/10/2016 LUL ADRIAN MD Ot I50.31 ACUTE DIASTOLIC (CONGESTIVE) HEART FAILU 12/10/2016 LUL ADRIAN MD Ot I95 .9 HYPOTENSION, UNSPECIFIED 12/10/2016 LUL ADRIAN MD, Ot J18 .9 PNEUMONIA, UNSPECIFIED ORGANISM 12/10/2016 LUL ADRIAN MD, Ot J44 .9 CHRONIC OBSTRUCTIVE PULMONARY DISEASE, U 12/10/2016 LUL ADRIAN MD, Ot J96.00 ACUTE RESPIRATORY FAILURE, UNSP W HYPOXI 12/10/2016 LUL ADRIAN MD Ot K21 .9 GASTRO-ESOPHAGEAL REFLUX DISEASE WITHOUT 12/10/2016 LUL ADRIAN MD Ot M19.91 PRIMARY OSTEOARTHRITIS, UNSPECIFIED SITE 12/10/2016 LUL ADRIAN MD Ot R07 .9 CHEST PAIN, UNSPECIFIED 12/10/2016 LUL ADRIAN MD Ot R40 .0 SOMNOLENCE 12/10/2016 LUL ADRIAN MD Ot R41 .0 DISORIENTATION, UNSPECIFIED 12/10/2016 LUL ADRIAN MD Ot R50 .9 FEVER, UNSPECIFIED 12/10/2016 LUL ADRIAN MD Ot R64 CACHEXIA 12/10/2016 LUL ADRIAN MD Ot R79.89 OTHER SPECIFIED ABNORMAL FINDINGS OF BLO 12/10/2016 LUL ADRIAN MD Ot R91 .1 SOLITARY PULMONARY NODULE 12/10/2016 LUL ADRIAN MD Ot Z85.828 PERSONAL HISTORY OF OTHER MALIGNANT NEOP 12/10/2016 LUL ADRIAN MD Ot Z87.09 PERSONAL HISTORY OF OTHER DISEASES OF TH 12/10/2016 LUL ADRIAN MD Ot Z92.21 PERSONAL HISTORY OF ANTINEOPLASTIC CHEMO 12/10/2016 LUL ADRIAN MD Ot Z92 .3 PERSONAL HISTORY OF IRRADIATION 12/10/2016 LUL ADRIAN MD Ot Z97 .8 PRESENCE OF OTHER SPECIFIED DEVICES 01/21/2017 JOVANNA PANG MD Ot R19 .7 DIARRHEA, UNSPECIFIED 01/22/2017 JOVANNA PANG MD Ot R82.99 OTHER ABNORMAL FINDINGS IN URINE 02/19/2017 Ot 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 02/19/2017 Ot 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 02/19/2017 Ot 492.8 EMPH YSEMA NEC 02/19/2017 Ot 786.09 RES PIRATORY ABNORM NEC 02/19/2017 Ot 786.2 COUGH 02/19/2017 Ot 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 02/19/2017 Ot 305.1 TOBA VP RESEARCH USE DISORDER 02/19/2017 Ot 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 02/19/2017 Ot V15.3 HX O F IRRADIATION 02/19/2017 Ot V58.69 OTH MED,LT,CURRENT USE 02/19/2017 Ot 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 02/19/2017 Ot 305.1 TOBA VP RESEARCH USE DISORDER 02/19/2017 Ot 338.3 NEOP LASM RELATED PAIN (ACUTE)(CHRONIC) 02/19/2017 Ot 401.9 HYPE RTENSION NOS 02/19/2017 Ot 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 02/19/2017 Ot V15.3 HX O F IRRADIATION 02/19/2017 Ot V58.69 OTH MED,LT,CURRENT USE 02/19/2017 Ot 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 02/19/2017 Ot 305.1 TOBA VP RESEARCH USE DISORDER 02/19/2017 Ot 401.9 HYPE RTENSION NOS 02/19/2017 Ot 729.5 PAIN IN LIMB 02/19/2017 Ot 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 02/19/2017 Ot V15.3 HX O F IRRADIATION 02/19/2017 Ot V58.69 OTH MED,LT,CURRENT USE 02/19/2017 STEPHIE RODRIGUEZP Ot 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 02/19/2017 STEPHIE RODRIGUEZP Ot 282.7 HEMOGLOBINOPATHIES NEC 02/19/2017 STEPHIE RODRIGUEZP Ot 305.1 TOBACCO USE DISORDER 02/19/2017 STEPHIE RODRIGUEZP Ot 338.28 OTHER CHRONIC POSTOPERATIVE PAIN 02/19/2017 STEPHIE RODRIGUEZP Ot 790.6 ABN BLOOD CHEMISTRY NEC 02/19/2017 STEPHIE RODRIGUEZP Ot 793.19 OTHER NONSPECIFIC ABNORMAL FINDING OF PAT 02/19/2017 STEPHIE RODRIGUEZP Ot V15.3 HX OF IRRADIATION 02/19/2017 STEPHIE RODRIGUEZ Ot V58.69 OTH MED,LT,CURRENT USE 02/19/2017 STEPHIE RODRIGUEZP Ot 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 02/19/2017 STEPHIE RODRIGUEZ BASKETBALL COACH Ot 577.8 PANCREATIC DISEASE NEC 02/19/2017 RODRIGUEZSTEPHIE Craft S BASKETBALL COACH Ot 793.11 SOLITARY PULMONARY NODULE 02/19/2017 STEPHIE RODRIGUEZ S BASKETBALL COACH Ot 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 02/19/2017 STEPHIE RODRIGUEZ S BASKETBALL COACH Ot 282.7 HEMOGLOBINOPATHIES NEC 02/19/2017 RODRIGUEZSTEPHIE Craft S BASKETBALL COACH Ot 305.00 ALCOHOL ABUSE-UNSPEC 02/19/2017 RODRIGUEZSTEPHIE Craft S BASKETBALL COACH Ot 305.1 TOBACCO USE DISORDER 02/19/2017 RODRIGUEZSTEPHIE Craft S BASKETBALL COACH Ot 401.9 HYPERTENSION NOS 02/19/2017 RODRIGUEZSTEPHIE Craft S BASKETBALL COACH Ot 4 96 CHR AIRWAY OBSTRUCT NEC 02/19/2017 RODRIGUEZSTEPHIE Craft S BASKETBALL COACH Ot 793.19 OTHER NONSPECIFIC ABNORMAL FINDING OF PAT 02/19/2017 STEPHIE RODRIGUEZ S BASKETBALL COACH Ot V15.3 HX OF IRRADIATION 02/19/2017 STEPHIE RODRIGUEZ S BASKETBALL COACH Ot V58.69 OTH MED,LT,CURRENT USE 02/19/2017 STEPHIE RODRIGUEZ S BASKETBALL COACH Ot 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 02/19/2017 STEPHIE RODRIGUEZ S BASKETBALL COACH Ot 282.7 HEMOGLOBINOPATHIES NEC 02/19/2017 STEPHIE RODRIGUEZ S BASKETBALL COACH Ot 305.00 ALCOHOL ABUSE-UNSPEC 02/19/2017 RODRIGUEZSTEPHIE Craft S BASKETBALL COACH Ot 305.1 TOBACCO USE DISORDER 02/19/2017 STEPHIE RODRIGUEZ S BASKETBALL COACH Ot 401.9 HYPERTENSION NOS 02/19/2017 STEPHIE RODRIGUEZ S BASKETBALL COACH Ot 4 96 CHR AIRWAY OBSTRUCT NEC 02/19/2017 STEPHIE RODRIGUEZ S BASKETBALL COACH Ot 793.19 OTHER NONSPECIFIC ABNORMAL FINDING OF PAT 02/19/2017 RODRIGUEZSTEPHIE Craft S BASKETBALL COACH Ot V15.3 HX OF IRRADIATION 02/19/2017 MICHAEL STEPHIE S BASKETBALL COACH Ot V58.69 OTH MED,LT,CURRENT USE 02/19/2017 BILL NRAAYANAN MD Ot 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 02/19/2017 BILL NARAYANAN MD Ot V72.63 PRE-PROCEDURAL LABORATORY EXAMINATION 02/19/2017 BILL NARAYANAN MD Ot V72.81 [id number] CARDIOVASCULAR 02/19/2017 ORACIO MARIE, BILL S Ot V74.8 SCREEN-BACTERIAL DIS NEC 02/19/2017 STEPHIE RODRIGUEZ BASKETBALL COACH Ot 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 02/19/2017 STEPHIE RODRIGUEZ BASKETBALL COACH Ot 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 00 ANXIETY STATE NOS 02/19/2017 AUREA MILLER MD Ot 397. 0 TRICUSPID VALVE DISEASE 02/19/2017 AUREA MILLER MD Ot 424. 0 MITRAL VALVE DISORDER 02/19/2017 AUREA MILLER MD Ot 477. 9 ALLERGIC RHINITIS NOS 02/19/2017 AUREA MILLER MD Ot 496 CHR AIRWAY OBSTRUCT NEC 02/19/2017 AUREA MILLER MD Ot 780. 4 DIZZINESS AND GIDDINESS 02/19/2017 AUREA MILLER MD Ot 780. 79 OTH MALAISE FATIGUE 02/19/2017 AUREA MILLRE MD Ot 785. 1 PALPITATIONS 02/19/2017 AUREA MILLER MD Ot 786. 05 SHORTNESS OF BREATH 02/19/2017 AUREA MILLER MD Ot 786. 50 CHEST PAIN NOS 02/19/2017 AUREA MILLER MD Ot 793. 11 SOLITARY PULMONARY NODULE 02/19/2017 AUREA MILLER MD Ot 496 CHR AIRWAY OBSTRUCT NEC 02/19/2017 AUREA MILLER MD Ot 786. 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 02/19/2017 STEPHIE RODRIGUEZP Ot V15.3 HX OF IRRADIATION 02/19/2017 STEPHIE RODRIGUEZ BASKETBALL COACH Ot V58.69 OTH MED,LT,CURRENT USE 02/19/2017 BILL NARAYANAN MD S Ot 709.9 SKIN DISORDER NOS 02/19/2017 ORACIO MARIE, BILL Craft Ot V72.83 EXAM PRE-OPERATIVE NEC 02/19/2017 BILL NARAYANAN MD Ot V74.8 SCREEN-BACTERIAL DIS NEC 02/19/2017 DONTRELL BATISTA N Ot 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 02/19/2017 DONTRELL BATISTA N Ot 492.8 EMPHYSEMA NEC 02/19/2017 LYNNEDONTRELL DALLAS N Ot 793.11 SOLITARY PULMONARY NODULE 02/19/2017 DONTRELL BATISTA N Ot 793.99 OTH NOSP (ABN) FINDINGS RADIOLOGICAL O 02/19/2017 STEPHIE RODRIGUEZ S BASKETBALL COACH Ot 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 02/19/2017 STEPHIE RODRIGUEZ BASKETBALL COACH Ot 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 02/19/2017 STEPHIE RODRIGUEZ S BASKETBALL COACH Ot 305.1 TOBACCO USE DISORDER 02/19/2017 STEPHIE RODRIGUEZ BASKETBALL COACH Ot 401.9 HYPERTENSION NOS 02/19/2017 STEPHIE RODRIGUEZ BASKETBALL COACH Ot 729.5 PAIN IN LIMB 02/19/2017 STEPHIE RODRIGUEZ S BASKETBALL COACH Ot 793.11 SOLITARY PULMONARY NODULE 02/19/2017 STEPHIE RODRIGUEZ BASKETBALL COACH Ot V15.3 HX OF IRRADIATION 02/19/2017 STEPHIE RODRIGUEZ BASKETBALL COACH Ot V58.69 OTH MED,LT,CURRENT USE 02/19/2017 DONTRELL BATISTA N Ot 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 02/19/2017 DONTRELL BATISTA N Ot 355.8 MONONEURITIS LEG NOS 02/19/2017 DONTRELL BATISTA N Ot 707.11 ULCER OF THIGH 02/19/2017 DONTRELL BATISTA N Ot 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 02/19/2017 DONTRELL BATISTA N Ot 355.8 MONONEURITIS LEG NOS 02/19/2017 STEPHIE RODRIGUEZ S BASKETBALL COACH Ot 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 02/19/2017 STEPHIE RODRIGUEZ S BASKETBALL COACH Ot 305.1 TOBACCO USE DISORDER 02/19/2017 STEPHIE RODRIGUEZ BASKETBALL COACH Ot 401.9 HYPERTENSION NOS 02/19/2017 STEPHIE RODRIGUEZ BASKETBALL COACH Ot 793.11 SOLITARY PULMONARY NODULE 02/19/2017 STEPHIE RODRIGUEZ BASKETBALL COACH Ot V15.3 HX OF IRRADIATION 02/19/2017 STEPHIE RODRIGUEZ BASKETBALL COACH Ot V58.69 OTH MED,LT,CURRENT USE 02/19/2017 DONTRELL BATISTA Ot 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 02/19/2017 DONTRELL BATISTA Xiang Ot 305.1 TOBACCO USE DISORDER 02/19/2017 DONTRELL BATISTA N Ot 401.9 HYPERTENSION NOS 02/19/2017 DONTRELL BATISTA Ot 793.11 SOLITARY PULMONARY NODULE 02/19/2017 DONTRELL BATISTA Ot V04.81 ND FOR PROPHYLACTIC VACCIN AND INOCULATI 02/19/2017 DONTRELL BATISTA Xiang Ot V15.3 HX OF IRRADIATION 02/19/2017 DONTRELL BATISTA Ot V58.69 OTH MED,LT,CURRENT USE 02/19/2017 BRITTANY JEFFERY MD Ot 492 .8 EMPHYSEMA NEC 02/19/2017 BRITTANY JEFFERY MD Ot 707.11 ULCER OF THIGH 02/19/2017 BRITTANY JEFFERY MD Ot V10.83 HX-SKIN MALIGNANCY NEC 02/19/2017 BRITTANY JEFFERY MD Ot V15 .3 HX OF IRRADIATION 02/19/2017 BRITTANY JEFFERY MD Ot 427 .9 CARDIAC DYSRHYTHMIA NOS 02/19/2017 BRITTANY JEFFERY MD Ot 707.11 ULCER OF THIGH 02/19/2017 BRITTANY JEFFERY MD Ot 990 EFFECTS RADIATION NOS 02/19/2017 BRITTANY JEFFERY MD Ot E947.8 ADV EFF MEDICINAL NEC 02/19/2017 DAVID MCFARLANE APRN Ot L59.8 OTH DISRD OF THE SKIN, SUBCU RELATED TO 02/19/2017 DAVID MCFARLANE APRN Ot L97.112 NON-PRS CHRONIC ULCER OF RIGHT THIGH W F 02/19/2017 DAVID MCFARLANE APRN Ot Z92.3 PERSONAL HISTORY OF IRRADIATION 02/19/2017 JOVANNA PANG MD Ot R19 .7 DIARRHEA, UNSPECIFIED 02/19/2017 JOVANNA PANG MD Ot R82.99 OTHER ABNORMAL FINDINGS IN URINE 02/19/2017 POLY MARIE, JOVANNA Mcarthur Ot R19 .7 DIARRHEA, UNSPECIFIED 02/26/2017 JOVANNA PANG MD Ot R82.99 OTHER ABNORMAL FINDINGS IN URINE 05/21/2017 Ot 492.8 EMPH YSEMA NEC 05/21/2017 Ot 786.09 RES PIRATORY ABNORM NEC 05/21/2017 Ot 786.2 COUGH 05/21/2017 Ot 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 05/21/2017 Ot 305.1 TOBA VP RESEARCH USE DISORDER 05/21/2017 Ot 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 05/21/2017 Ot V15.3 HX O F IRRADIATION 05/21/2017 Ot V58.69 OTH MED,LT,CURRENT USE 05/21/2017 Ot 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 05/21/2017 Ot 305.1 TOBA VP RESEARCH USE DISORDER 05/21/2017 Ot 338.3 NEOP LASM RELATED PAIN (ACUTE)(CHRONIC) 05/21/2017 Ot 401.9 HYPE RTENSION NOS 05/21/2017 Ot 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 05/21/2017 Ot V15.3 HX O F IRRADIATION 05/21/2017 Ot V58.69 OTH MED,LT,CURRENT USE 05/21/2017 Ot 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 05/21/2017 Ot 305.1 TOBA VP RESEARCH USE DISORDER 05/21/2017 Ot 401.9 HYPE RTENSION NOS 05/21/2017 Ot 729.5 PAIN IN LIMB 05/21/2017 Ot 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 05/21/2017 Ot V15.3 HX O F IRRADIATION 05/21/2017 Ot V58.69 OTH MED,LT,CURRENT USE 05/21/2017 STEPHIE RODRIGUEZP Ot 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 05/21/2017 STEPHIE RODRIGUEZP Ot 282.7 HEMOGLOBINOPATHIES NEC 05/21/2017 STEPHIE RODRIGUEZP Ot 305.1 TOBACCO USE DISORDER 05/21/2017 STEPHIE RODRIGUEZP Ot 338.28 OTHER CHRONIC POSTOPERATIVE PAIN 05/21/2017 STEPHIE RODRIGUEZP Ot 790.6 ABN BLOOD CHEMISTRY NEC 05/21/2017 RODRIGUEZ, HILAH S BASKETBALL COACH Ot 793.19 OTHER NONSPECIFIC ABNORMAL FINDING OF PAT 05/21/2017 STEPHIE RODRIGUEZ BASKETBALL COACH Ot V15.3 HX OF IRRADIATION 05/21/2017 RODRIGUEZ STEPHIE Craft BASKETBALL COACH Ot V58.69 OTH MED,LT,CURRENT USE 05/21/2017 STEPHIE RODRIGUEZ BASKETBALL COACH Ot 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 05/21/2017 MICHAEL STEPHIE Craft BASKETBALL COACH Ot 577.8 PANCREATIC DISEASE NEC 05/21/2017 RODRIGUEZ STEPHIE Craft BASKETBALL COACH Ot 793.11 SOLITARY PULMONARY NODULE 05/21/2017 RODRIGUEZ STEPHIE Craft BASKETBALL COACH Ot 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 05/21/2017 MICHAEL STEPHIE S BASKETBALL COACH Ot 282.7 HEMOGLOBINOPATHIES NEC 05/21/2017 MICHAEL STEPHIE S BASKETBALL COACH Ot 305.00 ALCOHOL ABUSE-UNSPEC 05/21/2017 MICHAEL STEPHIE S BASKETBALL COACH Ot 305.1 TOBACCO USE DISORDER 05/21/2017 MICHAEL STEPHIE S BASKETBALL COACH Ot 401.9 HYPERTENSION NOS 05/21/2017 MICHAEL STEPHIE S BASKETBALL COACH Ot 4 96 CHR AIRWAY OBSTRUCT NEC 05/21/2017 RODRIGUEZ STEPHIE S BASKETBALL COACH Ot 793.19 OTHER NONSPECIFIC ABNORMAL FINDING OF PAT 05/21/2017 CARO RODIRGUEZJEWEL Craft BASKETBALL COACH Ot V15.3 HX OF IRRADIATION 05/21/2017 RODRIGUEZ STEPHIE Craft BASKETBALL COACH Ot V58.69 OTH MED,LT,CURRENT USE 05/21/2017 RODRIGUEZ STEPHIE Craft BASKETBALL COACH Ot 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 05/21/2017 CARO RODRIGUEZJEWEL S BASKETBALL COACH Ot 282.7 HEMOGLOBINOPATHIES NEC 05/21/2017 MICHAEL STEPHIE S BASKETBALL COACH Ot 305.00 ALCOHOL ABUSE-UNSPEC 05/21/2017 MICHAEL STEPHIE S BASKETBALL COACH Ot 305.1 TOBACCO USE DISORDER 05/21/2017 MICHAEL CAROAH S BASKETBALL COACH Ot 401.9 HYPERTENSION NOS 05/21/2017 RODRIGUEZ, STEPHIE S BASKETBALL COACH Ot 4 96 CHR AIRWAY OBSTRUCT NEC 05/21/2017 MICHAEL STEPHIE S BASKETBALL COACH Ot 793.19 OTHER NONSPECIFIC ABNORMAL FINDING OF PAT 05/21/2017 MICHAEL STEPHIE S BASKETBALL COACH Ot V15.3 HX OF IRRADIATION 05/21/2017 CARO RODRIGUEZJEWEL Luana BASKETBALL COACH Ot V58.69 OTH MED,LT,CURRENT USE 05/21/2017 BILL NARAYANAN MD Ot 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 05/21/2017 BILL NARAYANAN MD Ot V72.63 PRE-PROCEDURAL LABORATORY EXAMINATION 05/21/2017 BILL NARAYANAN MD Ot V72.81 PITE-THX-[id number] CARDIOVASCULAR 05/21/2017 BILL NARAYANAN MD Ot V74.8 SCREEN-BACTERIAL DIS NEC 05/21/2017 CARO RODRIGUEZJEWEL S BASKETBALL COACH Ot 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 05/21/2017 CARO RODRIGUEZJEWEL S BASKETBALL COACH Ot 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 00 ANXIETY STATE NOS 05/21/2017 AUREA MILLER MD Ot 397. 0 TRICUSPID VALVE DISEASE 05/21/2017 AUREA MILLER MD Ot 424. 0 MITRAL VALVE DISORDER 05/21/2017 AUREA MILLER MD Ot 477. 9 ALLERGIC RHINITIS NOS 05/21/2017 AUREA MILLER MD Ot 496 CHR AIRWAY OBSTRUCT NEC 05/21/2017 AUREA MILLER MD Ot 780. 4 DIZZINESS AND GIDDINESS 05/21/2017 AUREA MILLER MD Ot 780. 79 OTH MALAISE FATIGUE 05/21/2017 AUREA MILLER MD Ot 785. 1 PALPITATIONS 05/21/2017 AUREA MILLER MD Ot 786. 05 SHORTNESS OF BREATH 05/21/2017 AUREA MILLER MD Ot 786. 50 CHEST PAIN NOS 05/21/2017 AUREA MILLER MD Ot 793. 11 SOLITARY PULMONARY NODULE 05/21/2017 JAZMIN MD, BASHAR J Ot 496 CHR AIRWAY OBSTRUCT NEC 05/21/2017 JAZMIN MARIE, AUREA J Ot 786. 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 05/21/2017 STEPHIE RODRIGUEZ S BASKETBALL COACH Ot V15.3 HX OF IRRADIATION 05/21/2017 STEPHIE RODRIGUEZ S BASKETBALL COACH Ot V58.69 OTH MED,LT,CURRENT USE 05/21/2017 BILL NARAYANAN MD S Ot 709.9 SKIN DISORDER NOS 05/21/2017 BILL NARAYANAN MD S Ot V72.83 EXAM PRE-OPERATIVE NEC 05/21/2017 BILL NARAYANAN MD Ot V74.8 SCREEN-BACTERIAL DIS NEC 05/21/2017 DONTRELL BATISTA Ot 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 05/21/2017 DONTRELL BATISTA Ot 492.8 EMPHYSEMA NEC 05/21/2017 DONTRELL BATISTA Ot 793.11 SOLITARY PULMONARY NODULE 05/21/2017 DONTRELL BATISTA Ot 793.99 OTH NOSP (ABN) FINDINGS RADIOLOGICAL O 05/21/2017 STEPHIE RODRIGUEZ S BASKETBALL COACH Ot 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 05/21/2017 STEPHIE RODRIGUEZ BASKETBALL COACH Ot 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 05/21/2017 STEPHIE RODRIGUEZ S BASKETBALL COACH Ot 305.1 TOBACCO USE DISORDER 05/21/2017 STEPHIE RODRIGUEZ BASKETBALL COACH Ot 401.9 HYPERTENSION NOS 05/21/2017 STEPHIE RODRIGUEZ S BASKETBALL COACH Ot 729.5 PAIN IN LIMB 05/21/2017 STEPHIE RODRIGUEZ S BASKETBALL COACH Ot 793.11 SOLITARY PULMONARY NODULE 05/21/2017 STEPHIE RODRIGUEZ BASKETBALL COACH Ot V15.3 HX OF IRRADIATION 05/21/2017 STEPHIE RODRIGUEZ S BASKETBALL COACH Ot V58.69 OTH MED,LT,CURRENT USE 05/21/2017 DONTRELL BATISTA Ot 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 05/21/2017 DONTRELL BATISTA Ot 355.8 MONONEURITIS LEG NOS 05/21/2017 DONTRELL BATISTA Ot 707.11 ULCER OF THIGH 05/21/2017 DONTRELL BATISTA Xiang Ot 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 05/21/2017 DONTRELL BATISTA Xiagn Ot 355.8 MONONEURITIS LEG NOS 05/21/2017 STEPHIE RODRIGUEZ BASKETBALL COACH Ot 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 05/21/2017 STEPHIE RODRIGUEZ BASKETBALL COACH Ot 305.1 TOBACCO USE DISORDER 05/21/2017 STEPHIE RODRIGUEZ BASKETBALL COACH Ot 401.9 HYPERTENSION NOS 05/21/2017 STEPHIE RODRIGUEZ BASKETBALL COACH Ot 793.11 SOLITARY PULMONARY NODULE 05/21/2017 STEPHIE RODRIGUEZ BASKETBALL COACH Ot V15.3 HX OF IRRADIATION 05/21/2017 STEPHIE RODRIGUEZ BASKETBALL COACH Ot V58.69 OTH MED,LT,CURRENT USE 05/21/2017 DONTRELL BATISTA Xiang Ot 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 05/21/2017 DONTRELL BATISTA N Ot 305.1 TOBACCO USE DISORDER 05/21/2017 DONTRELL BATISTA Xiang Ot 401.9 HYPERTENSION NOS 05/21/2017 DONTRELL BATISTA Xiang Ot 793.11 SOLITARY PULMONARY NODULE 05/21/2017 DONTRELL BATISTA Xiang Ot V04.81 ND FOR PROPHYLACTIC VACCIN AND INOCULATI 05/21/2017 ALIREZA BATISTAINES Otoole Ot V15.3 HX OF IRRADIATION 05/21/2017 DONTRELL BATISTA Xiang Ot V58.69 OTH MED,LT,CURRENT USE 05/21/2017 BRITTANY JEFFERY MD Ot 492 .8 EMPHYSEMA NEC 05/21/2017 BRITTANY JEFFERY MD Ot 707.11 ULCER OF THIGH 05/21/2017 BRITTANY JEFFERY MD Ot V10.83 HX-SKIN MALIGNANCY NEC 05/21/2017 BRITTANY JEFFERY MD Ot V15 .3 HX OF IRRADIATION 05/21/2017 BRITTANY JEFFERY MD Ot 427 .9 CARDIAC DYSRHYTHMIA NOS 05/21/2017 BRITTANY JEFFERY MD Ot 707.11 ULCER OF THIGH 05/21/2017 BRITTANY JEFFERY MD Ot 990 EFFECTS RADIATION NOS 05/21/2017 BRITTANY JEFFERY MD Ot E947.8 ADV EFF MEDICINAL NEC 05/21/2017 DAVID MCFARLANE APRN Ot L59.8 OTH DISRD OF THE SKIN, SUBCU RELATED TO 05/21/2017 DAVID MCFARLANE PINION POLISHER Ot L97.112 NON-PRS CHRONIC ULCER OF RIGHT THIGH W F 05/21/2017 DAVID MCFARLANE PINION POLISHER Ot Z92.3 PERSONAL HISTORY OF IRRADIATION 05/21/2017 POLY MARIE, JOVANNA Mcarthur Ot R19 .7 DIARRHEA, UNSPECIFIED 05/21/2017 POLY MARIE, JOVANNA Mcarthur Ot R82.99 OTHER ABNORMAL FINDINGS IN URINE 02/11/2019 DONTRELL BATISTA N Ot 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 02/11/2019 DONTRELL BATISTA N Ot 355.8 MONONEURITIS LEG NOS 02/11/2019 DONTRELL ABTISTA N Ot 707.11 ULCER OF THIGH 02/11/2019 DONTRELL BATISTA N Ot 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 02/11/2019 DONTRELL BATISTA N Ot 355.8 MONONEURITIS LEG NOS 02/11/2019 RODRIGUEZSTEPHIE Craft S BASKETBALL COACH Ot 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 02/11/2019 STEPHIE RODRIGUEZ S BASKETBALL COACH Ot 305.1 TOBACCO USE DISORDER 02/11/2019 CARO RODRIGUEZAH S BASKETBALL COACH Ot 401.9 HYPERTENSION NOS 02/11/2019 STEPHIE RODRIGUEZ S BASKETBALL COACH Ot 793.11 SOLITARY PULMONARY NODULE 02/11/2019 STEPHIE RODRIGUEZ S BASKETBALL COACH Ot V15.3 HX OF IRRADIATION 02/11/2019 STEPHIE RODRIGUEZ S BASKETBALL COACH Ot V58.69 OTH MED,LT,CURRENT USE 02/11/2019 DONTRELL BATISTA N Ot 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 02/11/2019 DONTRELL BATISTA N Ot 305.1 TOBACCO USE DISORDER 02/11/2019 DONTRELL BATISTA N Ot 401.9 HYPERTENSION NOS 02/11/2019 DONTRELL BATISTA N Ot 793.11 SOLITARY PULMONARY NODULE 02/11/2019 DONTRELL BATISTA N Ot V04.81 ND FOR PROPHYLACTIC VACCIN AND INOCULATI 02/11/2019 DONTRELL BATISTA N Ot V15.3 HX OF IRRADIATION 02/11/2019 DONTRELL BATISTA N Ot V58.69 OTH MED,LT,CURRENT USE 02/11/2019 BRITTANY JEFFERY MD Ot 492 .8 EMPHYSEMA NEC 02/11/2019 BRITTANY JEFFERY MD Ot 707.11 ULCER OF THIGH 02/11/2019 BRITTANY JEFFERY MD Ot V10.83 HX-SKIN MALIGNANCY NEC 02/11/2019 BRITTANY JEFFERY MD Ot V15 .3 HX OF IRRADIATION 02/11/2019 BRITTANY JEFFERY MD Ot 427 .9 CARDIAC DYSRHYTHMIA NOS 02/11/2019 BRITTANY JEFFERY MD Ot 707.11 ULCER OF THIGH 02/11/2019 BRITTANY JEFFERY MD Ot 990 EFFECTS RADIATION NOS 02/11/2019 BRITTANY JEFFERY MD Ot E947.8 ADV EFF MEDICINAL NEC 02/11/2019 DAVID MCFARLANE APRN Ot L59.8 OTH DISRD OF THE SKIN, SUBCU RELATED TO 02/11/2019 DAVID MCFARLANE APRN Ot L97.112 NON-PRS CHRONIC ULCER OF RIGHT THIGH W F 02/11/2019 DAVID MCFARLANE PINION POLISHER Ot Z92.3 PERSONAL HISTORY OF IRRADIATION 02/11/2019 JOVANNA PANG MD Ot R19 .7 DIARRHEA, UNSPECIFIED 02/11/2019 JOVANNA PANG MD Ot R82.99 OTHER ABNORMAL FINDINGS IN URINE 02/11/2019 DONTRELL BATISTA Ot 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 02/11/2019 DONTRELL BATISTA Ot 355.8 MONONEURITIS LEG NOS 02/11/2019 DONTRELL BATISTA Ot 707.11 ULCER OF THIGH 02/11/2019 DONTRELL BATISTA Ot 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 02/11/2019 DONTRELL BATISTA Ot 355.8 MONONEURITIS LEG NOS 02/11/2019 STEPHIE RODRIGUEZ BASKETBALL COACH Ot 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 02/11/2019 STEPHIE RODRIGUEZ BASKETBALL COACH Ot 305.1 TOBACCO USE DISORDER 02/11/2019 STEPHIE RODRIGUEZ BASKETBALL COACH Ot 401.9 HYPERTENSION NOS 02/11/2019 STEPHIE RODRIGUEZ BASKETBALL COACH Ot 793.11 SOLITARY PULMONARY NODULE 02/11/2019 STEPHIE RODRIGUEZ BASKETBALL COACH Ot V15.3 HX OF IRRADIATION 02/11/2019 STEPHIE RODRIGUEZ BASKETBALL COACH Ot V58.69 OTH MED,LT,CURRENT USE 02/11/2019 DONTRELL BATISTA Ot 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 02/11/2019 LYNNE DONTRELL Otoole Ot 305.1 TOBACCO USE DISORDER 02/11/2019 LYNNE DONTRELL Otoole Ot 401.9 HYPERTENSION NOS 02/11/2019 LYNNE ALIREZAINES Xiang Ot 793.11 SOLITARY PULMONARY NODULE 02/11/2019 DONTRELL BATISTA Xiang Ot V04.81 ND FOR PROPHYLACTIC VACCIN AND INOCULATI 02/11/2019 ALIREZA BATISTAINES Otoole Ot V15.3 HX OF IRRADIATION 02/11/2019 ALIREZA BATISTAINES Otoole Ot V58.69 OTH MED,LT,CURRENT USE 02/11/2019 BRITTANY JEFFERY MD Ot 492 .8 EMPHYSEMA NEC 02/11/2019 BRITTANY JEFFERY MD Ot 707.11 ULCER OF THIGH 02/11/2019 BRITTANY JEFFERY MD Ot V10.83 HX-SKIN MALIGNANCY NEC 02/11/2019 BRITTANY JEFFERY MD Ot V15 .3 HX OF IRRADIATION 02/11/2019 BRITTANY JEFFERY MD Ot 427 .9 CARDIAC DYSRHYTHMIA NOS 02/11/2019 BRITTANY JEFFERY MD Ot 707.11 ULCER OF THIGH 02/11/2019 BRITTANY JEFFERY MD Ot 990 EFFECTS RADIATION NOS 02/11/2019 BRITTANY JEFFERY MD Ot E947.8 ADV EFF MEDICINAL NEC 02/11/2019 DAVID MCFARLANE APRN Ot L59.8 OTH DISRD OF THE SKIN, SUBCU RELATED TO 02/11/2019 DAVID MCFARLANE APRN Ot L97.112 NON-PRS CHRONIC ULCER OF RIGHT THIGH W F 02/11/2019 DAVID MCFARLANE APRN Ot Z92.3 PERSONAL HISTORY OF IRRADIATION 02/11/2019 JOVANNA PANG MD Ot R19 .7 DIARRHEA, UNSPECIFIED 02/11/2019 JOVANNA PANG MD Ot R82.99 OTHER ABNORMAL FINDINGS IN URINE 02/11/2019 LYNNE DONTRELL Otoole Ot 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 02/11/2019 LYNNEDONTRELL Ot 355.8 MONONEURITIS LEG NOS 02/11/2019 LYNNE DONTRELL Otoole Ot 707.11 ULCER OF THIGH 02/11/2019 LYNNEDONTRELL Ot 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 02/11/2019 LYNNEDONTRELL Ot 355.8 MONONEURITIS LEG NOS 02/11/2019 STEPHIE RODRIGUEZ BASKETBALL COACH Ot 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 02/11/2019 STEPHIE RODRIGUEZ BASKETBALL COACH Ot 305.1 TOBACCO USE DISORDER 02/11/2019 STEPHIE RODRIGUEZ BASKETBALL COACH Ot 401.9 HYPERTENSION NOS 02/11/2019 STEPHIE RODRIGUEZ BASKETBALL COACH Ot 793.11 SOLITARY PULMONARY NODULE 02/11/2019 STEPHIE RODRIGUEZ BASKETBALL COACH Ot V15.3 HX OF IRRADIATION 02/11/2019 STEPHIE RODRIGUEZ BASKETBALL COACH Ot V58.69 OTH MED,LT,CURRENT USE 02/11/2019 DONTRELL BATISTA N Ot 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 02/11/2019 DONTRELL BATISTA N Ot 305.1 TOBACCO USE DISORDER 02/11/2019 DONTRELL BATISTA N Ot 401.9 HYPERTENSION NOS 02/11/2019 DONTRELL BATISTA N Ot 793.11 SOLITARY PULMONARY NODULE 02/11/2019 DONTRELL BATISTA Ot V04.81 ND FOR PROPHYLACTIC VACCIN AND INOCULATI 02/11/2019 DONTRELL BATISTA N Ot V15.3 HX OF IRRADIATION 02/11/2019 DONTRELL BATISTA Ot V58.69 OTH MED,LT,CURRENT USE 02/11/2019 BRITTANY JEFFERY MD Ot 492 .8 EMPHYSEMA NEC 02/11/2019 BRITTANY JEFFERY MD Ot 707.11 ULCER OF THIGH 02/11/2019 BRITTANY JEFFERY MD Ot V10.83 HX-SKIN MALIGNANCY NEC 02/11/2019 BRITTANY JEFFERY MD Ot V15 .3 HX OF IRRADIATION 02/11/2019 BRITTANY JEFFERY MD Ot 427 .9 CARDIAC DYSRHYTHMIA NOS 02/11/2019 BRITTANY JEFFERY MD Ot 707.11 ULCER OF THIGH 02/11/2019 BRITTANY JEFFERY MD Ot 990 EFFECTS RADIATION NOS 02/11/2019 BRITTANY JEFFERY MD Ot E947.8 ADV EFF MEDICINAL NEC 02/11/2019 DAVID MCFARLANE APRN Ot L59.8 OTH DISRD OF THE SKIN, SUBCU RELATED TO 02/11/2019 DAVID MCFARLANE APRN Ot L97.112 NON-PRS CHRONIC ULCER OF RIGHT THIGH W F 02/11/2019 MAEVE, DAVID R PINION POLISHER Ot Z92.3 PERSONAL HISTORY OF IRRADIATION 02/11/2019 POLY MARIE, JOVANNA Mcarthur Ot R19 .7 DIARRHEA, UNSPECIFIED 02/11/2019 POLY MARIE, JOVANNA Mcarthur Ot R82.99 OTHER ABNORMAL FINDINGS IN URINE 02/12/2019 DIONI JOSHUA CHELSEY Ot A41.9 SEPSIS, UNSPECIFIED ORGANISM 02/12/2019 DIONI JOSHUA CHELSEY Ot E87.2 ACIDOSIS 02/12/2019 STEVEN WHEATLEY DOI Ot F32.9 MAJOR DEPRESSIVE DISORDER, SINGLE EPISOD 02/12/2019 DIONI JOSHUA CHELSEY Ot F41.9 ANXIETY DISORDER, UNSPECIFIED 02/12/2019 DIONI JOSHUA CHELSEY Ot G89.29 OTHER CHRONIC PAIN 02/12/2019 DIONI JOSHUA CHELSEY Ot H91.90 UNSPECIFIED HEARING LOSS, UNSPECIFIED EA 02/12/2019 DIONI JOSHUA CHELSEY Ot I21.4 NON-ST ELEVATION (NSTEMI) MYOCARDIAL INF 02/12/2019 DIONI JOSHUA CHELSEY Ot I25.10 ATHSCL HEART DISEASE OF [place] CORONARY 02/12/2019 DIONI JOSHUA CHELSEY Ot I50.9 HEART FAILURE, UNSPECIFIED 02/12/2019 DIONI JOSHUA CHELSEY Ot J18.9 PNEUMONIA, UNSPECIFIED ORGANISM 02/12/2019 DIONI JOSHUA CHELSEY Ot J44.0 CHR OBSTRUCTIVE PULMON DISEASE WITH (ACU 02/12/2019 DIONI DO CHELSEY Ot J96.00 ACUTE RESPIRATORY FAILURE, UNSP W HYPOXI 02/12/2019 DIONI JOSHUA CHELSEY Ot K21.9 GASTRO-ESOPHAGEAL REFLUX DISEASE WITHOUT 02/12/2019 DIONI JOSHUA CHELSEY Ot M19.90 UNSPECIFIED OSTEOARTHRITIS, UNSPECIFIED 02/12/2019 DIONI JOSHUA CHELSEY Ot M54.9 DORSALGIA, UNSPECIFIED 02/12/2019 DIONI JOSHUA CHELSEY Ot R65.21 SEVERE SEPSIS WITH SEPTIC SHOCK 02/12/2019 DIONI JOSHUA CHELSEY Ot Z85.83 0 PERSONAL HISTORY OF MALIGNANT NEOPLASM O 02/12/2019 DIONI JOSHUA CHELSEY Ot Z92.21 PERSONAL HISTORY OF ANTINEOPLASTIC CHEMO 02/26/2019 DIONI JOSHUA CHELSEY Ot E78.5 HYPERLIPIDEMIA, UNSPECIFIED 02/26/2019 DIONI JOSHUA CHELSEY Ot F01.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 02/26/2019 WHEATLEY DO, CHELSEY Ot 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, CIGARETTES, UNCOMPL 02/26/2019 CHELSEY WHEATLEY DO Ot F32.9 MAJOR DEPRESSIVE DISORDER, SINGLE EPISOD 02/26/2019 CHELSEY WHEATLEY DO Ot F41.9 ANXIETY DISORDER, UNSPECIFIED 02/26/2019 CHELSEY WHEATLEY DO Ot G72.81 CRITICAL ILLNESS MYOPATHY 02/26/2019 STEVEN WHEATLEY DOI Ot I10 ESSENTIAL (PRIMARY) HYPERTENSION 02/26/2019 CHELSEY WHEATLEY DO Ot I21.4 NON-ST ELEVATION (NSTEMI) MYOCARDIAL INF 02/26/2019 CHELSEY WHEATLEY DO Ot I25.10 ATHSCL HEART DISEASE OF [place] CORONARY 02/26/2019 CHELSEY WHEATLEY DO Ot I25.5 ISCHEMIC CARDIOMYOPATHY 02/26/2019 CHELSEY WHEATLEY DO Ot J44.9 CHRONIC OBSTRUCTIVE PULMONARY DISEASE, U 02/26/2019 CHELSEY WHEATLEY DO Ot K21.9 GASTRO-ESOPHAGEAL REFLUX DISEASE WITHOUT 02/26/2019 CHELSEY WHEATLEY DO Ot M19.91 PRIMARY OSTEOARTHRITIS, UNSPECIFIED SITE 02/26/2019 CHELSEY WHEATLEY DO Ot Z85.83 0 PERSONAL HISTORY OF MALIGNANT NEOPLASM O 02/26/2019 CHELSEY WHEATLEY DO Ot Z87.09 PERSONAL HISTORY OF OTHER DISEASES OF TH 02/26/2019 CHELSEY WHEATLEY DO Ot Z95.5 PRESENCE OF CORONARY ANGIOPLASTY IMPLANT 02/26/2019 CHELSEY WHEATLEY DO Ot Z99.81 DEPENDENCE ON SUPPLEMENTAL OXYGEN 03/11/2019 DONTRELL BATISTA Ot 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 03/11/2019 DONTRELL BATISTA Ot 355.8 MONONEURITIS LEG NOS 03/11/2019 DONTRELL BATISTA Ot 707.11 ULCER OF THIGH 03/11/2019 DONTRELL BATISTA Ot 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 03/11/2019 DONTRELL BATISTA Ot 355.8 MONONEURITIS LEG NOS 03/11/2019 STEPHIE RODRIGUEZ BASKETBALL COACH Ot 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 03/11/2019 STEPHIE RODRIGUEZ BASKETBALL COACH Ot 305.1 TOBACCO USE DISORDER 03/11/2019 STEPHIE RODRIGUEZ BASKETBALL COACH Ot 401.9 HYPERTENSION NOS 03/11/2019 RODRIGUEZ, HILAH S BASKETBALL COACH Ot 793.11 SOLITARY PULMONARY NODULE 03/11/2019 STEPHIE RODRIGUEZ BASKETBALL COACH Ot V15.3 HX OF IRRADIATION 03/11/2019 STEPHIE RODRIGUEZ BASKETBALL COACH Ot V58.69 OTH MED,LT,CURRENT USE 03/11/2019 DONTRELL BATISTA Ot 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 03/11/2019 DONTRELL BATISTA N Ot 305.1 TOBACCO USE DISORDER 03/11/2019 DONTRELL BATISTA Ot 401.9 HYPERTENSION NOS 03/11/2019 DONTRELL BATISTA Ot 793.11 SOLITARY PULMONARY NODULE 03/11/2019 DONTRELL BATISTA Ot V04.81 ND FOR PROPHYLACTIC VACCIN AND INOCULATI 03/11/2019 DONTRELL BATISTA Xiang Ot V15.3 HX OF IRRADIATION 03/11/2019 DONTRELL BATISTA Ot V58.69 OTH MED,LT,CURRENT USE 03/11/2019 BRITTANY JEFFERY MD Ot 492 .8 EMPHYSEMA NEC 03/11/2019 BRITTANY JEFFERY MD Ot 707.11 ULCER OF THIGH 03/11/2019 BRITTANY JEFFERY MD Ot V10.83 HX-SKIN MALIGNANCY NEC 03/11/2019 BRITTANY JEFFERY MD Ot V15 .3 HX OF IRRADIATION 03/11/2019 BRITTANY JEFFERY MD Ot 427 .9 CARDIAC DYSRHYTHMIA NOS 03/11/2019 BRITTANY JEFFERY MD Ot 707.11 ULCER OF THIGH 03/11/2019 BRITTANY JEFFERY MD Ot 990 EFFECTS RADIATION NOS 03/11/2019 BRITTANY JEFFERY MD Ot E947.8 ADV EFF MEDICINAL NEC 03/11/2019 DAVID MCFARLANE APRN Ot L59.8 OTH DISRD OF THE SKIN, SUBCU RELATED TO 03/11/2019 DAVID MCFARLANE APRN Ot L97.112 NON-PRS CHRONIC ULCER OF RIGHT THIGH W F 03/11/2019 DAVID MCFARLANE APRN Ot Z92.3 PERSONAL HISTORY OF IRRADIATION 03/11/2019 JOVANNA PANG MD Ot R19 .7 DIARRHEA, UNSPECIFIED 03/11/2019 JOVANNA PANG MD Ot R82.99 OTHER ABNORMAL FINDINGS IN URINE Procedures Code Description Performed By Per formed On Medical O [facility] [address] 01/30/2012 Cardiolog Aurea Miller 01/31/2012 [id number] IN SERTION OF INFUSION DEV INTO SUP VENA 12/03/2016 [id number] ME ASURE OF CARDIAC SAMPL PRESSURE, L H 02/12/2019 [id number] RE SPIRATORY VENTILATION, LESS THAN 24 CO 02/12/2019 [id number] FL UOROSCOPY OF MULT COR ART USING L OSM 02/12/2019 Results Test Result Range Venous blood hemoglobin measurement (mas s/volume) - 12/02/16 21:00 Venous blood hemoglobin measurement (mass/volume) 13.7 g/dL 13.3-17.7 Blood lactic acid measurement (moles/vol ume) - 12/02/16 21:00 Blood lactic acid measurement (moles/volume) 1.22 mmol/L 0.50-2.00 Whole blood basic metabolic panel - 11/23 21:00 Serum or plasma sodium measurement (moles/volume) 134 mmol/L 135-145 Serum or plasma potassium measurement (moles/volume) 4.6 mmol/L 3.6-5.0 Serum or plasma chloride measurement (moles/volume) 102 mmol/L 98-107 Carbon dioxide 24 mmol/L 21-32 Serum or plasma anion gap determination (moles/volume) 8 mmol/L 5-14 Serum or plasma urea nitrogen measurement (mass/volume ) 14 mg/dL 7-18 Serum or plasma creatinine measurement (mass/volume) 0.62 mg/dL 0.60-1.30 Serum or plasma urea nitrogen/creatinine mass ratio 23 NRG Serum or plasma creatinine measurement w ith calculation of estimated glomerular filtration rate > NRG Serum or plasma glucose measurement (mass/volume) 81 mg/dL 70-105 Serum or plasma calcium measurement (mass/volume) 8.0 mg/dL 8.5-10.1 Magnesium - 12/02/16 21:00 Magnesium 1.7 mg/dL 1.8-2.4 Serum or plasma troponin i.cardiac measu rement (mass/volume) - 12/02/16 21:00 Serum or plasma troponin i.cardiac measurement (mass/v olume) 0.34 ng/mL <0.30 Serum or plasma lithium measurement (mol es/volume) - 12/02/16 21:00 BNP level 2021.4 pg/mL <100.0 Serum or plasma albumin measurement (mas s/volume) - 12/02/16 21:00 Serum or plasma albumin measurement (mass/volume) 2.5 g/dL 3.2-4.5 IONIZED CALCIUM (SEND OFF) - 12/02/16 21 :00 Blood ionized calcium measurement (mass/volume) 1. 11 % 1.16- 1.32 Venous blood ionized calcium measurement adjusted to pH 7.4 (moles/volume) 1.09 % 1.16-1.32 pH measurement 7.35 NRG Complete urinalysis with reflex to cultu re - 12/02/16 21:17 Urine color determination YELLOW NRG Urine clarity determination SLIGHTLY CLOUDY NRG Urine pH measurement by test strip 5 5-9 Specific gravity of urine by test strip 1.015 1.016-1.022 Urine protein assay by test strip, semi-quantitative 2+ NEGATIVE Urine glucose detection by automated test strip NE GATIVE NEGATIVE Erythrocytes detection in urine sediment by light micr oscopy 1+ NEGATIVE Urine ketones detection by automated test strip 1+ NEGATIVE Urine nitrite detection by test strip NEGATIVE NEGATIVE Urine total bilirubin detection by test strip NEGA TIVE NEGATIVE Urine urobilinogen measurement by automated test strip (mass/volume) 1 mg/dL NORMAL Urine leukocyte esterase detection by dipstick 3+ NEGATIVE Automated urine sediment erythrocyte cou nt by microscopy (number/high power field) RARE NRG Automated urine sediment leukocyte count by microscopy (number/high power field) TNTC NRG Bacteria detection in urine sediment by light microsco py FEW NRG Squamous epithelial cells detection in u rine sediment by light microscopy 25-50 NRG Crystals detection in urine sediment by light microsco py NONE NRG Casts detection in urine sediment by light microscopy NONE NRG Mucus detection in urine sediment by light microscopy NEGATIVE NRG Complete urinalysis with reflex to culture YES NRG Renal epithelial cells detection in urin e sediment by light microscopy NONE NRG Bacterial urine culture - 12/02/16 21:17 Bacterial urine culture [id number] NRG COLONY COUNT >100,000/ML NRG FTX;REPORTABLE NO FURTHER STUDIES UNLESS REQUESTED NRG URINE CULTURE RESULTS PLUS NRG Sputum Gram stain - 12/02/16 22:25 Sputum Gram stain epithelial cells observed. NRG Bacterial sputum culture - 12/02/16 22:2 5 Bacterial sputum culture NORMAL NRG Methicillin resistant Staphylococcus aur eus (MRSA) screening culture - 12/03/16 00:05 Methicillin resistant Staphylococcus aureus (MRSA) scr eening culture NEG NRG Bacterial blood culture - 12/03/16 00:08 Bacterial blood culture NG NRG Bacterial blood culture - 12/03/16 00:12 Bacterial blood culture NG NRG Gram stain microscopy - 12/03/16 00:53 Gram stain microscopy Few gram positive cocc i resembling Staph NRG Bacteria identification in wound by cult ure - 12/03/16 00:53 Bacteria identification in wound by culture [id number] NRG FREE TEXT EXTERNAL SENSITIVITY REPORTED 12/04 06:30 NRG QUANTITY OF GROWTH Scant Growth NRG Bacterial susceptibility panel - 7 00:53 Oxacillin susceptibility test by minimum inhibitory co ncentration <= NRG Gentamicin susceptibility test by minimum inhibitory c oncentration <= NRG Clindamycin susceptibility test by minimum inhibitory concentration <= NRG Erythromycin susceptibility test by minimum inhibitory concentration <= NRG Trimethoprim/sulfamethoxazole susceptibi lity test by minimum inhibitoryconcentration <= NRG Vancomycin susceptibility test by minimum inhibitory c oncentration <= NRG Levofloxacin susceptibility test by minimum inhibitory concentration 0.25 NRG Rifampin susceptibility test by minimum inhibitory con centration <= NRG Tetracycline susceptibility test by minimum inhibitory concentration <= NRG Arterial blood gas measurement - 7 01:15 Blood pCO2 47 mm[Hg] 35-45 Blood pO2 70 mm[Hg] 79-93 Arterial blood bicarbonate measurement (moles/volume) 20 mmol/L 23-27 Arterial blood base excess by calculation -5.7 mmo l/L -2.5-2.5 Arterial blood oxygen saturation measurement 87 % 94-100 * Inhaled oxygen flow rate 3L NRG Arterial blood pH measurement with patient temperature correction 7.26 7.37-7.43 Arterial blood carbon dioxide, total measurement (mole s/volume) 21.2 mmol/L 21.0-31.0 Body site RIGHT RADIAL NRG Assessment of wrist artery patency prior to arterial p uncture YES-POS NRG Setting of ventilation mode NO NR G Measurement of body temperature 101.5 NRG Automated blood complete blood count (he mogram) panel - 12/03/16 03:05 Blood leukocytes automated count (number/volume) 9.9 10*3/uL 4.3-11.0 Blood erythrocytes automated count (number/volume) 3.87 10*6/uL 4.35-5.85 Venous blood hemoglobin measurement (mass/volume) 12.7 g/dL 13.3-17.7 Blood hematocrit (volume fraction) 37 % 40-54 Automated erythrocyte mean corpuscular volume 97 [ foz_us] 80-99 Automated erythrocyte mean corpuscular h emoglobin (mass per erythrocyte) 33 pg 25-34 Automated erythrocyte mean corpuscular h emoglobin concentration measurement (mass/volume) 34 g/dL 32-36 Automated erythrocyte distribution width ratio 12. 3 % 10.0- 14.5 Automated blood platelet count (count/volume) 138 10*3/uL 130-400 Automated blood platelet mean volume measurement 10.6 [foz_us] 7.4-10.4 Blood lactic acid measurement (moles/vol ume) - 12/03/16 03:05 Blood lactic acid measurement (moles/volume) 1.88 mmol/L 0.50-2.00 Comprehensive metabolic panel - 12/03/16 03:05 Serum or plasma sodium measurement (moles/volume) 134 mmol/L 135-145 Serum or plasma potassium measurement (moles/volume) 4.0 mmol/L 3.6-5.0 Serum or plasma chloride measurement (moles/volume) 102 mmol/L 98-107 Carbon dioxide 23 mmol/L 21-32 Serum or plasma anion gap determination (moles/volume) 9 mmol/L 5-14 Serum or plasma urea nitrogen measurement (mass/volume ) 14 mg/dL 7-18 Serum or plasma creatinine measurement (mass/volume) 0.68 mg/dL 0.60-1.30 Serum or plasma urea nitrogen/creatinine mass ratio 21 NRG Serum or plasma creatinine measurement w ith calculation of estimated glomerular filtration rate > NRG Serum or plasma glucose measurement (mass/volume) 126 mg/dL 70-105 Serum or plasma calcium measurement (mass/volume) 8.1 mg/dL 8.5-10.1 Serum or plasma total bilirubin measurement (mass/volu me) 1.8 mg/dL 0.1-1.0 Serum or plasma alkaline phosphatase shmuel surement (enzymatic activity/volume) 62 U/L 40-136 Serum or plasma aspartate aminotransfera se measurement (enzymatic activity/volume) 25 U/L 5-34 Serum or plasma alanine aminotransferase measurement (enzymatic activity/volume) 16 U/L 0-55 Serum or plasma protein measurement (mass/volume) 6.2 g/dL 6.4-8.2 Serum or plasma albumin measurement (mass/volume) 3.3 g/dL 3.2-4.5 Serum or plasma phosphate measurement (m ass/volume) - 12/03/16 03:05 Serum or plasma phosphate measurement (mass/volume) 2.2 mg/dL 2.3-4.7 Magnesium - 12/03/16 03:05 Magnesium 2.6 mg/dL 1.8-2.4 Serum or plasma troponin i.cardiac measu rement (mass/volume) - 12/03/16 03:05 Serum or plasma troponin i.cardiac measurement (mass/v olume) 0.33 ng/mL <0.30 Serum or plasma lithium measurement (mol es/volume) - 12/03/16 03:05 BNP level 2900.1 pg/mL <100.0 Arterial blood gas measurement - 7 03:10 Blood pCO2 33 mm[Hg] 35-45 Blood pO2 71 mm[Hg] 79-93 Arterial blood bicarbonate measurement (moles/volume) 23 mmol/L 23-27 Arterial blood base excess by calculation -0.4 mmo l/L -2.5-2.5 Arterial blood oxygen saturation measurement 96 % 94-100 * Inhaled oxygen flow rate 25% NRG Arterial blood pH measurement with patient temperature correction 7.46 7.37-7.43 Arterial blood carbon dioxide, total measurement (mole s/volume) 24.0 mmol/L 21.0-31.0 Body site RIGHT RADIAL NRG Assessment of wrist artery patency prior to arterial p uncture YES-POS NRG Setting of ventilation mode NO NR G Measurement of body temperature 98.4 NRG Blood lactic acid measurement (moles/vol ume) - 12/03/16 08:34 Blood lactic acid measurement (moles/volume) 1.41 mmol/L 0.50-2.00 THYROID STIMULATING HORMONE - 12/03/16 0 8:34 THYROID STIMULATING HORMONE 1.00 u[iU]/mL 0.35-4.94 Serum or plasma thyroxine (T4) free norma urement (mass/volume) - 12/03/16 08:34 Serum or plasma thyroxine (T4) free measurement (mass/ volume) 1.05 ng/dL 0.70-1.48 Morning cortisol measurement - 12/03/16 08:34 Cortisol AM 28.6 % 6.0-28.0 TRIIODOTHRYONINE T3 FREE - 12/03/16 08:3 4 TRIIODOTHYRONINE T3 FREE 2.0 pg/mL 2.4-4 .5 Gram stain microscopy - 12/03/16 08:50 GRAM STAIN RESULT FEW WBC'S, NO BACTERIA OBSERVED NRG Bacterial body fluid culture - 12/03/16 08:50 Bacterial body fluid culture NG N RG Serum or plasma phosphate measurement (m ass/volume) - 12/04/16 04:45 Serum or plasma phosphate measurement (mass/volume) 1.7 mg/dL 2.3-4.7 Whole blood basic metabolic panel - 11/23 05/11 04:45 Serum or plasma sodium measurement (moles/volume) 136 mmol/L 135-145 Serum or plasma potassium measurement (moles/volume) 2.6 mmol/L 3.6-5.0 Serum or plasma chloride measurement (moles/volume) 103 mmol/L 98-107 Carbon dioxide 21 mmol/L 21-32 Serum or plasma anion gap determination (moles/volume) 12 mmol/L 5-14 Serum or plasma urea nitrogen measurement (mass/volume ) 11 mg/dL 7-18 Serum or plasma creatinine measurement (mass/volume) 0.63 mg/dL 0.60-1.30 Serum or plasma urea nitrogen/creatinine mass ratio 17 NRG Serum or plasma creatinine measurement w ith calculation of estimated glomerular filtration rate > NRG Serum or plasma glucose measurement (mass/volume) 177 mg/dL 70-105 Serum or plasma calcium measurement (mass/volume) 7.8 mg/dL 8.5-10.1 Magnesium - 12/04/16 04:45 Magnesium 1.8 mg/dL 1.8-2.4 Complete blood count (CBC) with automate d white blood cell (WBC) differential - 12/04/16 04:45 Blood leukocytes automated count (number/volume) 9.9 10*3/uL 4.3-11.0 Blood erythrocytes automated count (number/volume) 3.37 10*6/uL 4.35-5.85 Venous blood hemoglobin measurement (mass/volume) 11.2 g/dL 13.3-17.7 Blood hematocrit (volume fraction) 32 % 40-54 Automated erythrocyte mean corpuscular volume 96 [ foz_us] 80-99 Automated erythrocyte mean corpuscular h emoglobin (mass per erythrocyte) 33 pg 25-34 Automated erythrocyte mean corpuscular h emoglobin concentration measurement (mass/volume) 35 g/dL 32-36 Automated erythrocyte distribution width ratio 12. 2 % 10.0- 14.5 Automated blood platelet count (count/volume) 158 10*3/uL 130-400 Automated blood platelet mean volume measurement 10.7 [foz_us] 7.4-10.4 Automated blood neutrophils/100 leukocytes 86 % 42-75 Automated blood lymphocytes/100 leukocytes 6 % 12-44 Blood monocytes/100 leukocytes 8 % 0-12 Automated blood eosinophils/100 leukocytes 0 % 0-10 Automated blood basophils/100 leukocytes 0 % 0-10 Blood neutrophils automated count (number/volume) 8.5 10*3 1.8-7.8 Blood lymphocytes automated count (number/volume) 0.6 10*3 1.0-4.0 Blood monocytes automated count (number/volume) 0. 8 10*3 0.0-1.0 Automated eosinophil count 0.0 10*3/uL 0 .0-0.3 Automated blood basophil count (count/volume) 0.0 10*3/uL 0.0-0.1 Vancomycin trough - 12/04/16 08:20 Vancomycin trough 8.6 ug/mL 10.0-20.0 Whole blood basic metabolic panel - 11/23 05/11 16:50 Serum or plasma sodium measurement (moles/volume) 138 mmol/L 135-145 Serum or plasma potassium measurement (moles/volume) 2.9 mmol/L 3.6-5.0 Serum or plasma chloride measurement (moles/volume) 107 mmol/L 98-107 Carbon dioxide 22 mmol/L 21-32 Serum or plasma anion gap determination (moles/volume) 9 mmol/L 5-14 Serum or plasma urea nitrogen measurement (mass/volume ) 11 mg/dL 7-18 Serum or plasma creatinine measurement (mass/volume) 0.72 mg/dL 0.60-1.30 Serum or plasma urea nitrogen/creatinine mass ratio 15 NRG Serum or plasma creatinine measurement w ith calculation of estimated glomerular filtration rate > NRG Serum or plasma glucose measurement (mass/volume) 174 mg/dL 70-105 Serum or plasma calcium measurement (mass/volume) 8.0 mg/dL 8.5-10.1 Complete blood count (CBC) with automate d white blood cell (WBC) differential - 12/05/16 04:51 Blood leukocytes automated count (number/volume) 10.3 10*3/uL 4.3-11.0 Blood erythrocytes automated count (number/volume) 3.34 10*6/uL 4.35-5.85 Venous blood hemoglobin measurement (mass/volume) 11.0 g/dL 13.3-17.7 Blood hematocrit (volume fraction) 32 % 40-54 Automated erythrocyte mean corpuscular volume 96 [ foz_us] 80-99 Automated erythrocyte mean corpuscular h emoglobin (mass per erythrocyte) 33 pg 25-34 Automated erythrocyte mean corpuscular h emoglobin concentration measurement (mass/volume) 35 g/dL 32-36 Automated erythrocyte distribution width ratio 12. 6 % 10.0- 14.5 Automated blood platelet count (count/volume) 190 10*3/uL 130-400 Automated blood platelet mean volume measurement 10.5 [foz_us] 7.4-10.4 Automated blood neutrophils/100 leukocytes 87 % 42-75 Automated blood lymphocytes/100 leukocytes 5 % 12-44 Blood monocytes/100 leukocytes 8 % 0-12 Automated blood eosinophils/100 leukocytes 0 % 0-10 Automated blood basophils/100 leukocytes 0 % 0-10 Blood neutrophils automated count (number/volume) 8.9 10*3 1.8-7.8 Blood lymphocytes automated count (number/volume) 0.5 10*3 1.0-4.0 Blood monocytes automated count (number/volume) 0. 8 10*3 0.0-1.0 Automated eosinophil count 0.0 10*3/uL 0 .0-0.3 Automated blood basophil count (count/volume) 0.0 10*3/uL 0.0-0.1 Whole blood basic metabolic panel - 11/23 06/08 04:51 Serum or plasma sodium measurement (moles/volume) 141 mmol/L 135-145 Serum or plasma potassium measurement (moles/volume) 3.6 mmol/L 3.6-5.0 Serum or plasma chloride measurement (moles/volume) 111 mmol/L 98-107 Carbon dioxide 24 mmol/L 21-32 Serum or plasma anion gap determination (moles/volume) 6 mmol/L 5-14 Serum or plasma urea nitrogen measurement (mass/volume ) 14 mg/dL 7-18 Serum or plasma creatinine measurement (mass/volume) 0.64 mg/dL 0.60-1.30 Serum or plasma urea nitrogen/creatinine mass ratio 22 NRG Serum or plasma creatinine measurement w ith calculation of estimated glomerular filtration rate > NRG Serum or plasma glucose measurement (mass/volume) 159 mg/dL 70-105 Serum or plasma calcium measurement (mass/volume) 8.0 mg/dL 8.5-10.1 Serum or plasma phosphate measurement (m ass/volume) - 12/05/16 04:51 Serum or plasma phosphate measurement (mass/volume) 2.2 mg/dL 2.3-4.7 Magnesium - 12/05/16 04:51 Magnesium 1.9 mg/dL 1.8-2.4 Serum or plasma lithium measurement (mol es/volume) - 12/05/16 04:51 BNP level 1940.4 pg/mL <100.0 Vancomycin trough - 12/05/16 08:23 Vancomycin trough 12.2 ug/mL 10.0-20.0 Capillary blood glucose measurement by g lucometer (mass/volume) - 12/05/16 11:58 Capillary blood glucose measurement by glucometer (mas s/volume) 192 mg/dL 70-110 Arterial blood gas measurement - 7 19:45 Blood pCO2 47 mm[Hg] 35-45 Blood pO2 149 mm[Hg] 79-93 Arterial blood bicarbonate measurement (moles/volume) 16 mmol/L 23-27 Arterial blood base excess by calculation -11.0 mm ol/L -2.5-2.5 Arterial blood oxygen saturation measurement 100 % 94-100 * Inhaled oxygen flow rate BI PAP 100% NRG Arterial blood pH measurement with patient temperature correction 7.16 7.37-7.43 Arterial blood carbon dioxide, total measurement (mole s/volume) 17.7 mmol/L 21.0-31.0 Body site RIGHT RADIAL NRG Assessment of wrist artery patency prior to arterial p uncture POSITIVE NRG Setting of ventilation mode NO NR G Measurement of body temperature 97.3 NRG Complete blood count (CBC) with automate d white blood cell (WBC) differential - 12/05/16 19:55 Blood leukocytes automated count (number/volume) 11.0 10*3/uL 4.3-11.0 Blood erythrocytes automated count (number/volume) 3.79 10*6/uL 4.35-5.85 Venous blood hemoglobin measurement (mass/volume) 12.5 g/dL 13.3-17.7 Blood hematocrit (volume fraction) 37 % 40-54 Automated erythrocyte mean corpuscular volume 98 [ foz_us] 80-99 Automated erythrocyte mean corpuscular h emoglobin (mass per erythrocyte) 33 pg 25-34 Automated erythrocyte mean corpuscular h emoglobin concentration measurement (mass/volume) 34 g/dL 32-36 Automated erythrocyte distribution width ratio 13. 1 % 10.0- 14.5 Automated blood platelet count (count/volume) 220 10*3/uL 130-400 Automated blood platelet mean volume measurement 10.5 [foz_us] 7.4-10.4 Automated blood neutrophils/100 leukocytes 82 % 42-75 Automated blood lymphocytes/100 leukocytes 7 % 12-44 Blood monocytes/100 leukocytes 11 % 0-12 Automated blood eosinophils/100 leukocytes 0 % 0-10 Automated blood basophils/100 leukocytes 0 % 0-10 Blood neutrophils automated count (number/volume) 9.0 10*3 1.8-7.8 Blood lymphocytes automated count (number/volume) 0.8 10*3 1.0-4.0 Blood monocytes automated count (number/volume) 1. 2 10*3 0.0-1.0 Automated eosinophil count 0.0 10*3/uL 0 .0-0.3 Automated blood basophil count (count/volume) 0.0 10*3/uL 0.0-0.1 Comprehensive metabolic panel - 12/05/16 19:55 Serum or plasma sodium measurement (moles/volume) 142 mmol/L 135-145 Serum or plasma potassium measurement (moles/volume) 4.4 mmol/L 3.6-5.0 Serum or plasma chloride measurement (moles/volume) 113 mmol/L 98-107 Carbon dioxide 18 mmol/L 21-32 Serum or plasma anion gap determination (moles/volume) 11 mmol/L 5-14 Serum or plasma urea nitrogen measurement (mass/volume ) 23 mg/dL 7-18 Serum or plasma creatinine measurement (mass/volume) 0.72 mg/dL 0.60-1.30 Serum or plasma urea nitrogen/creatinine mass ratio 32 NRG Serum or plasma creatinine measurement w ith calculation of estimated glomerular filtration rate > NRG Serum or plasma glucose measurement (mass/volume) 160 mg/dL 70-105 Serum or plasma calcium measurement (mass/volume) 8.2 mg/dL 8.5-10.1 Serum or plasma total bilirubin measurement (mass/volu me) 0.7 mg/dL 0.1-1.0 Serum or plasma alkaline phosphatase shmuel surement (enzymatic activity/volume) 86 U/L 40-136 Serum or plasma aspartate aminotransfera se measurement (enzymatic activity/volume) 80 U/L 5-34 Serum or plasma alanine aminotransferase measurement (enzymatic activity/volume) 50 U/L 0-55 Serum or plasma protein measurement (mass/volume) 6.5 g/dL 6.4-8.2 Serum or plasma albumin measurement (mass/volume) 2.9 g/dL 3.2-4.5 Magnesium - 12/05/16 19:55 Magnesium 2.3 mg/dL 1.8-2.4 Serum or plasma troponin i.cardiac measu rement (mass/volume) - 12/05/16 19:55 Serum or plasma troponin i.cardiac measurement (mass/v olume) < ng/mL <0.30 Arterial blood gas measurement - 7 20:20 Blood pCO2 44 mm[Hg] 35-45 Blood pO2 462 mm[Hg] 79-93 Arterial blood bicarbonate measurement (moles/volume) 21 mmol/L 23-27 Arterial blood base excess by calculation -4.8 mmo l/L -2.5-2.5 Arterial blood oxygen saturation measurement 100 % 94-100 * Inhaled oxygen flow rate 100% BIPAP N RG Arterial blood pH measurement with patient temperature correction 7.29 7.37-7.43 Arterial blood carbon dioxide, total measurement (mole s/volume) 22.2 mmol/L 21.0-31.0 Body site RIGHT RADIAL NRG Assessment of wrist artery patency prior to arterial p uncture POSITIVE NRG Setting of ventilation mode NO NR G Measurement of body temperature 97.8 NRG Blood lactic acid measurement (moles/vol ume) - 12/05/16 20:40 Blood lactic acid measurement (moles/volume) 2.03 mmol/L 0.50-2.00 Serum or plasma lactate measurement (mol es/volume) - 12/05/16 22:50 Serum or plasma lactate measurement (moles/volume) 1.78 mmol/L 0.50-2.00 Arterial blood gas measurement - 7 03:53 Blood pCO2 38 mm[Hg] 35-45 Blood pO2 84 mm[Hg] 79-93 Arterial blood bicarbonate measurement (moles/volume) 25 mmol/L 23-27 Arterial blood base excess by calculation 0.8 mmol /L -2.5-2.5 Arterial blood oxygen saturation measurement 98 % 94-100 * Inhaled oxygen flow rate 50% BIPAP NR G Arterial blood pH measurement with patient temperature correction 7.42 7.37-7.43 Arterial blood carbon dioxide, total measurement (mole s/volume) 26.1 mmol/L 21.0-31.0 Body site RT RADIAL NRG Assessment of wrist artery patency prior to arterial p uncture YES-POS NRG Setting of ventilation mode NO NR G Measurement of body temperature 96.9 NRG Complete blood count (CBC) with automate d white blood cell (WBC) differential - 12/06/16 04:30 Blood leukocytes automated count (number/volume) 9.9 10*3/uL 4.3-11.0 Blood erythrocytes automated count (number/volume) 3.36 10*6/uL 4.35-5.85 Venous blood hemoglobin measurement (mass/volume) 11.0 g/dL 13.3-17.7 Blood hematocrit (volume fraction) 33 % 40-54 Automated erythrocyte mean corpuscular volume 97 [ foz_us] 80-99 Automated erythrocyte mean corpuscular h emoglobin (mass per erythrocyte) 33 pg 25-34 Automated erythrocyte mean corpuscular h emoglobin concentration measurement (mass/volume) 34 g/dL 32-36 Automated erythrocyte distribution width ratio 12. 9 % 10.0- 14.5 Automated blood platelet count (count/volume) 195 10*3/uL 130-400 Automated blood platelet mean volume measurement 10.6 [foz_us] 7.4-10.4 Automated blood neutrophils/100 leukocytes 73 % 42-75 Automated blood lymphocytes/100 leukocytes 11 % 12-44 Blood monocytes/100 leukocytes 15 % 0-12 Automated blood eosinophils/100 leukocytes 0 % 0-10 Automated blood basophils/100 leukocytes 0 % 0-10 Blood neutrophils automated count (number/volume) 7.3 10*3 1.8-7.8 Blood lymphocytes automated count (number/volume) 1.1 10*3 1.0-4.0 Blood monocytes automated count (number/volume) 1. 5 10*3 0.0-1.0 Automated eosinophil count 0.0 10*3/uL 0 .0-0.3 Automated blood basophil count (count/volume) 0.0 10*3/uL 0.0-0.1 Whole blood basic metabolic panel - 11/23 07/09 04:30 Serum or plasma sodium measurement (moles/volume) 144 mmol/L 135-145 Serum or plasma potassium measurement (moles/volume) 3.6 mmol/L 3.6-5.0 Serum or plasma chloride measurement (moles/volume) 112 mmol/L 98-107 Carbon dioxide 23 mmol/L 21-32 Serum or plasma anion gap determination (moles/volume) 9 mmol/L 5-14 Serum or plasma urea nitrogen measurement (mass/volume ) 20 mg/dL 7-18 Serum or plasma creatinine measurement (mass/volume) 0.65 mg/dL 0.60-1.30 Serum or plasma urea nitrogen/creatinine mass ratio 31 NRG Serum or plasma creatinine measurement w ith calculation of estimated glomerular filtration rate > NRG Serum or plasma glucose measurement (mass/volume) 100 mg/dL 70-105 Serum or plasma calcium measurement (mass/volume) 8.3 mg/dL 8.5-10.1 Serum or plasma phosphate measurement (m ass/volume) - 12/06/16 04:30 Serum or plasma phosphate measurement (mass/volume) 1.9 mg/dL 2.3-4.7 Magnesium - 12/06/16 04:30 Magnesium 1.9 mg/dL 1.8-2.4 Complete blood count (CBC) with automate d white blood cell (WBC) differential - 12/07/16 04:04 Blood leukocytes automated count (number/volume) 10.6 10*3/uL 4.3-11.0 Blood erythrocytes automated count (number/volume) 3.76 10*6/uL 4.35-5.85 Venous blood hemoglobin measurement (mass/volume) 12.5 g/dL 13.3-17.7 Blood hematocrit (volume fraction) 37 % 40-54 Automated erythrocyte mean corpuscular volume 98 [ foz_us] 80-99 Automated erythrocyte mean corpuscular h emoglobin (mass per erythrocyte) 33 pg 25-34 Automated erythrocyte mean corpuscular h emoglobin concentration measurement (mass/volume) 34 g/dL 32-36 Automated erythrocyte distribution width ratio 13. 2 % 10.0- 14.5 Automated blood platelet count (count/volume) 253 10*3/uL 130-400 Automated blood platelet mean volume measurement 10.6 [foz_us] 7.4-10.4 Automated blood neutrophils/100 leukocytes 72 % 42-75 Automated blood lymphocytes/100 leukocytes 12 % 12-44 Blood monocytes/100 leukocytes 12 % 0-12 Automated blood eosinophils/100 leukocytes 3 % 0-10 Automated blood basophils/100 leukocytes 0 % 0-10 Blood neutrophils automated count (number/volume) 7.7 10*3 1.8-7.8 Blood lymphocytes automated count (number/volume) 1.3 10*3 1.0-4.0 Blood monocytes automated count (number/volume) 1. 3 10*3 0.0-1.0 Automated eosinophil count 0.4 10*3/uL 0 .0-0.3 Automated blood basophil count (count/volume) 0.0 10*3/uL 0.0-0.1 Whole blood basic metabolic panel - 11/23 08/08 04:04 Serum or plasma sodium measurement (moles/volume) 143 mmol/L 135-145 Serum or plasma potassium measurement (moles/volume) 3.1 mmol/L 3.6-5.0 Serum or plasma chloride measurement (moles/volume) 105 mmol/L 98-107 Carbon dioxide 26 mmol/L 21-32 Serum or plasma anion gap determination (moles/volume) 12 mmol/L 5-14 Serum or plasma urea nitrogen measurement (mass/volume ) 18 mg/dL 7-18 Serum or plasma creatinine measurement (mass/volume) 0.75 mg/dL 0.60-1.30 Serum or plasma urea nitrogen/creatinine mass ratio 24 NRG Serum or plasma creatinine measurement w ith calculation of estimated glomerular filtration rate > NRG Serum or plasma glucose measurement (mass/volume) 87 mg/dL 70-105 Serum or plasma calcium measurement (mass/volume) 8.7 mg/dL 8.5-10.1 Serum or plasma phosphate measurement (m ass/volume) - 12/07/16 04:04 Serum or plasma phosphate measurement (mass/volume) 3.8 mg/dL 2.3-4.7 Magnesium - 12/07/16 04:04 Magnesium 2.0 mg/dL 1.8-2.4 Complete blood count (CBC) with automate d white blood cell (WBC) differential - 12/08/16 05:06 Blood leukocytes automated count (number/volume) 11.1 10*3/uL 4.3-11.0 Blood erythrocytes automated count (number/volume) 3.63 10*6/uL 4.35-5.85 Venous blood hemoglobin measurement (mass/volume) 12.0 g/dL 13.3-17.7 Blood hematocrit (volume fraction) 35 % 40-54 Automated erythrocyte mean corpuscular volume 97 [ foz_us] 80-99 Automated erythrocyte mean corpuscular h emoglobin (mass per erythrocyte) 33 pg 25-34 Automated erythrocyte mean corpuscular h emoglobin concentration measurement (mass/volume) 34 g/dL 32-36 Automated erythrocyte distribution width ratio 12. 9 % 10.0- 14.5 Automated blood platelet count (count/volume) 257 10*3/uL 130-400 Automated blood platelet mean volume measurement 10.5 [foz_us] 7.4-10.4 Automated blood neutrophils/100 leukocytes 75 % 42-75 Automated blood lymphocytes/100 leukocytes 10 % 12-44 Blood monocytes/100 leukocytes 12 % 0-12 Automated blood eosinophils/100 leukocytes 3 % 0-10 Automated blood basophils/100 leukocytes 1 % 0-10 Blood neutrophils automated count (number/volume) 8.4 10*3 1.8-7.8 Blood lymphocytes automated count (number/volume) 1.1 10*3 1.0-4.0 Blood monocytes automated count (number/volume) 1. 4 10*3 0.0-1.0 Automated eosinophil count 0.3 10*3/uL 0 .0-0.3 Automated blood basophil count (count/volume) 0.1 10*3/uL 0.0-0.1 Whole blood basic metabolic panel - 11/23 09/08 05:06 Serum or plasma sodium measurement (moles/volume) 139 mmol/L 135-145 Serum or plasma potassium measurement (moles/volume) 3.2 mmol/L 3.6-5.0 Serum or plasma chloride measurement (moles/volume) 101 mmol/L 98-107 Carbon dioxide 30 mmol/L 21-32 Serum or plasma anion gap determination (moles/volume) 8 mmol/L 5-14 Serum or plasma urea nitrogen measurement (mass/volume ) 18 mg/dL 7-18 Serum or plasma creatinine measurement (mass/volume) 0.77 mg/dL 0.60-1.30 Serum or plasma urea nitrogen/creatinine mass ratio 23 NRG Serum or plasma creatinine measurement w ith calculation of estimated glomerular filtration rate > NRG Serum or plasma glucose measurement (mass/volume) 120 mg/dL 70-105 Serum or plasma calcium measurement (mass/volume) 8.4 mg/dL 8.5-10.1 Serum or plasma phosphate measurement (m ass/volume) - 12/08/16 05:06 Serum or plasma phosphate measurement (mass/volume) 2.5 mg/dL 2.3-4.7 Magnesium - 12/08/16 05:06 Magnesium 1.8 mg/dL 1.8-2.4 Complete blood count (CBC) with automate d white blood cell (WBC) differential - 12/09/16 05:48 Blood leukocytes automated count (number/volume) 10.2 10*3/uL 4.3-11.0 Blood erythrocytes automated count (number/volume) 3.50 10*6/uL 4.35-5.85 Venous blood hemoglobin measurement (mass/volume) 11.6 g/dL 13.3-17.7 Blood hematocrit (volume fraction) 34 % 40-54 Automated erythrocyte mean corpuscular volume 97 [ foz_us] 80-99 Automated erythrocyte mean corpuscular h emoglobin (mass per erythrocyte) 33 pg 25-34 Automated erythrocyte mean corpuscular h emoglobin concentration measurement (mass/volume) 34 g/dL 32-36 Automated erythrocyte distribution width ratio 12. 8 % 10.0- 14.5 Automated blood platelet count (count/volume) 261 10*3/uL 130-400 Automated blood platelet mean volume measurement 10.1 [foz_us] 7.4-10.4 Automated blood neutrophils/100 leukocytes 70 % 42-75 Automated blood lymphocytes/100 leukocytes 13 % 12-44 Blood monocytes/100 leukocytes 12 % 0-12 Automated blood eosinophils/100 leukocytes 4 % 0-10 Automated blood basophils/100 leukocytes 1 % 0-10 Blood neutrophils automated count (number/volume) 7.2 10*3 1.8-7.8 Blood lymphocytes automated count (number/volume) 1.4 10*3 1.0-4.0 Blood monocytes automated count (number/volume) 1. 3 10*3 0.0-1.0 Automated eosinophil count 0.4 10*3/uL 0 .0-0.3 Automated blood basophil count (count/volume) 0.1 10*3/uL 0.0-0.1 Whole blood basic metabolic panel - 11/23 10/08 05:48 Serum or plasma sodium measurement (moles/volume) 138 mmol/L 135-145 Serum or plasma potassium measurement (moles/volume) 3.4 mmol/L 3.6-5.0 Serum or plasma chloride measurement (moles/volume) 99 mmol/L 98-107 Carbon dioxide 29 mmol/L 21-32 Serum or plasma anion gap determination (moles/volume) 10 mmol/L 5-14 Serum or plasma urea nitrogen measurement (mass/volume ) 17 mg/dL 7-18 Serum or plasma creatinine measurement (mass/volume) 0.70 mg/dL 0.60-1.30 Serum or plasma urea nitrogen/creatinine mass ratio 24 NRG Serum or plasma creatinine measurement w ith calculation of estimated glomerular filtration rate > NRG Serum or plasma glucose measurement (mass/volume) 90 mg/dL 70-105 Serum or plasma calcium measurement (mass/volume) 8.7 mg/dL 8.5-10.1 Serum or plasma phosphate measurement (m ass/volume) - 12/09/16 05:48 Serum or plasma phosphate measurement (mass/volume) 3.6 mg/dL 2.3-4.7 Magnesium - 12/09/16 05:48 Magnesium 1.6 mg/dL 1.8-2.4 Whole blood basic metabolic panel - 11/23 11/08 05:06 Serum or plasma sodium measurement (moles/volume) 137 mmol/L 135-145 Serum or plasma potassium measurement (moles/volume) 3.2 mmol/L 3.6-5.0 Serum or plasma chloride measurement (moles/volume) 99 mmol/L 98-107 Carbon dioxide 28 mmol/L -32 Serum or plasma anion gap determination (moles/volume) 10 mmol/L 5-14 Serum or plasma urea nitrogen measurement (mass/volume ) 12 mg/dL 7-18 Serum or plasma creatinine measurement (mass/volume) 0.69 mg/dL 0.60-1.30 Serum or plasma urea nitrogen/creatinine mass ratio 17 NRG Serum or plasma creatinine measurement w ith calculation of estimated glomerular filtration rate > NRG Serum or plasma glucose measurement (mass/volume) 87 mg/dL 70-105 Serum or plasma calcium measurement (mass/volume) 8.3 mg/dL 8.5-10.1 Serum or plasma phosphate measurement (m ass/volume) - 12/10/16 05:06 Serum or plasma phosphate measurement (mass/volume) 3.1 mg/dL 2.3-4.7 Magnesium - 12/10/16 05:06 Magnesium 1.7 mg/dL 1.8-2.4 Complete blood count (CBC) with automate d white blood cell (WBC) differential - 12/10/16 05:26 Blood leukocytes automated count (number/volume) 10.5 10*3/uL 4.3-11.0 Blood erythrocytes automated count (number/volume) 3.61 10*6/uL 4.35-5.85 Venous blood hemoglobin measurement (mass/volume) 12.0 g/dL 13.3-17.7 Blood hematocrit (volume fraction) 35 % 40-54 Automated erythrocyte mean corpuscular volume 97 [ foz_us] 80-99 Automated erythrocyte mean corpuscular h emoglobin (mass per erythrocyte) 33 pg 25-34 Automated erythrocyte mean corpuscular h emoglobin concentration measurement (mass/volume) 34 g/dL 32-36 Automated erythrocyte distribution width ratio 12. 9 % 10.0- 14.5 Automated blood platelet count (count/volume) 297 10*3/uL 130-400 Automated blood platelet mean volume measurement 10.2 [foz_us] 7.4-10.4 Automated blood neutrophils/100 leukocytes 69 % 42-75 Automated blood lymphocytes/100 leukocytes 15 % 12-44 Blood monocytes/100 leukocytes 12 % 0-12 Automated blood eosinophils/100 leukocytes 4 % 0-10 Automated blood basophils/100 leukocytes 1 % 0-10 Blood neutrophils automated count (number/volume) 7.2 10*3 1.8-7.8 Blood lymphocytes automated count (number/volume) 1.6 10*3 1.0-4.0 Blood monocytes automated count (number/volume) 1. 2 10*3 0.0-1.0 Automated eosinophil count 0.4 10*3/uL 0 .0-0.3 Automated blood basophil count (count/volume) 0.1 10*3/uL 0.0-0.1 Hepatitis C virus RNA viral load by prob e and target amplification method (units/volume) - 12/10/16 05:26 Hepatitis C virus (HCV) RNA viral load m easurement (log number/volume) Not Detected Not Detected Hepatitis C virus (HCV) RNA detection by PCR with reflex to quantitation Not Detected <=11 Complete blood count (CBC) with automate d white blood cell (WBC) differential - 12/15/16 14:00 Blood leukocytes automated count (number/volume) 7.0 10*3/uL 4.3-11.0 Blood erythrocytes automated count (number/volume) 4.05 10*6/uL 4.35-5.85 Venous blood hemoglobin measurement (mass/volume) 13.2 g/dL 13.3-17.7 Blood hematocrit (volume fraction) 39 % 40-54 Automated erythrocyte mean corpuscular volume 97 [ foz_us] 80-99 Automated erythrocyte mean corpuscular h emoglobin (mass per erythrocyte) 33 pg 25-34 Automated erythrocyte mean corpuscular h emoglobin concentration measurement (mass/volume) 34 g/dL 32-36 Automated erythrocyte distribution width ratio 13. 0 % 10.0- 14.5 Automated blood platelet count (count/volume) 403 10*3/uL 130-400 Automated blood platelet mean volume measurement 11.1 [foz_us] 7.4-10.4 Automated blood neutrophils/100 leukocytes 58 % 42-75 Automated blood lymphocytes/100 leukocytes 21 % 12-44 Blood monocytes/100 leukocytes 17 % 0-12 Automated blood eosinophils/100 leukocytes 3 % 0-10 Automated blood basophils/100 leukocytes 2 % 0-10 Blood neutrophils automated count (number/volume) 4.0 10*3 1.8-7.8 Blood lymphocytes automated count (number/volume) 1.5 10*3 1.0-4.0 Blood monocytes automated count (number/volume) 1. 2 10*3 0.0-1.0 Automated eosinophil count 0.2 10*3/uL 0 .0-0.3 Automated blood basophil count (count/volume) 0.1 10*3/uL 0.0-0.1 Comprehensive metabolic panel - 12/15/16 14:00 Serum or plasma sodium measurement (moles/volume) 138 mmol/L 135-145 Serum or plasma potassium measurement (moles/volume) 3.8 mmol/L 3.6-5.0 Serum or plasma chloride measurement (moles/volume) 98 mmol/L 98-107 Carbon dioxide 30 mmol/L 21-32 Serum or plasma anion gap determination (moles/volume) 10 mmol/L 5-14 Serum or plasma urea nitrogen measurement (mass/volume ) 9 mg/dL 7-18 Serum or plasma creatinine measurement (mass/volume) 0.80 mg/dL 0.60-1.30 Serum or plasma urea nitrogen/creatinine mass ratio 11 NRG Serum or plasma creatinine measurement w ith calculation of estimated glomerular filtration rate > NRG Serum or plasma glucose measurement (mass/volume) 105 mg/dL 70-105 Serum or plasma calcium measurement (mass/volume) 9.1 mg/dL 8.5-10.1 Serum or plasma total bilirubin measurement (mass/volu me) 0.8 mg/dL 0.1-1.0 Serum or plasma alkaline phosphatase shmuel surement (enzymatic activity/volume) 93 U/L 40-136 Serum or plasma aspartate aminotransfera se measurement (enzymatic activity/volume) 43 U/L 5-34 Serum or plasma alanine aminotransferase measurement (enzymatic activity/volume) 24 U/L 0-55 Serum or plasma protein measurement (mass/volume) 8.0 g/dL 6.4-8.2 Serum or plasma albumin measurement (mass/volume) 3.3 g/dL 3.2-4.5 Stool occult blood screen - 12/15/16 14: 00 Stool gastrointestinal hemoglobin detection POSITI VE NEGATIVE Stool leukocytes detection by light micr oscopy - 12/15/16 14:00 FECAL WBC RESULTS MODERATE # WBC'S OBSERVED ON DIRECT SMEAR NRG FECAL NOTE FECAL LEUKOCYTES MAY BE INTE RMITTENTLY PRESENT OR NRG FECAL NOTE UNEVENLY DISTRIBUTED IN STOO L SPECIMENS, AND WBC NRG FECAL NOTE MORPHOLOGY DEGRADES DURING TRANSPORT NRG FECAL NOTE NOTE: NRG C DIFFICILE AG + TOXIN A/B. - 12/15/16 1 4:00 RESULTS NEGATIVE FOR ANTIGEN AND TOXIN A/B NRG Complete urinalysis with reflex to cultu re - 12/16/16 12:50 Urine color determination YELLOW NRG Urine clarity determination CLEAR NR G Urine pH measurement by test strip 7 5-9 Specific gravity of urine by test strip 1.010 1.016-1.022 Urine protein assay by test strip, semi-quantitative 1+ NEGATIVE Urine glucose detection by automated test strip NE GATIVE NEGATIVE Erythrocytes detection in urine sediment by light micr oscopy NEGATIVE NEGATIVE Urine ketones detection by automated test strip NE GATIVE NEGATIVE Urine nitrite detection by test strip NEGATIVE NEGATIVE Urine total bilirubin detection by test strip NEGA TIVE NEGATIVE Urine urobilinogen measurement by automated test strip (mass/volume) 4 mg/dL NORMAL Urine leukocyte esterase detection by dipstick 1+ NEGATIVE Automated urine sediment erythrocyte cou nt by microscopy (number/high power field) NONE NRG Automated urine sediment leukocyte count by microscopy (number/high power field) [HPF] NRG Bacteria detection in urine sediment by light microsco py NONE NRG Squamous epithelial cells detection in u rine sediment by light microscopy 0-2 NRG Crystals detection in urine sediment by light microsco py NONE NRG Casts detection in urine sediment by light microscopy PRESENT NRG Mucus detection in urine sediment by light microscopy NEGATIVE NRG Complete urinalysis with reflex to culture NO NRG WBC casts detection in urine sediment by light microsc opy 0-2 NRG CMP - 04/29/17 10:35 GLUCOSE 75 mg/dL 65-99 UREA NITROGEN (BUN) 7 mg/dL 7-25 CREATININE 0.56 mg/dL 0.70-1.25 eGFR NON-AFR. ERITREAN 106 mL/min/1.73m2 > OR = 60 eGFR 123 mL/min/1.73m2 > OR = 60 BUN/CREATININE RATIO 13 (calc) 6-22 SODIUM 128 mmol/L 135-146 POTASSIUM 5.0 mmol/L 3.5-5.3 CHLORIDE 95 mmol/L 98-110 CARBON DIOXIDE 28 mmol/L 20-31 CALCIUM 8.9 mg/dL 8.6-10.3 PROTEIN, TOTAL 7.5 g/dL 6.1-8.1 ALBUMIN 3.6 g/dL 3.6-5.1 GLOBULIN 3.9 g/dL (calc) 1.9-3.7 ALBUMIN/GLOBULIN RATIO 0.9 (calc) 1.0-2. 5 BILIRUBIN, TOTAL 0.5 mg/dL 0.2-1.2 ALKALINE PHOSPHATASE 97 U/L 40-115 AST 24 U/L 10-35 ALT 17 U/L 9-46 HCV RNA, QUANTITATIVE REAL TIME PCR - 15:37 HCV RNA, QUANTITATIVE REAL TIME PCR <15 NOT DETECT ED IU/mL NOT DETECTED HCV RNA, QUANTITATIVE REAL TIME PCR <1.18 NO T DETECTED Log IU/mL NOT DETECTED COMMENT NRG CULTURE, ANAEROBIC AND AEROBIC - 9 15:48 CULTURE, ANAEROBIC BACTERIA W/GRAM STAIN SEE NOTE NRG CULTURE, AEROBIC BACTERIA SEE NOTE NRG CULTURE, ANAEROBIC AND AEROBIC - 9 14:02 CULTURE, ANAEROBIC BACTERIA W/GRAM STAIN SEE NOTE NRG CULTURE, AEROBIC BACTERIA SEE NOTE NRG CBC - 02/02/19 14:23 WHITE BLOOD CELL COUNT 8.4 Thousand/uL 3 .8-10.8 RED BLOOD CELL COUNT 5.01 Million/uL 4.2 0-5.80 HEMOGLOBIN 16.9 g/dL 13.2-17.1 HEMATOCRIT 47.5 % 38.5-50.0 MCV 94.8 fL 80.0-100.0 MCH 33.7 pg 27.0-33.0 MCHC 35.6 g/dL 32.0-36.0 RDW 12.3 % 11.0-15.0 PLATELET COUNT 219 Thousand/uL 140-400 MPV 11.0 fL 7.5-12.5 ABSOLUTE NEUTROPHILS 5720 cells/uL 1500- 7800 ABSOLUTE LYMPHOCYTES 1756 cells/uL 850-3 900 ABSOLUTE MONOCYTES 874 cells/uL 200-950 ABSOLUTE EOSINOPHILS 17 cells/uL 15-500 ABSOLUTE BASOPHILS 34 cells/uL 0-200 NEUTROPHILS 68.1 % NRG LYMPHOCYTES 20.9 % NRG MONOCYTES 10.4 % NRG EOSINOPHILS 0.2 % NRG BASOPHILS 0.4 % NRG Methicillin resistant Staphylococcus aur eus (MRSA) screening culture - 02/11/19 23:45 Methicillin resistant Staphylococcus aureus (MRSA) scr eening culture NEG NRG Sputum Gram stain - 02/11/19 23:55 Sputum Gram stain MIXED BACTERIAL ELVI NRG Bacterial sputum culture - 02/11/19 23:5 5 Bacterial sputum culture NG NRG Complete blood count (CBC) with automate d white blood cell (WBC) differential - 02/12/19 01:05 Blood leukocytes automated count (number/volume) 23.0 10*3/uL 4.3-11.0 Blood erythrocytes automated count (number/volume) 4.98 10*6/uL 4.35-5.85 Venous blood hemoglobin measurement (mass/volume) 16.6 g/dL 13.3-17.7 Blood hematocrit (volume fraction) 50 % 40-54 Automated erythrocyte mean corpuscular volume 99 [ foz_us] 80-99 Automated erythrocyte mean corpuscular h emoglobin (mass per erythrocyte) 33 pg 25-34 Automated erythrocyte mean corpuscular h emoglobin concentration measurement (mass/volume) 34 g/dL 32-36 Automated erythrocyte distribution width ratio 13. 3 % 10.0- 14.5 Automated blood platelet count (count/volume) 248 10*3/uL 130-400 Automated blood platelet mean volume measurement 10.4 [foz_us] 7.4-10.4 Automated blood neutrophils/100 leukocytes 88 % 42-75 Automated blood lymphocytes/100 leukocytes 4 % 12-44 Blood monocytes/100 leukocytes 8 % 0-12 Automated blood eosinophils/100 leukocytes 0 % 0-10 Automated blood basophils/100 leukocytes 0 % 0-10 Blood neutrophils automated count (number/volume) 20.2 10*3 1.8-7.8 Blood lymphocytes automated count (number/volume) 1.0 10*3 1.0-4.0 Blood monocytes automated count (number/volume) 1. 8 10*3 0.0-1.0 Automated eosinophil count 0.0 10*3/uL 0 .0-0.3 Automated blood basophil count (count/volume) 0.0 10*3/uL 0.0-0.1 PT panel in platelet poor plasma by coag ulation assay - 02/12/19 01:05 Prothrombin time (PT) in platelet poor plasma by coagu lation assay 15.0 s 12.2-14.7 INR in platelet poor plasma or blood by coagulation as say 1.1 0.8-1.4 Manual absolute plasma cell count - 01/24 04/12 01:05 Blood monocytes/100 leukocytes 6 % NRG Manual blood segmented neutrophils/100 leukocytes 87 % NRG Blood band neutrophils/100 leukocytes 1 % NRG Manual blood lymphocytes/100 leukocytes 6 % NRG Manual eosinophils/100 leukocytes in nose 0 % NRG Manual blood basophils/100 leukocytes 0 % NRG Blood platelet clump detection by light microscopy SLIGHT NRG Blood lactic acid measurement (moles/vol ume) - 02/12/19 01:05 Blood lactic acid measurement (moles/volume) 3.33 mmol/L 0.50-2.00 Whole blood basic metabolic panel - 01/24 04/12 01:05 Serum or plasma sodium measurement (moles/volume) 141 mmol/L 135-145 Serum or plasma potassium measurement (moles/volume) 4.0 mmol/L 3.6-5.0 Serum or plasma chloride measurement (moles/volume) 110 mmol/L 98-107 Carbon dioxide 17 mmol/L 21-32 Serum or plasma anion gap determination (moles/volume) 14 mmol/L 5-14 Serum or plasma urea nitrogen measurement (mass/volume ) 13 mg/dL 7-18 Serum or plasma creatinine measurement (mass/volume) 0.93 mg/dL 0.60-1.30 Serum or plasma urea nitrogen/creatinine mass ratio 14 NRG Serum or plasma creatinine measurement w ith calculation of estimated glomerular filtration rate > NRG Serum or plasma glucose measurement (mass/volume) 184 mg/dL 70-105 Serum or plasma calcium measurement (mass/volume) 7.6 mg/dL 8.5-10.1 Serum or plasma troponin i.cardiac measu rement (mass/volume) - 02/12/19 01:05 Serum or plasma troponin i.cardiac measurement (mass/v olume) 2.854 ng/mL <0.028 Complete blood count (CBC) with automate d white blood cell (WBC) differential - 02/12/19 03:15 Blood leukocytes automated count (number/volume) 22.0 10*3/uL 4.3-11.0 Blood erythrocytes automated count (number/volume) 4.79 10*6/uL 4.35-5.85 Venous blood hemoglobin measurement (mass/volume) 16.2 g/dL 13.3-17.7 Blood hematocrit (volume fraction) 48 % 40-54 Automated erythrocyte mean corpuscular volume 100 [foz_us] 80-99 Automated erythrocyte mean corpuscular h emoglobin (mass per erythrocyte) 34 pg 25-34 Automated erythrocyte mean corpuscular h emoglobin concentration measurement (mass/volume) 34 g/dL 32-36 Automated erythrocyte distribution width ratio 13. 2 % 10.0- 14.5 Automated blood platelet count (count/volume) 233 10*3/uL 130-400 Automated blood platelet mean volume measurement 10.5 [foz_us] 7.4-10.4 Automated blood neutrophils/100 leukocytes 85 % 42-75 Automated blood lymphocytes/100 leukocytes 6 % 12-44 Blood monocytes/100 leukocytes 9 % 0-12 Automated blood eosinophils/100 leukocytes 0 % 0-10 Automated blood basophils/100 leukocytes 0 % 0-10 Blood neutrophils automated count (number/volume) 18.8 10*3 1.8-7.8 Blood lymphocytes automated count (number/volume) 1.3 10*3 1.0-4.0 Blood monocytes automated count (number/volume) 1. 9 10*3 0.0-1.0 Automated eosinophil count 0.0 10*3/uL 0 .0-0.3 Automated blood basophil count (count/volume) 0.0 10*3/uL 0.0-0.1 Serum or plasma lactate measurement (mol es/volume) - 02/12/19 03:15 Serum or plasma lactate measurement (moles/volume) 2.77 mmol/L 0.50-2.00 Whole blood basic metabolic panel - 01/24 04/12 03:15 Serum or plasma sodium measurement (moles/volume) 141 mmol/L 135-145 Serum or plasma potassium measurement (moles/volume) 4.3 mmol/L 3.6-5.0 Serum or plasma chloride measurement (moles/volume) 109 mmol/L 98-107 Carbon dioxide 20 mmol/L 21-32 Serum or plasma anion gap determination (moles/volume) 12 mmol/L 5-14 Serum or plasma urea nitrogen measurement (mass/volume ) 13 mg/dL 7-18 Serum or plasma creatinine measurement (mass/volume) 0.94 mg/dL 0.60-1.30 Serum or plasma urea nitrogen/creatinine mass ratio 14 NRG Serum or plasma creatinine measurement w ith calculation of estimated glomerular filtration rate > NRG Serum or plasma glucose measurement (mass/volume) 154 mg/dL 70-105 Serum or plasma calcium measurement (mass/volume) 7.6 mg/dL 8.5-10.1 Serum or plasma phosphate measurement (m ass/volume) - 02/12/19 03:15 Serum or plasma phosphate measurement (mass/volume) 4.3 mg/dL 2.3-4.7 Magnesium - 02/12/19 03:15 Magnesium 1.7 mg/dL 1.6-2.4 Serum or plasma triglyceride measurement (mass/volume) - 02/12/19 03:15 Serum or plasma triglyceride measurement (mass/volume) 92 mg/dL <150 Arterial blood gas measurement - 9 03:45 Blood pCO2 45 mm[Hg] 35-45 Blood pO2 121 mm[Hg] 79-93 Arterial blood bicarbonate measurement (moles/volume) 20 mmol/L 23-27 Arterial blood base excess by calculation -6.1 mmo l/L -2.5-2.5 Arterial blood oxygen saturation measurement 98 % 94-100 * Inhaled oxygen flow rate 45% NRG Arterial blood pH measurement with patient temperature correction 7.26 7.37-7.43 Arterial blood carbon dioxide, total measurement (mole s/volume) 21.2 mmol/L 21.0-31.0 Body site R RAD NRG Assessment of wrist artery patency prior to arterial p uncture YES-POS NRG Setting of ventilation mode YES NR G Measurement of body temperature 36.6 NRG Complete urinalysis with reflex to cultu re - 02/12/19 05:55 Urine color determination SIENNA NRG Urine clarity determination SL CLOUDY N RG Urine pH measurement by test strip 5.0 5-9 Specific gravity of urine by test strip 1.025 1.016-1.022 Urine protein assay by test strip, semi-quantitative NEGATIVE NEGATIVE Urine glucose detection by automated test strip NE GATIVE NEGATIVE Erythrocytes detection in urine sediment by light micr oscopy 1+ NEGATIVE Urine ketones detection by automated test strip NE GATIVE NEGATIVE Urine nitrite detection by test strip NEGATIVE NEGATIVE Urine total bilirubin detection by test strip NEGA TIVE NEGATIVE Urine urobilinogen measurement by automated test strip (mass/volume) 0.2 mg/dL < = 1.0 Urine leukocyte esterase detection by dipstick NEG ATIVE NEGATIVE Automated urine sediment erythrocyte cou nt by microscopy (number/high power field) [HPF] NRG Automated urine sediment leukocyte count by microscopy (number/high power field) [HPF] NRG Bacteria detection in urine sediment by light microsco py FEW NRG Squamous epithelial cells detection in u rine sediment by light microscopy 2-5 NRG Crystals detection in urine sediment by light microsco py NONE NRG Casts detection in urine sediment by light microscopy PRESENT NRG Mucus detection in urine sediment by light microscopy NEGATIVE NRG Complete urinalysis with reflex to culture YES NRG Hyaline casts detection in urine sediment by light anne marie roscopy 10-25 NRG Bacterial urine culture - 02/12/19 05:55 Bacterial urine culture NG NRG Capillary blood glucose measurement by g lucometer (mass/volume) - 02/12/19 06:07 Capillary blood glucose measurement by glucometer (mas s/volume) 110 mg/dL 70-110 Bacterial blood culture - 02/12/19 06:15 Bacterial blood culture NG NRG Bacterial blood culture - 02/12/19 06:20 Bacterial blood culture NG NRG Bacterial blood culture - 02/12/19 06:58 Bacterial blood culture NG NRG Serum or plasma troponin i.cardiac measu rement (mass/volume) - 02/12/19 08:15 Serum or plasma troponin i.cardiac measurement (mass/v olume) 11.291 ng/mL <0.028 Capillary blood glucose measurement by g lucometer (mass/volume) - 02/12/19 11:57 Capillary blood glucose measurement by glucometer (mas s/volume) 165 mg/dL 70-110 Complete blood count (CBC) with automate d white blood cell (WBC) differential - 02/21/19 05:31 Blood leukocytes automated count (number/volume) 6.9 10*3/uL 4.3-11.0 Blood erythrocytes automated count (number/volume) 4.09 10*6/uL 4.35-5.85 Venous blood hemoglobin measurement (mass/volume) 13.6 g/dL 13.3-17.7 Blood hematocrit (volume fraction) 40 % 40-54 Automated erythrocyte mean corpuscular volume 97 [ foz_us] 80-99 Automated erythrocyte mean corpuscular h emoglobin (mass per erythrocyte) 33 pg 25-34 Automated erythrocyte mean corpuscular h emoglobin concentration measurement (mass/volume) 34 g/dL 32-36 Automated erythrocyte distribution width ratio 12. 8 % 10.0- 14.5 Automated blood platelet count (count/volume) 206 10*3/uL 130-400 Automated blood platelet mean volume measurement 11.4 [foz_us] 7.4-10.4 Automated blood neutrophils/100 leukocytes 60 % 42-75 Automated blood lymphocytes/100 leukocytes 22 % 12-44 Blood monocytes/100 leukocytes 14 % 0-12 Automated blood eosinophils/100 leukocytes 3 % 0-10 Automated blood basophils/100 leukocytes 0 % 0-10 Blood neutrophils automated count (number/volume) 4.2 10*3 1.8-7.8 Blood lymphocytes automated count (number/volume) 1.5 10*3 1.0-4.0 Blood monocytes automated count (number/volume) 1. 0 10*3 0.0-1.0 Automated eosinophil count 0.2 10*3/uL 0 .0-0.3 Automated blood basophil count (count/volume) 0.0 10*3/uL 0.0-0.1 Comprehensive metabolic panel - 02/21/19 05:31 Serum or plasma sodium measurement (moles/volume) 134 mmol/L 135-145 Serum or plasma potassium measurement (moles/volume) 3.8 mmol/L 3.6-5.0 Serum or plasma chloride measurement (moles/volume) 96 mmol/L 98-107 Carbon dioxide 28 mmol/L 21-32 Serum or plasma anion gap determination (moles/volume) 10 mmol/L 5-14 Serum or plasma urea nitrogen measurement (mass/volume ) 26 mg/dL 7-18 Serum or plasma creatinine measurement (mass/volume) 1.00 mg/dL 0.60-1.30 Serum or plasma urea nitrogen/creatinine mass ratio 26 NRG Serum or plasma creatinine measurement w ith calculation of estimated glomerular filtration rate > NRG Serum or plasma glucose measurement (mass/volume) 89 mg/dL 70-105 Serum or plasma calcium measurement (mass/volume) 8.9 mg/dL 8.5-10.1 Serum or plasma total bilirubin measurement (mass/volu me) 1.1 mg/dL 0.1-1.0 Serum or plasma alkaline phosphatase shmuel surement (enzymatic activity/volume) 94 U/L 40-136 Serum or plasma aspartate aminotransfera se measurement (enzymatic activity/volume) 39 U/L 5-34 Serum or plasma alanine aminotransferase measurement (enzymatic activity/volume) 32 U/L 0-55 Serum or plasma protein measurement (mass/volume) 6.9 g/dL 6.4-8.2 Serum or plasma albumin measurement (mass/volume) 2.8 g/dL 3.2-4.5 CALCIUM CORRECTED 9.9 mg/dL 8.5-10.1 Magnesium - 02/21/19 05:31 Magnesium 2.0 mg/dL 1.6-2.4 Complete blood count (CBC) with automate d white blood cell (WBC) differential - 02/23/19 05:14 Blood leukocytes automated count (number/volume) 6.5 10*3/uL 4.3-11.0 Blood erythrocytes automated count (number/volume) 3.78 10*6/uL 4.35-5.85 Venous blood hemoglobin measurement (mass/volume) 12.4 g/dL 13.3-17.7 Blood hematocrit (volume fraction) 38 % 40-54 Automated erythrocyte mean corpuscular volume 99 [ foz_us] 80-99 Automated erythrocyte mean corpuscular h emoglobin (mass per erythrocyte) 33 pg 25-34 Automated erythrocyte mean corpuscular h emoglobin concentration measurement (mass/volume) 33 g/dL 32-36 Automated erythrocyte distribution width ratio 12. 8 % 10.0- 14.5 Automated blood platelet count (count/volume) 206 10*3/uL 130-400 Automated blood platelet mean volume measurement 11.4 [foz_us] 7.4-10.4 Automated blood neutrophils/100 leukocytes 50 % 42-75 Automated blood lymphocytes/100 leukocytes 27 % 12-44 Blood monocytes/100 leukocytes 18 % 0-12 Automated blood eosinophils/100 leukocytes 5 % 0-10 Automated blood basophils/100 leukocytes 1 % 0-10 Blood neutrophils automated count (number/volume) 3.2 10*3 1.8-7.8 Blood lymphocytes automated count (number/volume) 1.8 10*3 1.0-4.0 Blood monocytes automated count (number/volume) 1. 2 10*3 0.0-1.0 Automated eosinophil count 0.3 10*3/uL 0 .0-0.3 Automated blood basophil count (count/volume) 0.1 10*3/uL 0.0-0.1 Comprehensive metabolic panel - 02/23/19 05:14 Serum or plasma sodium measurement (moles/volume) 135 mmol/L 135-145 Serum or plasma potassium measurement (moles/volume) 3.9 mmol/L 3.6-5.0 Serum or plasma chloride measurement (moles/volume) 97 mmol/L 98-107 Carbon dioxide 28 mmol/L 21-32 Serum or plasma anion gap determination (moles/volume) 10 mmol/L 5-14 Serum or plasma urea nitrogen measurement (mass/volume ) 23 mg/dL 7-18 Serum or plasma creatinine measurement (mass/volume) 0.85 mg/dL 0.60-1.30 Serum or plasma urea nitrogen/creatinine mass ratio 27 NRG Serum or plasma creatinine measurement w ith calculation of estimated glomerular filtration rate > NRG Serum or plasma glucose measurement (mass/volume) 80 mg/dL 70-105 Serum or plasma calcium measurement (mass/volume) 8.7 mg/dL 8.5-10.1 Serum or plasma total bilirubin measurement (mass/volu me) 0.7 mg/dL 0.1-1.0 Serum or plasma alkaline phosphatase shmuel surement (enzymatic activity/volume) 106 U/L 40-136 Serum or plasma aspartate aminotransfera se measurement (enzymatic activity/volume) 40 U/L 5-34 Serum or plasma alanine aminotransferase measurement (enzymatic activity/volume) 29 U/L 0-55 Serum or plasma protein measurement (mass/volume) 7.0 g/dL 6.4-8.2 Serum or plasma albumin measurement (mass/volume) 2.8 g/dL 3.2-4.5 CALCIUM CORRECTED 9.7 mg/dL 8.5-10.1 Encounters ACCT No. Visit Date/Time Discharge Status Pt. Type Provider Facility Loc./Unit Complaint [id number] 01/31/2012 16:37:00 01/31/2012 23:59: 59 CLS Outpatient HEMANT EVANGELISTA APRN [id number] 01/31/2012 16:37:00 01/31/2012 23:59:5 9 CLS Outpatient HEMANT EVANGELISTA APRN [id number] 03/02/2019 14:31:00 019 23:59:59 CLS Preadmit LATIA MARIE, BRITTANY [facility] WOUNDCARE [id number] 02/20/2019 13:39:00 10:45:00 DIS Inpatient CHELSEY WHEATLEY DO, V [facility] IRF CRITICAL ILLNESS MYOPAT HY [id number] 02/11/2019 23:40:00 019 13:25:00 DIS Inpatient CHELSEY WHEATLEY DO, V [facility] ICU ACUTE RESP FAILURE, SEP TIC SHOCK [id number] 05/31/2017 11:47:00 018 23:59:59 CLS Preadmit HEMANT EVANGELISTA [facility] REHAB GENERALIZED WEAKNESS;DECONDITIONING [id number] 12/16/2016 12:50:00 017 23:59:59 CLS Outpatient JOVANNA PANG MD Via [facility] [id number] 12/15/2016 15:29:00 017 23:59:59 CLS Outpatient JOVANNA PANG MD [facility] [id number] 12/02/2016 11:34:00 017 16:50:00 DIS Inpatient LUL ADRIAN MD [facility] 4TH ARRHYTHMIA [id number] 09/29/2015 12:45:00 016 12:00:00 DIS Outpatient DAVID MCFARLANE APRN [facility] WOUNDCARE [id number] 09/22/2015 13:27:00 016 23:59:59 CLS Outpatient DAVID MCFARLANE APRN [facility] LAB NON PRESSURE CH RONIC ULCER, OTHER SPECIFIED DISORD [id number] 11/25/2014 10:00:00 015 12:00:00 DIS Outpatient BRITTANY JEFFERY MD [facility] WOUNDCARE [id number] 11/22/2014 09:50:00 015 23:59:59 CLS Outpatient BRITTANY JEFFERY MD [facility] LAB WOUND CARE [id number] 10/25/2014 10:09:00 015 23:59:59 CLS Outpatient BRITTANY JEFFERY MD [facility] RAD ARRHYTHMIA [id number] 10/04/2014 09:03:00 015 00:01:00 DIS Outpatient BRITTANY JEFFERY MD [facility] WOUNDCARE [id number] 08/11/2014 14:39:00 015 23:59:59 CLS Outpatient BRITTANY JEFFERY MD [facility] RAD RIGHT THIGH ULCER WITH HX OF RADIATION FOR SQUAMOU [id number] 07/07/2014 09:45:00 015 23:59:59 CLS Preadmit DONTRELL BATISTA [facility] ONC OV,SQUAMOUS CELL CA RT THIGH [id number] 07/05/2014 13:02:00 015 00:01:00 DIS Outpatient DONTRELL BATISTA V [facility] ONC OV,SQUAMOUS CELL CA RT THIGH [id number] 07/01/2014 10:15:00 015 23:59:59 CLS Preadmit DONTRELL BATISTA [facility] RAD SQUAMOUS CELL SKIN CANC ER, PULMONARY NODULE [id number] 04/07/2014 13:22:00 23:59:59 CLS Outpatient STEPHIE RODRIGUEZ [facility] ONC [id number] 12/21/2013 14:21:00 014 00:01:00 DIS Outpatient DONTRELL BATISTA V [facility] ONC OV,SQUAMOUS CELL CA RT THIGH [id number] 11/30/2013 11:13:00 014 23:59:59 CLS Outpatient DONTRELL BATISTA V [facility] CARD SQUAMOUS CELL CANCER-TH [facility] [id number] 11/25/2013 15:43:00 014 23:59:59 CLS Outpatient DONTRELL BATISTA V [facility] RAD NEUROPATHIC PAIN THIGH, SQUAMOUS CELL CA [id number] 08/20/2013 12:30:00 014 15:53:00 DIS Outpatient BILL NARAYANAN MD [facility] WOUNDCARE NON HEALING WOUND [id number] 08/06/2013 13:30:00 014 00:01:00 DIS Outpatient BILL NARAYANAN MD [facility] WOUNDCARE NON HEALING WOUND [id number] 08/03/2013 10:10:00 014 00:01:00 DIS Outpatient DONTRELL BATISTA [facility] ONC OV,SQUAMOUS CELL CA RT THIGH [id number] 08/12/2013 10:19:00 23:59:59 CLS Outpatient STEPHIE RODRIGUEZ [facility] ONC [id number] 08/03/2013 10:41:00 23:59:59 CLS Outpatient DONTRELL BATISTA V [facility] CARD SQUAMOUS CELL CARCINOMA , NODULE [id number] 03/20/2013 12:45:00 13:26:00 DIS Outpatient BILL NARAYANAN MD [facility] WOUNDCARE RT LEG WOUND [id number] 03/06/2013 06:32:00 11:07:00 DIS Outpatient BILL NARAYANAN MD [facility] WOUND RIGHT THIGH [id number] 03/05/2013 09:46:00 23:59:59 CLS Outpatient BILL NARAYANAN MD [facility] PREOP WOUND RIGHT THIGH [id number] 02/24/2013 10:45:00 23:59:59 CLS Outpatient STEPHIE RODRIGUEZ [facility] ONC [id number] 02/10/2013 11:40:00 23:59:59 CLS Outpatient AUREA MILLER MD [facility] RAD COPD,CP,DIZZINESS,FATIG UE [id number] 02/04/2013 11:05:00 23:59:59 CLS Outpatient AUREA MILLER MD [facility] CARD COPD,CP,DIZZINESS,FATIG UE [id number] 01/06/2013 11:07:00 23:59:59 CLS Outpatient STEPHIE RODRIGUEZ [facility] ONC [id number] 12/24/2012 08:24:00 13:45:00 DIS Outpatient BILL NARAYANAN MD [facility] SDC SQUAMOUS CELL CARCINOM A RIGHT LEG [id number] 12/22/2012 14:37:00 23:59:59 CLS Outpatient BILL NARAYANAN MD [facility] PREOP SQUAMOUS CELL CARCINOM A RIGHT LEG [id number] 12/16/2012 13:27:00 013 23:59:59 CLS Outpatient STEPHIE RODRIGUEZ [employer] [facility] ONC [id number] 10/02/2012 09:47:00 013 00:01:00 DIS Outpatient DONTRELL BATISTA [facility] ONC OV,SQUAMOUS CELL CA RT THIGH [id number] 10/30/2012 10:42:00 23:59:59 CLS Outpatient STEPHIE RODRIGUEZ [employer] [facility] ONC [id number] 09/10/2012 10:52:00 23:59:59 CLS Outpatient STEPHIE RODRIGUEZ [employer] [facility] RAD PULMONARY NODUL E, CA OF THIGH AREA [id number] 08/05/2012 13:10:00 23:59:59 CLS Outpatient STEPHIE RODRIGUEZ [employer] [facility] ONC [id number] 05/05/2012 12:59:00 00:01:00 DIS Outpatient DONTRELL BATISTA [facility] ONC OV,SQUAMOUS CELL CA RT THIGH [id number] 08/02/2014 14:59:00 Document Registration [id number] 08/02/2014 14:59:00 Document Registration [id number] 08/02/2014 14:59:00 Document Registration [id number] 08/02/2014 14:59:00 Document Registration [id number] 08/02/2014 14:59:00 Document Registration [id number] 08/02/2014 14:59:00 Document Registration [id number] 08/02/2014 14:59:00 Document Registration [id number] 08/02/2014 14:59:00 Document Registration [id number] 08/02/2014 14:59:00 Document Registration [id number] 08/02/2014 14:59:00 Document Registration [id number] 08/02/2014 14:59:00 Document Registration [id number] 08/02/2014 14:59:00 Document Registration [id number] 08/02/2014 14:59:00 Document Registration [id number] 08/02/2014 14:59:00 Document Registration [id number] 03/21/2012 11:05:00 Document Registration [id number] 01/11/2012 13:08:00 Document Registration [id number] 12/25/2011 12:44:00 Document Registration [id number] 10/09/2011 13:06:00 Document Registration [id number] 09/13/2011 11:44:00 Document Registration [id number] 07/11/2011 12:37:00 Document Registration [id number] 05/14/2011 10:28:00 Document Registration [id number] 04/26/2011 10:40:00 Document Registration [id number] 04/04/2011 09:45:00 Document Registration [id number] 03/30/2011 09:15:00 Document Registration [id number] 03/22/2011 14:23:00 Document Registration [id number] 03/20/2011 10:30:00 Document Registration [id number] 03/12/2011 11:30:00 Document Registration [id number] 03/05/2011 10:00:00 Document Registration [id number] 02/26/2011 10:00:00 Document Registration [id number] 02/14/2011 09:15:00 Document Registration [id number] 02/12/2011 10:30:00 Document Registration [id number] 10/31/2010 11:16:00 Document Registration [id number] 10/25/2010 14:51:00 Document Registration [id number] 08/28/2010 11:49:00 Document Registration [id number] 08/16/2010 08:32:00 Document Registration [id number] 06/26/2010 05:46:00 Document Registration [id number] 06/16/2010 12:51:00 Document Registration [id number] 06/14/2010 10:03:00 Document Registration [id number] 03/05/2019 10:00:00 03/05/2019 23:59:5 9 [facility] HEMANT EVANGELISTA APRN [facility] [id number] 02/02/2019 15:00:00 Document Registration [id number] 08/12/2018 10:00:00 Document Registration [id number] 08/06/2018 15:00:00 Document Registration [id number] 11/18/2017 14:20:00 Document Registration [id number] 04/29/2017 09:40:00 Document Registration
== END 2019-02-26 10:45 | disposition home health service (06) | DRG 91 ==
PROVIDERS: ADMIT Internal Medicine; ATTEND Internal Medicine
DX: G72.81 Critical illness myopathy (principal); I21.4 Non-ST elevation (NSTEMI) myocardial infarction; Z87.09 Personal history of other diseases of the respiratory system; I25.10 Atherosclerotic heart disease of native coronary artery without angina pectoris; I25.5 Ischemic cardiomyopathy; F01.50 Vascular dementia, unspecified severity, without behavioral disturbance, psychotic disturbance, mood disturbance, and anxiety; F17.210 Nicotine dependence, cigarettes, uncomplicated; J44.9 Chronic obstructive pulmonary disease, unspecified; E78.5 Hyperlipidemia, unspecified; I10 Essential (primary) hypertension; K21.9 Gastro-esophageal reflux disease without esophagitis; M19.91 Primary osteoarthritis, unspecified site; F41.9 Anxiety disorder, unspecified; F32.9 Major depressive disorder, single episode, unspecified; Z99.81 Dependence on supplemental oxygen; Z95.5 Presence of coronary angioplasty implant and graft; Z85.830 Personal history of malignant neoplasm of bone
CPT/HCPCS: 36415; 71045; 80053; 83735; 85025; 93005; 93306; 94010; 94640; 94760

== ENCOUNTER → 2019-05-06 | Outpatient (CLI) | payer MEDICARE, MEDICAID ==
--- NOTE | 2019-05-05 12:37 | NUR ---
PT SCHEDULED FOR PULMONARY REHAB EVALUATION; LOOKED UP PT'S FILE TO SEE IF CURRENT PFT IN RECORDS (FOR EVAL) AND TO GET MAILING ADDRESS TO SEND PAPERWORK
[~2019-05-06] MED LIST changes: +ALB0.5V INH; +ASPI-983 PO; +ATOR80TA76 PO; +CARV12.52 PO; +CARV12.53 PO; +CATHETER FLUSH 10 ML SYR IV PRN; +FURO-124 PO; +HOLD METFORMIN - RECEIVED CONTRAST 20 ML VIAL IV SCH; +IOHEXOL 350 MG/ML 100 ML (OMNIPAQUE 350) VIAL IV ONE; +LOSA50TA63 PO; +NS 100 ML (IVPB) BAG IV ONE; +PRAS10TA6 PO; +RT-ALBUTEROL SULF 2.5 MG/3 ML PRE-MIX VIAL INH ONE; +SPIR25TA PO; +SPIR25TA5 PO
[2019-05-06 09:41] LABS: BUN/CREATININE RATIO 14; CREATININE SERUM 0.83 MG/DL (0.60-1.30); GFR ESTIMATED > 60
[2019-05-06 11:40] LABS: ABG OXYGEN SATURATION 97 % (94-100); ABG PCO2 33 MMHG (35-45); ABG PH 7.46 (7.37-7.43); ABG PO2 76 MMHG (79-93); ABG TCO2 24.6 MMOL/L (21.0-31.0); ALLENS TEST POSITIVE; VENTILATOR NO
[2019-05-06 11:41] LABS: PATIENT TEMP 36.2
--- NOTE | 2019-05-06 13:28 | Diagnostic Imaging Report ---
EXAMINATION: CT Chest with intravenous contrast. TECHNIQUE: Multiple contiguous axial images were obtained through the chest after the uneventful administration of intravenous contrast. All CT scans use one or more of the following dose optimizing techniques: automated exposure control, MA and/or KvP adjustment based on a patient size and exam type, or iterative reconstruction. HISTORY: COPD,DYSPNEA COMPARISON: 08/03/2013. FINDINGS: There is no edema or pneumonia. No pleural effusion. No pneumothorax. There are four nodules in the right apex which are unchanged from 2014 and likely represent areas of scarring. The largest measures 8 mm. Lungs are moderate to severely emphysematous. Mucus is present in the trachea. Heart size is normal. No pericardial effusion. Aorta is normal in caliber. There is no axillary or supraclavicular lymphadenopathy. There is no mediastinal lymphadenopathy. 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 Coronary arteries are heavily calcified. There is a stable 7 mm cyst in the body of pancreas, likely benign given its stability. There are severe calcifications at the origins of the renal arteries and celiac and superior mesenteric arteries. There are no suspicious osseus lesions. IMPRESSION: 1. Unchanged nodules in the right apex likely representing scarring given their stability. 2. 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 3. [id number] emphysema. 4. Stable cystic lesion in the body of pancreas, likely benign given stability. Dictated by: Dictated on workstation # [id number]
== END ==
LOC: RT 08:59
PROVIDERS: ATTEND Nurse Practitioner Family
DX: J43.9 Emphysema, unspecified (principal); R91.8 Other nonspecific abnormal finding of lung field; I70.8 Atherosclerosis of other arteries; K86.2 Cyst of pancreas; F17.200 Nicotine dependence, unspecified, uncomplicated
CPT/HCPCS: 36415; 36600; 71260; 82565; 82805; 84520; 94060; 94726; 94729

== ENCOUNTER 2019-05-20 14:00 | Outpatient (RCR) | payer MEDICARE, MEDICAID ==
[~2019-05-20 14:00] MED LIST changes: -CATHETER FLUSH 10 ML SYR IV PRN; -HOLD METFORMIN - RECEIVED CONTRAST 20 ML VIAL IV SCH; -IOHEXOL 350 MG/ML 100 ML (OMNIPAQUE 350) VIAL IV ONE; -NS 100 ML (IVPB) BAG IV ONE; -RT-ALBUTEROL SULF 2.5 MG/3 ML PRE-MIX VIAL INH ONE
[2019-06-02 13:00] VITALS: BP 120/60
[2019-06-02 14:30] VITALS: BP 128/60
[2019-06-04 13:00] VITALS: BP 97/40
[2019-06-04 13:50] VITALS: BP 87/50
== END 2019-08-18 | disposition home or self-care (01) ==
LOC: PULM 14:00
PROVIDERS: ATTEND Nurse Practitioner Family
DX: J44.9 Chronic obstructive pulmonary disease, unspecified (principal)
CPT/HCPCS: 99211